=== PATIENT | female | born 1990 | race Two or more races ===

== ENCOUNTER 2023-12-10 14:48 | Inpatient (IN) | payer OTHER ==
[~2023-12-10] VITALS: Ht 162.6 cm; Wt 89.8 kg
[2023-12-10 16:10] VITALS: PULSE 94; RESP 20; O2SAT 96
[2023-12-10 16:48] LABS: Basophils # (auto) 0.1 10 ^3/uL (0-0.2); Eosinophils # (auto) 0 10 ^3/uL (0-0.8); Eosinophils % (auto) 0.4 % (0.0-7.0)
[2023-12-10 16:49] LABS: Hematocrit 19.5 % (36.0-46.0); Lymphocytes # (auto) 1.4 10 ^3/uL (0.4-5.4); Lymphocytes % (auto) 14.7 % (10.0-50.0); Mean Corpuscular Hemoglobin 36.9 pg (28.0-32.0); Mean Corpuscular Hgb Conc. 35.1 g/dL (32.0-36.0); Mean Corpuscular Volume 105.1 fL (80.0-100.0); Monocytes # (auto) 0.5 10 ^3/uL (0-1.3); Monocytes % (auto) 5.1 % (0.0-12.0); Neutrophils # (auto) 7.5 10 ^3/uL (1.6-8.6); Neutrophils % (auto) 78.8 % (37.0-80.0); Nucleated Red Blood Cells % 0.1 %; Red Blood Cells 1.86 10^6/uL (4.0-5.20); White Blood Cell 9.5 10^3/uL (4.4-10.8)
[2023-12-10 16:50] LABS: Red Cell Distribution Width 20.4 % (11.8-14.3)
[2023-12-10 16:55] LABS: Hemoglobin 6.8 g/dL (12.2-16.2)
[2023-12-10 17:01] LABS: Alkaline Phosphatase 98 U/L (46-116); Anion Gap 5 (5-15); Aspartate Aminotransferase 69 U/L (13-40); Calcium 9.5 mg/dL (8.7-10.4); Carbon Dioxide 29 mmol/L (20-30); Chloride 100 mmol/L (98-107); Glucose 92 mg/dL (74-106); Potassium 3.8 mmol/L (3.5-5.1); Sodium 134 mmol/L (136-145)
[2023-12-10 17:02] LABS: Bilirubin, Total 10.8 mg/dL (0.2-1.0); Total Protein 8.4 g/dL (5.7-8.2)
[2023-12-10 17:06] LABS: Alanine Aminotransferase < 9 U/L (7-40)
[2023-12-10 17:07] LABS: Lactic Acid w/Reflex 2.1 mmol/L (0.4-2.0)
[2023-12-10 17:11] LABS: BUN/Creatinine Ratio 9.3 (10.0-20.0); Blood Urea Nitrogen 10 mg/dL (9-23)
[2023-12-10] MEDS: ONDANSETRON HCL 4 MG/2 ML VIAL IV ONE (17:42)
[2023-12-10] MEDS: MORPHINE SULFATE 4 MG/ML SYR/VIAL IV ONE (17:42)
[2023-12-10 17:52] LABS: Ferritin > 1650.0 ng/mL (10-291)
[2023-12-10 17:53] LABS: INR 1.96 (0.9-1.15); Partial Thromboplastin Time 40.5 SEC (24.5-34.5); Prothrombin Time 19.7 sec (9.3-11.8)
[2023-12-10] MEDS: PIPERACILLIN-TAZOB 3.375GM 100 ML IV ONE (18:35)
[2023-12-10 18:49] LABS: Anisocytosis Slight; Macrocytosis Slight; Platelet Estimate Decreased
[2023-12-10 19:14] LABS: % Iron Saturation 73.5 % (15-50)
[2023-12-10 20:00] VITALS: PULSE 83; RESP 16; O2SAT 97
[2023-12-10] MEDS: KETOROLAC TROMETH 60MG/2ML VIAL IV ONE (20:44)
[2023-12-10] MEDS: METOCLOPRAMIDE HCL 5MG/ml INJ 2ml VIAL IV ONE (20:44)
[2023-12-10 21:00] VITALS: BP 116/49; PULSE 83; RESP 16; TEMP 99.2
[2023-12-10 21:25] VITALS: BP 98/48; PULSE 89; RESP 15; TEMP 99
[2023-12-10] MEDS ORDERED: NITROGLYCERIN 0.4 MG SL TAB SL PRN (22:45)
[2023-12-10] MEDS ORDERED: MORPHINE SULFATE INJ 2 MG/ml SYRG IV PRN (22:45)
[2023-12-10] MEDS ORDERED: LORazepam 2MG/ML-1ML VIAL IV PRN (22:45)
[2023-12-10 23:55] LABS: Urine Bacteria FEW /hpf (None Seen); Urine Blood TRACE /uL (Negative); Urine Clarity HAZY (Clear); Urine Color Yellow (Yellow); Urine Hyaline Cast MANY /lpf (0 - 2); Urine Mucus FEW (None Seen); Urine Protein, UAD TRACE (Negative); Urine Specific Gravity 1.014 (1.001-1.035); Urine Urobilinogen Normal (Negative); Urine WBC 3 /hpf (0 - 5)
[2023-12-11] VITALS (18 sets, daily range): BP systolic 87–155; BP diastolic 21–79; PULSE 71–81; RESP 12–25; TEMP 98.1–99; O2SAT 97–100
[2023-12-11] MEDS: ACCU-CHEK COMFORT CURVE STRIP VI SCH
[2023-12-11 00:01] LABS: Amphetamine Screen, Urine Neg (NEGATIVE); Barbiturate Scree,Urine Neg (NEGATIVE); Benzodiazephine Screen, Urine Pos (NEGATIVE); Cocaine Screen, Urine Neg (NEGATIVE); Opiate Scree,Urine Pos (NEGATIVE)
[2023-12-11 00:02] LABS: Cannabinoid Screen, Urine Pos (NEGATIVE); Phencyclidine Screen, Urine Neg (NEGATIVE)
[2023-12-11] MEDS: ALBUMIN 5% 250 ML IV ONE (00:02)
[2023-12-11] MEDS: phytonadione 10 MG in SODIUM CHL 0.9% 50 ML IV ONE (00:11)
[2023-12-11] MEDS: phytonadione 1 ML ONE (00:17)
[2023-12-11] MEDS: SODIUM CHLORIDE 0.9% 1,000 ML IV SCH (00:57)
[2023-12-11] MEDS: metroNIDAZOLE 500MG/100ML 100 ML IV ONE (00:57)
[2023-12-11] MEDS: metroNIDAZOLE 500MG/100ML 100 ML IV SCH (05:40)
[2023-12-11 08:29] LABS: Basophils # (auto) 0.1 10 ^3/uL (0-0.2); Basophils % (auto) 0.8 % (0.0-2.0); Eosinophils # (auto) 0.1 10 ^3/uL (0-0.8); Eosinophils % (auto) 1.1 % (0.0-7.0); Hematocrit 22.1 % (36.0-46.0); Hemoglobin 7.6 g/dL (12.2-16.2); Lymphocytes # (auto) 1.8 10 ^3/uL (0.4-5.4); Lymphocytes % (auto) 26.7 % (10.0-50.0); Mean Corpuscular Hemoglobin 34.5 pg (28.0-32.0); Mean Corpuscular Hgb Conc. 34.4 g/dL (32.0-36.0); Mean Corpuscular Volume 100.4 fL (80.0-100.0); Monocytes # (auto) 0.4 10 ^3/uL (0-1.3); Monocytes % (auto) 6.6 % (0.0-12.0); Neutrophils # (auto) 4.3 10 ^3/uL (1.6-8.6); Neutrophils % (auto) 64.8 % (37.0-80.0); Nucleated Red Blood Cells % 0.1 %; White Blood Cell 6.7 10^3/uL (4.4-10.8)
[2023-12-11 08:30] LABS: Red Cell Distribution Width 21.6 % (11.8-14.3)
[2023-12-11 08:47] LABS: Albumin 2.9 g/dL (3.2-4.8); Alkaline Phosphatase 82 U/L (46-116); Anion Gap 5 (5-15); Aspartate Aminotransferase 53 U/L (13-40); Bilirubin, Total 11.8 mg/dL (0.2-1.0); Blood Urea Nitrogen 17 mg/dL (9-23); Calcium 8.6 mg/dL (8.5-10.1); Carbon Dioxide 27 mmol/L (20-30); Chloride 101 mmol/L (98-107); Glucose 71 mg/dL (74-106); Potassium 3.4 mmol/L (3.5-5.1); Sodium 133 mmol/L (136-145)
[2023-12-11 08:48] LABS: Total Protein 7.1 g/dL (5.7-8.2)
[2023-12-11 08:50] LABS: Alanine Aminotransferase < 9 U/L (7-40)
[2023-12-11 08:53] LABS: Ferritin 1626.9 ng/mL (10-291)
[2023-12-11 08:54] LABS: Folate (Folic Acid) 12.56 ng/mL (>5.38)
[2023-12-11] MEDS: PANTOPRAZOLE 40 MG/10 ML VIAL INJ IV SCH (10:47)
[2023-12-11] MEDS: cefTRIAXone 1GM/50ML D5W 50 ML IV SCH (10:47)
[2023-12-11] MEDS: FUROSEMIDE 20 MG/2 ML VIAL IV SCH (10:47)
[2023-12-11] MEDS: ONDANSETRON HCL 4 MG/2 ML VIAL IV PRN (10:50)
[2023-12-11] MEDS: MORPHINE SULFATE INJ 2 MG/ml SYRG IV PRN (10:51)
[2023-12-11 11:54] LABS: BUN/Creatinine Ratio 9.4 (10.0-20.0)
[2023-12-11] MEDS: DEXTROSE (50%) 50ML SYRG IV PRN (12:31)
[2023-12-11 12:37] LABS: % Iron Saturation 71.7 % (15-50)
[2023-12-11] MEDS ORDERED: ACAM1TAB PO (17:18)
[2023-12-11] MEDS ORDERED: FOLI-119 PO (17:18)
[2023-12-11] MEDS ORDERED: IBUP-1456 PO (17:18)
[2023-12-11] MEDS ORDERED: FURO40TA4 PO (17:18)
[2023-12-11] MEDS ORDERED: THIA100T10 PO (17:18)
[2023-12-11] MEDS ORDERED: TORS20TA19 PO (17:18)
[2023-12-11] MEDS ORDERED: LEVE100012 PO (17:18)
[2023-12-11] MEDS ORDERED: TRAM50TA2 PO (17:18)
[2023-12-11] MEDS ORDERED: SPIR100T4 PO (17:18)
[2023-12-11] MEDS ORDERED: METO25TA93 PO (17:18)
[2023-12-11] MEDS ORDERED: CIPR250T3 PO (17:18)
[2023-12-11] MEDS ORDERED: GABA-1250 PO (17:18)
[2023-12-11] MEDS: FOLIC ACID 1 MG, MAGNESIUM SULF SDV 50% 8 MEQ, MULTIPLE VITAMIN 10 ML, THIAMINE INJ 100... INJ SCH (17:34)
[2023-12-11 19:05] LABS: Basophils # (auto) 0 10 ^3/uL (0-0.2); Basophils % (auto) 0.6 % (0.0-2.0); Eosinophils # (auto) 0.1 10 ^3/uL (0-0.8); Hematocrit 24.7 % (36.0-46.0); Hemoglobin 8.4 g/dL (12.2-16.2); Lymphocytes # (auto) 1.6 10 ^3/uL (0.4-5.4); Lymphocytes % (auto) 26.3 % (10.0-50.0); Mean Corpuscular Hemoglobin 34.2 pg (28.0-32.0); Mean Corpuscular Hgb Conc. 34.2 g/dL (32.0-36.0); Mean Corpuscular Volume 100.1 fL (80.0-100.0); Monocytes # (auto) 0.4 10 ^3/uL (0-1.3); Neutrophils % (auto) 65.1 % (37.0-80.0); Nucleated Red Blood Cells % 0.1 %; Red Blood Cells 2.46 10^6/uL (4.0-5.20); White Blood Cell 6.2 10^3/uL (4.4-10.8)
[2023-12-11 19:06] LABS: Red Cell Distribution Width 21.6 % (11.8-14.3)
[2023-12-12] VITALS (8 sets, daily range): BP systolic 92–110; BP diastolic 36–68; PULSE 76–96; RESP 16–20; TEMP 97.3–98.4; O2SAT 92–97
[2023-12-12 05:48] LABS: Basophils # (auto) 0.1 10 ^3/uL (0-0.2); Eosinophils # (auto) 0.1 10 ^3/uL (0-0.8); Mean Corpuscular Volume 99.6 fL (80.0-100.0); Monocytes # (auto) 0.4 10 ^3/uL (0-1.3)
[2023-12-12 05:55] LABS: Basophils % (auto) 1.3 % (0.0-2.0); Eosinophils % (auto) 1.9 % (0.0-7.0); Hematocrit 23.3 % (36.0-46.0); Hemoglobin 8.1 g/dL (12.2-16.2); Lymphocytes # (auto) 1.8 10 ^3/uL (0.4-5.4); Lymphocytes % (auto) 28.2 % (10.0-50.0); Mean Corpuscular Hemoglobin 34.6 pg (28.0-32.0); Mean Corpuscular Hgb Conc. 34.7 g/dL (32.0-36.0); Monocytes % (auto) 6.6 % (0.0-12.0); Red Blood Cells 2.34 10^6/uL (4.0-5.20); White Blood Cell 6.5 10^3/uL (4.4-10.8)
[2023-12-12 05:57] LABS: Red Cell Distribution Width 21.5 % (11.8-14.3)
[2023-12-12 06:18] LABS: Albumin 2.6 g/dL (3.2-4.8); Alkaline Phosphatase 77 U/L (46-116); Anion Gap 7 (5-15); BUN/Creatinine Ratio 11.2 (10.0-20.0); Blood Urea Nitrogen 19 mg/dL (9-23); Calcium 8.3 mg/dL (8.5-10.1); Carbon Dioxide 25 mmol/L (20-30); Chloride 105 mmol/L (98-107); Glucose 67 mg/dL (74-106); Potassium 3.1 mmol/L (3.5-5.1); Sodium 137 mmol/L (136-145)
[2023-12-12 06:19] LABS: Aspartate Aminotransferase 42 U/L (13-40); Bilirubin, Direct 2.2 mg/dL (<0.3); Bilirubin, Total 10.4 mg/dL (0.2-1.0); Total Protein 6.4 g/dL (5.7-8.2)
[2023-12-12 06:28] LABS: Alanine Aminotransferase < 9 U/L (7-40)
[2023-12-12] MEDS: POTASSIUM CHL 20 Meq TABLET PO ONE (08:15)
[2023-12-12 08:45] LABS: Hepatitis B Surface Antigen Negative (Negative)
[2023-12-12 09:06] LABS: Hepatitis C Antibody Negative (Negative)
[2023-12-12 09:11] LABS: Hepatitis B Core Total AB Negative (Negative)
[2023-12-12] MEDS: POTASSIUM CHLORIDE 20 MEQ, LIDOCAINE 1% (LOCAL ANESTH.) 2 ML in SODIUM CHL 0.9% 100 ML IV ONE (10:19)
[2023-12-12] MEDS: traMADol HCL 50 MG TAB PO PRN (11:00)
[2023-12-12 11:21] LABS: Hepatitis A Total Antibody Positive (Negative); Hepatitis B Surface Antibody Positive (Negative); Hepatitis B Surface Antigen Negative (Negative)
[2023-12-12 11:22] LABS: Hepatitis C Antibody Negative (Negative)
[2023-12-13] VITALS (9 sets, daily range): BP systolic 91–112; BP diastolic 46–55; PULSE 77–95; RESP 12–20; TEMP 97.4–98.3; O2SAT 96–100
[2023-12-13 06:18] LABS: Basophils # (auto) 0.1 10 ^3/uL (0-0.2); Eosinophils # (auto) 0.1 10 ^3/uL (0-0.8); Hematocrit 22.9 % (36.0-46.0); Hemoglobin 7.9 g/dL (12.2-16.2); Mean Corpuscular Hemoglobin 34.4 pg (28.0-32.0)
[2023-12-13 06:21] LABS: Basophils % (auto) 1.1 % (0.0-2.0); Eosinophils % (auto) 1.6 % (0.0-7.0); Lymphocytes # (auto) 1.6 10 ^3/uL (0.4-5.4); Lymphocytes % (auto) 26.1 % (10.0-50.0); Mean Corpuscular Hgb Conc. 34.6 g/dL (32.0-36.0); Mean Corpuscular Volume 99.6 fL (80.0-100.0); Monocytes # (auto) 0.4 10 ^3/uL (0-1.3); Monocytes % (auto) 5.9 % (0.0-12.0); Neutrophils % (auto) 65.3 % (37.0-80.0); Nucleated Red Blood Cells % 0.2 %
[2023-12-13 06:24] LABS: Red Cell Distribution Width 20.5 % (11.8-14.3)
[2023-12-13 06:31] LABS: Alkaline Phosphatase 75 U/L (46-116); Calcium 8.5 mg/dL (8.5-10.1); Chloride 107 mmol/L (98-107)
[2023-12-13 06:32] LABS: Albumin 2.6 g/dL (3.2-4.8); Anion Gap 6 (5-15); Aspartate Aminotransferase 41 U/L (13-40); BUN/Creatinine Ratio 14.1 (10.0-20.0); Bilirubin, Total 7.7 mg/dL (0.2-1.0); Blood Urea Nitrogen 14 mg/dL (9-23); Carbon Dioxide 26 mmol/L (20-30); Glucose 74 mg/dL (74-106); INR 1.62 (0.9-1.15); Partial Thromboplastin Time 39.3 SEC (24.5-34.5); Potassium 3.1 mmol/L (3.5-5.1); Prothrombin Time 16.5 sec (9.3-11.8); Sodium 139 mmol/L (136-145); Total Protein 6.7 g/dL (5.7-8.2)
[2023-12-13 06:35] LABS: Alanine Aminotransferase < 9 U/L (7-40)
[2023-12-13] MEDS ORDERED: SODIUM CHLORIDE LOCK 10 ML ONE (12:03)
[2023-12-13] MEDS: LIDOCAINE VISCOUS 2% 15ML UD ONE (12:14)
[2023-12-13] MEDS: diphenhdrAMINE HCL 50 MG/1 ML VL ONE (12:18)
[2023-12-13] MEDS: fentaNYL CITRATE 100 MCG/2 ML VL ONE (12:18)
[2023-12-13] MEDS: MIDAZOLAM HCL 5 MG/ML-1ML VIAL ONE (12:18)
[2023-12-13] MEDS: SUCRALFATE 1 GM/10 ML ORAL SUSP PO SCH (19:03)
[2023-12-13] MEDS: MELATONIN 5 MG TAB PO SCH (23:17)
[2023-12-14] VITALS (7 sets, daily range): BP systolic 101–113; BP diastolic 44–58; PULSE 68–93; RESP 16–21; TEMP 97.5–98.1; O2SAT 92–96
[2023-12-14] MEDS: NYSTATIN TOPICAL POWDER 15GM TOP SCH (21:34)
[2023-12-15] VITALS (7 sets, daily range): BP systolic 94–117; BP diastolic 45–55; PULSE 70–90; RESP 17–18; TEMP 98–98.3; O2SAT 91–97
[2023-12-16] VITALS (11 sets, daily range): BP systolic 81–138; BP diastolic 37–97; PULSE 15–107; RESP 15–20; TEMP 98–98.6; O2SAT 91–99
[2023-12-16] MEDS: ACETAMINOPHEN 325 MG TAB PO PRN (22:51)
[2023-12-17] VITALS (7 sets, daily range): BP systolic 82–118; BP diastolic 25–91; PULSE 71–91; RESP 15–19; TEMP 97.8–98.6; O2SAT 90–100
[2023-12-17] MEDS: SODIUM CHLORIDE 0.9% 500 ML IV ONE (11:30)
[2023-12-18] VITALS (7 sets, daily range): BP systolic 110–132; BP diastolic 36–62; PULSE 63–89; RESP 16–20; TEMP 97.7–98.5; O2SAT 97–100
[2023-12-18] MEDS ORDERED: HYDROCORTONE 1% TOPICAL CREAM 30 GM TUBE TOP SCH (14:00)
[2023-12-19] VITALS (8 sets, daily range): BP systolic 101–143; BP diastolic 48–78; PULSE 81–98; RESP 16–21; TEMP 97.5–98.8; O2SAT 92–100
[2023-12-19] MEDS: HYDROCORTONE 1% TOPICAL CREAM 30 GM TUBE TOP PRN (15:02)
[2023-12-19 20:10] LABS: Basophils # (auto) 0.1 10 ^3/uL (0-0.2); Basophils % (auto) 1.6 % (0.0-2.0); Eosinophils # (auto) 0.1 10 ^3/uL (0-0.8); Eosinophils % (auto) 2.2 % (0.0-7.0); Hematocrit 20.3 % (36.0-46.0); Lymphocytes # (auto) 1.3 10 ^3/uL (0.4-5.4); Lymphocytes % (auto) 34.9 % (10.0-50.0); Mean Corpuscular Hemoglobin 34.4 pg (28.0-32.0); Mean Corpuscular Hgb Conc. 32.8 g/dL (32.0-36.0); Mean Corpuscular Volume 104.8 fL (80.0-100.0); Monocytes # (auto) 0.4 10 ^3/uL (0-1.3); Monocytes % (auto) 9.5 % (0.0-12.0); Neutrophils % (auto) 51.8 % (37.0-80.0); Nucleated Red Blood Cells % 0.2 %; Red Blood Cells 1.94 10^6/uL (4.0-5.20); White Blood Cell 3.8 10^3/uL (4.4-10.8)
[2023-12-19 20:11] LABS: Red Cell Distribution Width 21.5 % (11.8-14.3)
[2023-12-19 20:14] LABS: Hemoglobin 6.7 g/dL (12.2-16.2)
[2023-12-19 20:23] LABS: Alkaline Phosphatase 85 U/L (46-116); Calcium 8.4 mg/dL (8.5-10.1); Carbon Dioxide 26 mmol/L (20-30); Chloride 106 mmol/L (98-107); Glucose 111 mg/dL (74-106); Potassium 2.9 mmol/L (3.5-5.1)
[2023-12-19 20:24] LABS: Albumin 2.6 g/dL (3.2-4.8); Anion Gap 7 (5-15); Aspartate Aminotransferase 46 U/L (13-40); Bilirubin, Total 2.8 mg/dL (0.2-1.0); Sodium 139 mmol/L (136-145); Total Protein 6.4 g/dL (5.7-8.2)
[2023-12-19 20:29] LABS: Alanine Aminotransferase 9 U/L (7-40); BUN/Creatinine Ratio 6.4 (10.0-20.0); Blood Urea Nitrogen < 5 mg/dL (9-23)
[2023-12-19] MEDS: POTASSIUM CHL 20 Meq TABLET PO ONE (21:41)
[2023-12-20] VITALS (10 sets, daily range): BP systolic 82–130; BP diastolic 28–56; PULSE 66–87; RESP 7–18; TEMP 97–98.5; O2SAT 90–98
[2023-12-20] MEDS: POTASSIUM CHL 20 Meq TABLET PO ONE ×2 (11:11→17:52)
[2023-12-20 16:31] LABS: Hemoglobin 8.4 g/dL (12.2-16.2)
[2023-12-20 16:32] LABS: Hematocrit 25.2 % (36.0-46.0)
[2023-12-21] VITALS (9 sets, daily range): BP systolic 99–139; BP diastolic 34–64; PULSE 75–88; RESP 14–20; TEMP 97.1–98; O2SAT 91–100
[2023-12-21 05:33] LABS: Basophils # (auto) 0.1 10 ^3/uL (0-0.2); Eosinophils # (auto) 0.1 10 ^3/uL (0-0.8); Monocytes # (auto) 0.4 10 ^3/uL (0-1.3); Neutrophils # (auto) 2.2 10 ^3/uL (1.6-8.6); White Blood Cell 4.1 10^3/uL (4.4-10.8)
[2023-12-21 05:37] LABS: Basophils % (auto) 2.9 % (0.0-2.0); Eosinophils % (auto) 2.7 % (0.0-7.0); Hematocrit 23.5 % (36.0-46.0); Hemoglobin 7.8 g/dL (12.2-16.2); Lymphocytes # (auto) 1.3 10 ^3/uL (0.4-5.4); Mean Corpuscular Hemoglobin 33.8 pg (28.0-32.0); Mean Corpuscular Hgb Conc. 33.2 g/dL (32.0-36.0); Mean Corpuscular Volume 101.7 fL (80.0-100.0); Monocytes % (auto) 9.3 % (0.0-12.0); Neutrophils % (auto) 54.1 % (37.0-80.0); Nucleated Red Blood Cells % 0.2 %; Red Blood Cells 2.31 10^6/uL (4.0-5.20)
[2023-12-21 05:38] LABS: Red Cell Distribution Width 21.8 % (11.8-14.3)
[2023-12-21 05:40] LABS: Anion Gap 6 (5-15); Carbon Dioxide 25 mmol/L (20-30); Chloride 106 mmol/L (98-107); Sodium 137 mmol/L (136-145)
[2023-12-21 05:41] LABS: Calcium 8.4 mg/dL (8.7-10.4)
[2023-12-21 05:46] LABS: Glucose 83 mg/dL (74-106)
[2023-12-21 05:56] LABS: BUN/Creatinine Ratio 7.1 (10.0-20.0); Blood Urea Nitrogen < 5 mg/dL (9-23)
[2023-12-21] MEDS: DOCUSATE SOD 100 MG CAP PO PRN (11:11)
[2023-12-21] MEDS: MORPHINE SULFATE INJ 2 MG/ml SYRG IV PRN (12:42)
[2023-12-21] MEDS ORDERED: PANT40TA2 PO (14:22)
[2023-12-21] MEDS ORDERED: HYDR-4902 PO (14:23)
[2023-12-22 01:00] VITALS: BP 112/46; PULSE 78; RESP 14; TEMP 97.9; O2SAT 92
[2023-12-22 05:00] VITALS: BP 109/46; PULSE 83; RESP 18; TEMP 97.9; O2SAT 95
[2023-12-22 07:05] LABS: Anion Gap 4 (5-15); Calcium 8.6 mg/dL (8.5-10.1); Carbon Dioxide 28 mmol/L (20-30); Chloride 106 mmol/L (98-107); Potassium 3.7 mmol/L (3.5-5.1); Sodium 138 mmol/L (136-145)
[2023-12-22 07:11] LABS: Glucose 73 mg/dL (74-106)
[2023-12-22 07:21] LABS: Blood Urea Nitrogen < 5 mg/dL (9-23)
[2023-12-22 08:19] VITALS: BP 130/52; PULSE 79; RESP 15; TEMP 98.9; O2SAT 94
[2023-12-22 08:30] VITALS: PULSE 77; PULSE 84
[2023-12-22 08:31] LABS: Basophils # (auto) 0.1 10 ^3/uL (0-0.2); Eosinophils # (auto) 0.1 10 ^3/uL (0-0.8); Lymphocytes # (auto) 1.3 10 ^3/uL (0.4-5.4)
[2023-12-22 08:33] LABS: Basophils % (auto) 2.2 % (0.0-2.0); Hematocrit 24.2 % (36.0-46.0); Lymphocytes % (auto) 30.4 % (10.0-50.0); Mean Corpuscular Hemoglobin 33.6 pg (28.0-32.0); Mean Corpuscular Hgb Conc. 33.1 g/dL (32.0-36.0); Mean Corpuscular Volume 101.4 fL (80.0-100.0); Monocytes # (auto) 0.4 10 ^3/uL (0-1.3); Monocytes % (auto) 8.3 % (0.0-12.0); Neutrophils # (auto) 2.5 10 ^3/uL (1.6-8.6); Neutrophils % (auto) 56.1 % (37.0-80.0); Nucleated Red Blood Cells % 0.1 %; Red Blood Cells 2.38 10^6/uL (4.0-5.20); White Blood Cell 4.4 10^3/uL (4.4-10.8)
[2023-12-22 08:45] LABS: Red Cell Distribution Width 21.3 % (11.8-14.3)
== END 2023-12-22 10:00 | disposition home or self-care (01) | DRG 280 ==
LOC: EDBD 14:48 → ER 14:48 → TELE 22:47 → TELE-EAST 12-11 15:30
PROVIDERS: ADMIT Nurse Practitioner Family; ATTEND Internal Medicine
PROC: 30233N1 Transfusion of Nonautologous Red Blood Cells into Peripheral Vein, Percutaneous Approach (ICD-10-PCS; principal; 2023-12-10)
PROC: 30233K1 Transfusion of Nonautologous Frozen Plasma into Peripheral Vein, Percutaneous Approach (ICD-10-PCS; 2023-12-11)
PROC: 0DB98ZX Excision of Duodenum, Via Natural or Artificial Opening Endoscopic, Diagnostic (ICD-10-PCS; 2023-12-13)
PROC: 0DB68ZX Excision of Stomach, Via Natural or Artificial Opening Endoscopic, Diagnostic (ICD-10-PCS; 2023-12-13)
DX: K70.30 Alcoholic cirrhosis of liver without ascites (principal); K70.10 Alcoholic hepatitis without ascites; N17.0 Acute kidney failure with tubular necrosis; E43 Unspecified severe protein-calorie malnutrition; K29.71 Gastritis, unspecified, with bleeding; K80.00 Calculus of gallbladder with acute cholecystitis without obstruction; I95.9 Hypotension, unspecified; E87.20 Acidosis, unspecified; D69.6 Thrombocytopenia, unspecified; D68.9 Coagulation defect, unspecified; D62 Acute posthemorrhagic anemia; K76.6 Portal hypertension; B15.9 Hepatitis A without hepatic coma; I11.0 Hypertensive heart disease with heart failure; I50.9 Heart failure, unspecified; K62.89 Other specified diseases of anus and rectum; F10.10 Alcohol abuse, uncomplicated; K31.9 Disease of stomach and duodenum, unspecified; Y90.9 Presence of alcohol in blood, level not specified; Z68.34 Body mass index [BMI] 34.0-34.9, adult
CPT/HCPCS: 36415; 43239; 70450; 74176; 74181; 76705; 80048; 80053; 80307; 81001; 82140; 82248; 82607; 82728; 82746; 82962; 83540; 83550; 83605; 83615; 83690; 83880; 84484; 84702; 85014; 85018; 85025; 85045; 85610; 85730; 86704; 86706; 86708; 86803; 86850; 86900; 86901; 86920; 87040; 87081; 87086; 87340; 87493; 93005; 99291; C9113; G0378; J1885; J2001; J2250; J2405; J2543; J3430; J3490

== ENCOUNTER 2024-02-11 21:59 | Inpatient (IN) | payer MEDICAID ==
[~2024-02-11] VITALS: Ht 162.6 cm; Wt 74.6 kg
[~2024-02-11 21:59] MED LIST: ACAM1TAB PO; CIPR250T3 PO; FOLI-119 PO; FURO40TA4 PO; GABA-1250 PO; HYDR-4902 PO; LEVE100012 PO; METO25TA93 PO; PANT40TA2 PO; SPIR100T4 PO; THIA100T10 PO; TORS20TA19 PO; TRAM50TA2 PO
[2024-02-11] MEDS: SODIUM CHLORIDE 0.9% 500 ML IV ONE (22:15)
[2024-02-11 22:52] LABS: Eosinophils # (auto) 0.1 10 ^3/uL (0-0.8); Hematocrit 20.7 % (36.0-46.0); Hemoglobin 7.3 g/dL (12.2-16.2); Lymphocytes # (auto) 1.3 10 ^3/uL (0.4-5.4); Lymphocytes % (auto) 32.4 % (10.0-50.0); Mean Corpuscular Volume 104.9 fL (80.0-100.0); Neutrophils # (auto) 2.3 10 ^3/uL (1.6-8.6)
[2024-02-11 22:53] LABS: Basophils # (auto) 0.1 10 ^3/uL (0-0.2); Basophils % (auto) 1.4 % (0.0-2.0); Eosinophils % (auto) 2.7 % (0.0-7.0); Mean Corpuscular Hemoglobin 37.1 pg (28.0-32.0); Mean Corpuscular Hgb Conc. 35.4 g/dL (32.0-36.0); Monocytes # (auto) 0.2 10 ^3/uL (0-1.3); Monocytes % (auto) 5.3 % (0.0-12.0); Neutrophils % (auto) 58.2 % (37.0-80.0); Red Blood Cells 1.98 10^6/uL (4.0-5.20); Red Cell Distribution Width 14.5 % (11.8-14.3)
[2024-02-11 23:04] LABS: Alanine Aminotransferase 20 U/L (7-40); Albumin 3.4 g/dL (3.2-4.8); Alkaline Phosphatase 69 U/L (46-116); Anion Gap 11 (5-15); Aspartate Aminotransferase 46 U/L (13-40); BUN/Creatinine Ratio 5.6 (10.0-20.0); Blood Urea Nitrogen 16 mg/dL (9-23); Calcium 9.7 mg/dL (8.5-10.1); Carbon Dioxide 24 mmol/L (20-30); Chloride 100 mmol/L (98-107); Glucose 92 mg/dL (74-106); Potassium 3.9 mmol/L (3.5-5.1); Sodium 135 mmol/L (136-145)
[2024-02-11 23:05] LABS: Bilirubin, Total 5.6 mg/dL (0.2-1.0); Total Protein 8.6 g/dL (5.7-8.2)
[2024-02-11 23:06] LABS: INR 1.5 (0.9-1.15); Partial Thromboplastin Time 31.3 SEC (24.5-34.5); Prothrombin Time 15.4 sec (9.3-11.8)
[2024-02-12] VITALS (31 sets, daily range): BP systolic 90–157; BP diastolic 40–133; PULSE 59–95; RESP 8–32; TEMP 98.4–98.5; O2SAT 84–100
[2024-02-12] MEDS: LACTULOSE 20Gm/30ML SOLN PO ONE (00:11)
[2024-02-12] MEDS ORDERED: DOCUSATE SOD 100 MG CAP PO PRN (01:00)
[2024-02-12] MEDS ORDERED: MORPHINE SULFATE INJ 2 MG/ml SYRG IV PRN (01:00)
[2024-02-12] MEDS ORDERED: NITROGLYCERIN 0.4 MG SL TAB SL PRN (01:00)
[2024-02-12] MEDS: metroNIDAZOLE 500MG/100ML 100 ML IV SCH (01:15)
[2024-02-12] MEDS: cefTRIAXone 1GM/50ML D5W 50 ML IV SCH (01:15)
[2024-02-12 02:08] LABS: Urine Bacteria None Seen /hpf (None Seen)
[2024-02-12] MEDS: ALBUMIN 25% 100 ML IV ONE (02:52)
[2024-02-12 03:06] LABS: Urine Blood TRACE /uL (Negative); Urine Clarity Turbid (Clear); Urine Color Yellow (Yellow); Urine Hyaline Cast MANY /lpf (0 - 2); Urine Mucus FEW (None Seen); Urine Protein, UAD TRACE (Negative); Urine Urobilinogen Normal (Negative); Urine WBC 8 /hpf (0 - 5); Urine pH 5.5 (5.0-9.0)
[2024-02-12] MEDS: NOREPINEPHRINE 8 MG/250ML KIT 250 ML IV SCH (04:53)
[2024-02-12] MEDS: LACTULOSE 20Gm/30ML SOLN PO SCH (06:00)
[2024-02-12] MEDS: ONDANSETRON HCL 4 MG/2 ML VIAL IV PRN (06:04)
[2024-02-12] MEDS: MORPHINE SULFATE INJ 2 MG/ml SYRG IV PRN (06:04)
[2024-02-12 06:52] LABS: Basophils # (auto) 0 10 ^3/uL (0-0.2); Eosinophils # (auto) 0.1 10 ^3/uL (0-0.8); Hemoglobin 7.2 g/dL (12.2-16.2); Neutrophils # (auto) 1.8 10 ^3/uL (1.6-8.6); Red Blood Cells 1.93 10^6/uL (4.0-5.20); Red Cell Distribution Width 14.9 % (11.8-14.3)
[2024-02-12 07:13] LABS: Chloride 104 mmol/L (98-107); Potassium 3.5 mmol/L (3.5-5.1); Sodium 138 mmol/L (136-145)
[2024-02-12 07:14] LABS: Anion Gap 11 (5-15); Calcium 9.5 mg/dL (8.5-10.1); Carbon Dioxide 23 mmol/L (20-30)
[2024-02-12 07:19] LABS: BUN/Creatinine Ratio 6.1 (10.0-20.0); Blood Urea Nitrogen 16 mg/dL (9-23); Glucose 83 mg/dL (74-106)
[2024-02-12 07:20] LABS: Basophils % (auto) 0.8 % (0.0-2.0); Eosinophils % (auto) 2.9 % (0.0-7.0); Hematocrit 20.6 % (36.0-46.0); Lymphocytes # (auto) 1.4 10 ^3/uL (0.4-5.4); Lymphocytes % (auto) 39.3 % (10.0-50.0); Mean Corpuscular Hemoglobin 37.2 pg (28.0-32.0); Mean Corpuscular Hgb Conc. 34.9 g/dL (32.0-36.0); Mean Corpuscular Volume 106.5 fL (80.0-100.0); Monocytes # (auto) 0.1 10 ^3/uL (0-1.3); Monocytes % (auto) 3.8 % (0.0-12.0); Neutrophils % (auto) 53.2 % (37.0-80.0); White Blood Cell 3.5 10^3/uL (4.4-10.8)
[2024-02-12 11:19] LABS: Creatinine, Urine 97.15 mg/dL (30.0-125.0)
[2024-02-12 11:20] LABS: Magnesium 1.7 mg/dL (1.6-2.6); Phosphorus 3.7 mg/dL (2.4-5.1)
[2024-02-12 12:27] LABS: Hematocrit 20.6 % (36.0-46.0)
[2024-02-12] MEDS: OCTREOTIDE ACETATE 100 MCG/ML VL SUBCUT SCH (14:30)
[2024-02-12] MEDS: MIDODRINE HCL 10 MG TAB PO SCH (17:37)
[2024-02-12 19:27] LABS: Hematocrit 23.6 % (36.0-46.0)
[2024-02-13] VITALS (89 sets, daily range): BP systolic 75–168; BP diastolic 24–94; PULSE 46–105; RESP 9–28; TEMP 97.7–98.8; O2SAT 82–100
[2024-02-13 00:56] LABS: Hematocrit 19.8 % (36.0-46.0)
[2024-02-13 00:58] LABS: Hemoglobin 6.7 g/dL (12.2-16.2)
[2024-02-13 02:11] LABS: Chloride 104 mmol/L (98-107); Potassium 3.7 mmol/L (3.5-5.1); Sodium 139 mmol/L (136-145)
[2024-02-13 02:12] LABS: Anion Gap 10 (5-15); Calcium 9.6 mg/dL (8.7-10.4); Carbon Dioxide 25 mmol/L (20-30)
[2024-02-13 02:17] LABS: BUN/Creatinine Ratio 6.8 (10.0-20.0); Blood Urea Nitrogen 13 mg/dL (9-23); Glucose 143 mg/dL (74-106)
[2024-02-13 09:31] LABS: Basophils # (auto) 0 10 ^3/uL (0-0.2); Basophils % (auto) 0.5 % (0.0-2.0); Eosinophils # (auto) 0.2 10 ^3/uL (0-0.8); Hematocrit 27.5 % (36.0-46.0); Hemoglobin 9.3 g/dL (12.2-16.2); Lymphocytes # (auto) 1.8 10 ^3/uL (0.4-5.4); Lymphocytes % (auto) 33.1 % (10.0-50.0); Mean Corpuscular Hemoglobin 34.6 pg (28.0-32.0); Mean Corpuscular Hgb Conc. 33.8 g/dL (32.0-36.0); Mean Corpuscular Volume 102.3 fL (80.0-100.0); Monocytes # (auto) 0.4 10 ^3/uL (0-1.3); Monocytes % (auto) 6.6 % (0.0-12.0); Neutrophils % (auto) 55.8 % (37.0-80.0); Nucleated Red Blood Cells % 0.2 %; Red Blood Cells 2.69 10^6/uL (4.0-5.20); Red Cell Distribution Width 17.5 % (11.8-14.3); White Blood Cell 5.3 10^3/uL (4.4-10.8)
[2024-02-13] MEDS: MAGNESIUM SULFATE 1GM/100ML 100 ML IV SCH (11:55)
[2024-02-13] MEDS: ATROPINE SULF 1 MG/10ml SYR IV ONE (15:15)
[2024-02-13] MEDS ORDERED: ATROPINE SULF 1 MG/10ml SYR IV PRN (15:45)
[2024-02-13] MEDS: POTASSIUM EFFERVESENT TAB 25 MEQ GT ONE (16:30)
[2024-02-13] MEDS: DOPamine 1600MCG/ML D5W 250 ML IV SCH (19:46)
[2024-02-13] MEDS: traMADol HCL 50 MG TAB PO PRN (21:31)
[2024-02-13] MEDS: NOREPINEPHRINE 8 MG/250ML KIT 250 ML IV SCH (22:45)
[2024-02-14] VITALS (53 sets, daily range): BP systolic 103–155; BP diastolic 33–79; PULSE 58–114; RESP 8–18; TEMP 98.6–99.1; O2SAT 88–100
[2024-02-14] MEDS: METOCLOPRAMIDE HCL 5MG/ml INJ 2ml VIAL IV ONE (00:32)
[2024-02-14 05:27] LABS: Eosinophils # (auto) 0.2 10 ^3/uL (0-0.8); Monocytes # (auto) 0.3 10 ^3/uL (0-1.3); Red Blood Cells 2.43 10^6/uL (4.0-5.20); White Blood Cell 4.7 10^3/uL (4.4-10.8)
[2024-02-14 05:31] LABS: Basophils # (auto) 0.1 10 ^3/uL (0-0.2); Basophils % (auto) 1.4 % (0.0-2.0); Eosinophils % (auto) 3.6 % (0.0-7.0); Hematocrit 24.5 % (36.0-46.0); Hemoglobin 8.6 g/dL (12.2-16.2); Lymphocytes # (auto) 1.5 10 ^3/uL (0.4-5.4); Lymphocytes % (auto) 32.6 % (10.0-50.0); Mean Corpuscular Hemoglobin 35.6 pg (28.0-32.0); Mean Corpuscular Hgb Conc. 35.2 g/dL (32.0-36.0); Neutrophils # (auto) 2.6 10 ^3/uL (1.6-8.6); Neutrophils % (auto) 55.4 % (37.0-80.0); Nucleated Red Blood Cells % 0.2 %; Red Cell Distribution Width 17.2 % (11.8-14.3)
[2024-02-14 05:34] LABS: Anion Gap 7 (5-15); Carbon Dioxide 27 mmol/L (20-30); Chloride 103 mmol/L (98-107); Potassium 3.7 mmol/L (3.5-5.1); Sodium 137 mmol/L (136-145)
[2024-02-14 05:35] LABS: Calcium 9.4 mg/dL (8.5-10.1)
[2024-02-14 05:40] LABS: BUN/Creatinine Ratio 5.8 (10.0-20.0); Blood Urea Nitrogen 6 mg/dL (9-23); Glucose 108 mg/dL (74-106)
[2024-02-14 05:41] LABS: Magnesium 1.4 mg/dL (1.6-2.6)
[2024-02-14] MEDS: ACETAMINOPHEN 325 MG TAB PO PRN (09:06)
[2024-02-14] MEDS: ACETAMINOPHEN 325 MG TAB PO ONE (09:07)
[2024-02-14] MEDS: MAGNESIUM SULFATE 1GM/100ML 100 ML IV SCH (13:05)
[2024-02-14] MEDS: MAGNESIUM SULFATE 1GM/100ML 200 ML IV ONE (13:05)
[2024-02-14] MEDS: DOPamine 1600MCG/ML D5W 250 ML IV SCH ×2 (16:15→17:00)
[2024-02-15] VITALS (60 sets, daily range): BP systolic 99–172; BP diastolic 29–75; PULSE 46–105; RESP 8–26; TEMP 97.6–99.1; O2SAT 82–100
[2024-02-15 06:36] LABS: Eosinophils # (auto) 0.1 10 ^3/uL (0-0.8); Mean Corpuscular Volume 101.5 fL (80.0-100.0); Monocytes # (auto) 0.2 10 ^3/uL (0-1.3); Red Cell Distribution Width 16.7 % (11.8-14.3)
[2024-02-15 06:39] LABS: Basophils # (auto) 0 10 ^3/uL (0-0.2); Basophils % (auto) 0.8 % (0.0-2.0); Eosinophils % (auto) 3.5 % (0.0-7.0); Hematocrit 24.6 % (36.0-46.0); Hemoglobin 8.6 g/dL (12.2-16.2); Lymphocytes # (auto) 1.2 10 ^3/uL (0.4-5.4); Lymphocytes % (auto) 34.7 % (10.0-50.0); Mean Corpuscular Hemoglobin 35.5 pg (28.0-32.0); Monocytes % (auto) 6.5 % (0.0-12.0); Neutrophils # (auto) 1.9 10 ^3/uL (1.6-8.6); Neutrophils % (auto) 54.5 % (37.0-80.0); Nucleated Red Blood Cells % 0.3 %; Red Blood Cells 2.42 10^6/uL (4.0-5.20); White Blood Cell 3.5 10^3/uL (4.4-10.8)
[2024-02-15 06:50] LABS: Anion Gap 7 (5-15); Carbon Dioxide 28 mmol/L (20-30); Chloride 102 mmol/L (98-107); Potassium 3.6 mmol/L (3.5-5.1); Sodium 137 mmol/L (136-145)
[2024-02-15 06:56] LABS: Glucose 102 mg/dL (74-106)
[2024-02-15 06:58] LABS: BUN/Creatinine Ratio 5.7 (10.0-20.0); Blood Urea Nitrogen < 5 mg/dL (9-23)
[2024-02-16 05:00] VITALS: BP 97/52; PULSE 60; RESP 16; TEMP 97.7; O2SAT 100
[2024-02-16 07:20] LABS: Hemoglobin 8.3 g/dL (12.2-16.2); Lymphocytes # (auto) 1.6 10 ^3/uL (0.4-5.4); Neutrophils # (auto) 2.4 10 ^3/uL (1.6-8.6); White Blood Cell 4.6 10^3/uL (4.4-10.8)
[2024-02-16 07:24] LABS: Basophils # (auto) 0 10 ^3/uL (0-0.2); Basophils % (auto) 1.1 % (0.0-2.0); Eosinophils # (auto) 0.2 10 ^3/uL (0-0.8); Eosinophils % (auto) 3.6 % (0.0-7.0); Hematocrit 24.2 % (36.0-46.0); Lymphocytes % (auto) 34.9 % (10.0-50.0); Mean Corpuscular Hemoglobin 35.2 pg (28.0-32.0); Mean Corpuscular Hgb Conc. 34.2 g/dL (32.0-36.0); Mean Corpuscular Volume 102.9 fL (80.0-100.0); Monocytes # (auto) 0.4 10 ^3/uL (0-1.3); Monocytes % (auto) 8.8 % (0.0-12.0); Neutrophils % (auto) 51.6 % (37.0-80.0); Nucleated Red Blood Cells % 0.3 %; Red Blood Cells 2.35 10^6/uL (4.0-5.20); Red Cell Distribution Width 16.4 % (11.8-14.3)
[2024-02-16 07:29] LABS: Chloride 102 mmol/L (98-107); Potassium 3.7 mmol/L (3.5-5.1); Sodium 137 mmol/L (136-145)
[2024-02-16 07:30] LABS: Anion Gap 8 (5-15); Carbon Dioxide 27 mmol/L (20-30)
[2024-02-16 07:35] LABS: Blood Urea Nitrogen 5 mg/dL (9-23); Glucose 88 mg/dL (74-106)
[2024-02-16 08:00] VITALS: PULSE 49; PULSE 50; RESP 20; O2SAT 99
[2024-02-16 09:00] VITALS: BP 119/62; PULSE 49; RESP 20; TEMP 98.2; O2SAT 99
[2024-02-16 13:00] VITALS: BP 88/44; PULSE 49; RESP 16; TEMP 98.2; O2SAT 95
[2024-02-16] MEDS ORDERED: MID10T PO (15:26)
[2024-02-16 17:00] VITALS: BP 119/61; PULSE 57; RESP 20; TEMP 97.7; O2SAT 99
[2024-02-16 17:51] VITALS: BP 119/61; PULSE 57; RESP 20; TEMP 97.7; O2SAT 99
== END 2024-02-16 19:09 | disposition home or self-care (01) | DRG 816 ==
LOC: ER 21:59 → EDBD 21:59 → TELE 02-12 01:03 → ICU WEST 02-12 16:54 → ICU CENTRL 02-13 12:20 → DOU IN ICU 02-14 17:56 → TELE-EAST 02-15 21:50
PROVIDERS: ADMIT Nurse Practitioner Family; ATTEND Nurse Practitioner Family
PROC: 30233N1 Transfusion of Nonautologous Red Blood Cells into Peripheral Vein, Percutaneous Approach (ICD-10-PCS; principal; 2024-02-13)
DX: T51.91XA Toxic effect of unspecified alcohol, accidental (unintentional), initial encounter (principal); K76.7 Hepatorenal syndrome; G93.41 Metabolic encephalopathy; G92.8 Other toxic encephalopathy; K70.40 Alcoholic hepatic failure without coma; I95.9 Hypotension, unspecified; K76.82 Hepatic encephalopathy; N17.9 Acute kidney failure, unspecified; D69.6 Thrombocytopenia, unspecified; I11.0 Hypertensive heart disease with heart failure; I50.9 Heart failure, unspecified; D50.0 Iron deficiency anemia secondary to blood loss (chronic); F10.129 Alcohol abuse with intoxication, unspecified; E83.42 Hypomagnesemia; F10.139 Alcohol abuse with withdrawal, unspecified; K70.30 Alcoholic cirrhosis of liver without ascites; R00.1 Bradycardia, unspecified; K80.20 Calculus of gallbladder without cholecystitis without obstruction; Y90.9 Presence of alcohol in blood, level not specified; Z79.891 Long term (current) use of opiate analgesic; Z79.1 Long term (current) use of non-steroidal anti-inflammatories (NSAID); Z83.3 Family history of diabetes mellitus; Z82.49 Family history of ischemic heart disease and other diseases of the circulatory system; Z79.899 Other long term (current) drug therapy
CPT/HCPCS: 36415; 73120; 74176; 76775; 80048; 80053; 81001; 82140; 82306; 82570; 83735; 83970; 84100; 84132; 84300; 84702; 85014; 85018; 85025; 85610; 85730; 86850; 86900; 86901; 86920; 87040; 87081; 87086; 93005; 93306; 99291; G0378; J2405; J3490; P9047

== ENCOUNTER 2024-04-03 19:09 | Inpatient (IN) | payer MEDICAID ==
[~2024-04-03] VITALS: Ht 160.8 cm; Wt 72.5 kg
[~2024-04-03 19:09] MED LIST changes: -CIPR250T3 PO; -FURO40TA4 PO; -HYDR-4902 PO; -METO25TA93 PO; +MID10T PO; -SPIR100T4 PO; -TORS20TA19 PO
[2024-04-03 20:41] LABS: Basophils # (auto) 0 10 ^3/uL (0-0.2); Basophils % (auto) 0.7 % (0.0-2.0); Eosinophils # (auto) 0.1 10 ^3/uL (0-0.8); Eosinophils % (auto) 2.7 % (0.0-7.0); Hematocrit 21.2 % (36.0-46.0); Hemoglobin 7.5 g/dL (12.2-16.2); Lymphocytes # (auto) 1.5 10 ^3/uL (0.4-5.4); Lymphocytes % (auto) 33.7 % (10.0-50.0); Mean Corpuscular Hemoglobin 37.6 pg (28.0-32.0); Mean Corpuscular Hgb Conc. 35.3 g/dL (32.0-36.0); Mean Corpuscular Volume 106.5 fL (80.0-100.0); Monocytes # (auto) 0.2 10 ^3/uL (0-1.3); Monocytes % (auto) 5.4 % (0.0-12.0); Neutrophils # (auto) 2.6 10 ^3/uL (1.6-8.6); Neutrophils % (auto) 57.5 % (37.0-80.0); Nucleated Red Blood Cells % 0.2 %; Red Blood Cells 1.99 10^6/uL (4.0-5.20); Red Cell Distribution Width 17.1 % (11.8-14.3); White Blood Cell 4.4 10^3/uL (4.4-10.8)
[2024-04-03 20:56] LABS: INR 1.5 (0.9-1.15); Partial Thromboplastin Time 32.3 SEC (24.5-34.5); Prothrombin Time 15.4 sec (9.3-11.8)
[2024-04-03 20:59] LABS: Alanine Aminotransferase 47 U/L (7-40); Albumin 3.4 g/dL (3.2-4.8); Alkaline Phosphatase 78 U/L (46-116); Anion Gap 9 (5-15); Aspartate Aminotransferase 115 U/L (13-40); Blood Urea Nitrogen 15 mg/dL (9-23); Calcium 9.4 mg/dL (8.5-10.1); Carbon Dioxide 26 mmol/L (20-30); Chloride 100 mmol/L (98-107); Glucose 111 mg/dL (74-106); Magnesium 1.7 mg/dL (1.6-2.6); Potassium 3.9 mmol/L (3.5-5.1); Sodium 135 mmol/L (136-145)
[2024-04-03 21:00] LABS: Bilirubin, Total 7.8 mg/dL (0.2-1.0); Total Protein 7.7 g/dL (5.7-8.2)
[2024-04-03 21:08] LABS: Urine Bacteria FEW /hpf (None Seen); Urine Blood TRACE /uL (Negative); Urine Clarity Turbid (Clear); Urine Color Yellow (Yellow); Urine Hyaline Cast MOD /lpf (0 - 2); Urine Mucus FEW (None Seen); Urine Protein, UAD Negative (Negative); Urine Specific Gravity 1.011 (1.001-1.035); Urine Urobilinogen Normal (Negative); Urine WBC 2 /hpf (0 - 5); Urine pH 5.5 (5.0-9.0)
[2024-04-03 21:14] LABS: Amphetamine Screen, Urine Neg (NEGATIVE); Barbiturate Scree,Urine Neg (NEGATIVE); Benzodiazephine Screen, Urine Neg (NEGATIVE); Cannabinoid Screen, Urine Pos (NEGATIVE); Cocaine Screen, Urine Neg (NEGATIVE); Opiate Scree,Urine Neg (NEGATIVE); Phencyclidine Screen, Urine Neg (NEGATIVE)
[2024-04-03 22:45] VITALS: PULSE 66; RESP 15; O2SAT 100
[2024-04-04] VITALS (7 sets, daily range): BP systolic 91–109; BP diastolic 31–54; PULSE 52–64; RESP 16–20; TEMP 98.1–98.9; O2SAT 96–100
[2024-04-04] MEDS: MIDODRINE HCL 10 MG TAB PO ONE (00:16)
[2024-04-04] MEDS ORDERED: ONDANSETRON HCL 4 MG/2 ML VIAL IV PRN (00:45)
[2024-04-04] MEDS ORDERED: IBUPROFEN 600 MG TAB PO PRN (00:45)
[2024-04-04] MEDS: ALBUMIN 25% 100 ML IV ONE ×2 (02:13→02:14)
[2024-04-04] MEDS ORDERED: MORPHINE SULFATE INJ 2 MG/ml SYRG IV PRN (02:45)
[2024-04-04] MEDS ORDERED: NITROGLYCERIN 0.4 MG SL TAB SL PRN (02:45)
[2024-04-04] MEDS: SODIUM CHLOR 0.9% PF (SALINE LOCK) 10ML VIAL/SYR IV SCH (05:39)
[2024-04-04] MEDS: MIDODRINE HCL 10 MG TAB PO SCH (06:01)
[2024-04-04] MEDS: THIAMINE HCL 100 MG TAB PO SCH (10:21)
[2024-04-04] MEDS: levETIRAcetam 1000 mg/100ml 100 ML IV SCH (10:21)
[2024-04-04] MEDS: FOLIC ACID 1 MG TAB PO SCH (10:21)
[2024-04-04] MEDS ORDERED: MAGN400T40 PO (13:29)
[2024-04-04 13:56] LABS: Basophils # (auto) 0 10 ^3/uL (0-0.2); Basophils % (auto) 0.7 % (0.0-2.0); Eosinophils # (auto) 0.1 10 ^3/uL (0-0.8); Eosinophils % (auto) 3.1 % (0.0-7.0); Hematocrit 21.8 % (36.0-46.0); Hemoglobin 7.5 g/dL (12.2-16.2); Lymphocytes # (auto) 1.6 10 ^3/uL (0.4-5.4); Lymphocytes % (auto) 37.9 % (10.0-50.0); Mean Corpuscular Hemoglobin 36.4 pg (28.0-32.0); Mean Corpuscular Hgb Conc. 34.6 g/dL (32.0-36.0); Monocytes # (auto) 0.3 10 ^3/uL (0-1.3); Monocytes % (auto) 6.6 % (0.0-12.0); Neutrophils # (auto) 2.2 10 ^3/uL (1.6-8.6); Neutrophils % (auto) 51.7 % (37.0-80.0); Nucleated Red Blood Cells % 0.3 %; Red Blood Cells 2.07 10^6/uL (4.0-5.20); Red Cell Distribution Width 16.8 % (11.8-14.3); White Blood Cell 4.3 10^3/uL (4.4-10.8)
[2024-04-04 14:00] LABS: Chloride 100 mmol/L (98-107); Potassium 3.6 mmol/L (3.5-5.1); Sodium 137 mmol/L (136-145)
[2024-04-04 14:01] LABS: Anion Gap 5 (5-15); Calcium 9.6 mg/dL (8.5-10.1); Carbon Dioxide 32 mmol/L (20-30)
[2024-04-04 14:06] LABS: BUN/Creatinine Ratio 9.7 (10.0-20.0); Blood Urea Nitrogen 10 mg/dL (9-23); Glucose 79 mg/dL (74-106); Triglycerides 123 mg/dL (< 150)
[2024-04-04 14:07] LABS: LDL Cholesterol 73 mg/dL (< 100); Magnesium 1.7 mg/dL (1.6-2.6)
[2024-04-04 14:08] LABS: Cholesterol 235 mg/dL (< 200); HDL Cholesterol 31 mg/dL (40-59)
[2024-04-04] MEDS ORDERED: ACYC400T16 PO (14:11)
[2024-04-04] MEDS ORDERED: ESCI20TA PO (14:12)
[2024-04-04] MEDS ORDERED: POTA-220 PO (14:15)
[2024-04-04] MEDS ORDERED: FURO40TA4 PO (14:17)
[2024-04-04] MEDS ORDERED: DOXY150C6 PO (14:25)
[2024-04-04] MEDS ORDERED: DOX100PBAE PO (14:25)
[2024-04-04] MEDS: DOCUSATE SOD 100 MG CAP PO PRN (21:07)
[2024-04-04] MEDS: HYDROcodone-ACET 5/325MG TAB PO PRN (21:08)
[2024-04-05] VITALS (9 sets, daily range): BP systolic 74–129; BP diastolic 30–83; PULSE 56–88; RESP 18–21; TEMP 97.2–98.5; O2SAT 95–100
[2024-04-05 05:45] LABS: Basophils # (auto) 0 10 ^3/uL (0-0.2); Basophils % (auto) 0.4 % (0.0-2.0); Eosinophils # (auto) 0.1 10 ^3/uL (0-0.8); Monocytes # (auto) 0.3 10 ^3/uL (0-1.3); Neutrophils # (auto) 2.2 10 ^3/uL (1.6-8.6)
[2024-04-05 05:47] LABS: Eosinophils % (auto) 2.6 % (0.0-7.0); Lymphocytes # (auto) 1.7 10 ^3/uL (0.4-5.4); Lymphocytes % (auto) 39.1 % (10.0-50.0); Mean Corpuscular Hemoglobin 36.9 pg (28.0-32.0); Mean Corpuscular Hgb Conc. 35.3 g/dL (32.0-36.0); Mean Corpuscular Volume 104.4 fL (80.0-100.0); Monocytes % (auto) 7.6 % (0.0-12.0); Neutrophils % (auto) 50.3 % (37.0-80.0); Red Blood Cells 1.82 10^6/uL (4.0-5.20); Red Cell Distribution Width 16.2 % (11.8-14.3); White Blood Cell 4.4 10^3/uL (4.4-10.8)
[2024-04-05 05:51] LABS: Hemoglobin 6.7 g/dL (12.2-16.2)
[2024-04-05 06:07] LABS: Alanine Aminotransferase 38 U/L (7-40); Alkaline Phosphatase 64 U/L (46-116); Anion Gap 5 (5-15); Aspartate Aminotransferase 100 U/L (13-40); BUN/Creatinine Ratio 11.8 (10.0-20.0); Bilirubin, Total 6.4 mg/dL (0.2-1.0); Blood Urea Nitrogen 11 mg/dL (9-23); Calcium 9.7 mg/dL (8.7-10.4); Carbon Dioxide 32 mmol/L (20-30); Chloride 100 mmol/L (98-107); Glucose 76 mg/dL (74-106); Potassium 3.6 mmol/L (3.5-5.1); Sodium 137 mmol/L (136-145); Total Protein 6.9 g/dL (5.7-8.2)
[2024-04-05 06:32] LABS: Anisocytosis Slight; Macrocytosis Slight
[2024-04-05 06:33] LABS: Platelet Estimate Decreased
[2024-04-05 13:19] LABS: Basophils # (auto) 0 10 ^3/uL (0-0.2); Eosinophils # (auto) 0.1 10 ^3/uL (0-0.8)
[2024-04-05 13:26] LABS: Basophils % (auto) 1.1 % (0.0-2.0); Eosinophils % (auto) 1.9 % (0.0-7.0); Hemoglobin 8.9 g/dL (12.2-16.2); Lymphocytes # (auto) 1.6 10 ^3/uL (0.4-5.4); Lymphocytes % (auto) 35.6 % (10.0-50.0); Mean Corpuscular Hemoglobin 36.8 pg (28.0-32.0); Mean Corpuscular Hgb Conc. 35.6 g/dL (32.0-36.0); Mean Corpuscular Volume 103.6 fL (80.0-100.0); Monocytes # (auto) 0.2 10 ^3/uL (0-1.3); Monocytes % (auto) 5.3 % (0.0-12.0); Neutrophils # (auto) 2.4 10 ^3/uL (1.6-8.6); Neutrophils % (auto) 56.1 % (37.0-80.0); Nucleated Red Blood Cells % 0.1 %; Red Blood Cells 2.41 10^6/uL (4.0-5.20); Red Cell Distribution Width 18.3 % (11.8-14.3); White Blood Cell 4.4 10^3/uL (4.4-10.8)
[2024-04-05] MEDS: PANTOPRAZOLE 40 MG/10 ML VIAL INJ IV SCH (21:48)
[2024-04-06] VITALS (9 sets, daily range): BP systolic 81–110; BP diastolic 28–75; PULSE 54–72; RESP 20; TEMP 96.6–98.6; O2SAT 98–100
[2024-04-06 06:10] LABS: Basophils # (auto) 0 10 ^3/uL (0-0.2); Eosinophils # (auto) 0.1 10 ^3/uL (0-0.8); Hemoglobin 7.4 g/dL (12.2-16.2); Lymphocytes # (auto) 1.7 10 ^3/uL (0.4-5.4); Monocytes # (auto) 0.3 10 ^3/uL (0-1.3); Nucleated Red Blood Cells % 0.1 %
[2024-04-06 06:13] LABS: Basophils % (auto) 0.6 % (0.0-2.0); Hematocrit 20.7 % (36.0-46.0); Lymphocytes % (auto) 43.1 % (10.0-50.0); Mean Corpuscular Hemoglobin 36.4 pg (28.0-32.0); Mean Corpuscular Hgb Conc. 35.8 g/dL (32.0-36.0); Mean Corpuscular Volume 101.8 fL (80.0-100.0); Neutrophils # (auto) 1.9 10 ^3/uL (1.6-8.6); Neutrophils % (auto) 47.3 % (37.0-80.0); Red Blood Cells 2.03 10^6/uL (4.0-5.20); Red Cell Distribution Width 18.8 % (11.8-14.3)
[2024-04-06 06:28] LABS: Anion Gap 6 (5-15); Carbon Dioxide 31 mmol/L (20-30); Chloride 103 mmol/L (98-107); Potassium 3.7 mmol/L (3.5-5.1); Sodium 140 mmol/L (136-145)
[2024-04-06 06:29] LABS: Calcium 9.5 mg/dL (8.7-10.4)
[2024-04-06 06:34] LABS: BUN/Creatinine Ratio 8.1 (10.0-20.0); Blood Urea Nitrogen 8 mg/dL (9-23); Glucose 84 mg/dL (74-106)
[2024-04-06] MEDS ORDERED: LACT10SO3 PO (11:07)
[2024-04-06] MEDS: LACTULOSE 20Gm/30ML SOLN PO SCH (12:18)
[2024-04-06] MEDS ORDERED: ACET250T20 PO (23:13)
[2024-04-07 01:00] VITALS: BP 83/33; PULSE 66; RESP 18; TEMP 98.1; O2SAT 100
[2024-04-07 05:00] VITALS: BP 84/39; PULSE 70; RESP 17; TEMP 98.1; O2SAT 95
[2024-04-07 07:14] LABS: Basophils # (auto) 0 10 ^3/uL (0-0.2); Basophils % (auto) 0.3 % (0.0-2.0); Eosinophils # (auto) 0.1 10 ^3/uL (0-0.8); Eosinophils % (auto) 2.6 % (0.0-7.0); Hematocrit 20.5 % (36.0-46.0); Hemoglobin 7.3 g/dL (12.2-16.2); Lymphocytes # (auto) 1.7 10 ^3/uL (0.4-5.4); Lymphocytes % (auto) 42.3 % (10.0-50.0); Mean Corpuscular Hemoglobin 36.3 pg (28.0-32.0); Mean Corpuscular Hgb Conc. 35.7 g/dL (32.0-36.0); Mean Corpuscular Volume 101.6 fL (80.0-100.0); Monocytes # (auto) 0.3 10 ^3/uL (0-1.3); Monocytes % (auto) 6.5 % (0.0-12.0); Neutrophils # (auto) 1.9 10 ^3/uL (1.6-8.6); Neutrophils % (auto) 48.3 % (37.0-80.0); Nucleated Red Blood Cells % 0.1 %; Red Blood Cells 2.01 10^6/uL (4.0-5.20); Red Cell Distribution Width 18.4 % (11.8-14.3); White Blood Cell 3.9 10^3/uL (4.4-10.8)
[2024-04-07 07:29] LABS: Anion Gap 6 (5-15); Calcium 9.4 mg/dL (8.5-10.1); Carbon Dioxide 29 mmol/L (20-30); Chloride 103 mmol/L (98-107); Potassium 3.5 mmol/L (3.5-5.1); Sodium 138 mmol/L (136-145)
[2024-04-07 07:36] LABS: BUN/Creatinine Ratio 7.1 (10.0-20.0); Blood Urea Nitrogen 6 mg/dL (9-23); Glucose 77 mg/dL (74-106)
[2024-04-07 08:00] VITALS: PULSE 74
[2024-04-07] MEDS ORDERED: MIDO10TA3 PO (09:25)
== END 2024-04-07 13:15 | disposition home or self-care (01) | DRG 241 ==
LOC: ER 19:09 → TELE 04-04 02:36 → TELE-WESTW 04-04 08:51
PROVIDERS: ADMIT Nurse Practitioner Family; ATTEND Internal Medicine Pulmonary Disease
PROC: 30233N1 Transfusion of Nonautologous Red Blood Cells into Peripheral Vein, Percutaneous Approach (ICD-10-PCS; principal; 2024-04-05)
DX: K29.61 Other gastritis with bleeding (principal); N17.0 Acute kidney failure with tubular necrosis; I50.33 Acute on chronic diastolic (congestive) heart failure; I95.89 Other hypotension; D69.6 Thrombocytopenia, unspecified; I11.0 Hypertensive heart disease with heart failure; K70.30 Alcoholic cirrhosis of liver without ascites; M54.9 Dorsalgia, unspecified; D64.89 Other specified anemias; F12.90 Cannabis use, unspecified, uncomplicated; G89.29 Other chronic pain; F10.10 Alcohol abuse, uncomplicated; Y90.9 Presence of alcohol in blood, level not specified; Z79.899 Other long term (current) drug therapy; Z83.3 Family history of diabetes mellitus; Z82.49 Family history of ischemic heart disease and other diseases of the circulatory system; Z79.2 Long term (current) use of antibiotics
CPT/HCPCS: 36415; 71046; 74176; 80048; 80053; 80061; 80307; 81001; 82140; 83036; 83735; 83880; 84443; 84484; 85025; 85379; 85610; 85730; 86850; 86900; 86901; 86920; 93005; 97163; G0378; P9047

== ENCOUNTER 2024-04-21 21:28 | Inpatient (IN) | payer MEDICAID ==
[~2024-04-21] VITALS: Ht 162.6 cm; Wt 87.0 kg
[~2024-04-21 21:28] MED LIST changes: +ACET250T20 PO; +ACYC400T16 PO; +ESCI20TA PO; +FURO40TA4 PO; +LACT10SO3 PO; +MAGN400T40 PO; -MID10T PO; +MIDO10TA3 PO; +POTA-220 PO
[2024-04-21 23:45] LABS: Basophils # (auto) 0 10 ^3/uL (0-0.2); Basophils % (auto) 0.7 % (0.0-2.0); Eosinophils # (auto) 0.2 10 ^3/uL (0-0.8); Eosinophils % (auto) 3.8 % (0.0-7.0); Hematocrit 18.5 % (36.0-46.0); Lymphocytes # (auto) 1.8 10 ^3/uL (0.4-5.4); Lymphocytes % (auto) 38.3 % (10.0-50.0); Mean Corpuscular Hemoglobin 37.7 pg (28.0-32.0); Mean Corpuscular Hgb Conc. 35.4 g/dL (32.0-36.0); Mean Corpuscular Volume 106.5 fL (80.0-100.0); Monocytes # (auto) 0.3 10 ^3/uL (0-1.3); Monocytes % (auto) 5.7 % (0.0-12.0); Neutrophils # (auto) 2.4 10 ^3/uL (1.6-8.6); Neutrophils % (auto) 51.5 % (37.0-80.0); Red Blood Cells 1.74 10^6/uL (4.0-5.20); Red Cell Distribution Width 16.5 % (11.8-14.3); White Blood Cell 4.6 10^3/uL (4.4-10.8)
[2024-04-21 23:47] LABS: Hemoglobin 6.5 g/dL (12.2-16.2)
[2024-04-22] VITALS (17 sets, daily range): BP systolic 81–110; BP diastolic 34–57; PULSE 61–87; RESP 12–18; TEMP 97.8–98.7; O2SAT 95–100
[2024-04-22 00:02] LABS: INR 1.61 (0.9-1.15); Partial Thromboplastin Time 35.3 SEC (24.5-34.5); Prothrombin Time 16.5 sec (9.3-11.8)
[2024-04-22 00:09] LABS: Alanine Aminotransferase 28 U/L (7-40); Albumin 3.6 g/dL (3.2-4.8); Alkaline Phosphatase 79 U/L (46-116); Anion Gap 9 (5-15); Aspartate Aminotransferase 59 U/L (13-40); BUN/Creatinine Ratio 10.6 (10.0-20.0); Bilirubin, Total 7.1 mg/dL (0.2-1.0); Blood Urea Nitrogen 22 mg/dL (9-23); Calcium 10.7 mg/dL (8.7-10.4); Carbon Dioxide 27 mmol/L (20-30); Chloride 98 mmol/L (98-107); Glucose 85 mg/dL (74-106); Sodium 134 mmol/L (136-145); Total Protein 8.2 g/dL (5.7-8.2)
[2024-04-22] MEDS: SODIUM CHLORIDE 0.9% 1,000 ML IVB ONE (00:15)
[2024-04-22 00:49] LABS: Macrocytosis Moderate; Platelet Estimate Decreased
[2024-04-22 00:50] LABS: Anisocytosis Slight
[2024-04-22] MEDS ORDERED: ONDANSETRON HCL 4 MG/2 ML VIAL IV PRN (02:30)
[2024-04-22] MEDS: HYDROcodone-ACET 5/325MG TAB PO ONE (04:52)
[2024-04-22] MEDS: levETIRAcetam 500 MG TAB PO SCH (10:16)
[2024-04-22] MEDS: MIDODRINE HCL 10 MG TAB PO SCH (10:16)
[2024-04-22] MEDS: FUROSEMIDE 40 MG TAB PO SCH (10:20)
[2024-04-22] MEDS: HYDROcodone-ACET 5/325MG TAB PO PRN (13:02)
[2024-04-22] MEDS ORDERED: levETIRAcetam 500 MG TAB PO SCH (22:00)
[2024-04-23] VITALS (8 sets, daily range): BP systolic 94–138; BP diastolic 43–64; PULSE 63–97; RESP 16–18; TEMP 97.9–98.5; O2SAT 95–99
[2024-04-23 08:06] LABS: Estradiol 33.3 pg/mL (.)
[2024-04-23 09:30] LABS: Basophils # (auto) 0 10 ^3/uL (0-0.2); Eosinophils # (auto) 0.1 10 ^3/uL (0-0.8); Monocytes # (auto) 0.2 10 ^3/uL (0-1.3); Nucleated Red Blood Cells % 0.1 %; White Blood Cell 3.1 10^3/uL (4.4-10.8)
[2024-04-23 09:33] LABS: Basophils % (auto) 1.3 % (0.0-2.0); Eosinophils % (auto) 2.9 % (0.0-7.0); Hematocrit 22.1 % (36.0-46.0); Hemoglobin 7.9 g/dL (12.2-16.2); Lymphocytes # (auto) 1.1 10 ^3/uL (0.4-5.4); Lymphocytes % (auto) 36.5 % (10.0-50.0); Mean Corpuscular Hemoglobin 35.7 pg (28.0-32.0); Mean Corpuscular Hgb Conc. 35.9 g/dL (32.0-36.0); Mean Corpuscular Volume 99.4 fL (80.0-100.0); Monocytes % (auto) 7.6 % (0.0-12.0); Neutrophils # (auto) 1.6 10 ^3/uL (1.6-8.6); Neutrophils % (auto) 51.7 % (37.0-80.0); Red Blood Cells 2.23 10^6/uL (4.0-5.20); Red Cell Distribution Width 19.4 % (11.8-14.3)
[2024-04-23 09:44] LABS: Alanine Aminotransferase 25 U/L (7-40); Albumin 3.2 g/dL (3.2-4.8); Alkaline Phosphatase 67 U/L (46-116); Anion Gap 7 (5-15); Aspartate Aminotransferase 53 U/L (13-40); BUN/Creatinine Ratio 14.4 (10.0-20.0); Blood Urea Nitrogen 19 mg/dL (9-23); Calcium 9.8 mg/dL (8.7-10.4); Carbon Dioxide 30 mmol/L (20-30); Chloride 100 mmol/L (98-107); Glucose 83 mg/dL (74-106); Potassium 3.3 mmol/L (3.5-5.1); Sodium 137 mmol/L (136-145)
[2024-04-23 09:45] LABS: Bilirubin, Total 7.6 mg/dL (0.2-1.0)
[2024-04-23] MEDS: FOLIC ACID 1 MG TAB PO SCH (11:04)
[2024-04-23] MEDS: PHYTONADIONE (VIT K)10 MG/ML 1ML VIAL SUBCUT ONE (11:04)
[2024-04-23] MEDS: THIAMINE HCL 100 MG TAB PO SCH (11:05)
[2024-04-23 13:08] LABS: AFP Serum Tumor Marker 8.6 ng/mL (0.0-6.4)
[2024-04-23] MEDS: LACTULOSE 20Gm/30ML SOLN PO ONE (16:15)
[2024-04-23] MEDS: POTASSIUM EFFERVESENT TAB 25 MEQ PO SCH (16:15)
[2024-04-23] MEDS: LACTULOSE 20Gm/30ML SOLN PO SCH (22:34)
[2024-04-24] VITALS (8 sets, daily range): BP systolic 80–107; BP diastolic 34–57; PULSE 64–89; RESP 16–18; TEMP 98.1–98.8; O2SAT 95–100
[2024-04-24 05:24] LABS: Chloride 101 mmol/L (98-107); Potassium 3.4 mmol/L (3.5-5.1); Sodium 139 mmol/L (136-145)
[2024-04-24 05:25] LABS: Anion Gap 7 (5-15); Calcium 9.8 mg/dL (8.7-10.4); Carbon Dioxide 31 mmol/L (20-30)
[2024-04-24 05:30] LABS: BUN/Creatinine Ratio 10.9 (10.0-20.0); Blood Urea Nitrogen 14 mg/dL (9-23); Glucose 76 mg/dL (74-106)
[2024-04-24 05:32] LABS: Hematocrit 21.9 % (36.0-46.0); Hemoglobin 7.8 g/dL (12.2-16.2); Mean Corpuscular Hgb Conc. 35.6 g/dL (32.0-36.0); Red Blood Cells 2.21 10^6/uL (4.0-5.20); White Blood Cell 3.4 10^3/uL (4.4-10.8)
[2024-04-24 05:34] LABS: Mean Corpuscular Hemoglobin 35.1 pg (28.0-32.0); Mean Corpuscular Volume 98.7 fL (80.0-100.0); Red Cell Distribution Width 19.3 % (11.8-14.3)
[2024-04-24 05:40] LABS: Band Neutrophils % (manual) 0; Basophils % (manual) 0 (0.0-2.0); Metamyelocytes % 0; Myelocytes % 0; Promyelocytes % 0; Reactive Lymphocytes 0
[2024-04-24 05:49] LABS: INR 1.78 (0.9-1.15); Prothrombin Time 18.1 sec (9.3-11.8)
[2024-04-24 08:31] LABS: Blast Cells 1; Eosinophils % (manual) 2 (0-7); Lymphocytes % (manual) 36 (10.0-50.0); Monocytes % (manual) 6 (0-12); Platelet Estimate Decreased
[2024-04-24] MEDS: POTASSIUM EFFERVESENT TAB 25 MEQ PO ONE (10:15)
[2024-04-24] MEDS: ACETAMINOPHEN 325 MG TAB PO PRN (17:49)
[2024-04-25 05:00] VITALS: BP 115/56; PULSE 85; RESP 18; TEMP 97.7; O2SAT 100
[2024-04-25 06:58] LABS: Hemoglobin 7.9 g/dL (12.2-16.2)
[2024-04-25 07:04] LABS: Hematocrit 21.6 % (36.0-46.0)
[2024-04-25 07:11] LABS: Anion Gap 8 (5-15); Calcium 9.3 mg/dL (8.7-10.4); Carbon Dioxide 30 mmol/L (20-30); Chloride 100 mmol/L (98-107); Sodium 138 mmol/L (136-145)
[2024-04-25 07:17] LABS: BUN/Creatinine Ratio 13.3 (10.0-20.0); Blood Urea Nitrogen 16 mg/dL (9-23); Glucose 79 mg/dL (74-106)
[2024-04-25] MEDS: FUROSEMIDE 40 MG TAB PO SCH (10:00)
[2024-04-25] MEDS: HYDROcodone-ACET 5/325MG TAB PO PRN (10:52)
[2024-04-25 10:53] VITALS: BP 100/50; PULSE 61; RESP 17; TEMP 98.2; O2SAT 98
[2024-04-25 12:00] VITALS: BP 103/58; PULSE 51; RESP 16; TEMP 98.5; O2SAT 98
[2024-04-25] MEDS: POTASSIUM EFFERVESENT TAB 25 MEQ PO ONE (12:28)
== END 2024-04-25 18:45 | disposition home or self-care (01) | DRG 532 ==
LOC: EDBD 21:28 → ER 21:28 → OVERFLOW 04-22 02:26 → EAST 04-22 09:25
PROVIDERS: ADMIT Nurse Practitioner; ATTEND Nurse Practitioner Acute Care
PROC: 30233N1 Transfusion of Nonautologous Red Blood Cells into Peripheral Vein, Percutaneous Approach (ICD-10-PCS; principal; 2024-04-22)
DX: N92.0 Excessive and frequent menstruation with regular cycle (principal); N17.0 Acute kidney failure with tubular necrosis; K76.82 Hepatic encephalopathy; D68.9 Coagulation defect, unspecified; D69.6 Thrombocytopenia, unspecified; D50.0 Iron deficiency anemia secondary to blood loss (chronic); F10.10 Alcohol abuse, uncomplicated; N94.6 Dysmenorrhea, unspecified; I50.9 Heart failure, unspecified; I13.0 Hypertensive heart and chronic kidney disease with heart failure and stage 1 through stage 4 chronic kidney disease, or unspecified chronic kidney disease; Y90.9 Presence of alcohol in blood, level not specified; K74.60 Unspecified cirrhosis of liver; N18.9 Chronic kidney disease, unspecified; Z79.899 Other long term (current) drug therapy; Z81.8 Family history of other mental and behavioral disorders; Z82.49 Family history of ischemic heart disease and other diseases of the circulatory system; Z83.3 Family history of diabetes mellitus; N83.209 Unspecified ovarian cyst, unspecified side
CPT/HCPCS: 36415; 76705; 76830; 76856; 80048; 80053; 82105; 82140; 82670; 83001; 84132; 84443; 84702; 85007; 85014; 85018; 85025; 85027; 85610; 85730; 86850; 86900; 86901; 86920; 96360; 99291; G0378; J3430

== ENCOUNTER 2024-05-09 22:02 | Inpatient (IN) | payer MEDICAID ==
[~2024-05-09] VITALS: Ht 162.6 cm; Wt 65.1 kg
[2024-05-09 22:20] VITALS: PULSE 72; RESP 14; O2SAT 98
[2024-05-09] MEDS: MORPHINE SULFATE 4 MG/ML SYR/VIAL IV ONE (22:45)
[2024-05-09] MEDS: ONDANSETRON HCL 4 MG/2 ML VIAL IV ONE (22:45)
[2024-05-09 22:55] LABS: Hematocrit 18.8 % (36.0-46.0); Monocytes # (auto) 0.3 10 ^3/uL (0-1.3)
[2024-05-09 22:57] LABS: Basophils # (auto) 0 10 ^3/uL (0-0.2); Basophils % (auto) 0.6 % (0.0-2.0); Eosinophils # (auto) 0.1 10 ^3/uL (0-0.8); Eosinophils % (auto) 1.4 % (0.0-7.0); Lymphocytes % (auto) 24.2 % (10.0-50.0); Mean Corpuscular Hemoglobin 37.2 pg (28.0-32.0); Mean Corpuscular Hgb Conc. 35.3 g/dL (32.0-36.0); Mean Corpuscular Volume 105.4 fL (80.0-100.0); Monocytes % (auto) 8.5 % (0.0-12.0); Neutrophils # (auto) 2.6 10 ^3/uL (1.6-8.6); Neutrophils % (auto) 65.3 % (37.0-80.0); Nucleated Red Blood Cells % 0.3 %; Platelet Count (auto) 66 10^3/uL (140-450); Red Blood Cells 1.79 10^6/uL (4.0-5.20)
[2024-05-09 23:02] LABS: Hemoglobin 6.6 g/dL (12.2-16.2)
[2024-05-09 23:09] LABS: INR 1.6 (0.9-1.15); Partial Thromboplastin Time 30.5 SEC (24.5-34.5); Prothrombin Time 16.4 sec (9.3-11.8)
[2024-05-09 23:10] LABS: Anisocytosis Slight; Macrocytosis Slight; Platelet Estimate Decreased
[2024-05-09 23:11] LABS: Alanine Aminotransferase 25 U/L (7-40); Albumin 3.3 g/dL (3.2-4.8); Alkaline Phosphatase 64 U/L (46-116); Anion Gap 10 (5-15); Aspartate Aminotransferase 64 U/L (13-40); BUN/Creatinine Ratio 14.8 (10.0-20.0); Blood Urea Nitrogen 23 mg/dL (9-23); Calcium 9.8 mg/dL (8.7-10.4); Carbon Dioxide 27 mmol/L (20-30); Chloride 98 mmol/L (98-107); Glucose 90 mg/dL (74-106); Hypochromia Slight; Lipase 26 U/L (12-53); Potassium 3.3 mmol/L (3.5-5.1); Sodium 135 mmol/L (136-145)
[2024-05-09 23:12] LABS: Bilirubin, Total 10.4 mg/dL (0.2-1.0); Total Protein 8.1 g/dL (5.7-8.2)
[2024-05-10] VITALS (11 sets, daily range): BP systolic 93–126; BP diastolic 45–74; PULSE 58–74; RESP 9–18; TEMP 97.2–99.2; O2SAT 98–100
[2024-05-10] MEDS: ALBUMIN 5% 250 ML IV ONE ×2 (00:40→01:46)
[2024-05-10] MEDS: PANTOPRAZOLE 40 MG/10 ML VIAL INJ IV ONE ×2 (01:15→13:15)
[2024-05-10] MEDS ORDERED: DOCUSATE SOD 100 MG CAP PO PRN (01:30)
[2024-05-10] MEDS ORDERED: NITROGLYCERIN 0.4 MG SL TAB SL PRN (01:30)
[2024-05-10] MEDS ORDERED: ONDANSETRON HCL 4 MG/2 ML VIAL IV PRN (01:30)
[2024-05-10] MEDS ORDERED: MORPHINE SULFATE INJ 2 MG/ml SYRG IV PRN (01:30)
[2024-05-10] MEDS: OCTREOTIDE ACETATE 500 MCG/ML VL ONE (01:38)
[2024-05-10] MEDS: POTASSIUM CHL 20 Meq TABLET PO ONE (01:54)
[2024-05-10] MEDS: OCTREOTIDE ACETATE 500 MCG in SODIUM CHL 0.9% 99 ML IV SCH (01:59)
[2024-05-10] MEDS: SODIUM CHLOR 0.9% PF (SALINE LOCK) 10ML VIAL/SYR IV SCH (06:00)
[2024-05-10] MEDS: FOLIC ACID 1 MG TAB PO SCH (10:16)
[2024-05-10] MEDS: levETIRAcetam 1000 mg/100ml 100 ML IV SCH (10:16)
[2024-05-10] MEDS: LACTULOSE 20Gm/30ML SOLN PO SCH ×2 (10:16→16:02)
[2024-05-10] MEDS: MULTIPLE VITAMIN TAB PO SCH (10:16)
[2024-05-10] MEDS: FAMOTIDINE (10MG/ML) 2ML VL IV SCH (10:22)
[2024-05-10] MEDS: cefTRIAXone 1GM/50ML D5W 50 ML IV SCH (11:12)
[2024-05-10 15:03] LABS: % Iron Saturation 74.1 % (15-50)
[2024-05-10 16:14] LABS: Urine Bacteria MOD /hpf (None Seen); Urine Blood 3+ /uL (Negative); Urine Clarity Turbid (Clear); Urine Color Yellow (Yellow); Urine Protein, UAD Negative (Negative); Urine Specific Gravity 1.012 (1.001-1.035); Urine Urobilinogen 4 mg/dL (Negative); Urine WBC 10 /hpf (0 - 5); Urine pH 6.5 (5.0-9.0)
[2024-05-10 16:22] LABS: Amphetamine Screen, Urine Neg (NEGATIVE); Barbiturate Scree,Urine Neg (NEGATIVE); Benzodiazephine Screen, Urine Neg (NEGATIVE); Cannabinoid Screen, Urine Pos (NEGATIVE); Cocaine Screen, Urine Neg (NEGATIVE); Opiate Scree,Urine Pos (NEGATIVE); Phencyclidine Screen, Urine Neg (NEGATIVE)
[2024-05-10] MEDS ORDERED: FERROUS SULFATE 325mg EC TAB PO SCH (18:00)
[2024-05-10 20:54] LABS: Hemoglobin 9.5 g/dL (12.2-16.2)
[2024-05-10 20:56] LABS: Hematocrit 26.7 % (36.0-46.0)
[2024-05-11] VITALS (8 sets, daily range): BP systolic 90–111; BP diastolic 49–65; PULSE 64–76; RESP 15–18; TEMP 98–99.1; O2SAT 95–100
[2024-05-11] MEDS ORDERED: MID10T PO (02:51)
[2024-05-11] MEDS ORDERED: FER325T PO (02:51)
[2024-05-11] MEDS: HYDROcodone-ACET 7.5/325MG TAB PO PRN (03:57)
[2024-05-11 07:30] LABS: Basophils # (auto) 0 10 ^3/uL (0-0.2); Basophils % (auto) 0.7 % (0.0-2.0); Eosinophils # (auto) 0.1 10 ^3/uL (0-0.8); Hemoglobin 7.9 g/dL (12.2-16.2); Lymphocytes # (auto) 0.9 10 ^3/uL (0.4-5.4); Mean Corpuscular Hemoglobin 35.5 pg (28.0-32.0); Platelet Count (auto) 52 10^3/uL (140-450); Red Blood Cells 2.23 10^6/uL (4.0-5.20)
[2024-05-11 07:36] LABS: Eosinophils % (auto) 2.4 % (0.0-7.0); Hematocrit 21.8 % (36.0-46.0); Lymphocytes % (auto) 22.7 % (10.0-50.0); Mean Corpuscular Hgb Conc. 36.2 g/dL (32.0-36.0); Monocytes # (auto) 0.2 10 ^3/uL (0-1.3); Monocytes % (auto) 6.3 % (0.0-12.0); Neutrophils # (auto) 2.6 10 ^3/uL (1.6-8.6); Neutrophils % (auto) 67.9 % (37.0-80.0); Nucleated Red Blood Cells % 0.2 %; Red Cell Distribution Width 19.3 % (11.8-14.3); White Blood Cell 3.9 10^3/uL (4.4-10.8)
[2024-05-11 07:51] LABS: Alanine Aminotransferase 31 U/L (7-40); Alkaline Phosphatase 52 U/L (46-116); Anion Gap 10 (5-15); Aspartate Aminotransferase 82 U/L (13-40); BUN/Creatinine Ratio 13.8 (10.0-20.0); Blood Urea Nitrogen 18 mg/dL (9-23); Calcium 9.9 mg/dL (8.7-10.4); Carbon Dioxide 27 mmol/L (20-30); Chloride 99 mmol/L (98-107); Glucose 100 mg/dL (74-106); Potassium 3.9 mmol/L (3.5-5.1); Sodium 136 mmol/L (136-145)
[2024-05-11 07:53] LABS: Albumin 3.3 g/dL (3.2-4.8)
[2024-05-11 07:54] LABS: Bilirubin, Total 8.6 mg/dL (0.2-1.0); Total Protein 7.3 g/dL (5.7-8.2)
[2024-05-11 09:27] LABS: Hepatitis B Core Total AB Negative (Negative)
[2024-05-11] MEDS: B-COMPLEX W/ C & FOLIC ACID(NEPHROVITE TAB) PO SCH (10:26)
[2024-05-11] MEDS: PANTOPRAZOLE 40 MG/10 ML VIAL INJ IV SCH (10:26)
[2024-05-11 10:59] LABS: Hepatitis A Total Antibody Positive (Negative)
[2024-05-11 11:00] LABS: Hepatitis A Ab IgM Negative; Hepatitis B Core IgM Negative; Hepatitis B Surface Antibody Positive (Negative); Hepatitis B Surface Antigen Negative (Negative); Hepatitis C Antibody Negative (Negative)
[2024-05-11] MEDS: SODIUM FERR GLUC 62.5MG/5ML 110 ML IV SCH (13:07)
[2024-05-11] MEDS: PHYTONADIONE (VIT K)10 MG/ML 1ML VIAL SUBCUT ONE (15:59)
[2024-05-11] MEDS: GOLYTELY 4L KIT PO ONE (15:59)
[2024-05-11] MEDS: MIDODRINE HCL 10 MG TAB PO SCH (18:03)
[2024-05-11 18:20] LABS: Hematocrit 22.1 % (36.0-46.0); Hemoglobin 7.9 g/dL (12.2-16.2)
[2024-05-11] MEDS: HYDROCORTISONE ACET 25 MG RECTAL SUPP PR SCH (21:38)
[2024-05-12] VITALS (9 sets, daily range): BP systolic 95–108; BP diastolic 52–62; PULSE 58–75; RESP 12–20; TEMP 97.6–98.6; O2SAT 93–100
[2024-05-12 11:11] LABS: Hematocrit 22.2 % (36.0-46.0)
[2024-05-12 11:35] LABS: Chloride 99 mmol/L (98-107); Potassium 3.1 mmol/L (3.5-5.1); Sodium 137 mmol/L (136-145)
[2024-05-12 11:36] LABS: Anion Gap 7 (5-15); Calcium 9.7 mg/dL (8.7-10.4); Carbon Dioxide 31 mmol/L (20-30)
[2024-05-12] MEDS ORDERED: fentaNYL CITRATE 100 MCG/2 ML VL ONE (11:36)
[2024-05-12] MEDS ORDERED: MIDAZOLAM HCL 2MG/2ML 2ml VIAL (1mg/ml) ONE (11:36)
[2024-05-12 11:41] LABS: BUN/Creatinine Ratio 9.4 (10.0-20.0); Blood Urea Nitrogen 12 mg/dL (9-23); Glucose 90 mg/dL (74-106)
[2024-05-12] MEDS ORDERED: ONDANSETRON HCL 4 MG/2 ML VIAL ONE (12:40)
[2024-05-12] MEDS: IRON SUCROSE COMPLEX 100 ML IV ONE (13:00)
[2024-05-12] MEDS ORDERED: PROPOFOL 10 MG/ML 20 ML IV ONE (13:04)
[2024-05-12] MEDS: POTASSIUM EFFERVESENT TAB 25 MEQ PO ONE (18:15)
[2024-05-12] MEDS: TEMAZEPAM 15 MG CAP PO PRN (22:07)
[2024-05-13] VITALS (7 sets, daily range): BP systolic 89–105; BP diastolic 36–61; PULSE 58–74; RESP 14–18; TEMP 97.4–98.4; O2SAT 96–100
[2024-05-13 05:52] LABS: Hemoglobin 7.5 g/dL (12.2-16.2)
[2024-05-13 05:56] LABS: Hematocrit 20.8 % (36.0-46.0)
[2024-05-13 06:05] LABS: Calcium 9.4 mg/dL (8.7-10.4); Chloride 101 mmol/L (98-107); Potassium 3.1 mmol/L (3.5-5.1); Sodium 138 mmol/L (136-145)
[2024-05-13 06:06] LABS: Anion Gap 8 (5-15); Carbon Dioxide 29 mmol/L (20-30)
[2024-05-13 06:11] LABS: BUN/Creatinine Ratio 8.1 (10.0-20.0); Blood Urea Nitrogen 9 mg/dL (9-23); Glucose 86 mg/dL (74-106)
[2024-05-13] MEDS ORDERED: PANT40TA2 PO (11:22)
[2024-05-13] MEDS ORDERED: HYDR5CRE3 PR (11:22)
[2024-05-13] MEDS ORDERED: TRAM50TA2 PO (11:22)
[2024-05-13] MEDS ORDERED: POLY335015 PO (11:22)
[2024-05-13] MEDS ORDERED: DOCU-94 PO (11:22)
[2024-05-13] MEDS: IRON SUCROSE COMPLEX 100 ML IV SCH (13:57)
[2024-05-13] MEDS: POTASSIUM CHL 20 Meq TABLET PO ONE (20:18)
[2024-05-14 01:00] VITALS: BP 87/43; PULSE 70; RESP 16; TEMP 98.3; O2SAT 100
[2024-05-14 01:41] LABS: Hematocrit 21.5 % (36.0-46.0); Hemoglobin 7.6 g/dL (12.2-16.2)
[2024-05-14 02:00] VITALS: BP 93/49
[2024-05-14] MEDS: traMADol HCL 50 MG TAB PO ONE (03:49)
[2024-05-14 05:00] VITALS: BP 98/60; PULSE 57; RESP 16; TEMP 97.5; O2SAT 100
[2024-05-14 08:00] VITALS: PULSE 62; PULSE 65; RESP 16; O2SAT 96
[2024-05-14 08:44] VITALS: BP 89/48; PULSE 65; RESP 16; TEMP 98.3; O2SAT 94
[2024-05-14 12:25] VITALS: TEMP 36.8
[2024-05-20 12:46] LABS: Anti-Nuclear Antibody Direct Negative (Negative)
== END 2024-05-14 12:55 | disposition home or self-care (01) | DRG 241 ==
LOC: ER 22:02 → EDBD 22:02 → TELE 05-10 01:33 → UNDOADMIN 05-10 01:33 → TELE 05-10 02:06 → TELE-WESTW 05-10 23:52
PROVIDERS: ADMIT Nurse Practitioner Family; ATTEND Internal Medicine
PROC: 30233N1 Transfusion of Nonautologous Red Blood Cells into Peripheral Vein, Percutaneous Approach (ICD-10-PCS; 2024-05-10)
PROC: 0DJ08ZZ Inspection of Upper Intestinal Tract, Via Natural or Artificial Opening Endoscopic (ICD-10-PCS; principal; 2024-05-12 12:30)
PROC: 0DBP8ZX Excision of Rectum, Via Natural or Artificial Opening Endoscopic, Diagnostic (ICD-10-PCS; 2024-05-12 12:30)
DX: K29.01 Acute gastritis with bleeding (principal); K76.82 Hepatic encephalopathy; D61.818 Other pancytopenia; K76.6 Portal hypertension; D50.0 Iron deficiency anemia secondary to blood loss (chronic); F10.20 Alcohol dependence, uncomplicated; E87.6 Hypokalemia; G89.4 Chronic pain syndrome; K52.89 Other specified noninfective gastroenteritis and colitis; K29.81 Duodenitis with bleeding; K74.60 Unspecified cirrhosis of liver; K59.00 Constipation, unspecified; I50.9 Heart failure, unspecified; I11.0 Hypertensive heart disease with heart failure; K64.8 Other hemorrhoids; Z84.89 Family history of other specified conditions; Z79.899 Other long term (current) drug therapy; Y90.9 Presence of alcohol in blood, level not specified
CPT/HCPCS: 36415; 36430; 71045; 74176; 76705; 80048; 80053; 80074; 80307; 81001; 82140; 82270; 82728; 83540; 83550; 83690; 84132; 84702; 85014; 85018; 85025; 85610; 85730; 86038; 86704; 86706; 86708; 86803; 86850; 86900; 86901; 86920; 87340; 93005; 96365; 96367; 96375; 99291; G0378; J1756; J2250; J2405; J2470; J2704; J3430; J3490

== ENCOUNTER 2024-05-27 20:12 | Inpatient (IN) | payer MEDICAID ==
[~2024-05-27] VITALS: Ht 160 cm; Wt 66.7 kg
[~2024-05-27 20:12] MED LIST changes: -ACAM1TAB PO; -ACET250T20 PO; +DOCU-94 PO; +FER325T PO; +HYDR5CRE3 PR; -LACT10SO3 PO; -MAGN400T40 PO; +MID10T PO; -MIDO10TA3 PO; +POLY335015 PO
[2024-05-27 21:27] LABS: Basophils # (auto) 0 10 ^3/uL (0-0.2); Eosinophils # (auto) 0.1 10 ^3/uL (0-0.8); Monocytes # (auto) 0.2 10 ^3/uL (0-1.3); Monocytes % (auto) 6.2 % (0.0-12.0); Nucleated Red Blood Cells % 0.1 %
[2024-05-27 21:30] LABS: Basophils % (auto) 0.4 % (0.0-2.0); Eosinophils % (auto) 2.5 % (0.0-7.0); Hematocrit 14.2 % (36.0-46.0); Lymphocytes # (auto) 1.6 10 ^3/uL (0.4-5.4); Lymphocytes % (auto) 40.1 % (10.0-50.0); Mean Corpuscular Hemoglobin 37.6 pg (28.0-32.0); Mean Corpuscular Hgb Conc. 34.6 g/dL (32.0-36.0); Mean Corpuscular Volume 108.9 fL (80.0-100.0); Neutrophils % (auto) 50.8 % (37.0-80.0); Platelet Count (auto) 98 10^3/uL (140-450); Red Cell Distribution Width 19.1 % (11.8-14.3)
[2024-05-27 21:36] LABS: Hemoglobin 4.9 g/dL (12.2-16.2)
[2024-05-27 21:47] LABS: Alanine Aminotransferase 46 U/L (7-40); Albumin 3.2 g/dL (3.2-4.8); Alkaline Phosphatase 103 U/L (46-116); Anion Gap 7 (5-15); Aspartate Aminotransferase 69 U/L (13-40); BUN/Creatinine Ratio 12.4 (10.0-20.0); Blood Urea Nitrogen 14 mg/dL (9-23); Calcium 9.4 mg/dL (8.7-10.4); Carbon Dioxide 25 mmol/L (20-30); Chloride 105 mmol/L (98-107); Glucose 92 mg/dL (74-106); Potassium 3.9 mmol/L (3.5-5.1); Sodium 137 mmol/L (136-145)
[2024-05-27 21:48] LABS: Bilirubin, Total 5.1 mg/dL (0.2-1.0); Total Protein 7.5 g/dL (5.7-8.2)
[2024-05-27 21:49] LABS: INR 1.42 (0.9-1.15); Partial Thromboplastin Time 29.4 SEC (24.5-34.5); Prothrombin Time 14.7 sec (9.3-11.8)
[2024-05-27 22:00] VITALS: RESP 16; O2SAT 93
[2024-05-27] MEDS: SODIUM CHLORIDE 0.9% 500 ML IV ONE (22:33)
[2024-05-27 23:23] VITALS: RESP 16; O2SAT 93
[2024-05-28] VITALS (14 sets, daily range): BP systolic 84–149; BP diastolic 50–92; PULSE 72–86; RESP 12–45; TEMP 97.8–99.2; O2SAT 95–100
[2024-05-28] MEDS ORDERED: MORPHINE SULFATE INJ 2 MG/ml SYRG IV PRN (01:00)
[2024-05-28] MEDS ORDERED: NITROGLYCERIN 0.4 MG SL TAB SL PRN (01:00)
[2024-05-28] MEDS: PANTOPRAZOLE 40 MG/10 ML VIAL INJ IV ONE (01:12)
[2024-05-28] MEDS: MIDODRINE HCL 10 MG TAB PO SCH (06:55)
[2024-05-28 09:29] LABS: Hematocrit 20.9 % (36.0-46.0); Hemoglobin 7.2 g/dL (12.2-16.2)
[2024-05-28] MEDS: LACTULOSE 20Gm/30ML SOLN PO SCH ×3 (10:14→21:35)
[2024-05-28] MEDS: PANTOPRAZOLE 40 MG/10 ML VIAL INJ IV SCH (10:14)
[2024-05-28] MEDS: FUROSEMIDE 40 MG TAB PO SCH (10:14)
[2024-05-28 12:34] LABS: Urine Bacteria None Seen /hpf (None Seen)
[2024-05-28 12:42] LABS: Urine Blood Negative /uL (Negative); Urine Clarity Clear (Clear); Urine Color Light-Yellow (Yellow); Urine Protein, UAD Negative (Negative); Urine Specific Gravity 1.007 (1.001-1.035); Urine Urobilinogen 2 mg/dL (Negative); Urine WBC 1 /hpf (0 - 5)
[2024-05-28] MEDS: HYDROcodone-ACET 5/325MG TAB PO PRN (13:52)
[2024-05-28] MEDS ORDERED: ACAM1TAB PO (16:58)
[2024-05-28] MEDS ORDERED: MAGN200T11 PO (16:58)
[2024-05-28] MEDS: levETIRAcetam 500 MG TAB PO SCH (21:13)
[2024-05-29 05:00] VITALS: BP 93/43; PULSE 75; RESP 20; TEMP 98.1; O2SAT 92
[2024-05-29 07:23] LABS: Alanine Aminotransferase 37 U/L (7-40); Albumin 2.7 g/dL (3.2-4.8); Alkaline Phosphatase 64 U/L (46-116); Anion Gap 7 (5-15); Aspartate Aminotransferase 61 U/L (13-40); BUN/Creatinine Ratio 12.7 (10.0-20.0); Bilirubin, Total 5.9 mg/dL (0.2-1.0); Blood Urea Nitrogen 10 mg/dL (9-23); Calcium 8.9 mg/dL (8.7-10.4); Carbon Dioxide 27 mmol/L (20-30); Chloride 106 mmol/L (98-107); Glucose 83 mg/dL (74-106); Potassium 3.6 mmol/L (3.5-5.1); Sodium 140 mmol/L (136-145); Total Protein 6.5 g/dL (5.7-8.2)
[2024-05-29 07:29] LABS: Basophils # (auto) 0 10 ^3/uL (0-0.2); Eosinophils # (auto) 0.1 10 ^3/uL (0-0.8); Hemoglobin 7.1 g/dL (12.2-16.2); Monocytes # (auto) 0.2 10 ^3/uL (0-1.3); Red Blood Cells 1.99 10^6/uL (4.0-5.20)
[2024-05-29 07:31] LABS: Basophils % (auto) 1.1 % (0.0-2.0); Eosinophils % (auto) 2.8 % (0.0-7.0); Lymphocytes # (auto) 1.5 10 ^3/uL (0.4-5.4); Lymphocytes % (auto) 39.5 % (10.0-50.0); Mean Corpuscular Hemoglobin 35.8 pg (28.0-32.0); Mean Corpuscular Hgb Conc. 35.7 g/dL (32.0-36.0); Mean Corpuscular Volume 100.3 fL (80.0-100.0); Monocytes % (auto) 5.3 % (0.0-12.0); Neutrophils # (auto) 1.9 10 ^3/uL (1.6-8.6); Neutrophils % (auto) 51.3 % (37.0-80.0); Nucleated Red Blood Cells % 0.4 %; White Blood Cell 3.8 10^3/uL (4.4-10.8)
[2024-05-29 07:36] LABS: Red Cell Distribution Width 21.5 % (11.8-14.3)
[2024-05-29 07:37] LABS: Platelet Count (auto) 97 10^3/uL (140-450)
[2024-05-29 08:00] VITALS: PULSE 72; PULSE 76; RESP 18; O2SAT 99
[2024-05-29 09:00] VITALS: BP 102/51; PULSE 72; RESP 16; TEMP 97.6; O2SAT 96
[2024-05-29] MEDS: CITALOPRAM HYDROBR 20 MG TAB PO SCH (10:28)
[2024-05-29] MEDS: SPIRONOLACTONE 25 MG TAB PO SCH (10:29)
[2024-05-29 13:00] VITALS: BP 108/58; PULSE 74; RESP 16; TEMP 98.4; O2SAT 96
[2024-05-29] MEDS ORDERED: MAGN400T40 PO (14:24)
[2024-05-29 17:00] VITALS: BP 115/48; PULSE 70; RESP 14; TEMP 98; O2SAT 98
[2024-05-29 20:00] VITALS: PULSE 64; RESP 17; O2SAT 98
[2024-05-30] VITALS (7 sets, daily range): BP systolic 102–112; BP diastolic 46–59; PULSE 62–70; RESP 18; TEMP 98.3–99; O2SAT 96–100
[2024-05-30 06:33] LABS: Eosinophils # (auto) 0.1 10 ^3/uL (0-0.8); Hemoglobin 7.4 g/dL (12.2-16.2); Monocytes # (auto) 0.2 10 ^3/uL (0-1.3); White Blood Cell 3.7 10^3/uL (4.4-10.8)
[2024-05-30 06:35] LABS: Basophils # (auto) 0 10 ^3/uL (0-0.2); Basophils % (auto) 0.7 % (0.0-2.0); Eosinophils % (auto) 2.6 % (0.0-7.0); Lymphocytes # (auto) 1.3 10 ^3/uL (0.4-5.4); Lymphocytes % (auto) 36.1 % (10.0-50.0); Mean Corpuscular Hemoglobin 36.2 pg (28.0-32.0); Mean Corpuscular Volume 103.3 fL (80.0-100.0); Monocytes % (auto) 6.4 % (0.0-12.0); Neutrophils % (auto) 54.2 % (37.0-80.0); Nucleated Red Blood Cells % 0.2 %; Platelet Count (auto) 100 10^3/uL (140-450); Red Blood Cells 2.03 10^6/uL (4.0-5.20); Red Cell Distribution Width 21.9 % (11.8-14.3)
[2024-05-30 06:42] LABS: Alanine Aminotransferase 33 U/L (7-40); Albumin 2.7 g/dL (3.2-4.8); Alkaline Phosphatase 51 U/L (46-116); Anion Gap 6 (5-15); Aspartate Aminotransferase 58 U/L (13-40); Bilirubin, Total 7.2 mg/dL (0.2-1.0); Blood Urea Nitrogen 7 mg/dL (9-23); Calcium 8.7 mg/dL (8.7-10.4); Carbon Dioxide 30 mmol/L (20-30); Chloride 103 mmol/L (98-107); Glucose 81 mg/dL (74-106); Magnesium 1.7 mg/dL (1.6-2.6); Potassium 3.2 mmol/L (3.5-5.1); Sodium 139 mmol/L (136-145); Total Protein 6.6 g/dL (5.7-8.2)
[2024-05-30] MEDS: ONDANSETRON HCL 4 MG/2 ML VIAL IV PRN (10:56)
[2024-05-30] MEDS: LACTULOSE 20Gm/30ML SOLN PO SCH (13:03)
[2024-05-30] MEDS: POTASSIUM CHL 20 Meq TABLET PO ONE (15:08)
[2024-05-31] VITALS (8 sets, daily range): BP systolic 94–124; BP diastolic 38–60; PULSE 58–67; RESP 16–18; TEMP 97.5–98.3; O2SAT 93–100
[2024-05-31 18:42] LABS: Anion Gap 6 (5-15); Carbon Dioxide 30 mmol/L (20-30); Chloride 102 mmol/L (98-107); Potassium 3.5 mmol/L (3.5-5.1); Sodium 138 mmol/L (136-145)
[2024-05-31 18:43] LABS: Calcium 9.1 mg/dL (8.7-10.4)
[2024-05-31 18:48] LABS: BUN/Creatinine Ratio 7.1 (10.0-20.0); Blood Urea Nitrogen 6 mg/dL (9-23); Glucose 87 mg/dL (74-106)
[2024-06-01] VITALS (7 sets, daily range): BP systolic 98–119; BP diastolic 46–67; PULSE 60–68; RESP 16–22; TEMP 98.1–98.9; O2SAT 91–100
[2024-06-01 06:52] LABS: Basophils # (auto) 0 10 ^3/uL (0-0.2); Eosinophils # (auto) 0.1 10 ^3/uL (0-0.8); Lymphocytes # (auto) 1.4 10 ^3/uL (0.4-5.4); Monocytes # (auto) 0.2 10 ^3/uL (0-1.3); Red Blood Cells 2.05 10^6/uL (4.0-5.20); White Blood Cell 3.5 10^3/uL (4.4-10.8)
[2024-06-01 06:56] LABS: Basophils % (auto) 0.7 % (0.0-2.0); Eosinophils % (auto) 3.6 % (0.0-7.0); Hematocrit 20.9 % (36.0-46.0); Hemoglobin 7.5 g/dL (12.2-16.2); Lymphocytes % (auto) 39.8 % (10.0-50.0); Mean Corpuscular Hemoglobin 36.3 pg (28.0-32.0); Mean Corpuscular Hgb Conc. 35.7 g/dL (32.0-36.0); Mean Corpuscular Volume 101.8 fL (80.0-100.0); Monocytes % (auto) 6.4 % (0.0-12.0); Neutrophils # (auto) 1.8 10 ^3/uL (1.6-8.6); Neutrophils % (auto) 49.5 % (37.0-80.0); Nucleated Red Blood Cells % 0.3 %; Platelet Count (auto) 93 10^3/uL (140-450); Red Cell Distribution Width 20.2 % (11.8-14.3)
[2024-06-01] MEDS: CEPHALEXIN 250 MG CAP PO SCH (12:14)
[2024-06-01] MEDS ORDERED: LACT10SO3 PO (12:38)
[2024-06-01] MEDS ORDERED: CEPH500C PO (12:38)
[2024-06-01] MEDS ORDERED: SPIR25TA PO (12:38)
[2024-06-21] MEDS ORDERED: MAGN400T40 PO (16:48)
== END 2024-06-01 20:30 | disposition home or self-care (01) | DRG 280 ==
LOC: ER 20:12 → EDBD 20:12 → TELE 05-28 00:53 → TELE-EAST 05-28 14:29
PROVIDERS: ADMIT Nurse Practitioner; ATTEND Internal Medicine Geriatric Medicine
PROC: 30233N1 Transfusion of Nonautologous Red Blood Cells into Peripheral Vein, Percutaneous Approach (ICD-10-PCS; principal; 2024-05-28)
DX: K70.30 Alcoholic cirrhosis of liver without ascites (principal); N17.0 Acute kidney failure with tubular necrosis; D68.4 Acquired coagulation factor deficiency; I13.0 Hypertensive heart and chronic kidney disease with heart failure and stage 1 through stage 4 chronic kidney disease, or unspecified chronic kidney disease; D63.8 Anemia in other chronic diseases classified elsewhere; E72.20 Disorder of urea cycle metabolism, unspecified; I95.9 Hypotension, unspecified; D69.6 Thrombocytopenia, unspecified; I50.9 Heart failure, unspecified; E11.22 Type 2 diabetes mellitus with diabetic chronic kidney disease; L02.92 Furuncle, unspecified; K76.82 Hepatic encephalopathy; B00.9 Herpesviral infection, unspecified; F32.A Depression, unspecified; G89.4 Chronic pain syndrome; R56.9 Unspecified convulsions; I25.10 Atherosclerotic heart disease of native coronary artery without angina pectoris; N18.9 Chronic kidney disease, unspecified; Z79.899 Other long term (current) drug therapy; Z83.3 Family history of diabetes mellitus; Z82.49 Family history of ischemic heart disease and other diseases of the circulatory system
CPT/HCPCS: 36415; 71045; 80048; 80053; 81001; 82140; 82270; 83605; 83735; 84484; 85014; 85018; 85025; 85610; 85730; 86850; 86900; 86901; 86920; 87040; 87081; 93005; 97110; 97116; 97163; 97530; 99291; G0378; J2405; J2470

== ENCOUNTER 2024-06-19 20:24 | Inpatient (IN) | payer MEDICAID ==
[~2024-06-19] VITALS: Ht 160 cm; Wt 58.8 kg
[~2024-06-19 20:24] MED LIST changes: +ACAM1TAB PO; +CEPH500C PO; +LACT10SO3 PO; -LEVE100012 PO; +MAGN400T40 PO; +SPIR25TA PO
[2024-06-19 21:32] LABS: Alanine Aminotransferase 38 U/L (7-40); Albumin 3.5 g/dL (3.2-4.8); Alkaline Phosphatase 91 U/L (46-116); Aspartate Aminotransferase 55 U/L (13-40); Carbon Dioxide 33 mmol/L (20-30); Chloride 98 mmol/L (98-107)
[2024-06-19 21:33] LABS: Anion Gap 7 (5-15); BUN/Creatinine Ratio 13.3 (10.0-20.0); Bilirubin, Total 8.4 mg/dL (0.2-1.0); Blood Urea Nitrogen 12 mg/dL (9-23); Glucose 87 mg/dL (74-106); Magnesium 1.8 mg/dL (1.6-2.6); Potassium 3.4 mmol/L (3.5-5.1); Sodium 138 mmol/L (136-145); Total Protein 8.1 g/dL (5.7-8.2)
[2024-06-19 21:37] LABS: Eosinophils # (auto) 0.1 10 ^3/uL (0-0.8); Lymphocytes # (auto) 1.1 10 ^3/uL (0.4-5.4); Neutrophils # (auto) 2.1 10 ^3/uL (1.6-8.6); Red Blood Cells 1.58 10^6/uL (4.0-5.20)
[2024-06-19 21:39] LABS: Basophils # (auto) 0.1 10 ^3/uL (0-0.2); Basophils % (auto) 1.9 % (0.0-2.0); Eosinophils % (auto) 1.5 % (0.0-7.0); Lymphocytes % (auto) 31.1 % (10.0-50.0); Mean Corpuscular Hemoglobin 41.5 pg (28.0-32.0); Mean Corpuscular Hgb Conc. 36.4 g/dL (32.0-36.0); Monocytes # (auto) 0.2 10 ^3/uL (0-1.3); Monocytes % (auto) 6.8 % (0.0-12.0); Neutrophils % (auto) 58.7 % (37.0-80.0); Nucleated Red Blood Cells % 0.2 %; Platelet Count (auto) 101 10^3/uL (140-450); Red Cell Distribution Width 17.3 % (11.8-14.3); White Blood Cell 3.6 10^3/uL (4.4-10.8)
[2024-06-19 21:42] LABS: INR 1.52 (0.9-1.15); Partial Thromboplastin Time 32.2 SEC (24.5-34.5); Prothrombin Time 15.6 sec (9.3-11.8)
[2024-06-19 21:52] LABS: Hemoglobin 6.5 g/dL (12.2-16.2)
[2024-06-19 22:34] LABS: Anisocytosis Slight; Macrocytosis Moderate; Platelet Estimate Decreased
[2024-06-20] VITALS (10 sets, daily range): BP systolic 91–114; BP diastolic 39–51; PULSE 72–87; RESP 10–16; TEMP 98.5–99.5; O2SAT 98
[2024-06-20] MEDS: PIPERACILLIN-TAZO 4.5GM 100 ML IV ONE (00:45)
[2024-06-20] MEDS ORDERED: IBUPROFEN 600 MG TAB PO PRN (01:15)
[2024-06-20] MEDS ORDERED: DOCUSATE SOD 100 MG CAP PO PRN (01:15)
[2024-06-20] MEDS: POTASSIUM EFFERVESENT TAB 25 MEQ PO ONE (04:33)
[2024-06-20] MEDS: HYDROcodone-ACET 5/325MG TAB PO PRN (06:20)
[2024-06-20] MEDS: SODIUM CHLOR 0.9% PF (SALINE LOCK) 10ML VIAL/SYR IV SCH (06:20)
[2024-06-20] MEDS ORDERED: MORPHINE SULFATE INJ 2 MG/ml SYRG IV PRN (06:30)
[2024-06-20] MEDS ORDERED: NITROGLYCERIN 0.4 MG SL TAB SL PRN (06:30)
[2024-06-20] MEDS: PIPERACILLIN-TAZOB 3.375GM 100 ML IV SCH (10:00)
[2024-06-20] MEDS: FOLIC ACID 1 MG in D5W 5% 50 ML INJ SCH (10:00)
[2024-06-20] MEDS: SPIRONOLACTONE 25 MG TAB PO SCH (10:00)
[2024-06-20 10:46] LABS: Urine Bacteria None Seen /hpf (None Seen)
[2024-06-20 10:52] LABS: Urine Blood 3+ /uL (Negative); Urine Clarity Turbid (Clear); Urine Color Light-Orange (Yellow); Urine Hyaline Cast MOD /lpf (0 - 2); Urine Protein, UAD TRACE (Negative); Urine Specific Gravity 1.011 (1.001-1.035); Urine Urobilinogen Normal (Negative); Urine WBC 42 /hpf (0 - 5)
[2024-06-20 15:40] LABS: Eosinophils # (auto) 0.1 10 ^3/uL (0-0.8); Monocytes # (auto) 0.2 10 ^3/uL (0-1.3); Neutrophils # (auto) 1.7 10 ^3/uL (1.6-8.6)
[2024-06-20 15:43] LABS: Basophils # (auto) 0 10 ^3/uL (0-0.2); Basophils % (auto) 1.1 % (0.0-2.0); Eosinophils % (auto) 2.6 % (0.0-7.0); Hematocrit 22.1 % (36.0-46.0); Lymphocytes # (auto) 1.2 10 ^3/uL (0.4-5.4); Lymphocytes % (auto) 38.6 % (10.0-50.0); Mean Corpuscular Hemoglobin 36.7 pg (28.0-32.0); Mean Corpuscular Hgb Conc. 35.9 g/dL (32.0-36.0); Mean Corpuscular Volume 102.2 fL (80.0-100.0); Monocytes % (auto) 5.8 % (0.0-12.0); Neutrophils % (auto) 51.9 % (37.0-80.0); Nucleated Red Blood Cells % 0.1 %; Platelet Count (auto) 80 10^3/uL (140-450); Red Blood Cells 2.17 10^6/uL (4.0-5.20); White Blood Cell 3.2 10^3/uL (4.4-10.8)
[2024-06-20 15:47] LABS: Red Cell Distribution Width 25.9 % (11.8-14.3)
[2024-06-20 15:53] LABS: Alanine Aminotransferase 33 U/L (7-40); Albumin 3.2 g/dL (3.2-4.8); Alkaline Phosphatase 59 U/L (46-116); Anion Gap 9 (5-15); Aspartate Aminotransferase 53 U/L (13-40); BUN/Creatinine Ratio 14.8 (10.0-20.0); Bilirubin, Total 8.5 mg/dL (0.2-1.0); Blood Urea Nitrogen 13 mg/dL (9-23); Calcium 9.6 mg/dL (8.7-10.4); Carbon Dioxide 28 mmol/L (20-30); Chloride 101 mmol/L (98-107); Glucose 77 mg/dL (74-106); Potassium 4.3 mmol/L (3.5-5.1); Sodium 138 mmol/L (136-145); Total Protein 7.2 g/dL (5.7-8.2)
[2024-06-20] MEDS: THIAMINE 100mg/ml INJ (200mg/2ml VIAL) IV SCH (18:07)
[2024-06-20] MEDS: LACTULOSE 20Gm/30ML SOLN PO SCH (18:07)
[2024-06-20] MEDS: PANTOPRAZOLE 40 MG/10 ML VIAL INJ IV SCH (18:07)
[2024-06-20] MEDS: MORPHINE SULFATE INJ 2 MG/ml SYRG IV PRN (19:51)
[2024-06-21 06:01] LABS: Basophils # (auto) 0 10 ^3/uL (0-0.2); Eosinophils # (auto) 0.1 10 ^3/uL (0-0.8); Lymphocytes # (auto) 1.3 10 ^3/uL (0.4-5.4); Mean Corpuscular Volume 103.2 fL (80.0-100.0); Neutrophils # (auto) 1.8 10 ^3/uL (1.6-8.6); White Blood Cell 3.4 10^3/uL (4.4-10.8)
[2024-06-21 06:11] LABS: Basophils % (auto) 0.6 % (0.0-2.0); Eosinophils % (auto) 3.1 % (0.0-7.0); Hematocrit 20.7 % (36.0-46.0); Hemoglobin 7.4 g/dL (12.2-16.2); Mean Corpuscular Hemoglobin 36.9 pg (28.0-32.0); Mean Corpuscular Hgb Conc. 35.7 g/dL (32.0-36.0); Monocytes # (auto) 0.3 10 ^3/uL (0-1.3); Monocytes % (auto) 7.5 % (0.0-12.0); Neutrophils % (auto) 50.8 % (37.0-80.0); Nucleated Red Blood Cells % 0.1 %; Platelet Count (auto) 74 10^3/uL (140-450)
[2024-06-21 06:12] LABS: Red Cell Distribution Width 26.5 % (11.8-14.3)
[2024-06-21 06:19] LABS: Alanine Aminotransferase 29 U/L (7-40); Alkaline Phosphatase 54 U/L (46-116); Anion Gap 11 (5-15); Aspartate Aminotransferase 47 U/L (13-40); BUN/Creatinine Ratio 12.2 (10.0-20.0); Blood Urea Nitrogen 12 mg/dL (9-23); Calcium 9.7 mg/dL (8.7-10.4); Carbon Dioxide 26 mmol/L (20-30); Chloride 103 mmol/L (98-107); Glucose 76 mg/dL (74-106); Sodium 140 mmol/L (136-145)
[2024-06-21 06:20] LABS: Bilirubin, Total 8.4 mg/dL (0.2-1.0)
[2024-06-21] MEDS: ONDANSETRON HCL 4 MG/2 ML VIAL IV PRN (08:30)
[2024-06-21 09:55] VITALS: PULSE 76; RESP 16; O2SAT 98
[2024-06-21] MEDS: GABAPENTIN 100 MG CAP PO SCH (10:00)
[2024-06-21] MEDS: MIDODRINE HCL 10 MG TAB PO SCH (12:06)
[2024-06-21 15:30] VITALS: PULSE 72; RESP 17; O2SAT 97
[2024-06-21 16:00] VITALS: BP 103/64; PULSE 58; RESP 18; TEMP 98.1; O2SAT 97
[2024-06-21] MEDS ORDERED: TRAM50TA2 PO (16:45)
[2024-06-21 16:54] LABS: Basophils # (auto) 0.1 10 ^3/uL (0-0.2); Eosinophils # (auto) 0.1 10 ^3/uL (0-0.8); Lymphocytes # (auto) 1.5 10 ^3/uL (0.4-5.4); Neutrophils # (auto) 2.5 10 ^3/uL (1.6-8.6); Nucleated Red Blood Cells % 0.1 %
[2024-06-21 16:56] LABS: Basophils % (auto) 2.8 % (0.0-2.0); Hematocrit 23.1 % (36.0-46.0); Hemoglobin 8.2 g/dL (12.2-16.2); Lymphocytes % (auto) 31.9 % (10.0-50.0); Mean Corpuscular Hemoglobin 36.3 pg (28.0-32.0); Mean Corpuscular Hgb Conc. 35.6 g/dL (32.0-36.0); Mean Corpuscular Volume 101.9 fL (80.0-100.0); Monocytes # (auto) 0.4 10 ^3/uL (0-1.3); Neutrophils % (auto) 54.3 % (37.0-80.0); Platelet Count (auto) 83 10^3/uL (140-450); Red Blood Cells 2.27 10^6/uL (4.0-5.20); White Blood Cell 4.6 10^3/uL (4.4-10.8)
[2024-06-21 17:00] VITALS: BP 103/64; PULSE 58; RESP 18; TEMP 98.1; O2SAT 97
[2024-06-21 17:01] LABS: Red Cell Distribution Width 26.2 % (11.8-14.3)
[2024-06-21 17:09] LABS: Alanine Aminotransferase 31 U/L (7-40); Albumin 3.3 g/dL (3.2-4.8); Alkaline Phosphatase 57 U/L (46-116); Anion Gap 5 (5-15); Aspartate Aminotransferase 51 U/L (13-40); BUN/Creatinine Ratio 11.5 (10.0-20.0); Bilirubin, Total 8.9 mg/dL (0.2-1.0); Blood Urea Nitrogen 11 mg/dL (9-23); Calcium 9.7 mg/dL (8.7-10.4); Carbon Dioxide 30 mmol/L (20-30); Chloride 102 mmol/L (98-107); Glucose 85 mg/dL (74-106); Potassium 3.7 mmol/L (3.5-5.1); Sodium 137 mmol/L (136-145); Total Protein 7.6 g/dL (5.7-8.2)
[2024-06-21 20:00] VITALS: PULSE 61
[2024-06-21 21:00] VITALS: BP 101/48; PULSE 57; RESP 18; TEMP 97.9; O2SAT 98
[2024-06-22 05:00] VITALS: BP 108/57; PULSE 54; RESP 17; TEMP 98.1; O2SAT 97
[2024-06-22 08:00] VITALS: PULSE 68; RESP 18; O2SAT 98
[2024-06-22 09:00] VITALS: BP 104/56; PULSE 55; RESP 17; TEMP 97.7; O2SAT 98
[2024-06-22 10:22] LABS: Hepatitis B Surface Antigen Negative (Negative)
[2024-06-22 10:34] LABS: Hepatitis C Antibody Negative (Negative)
[2024-06-22 14:43] LABS: Base Excess 1.8 mmol/L (-2.0-3.0)
[2024-06-22 17:00] VITALS: BP 95/41; PULSE 60; RESP 20; TEMP 97.9; O2SAT 99
[2024-06-22 19:30] VITALS: PULSE 59; RESP 18; O2SAT 99
[2024-06-22 21:00] VITALS: BP 99/29; PULSE 56; RESP 18; TEMP 98.6; O2SAT 100
[2024-06-23] VITALS (9 sets, daily range): BP systolic 90–107; BP diastolic 39–56; PULSE 58–66; RESP 16–18; TEMP 98–99; O2SAT 95–100
[2024-06-24] VITALS (7 sets, daily range): BP systolic 91–112; BP diastolic 41–51; PULSE 60–65; RESP 16–20; TEMP 98.2–98.7; O2SAT 92–99
== END 2024-06-24 17:44 | disposition home health service (06) | DRG 660 ==
LOC: ER 20:24 → EDBD 20:24 → TELE 06-20 06:24 → TELE-WESTW 06-21 15:28
PROVIDERS: ADMIT Nurse Practitioner Family; ATTEND Internal Medicine
PROC: 30233N1 Transfusion of Nonautologous Red Blood Cells into Peripheral Vein, Percutaneous Approach (ICD-10-PCS; principal; 2024-06-20)
DX: D61.818 Other pancytopenia (principal); D68.4 Acquired coagulation factor deficiency; I50.9 Heart failure, unspecified; I11.0 Hypertensive heart disease with heart failure; K70.30 Alcoholic cirrhosis of liver without ascites; N92.0 Excessive and frequent menstruation with regular cycle; K59.00 Constipation, unspecified; I25.10 Atherosclerotic heart disease of native coronary artery without angina pectoris; E87.6 Hypokalemia; N76.4 Abscess of vulva; Z79.2 Long term (current) use of antibiotics; Z79.899 Other long term (current) drug therapy; Z83.3 Family history of diabetes mellitus; Z82.49 Family history of ischemic heart disease and other diseases of the circulatory system
CPT/HCPCS: 36415; 36600; 74176; 80053; 81001; 82140; 82805; 83735; 83880; 84484; 84702; 85025; 85610; 85730; 86803; 86850; 86900; 86901; 86920; 87081; 87340; 93005; 97163; 99291; G0378; J2405; J2470; J2543; J7060

== ENCOUNTER → 2024-06-22 | Outpatient (CLI) | payer MEDICAID ==
[~2024-06-22] MED LIST changes: -DOCU-94 PO; -ESCI20TA PO; -FER325T PO; -FURO40TA4 PO; -HYDR5CRE3 PR; -POLY335015 PO; -POTA-220 PO; -THIA100T10 PO
== END | disposition home or self-care (01) ==
LOC: LAB 11:00
PROVIDERS: ATTEND Obstetrics & Gynecology
DX: N93.9 Abnormal uterine and vaginal bleeding, unspecified (principal)

== ENCOUNTER 2024-07-10 16:03 | Inpatient (IN) | payer MEDICAID ==
[2024-07-10] VITALS (17 sets, daily range): BP systolic 90–107; BP diastolic 39–56; PULSE 69–77; RESP 12–19; TEMP 98–98.4; O2SAT 98–99
[~2024-07-10] VITALS: Ht 160 cm; Wt 64.3 kg
[2024-07-10 17:03] LABS: Hematocrit 17.9 % (36.0-46.0); Platelet Count (auto) 90 10^3/uL (140-450); White Blood Cell 3.8 10^3/uL (4.4-10.8)
[2024-07-10 17:05] LABS: Mean Corpuscular Hemoglobin 41.5 pg (28.0-32.0); Mean Corpuscular Hgb Conc. 35.6 g/dL (32.0-36.0); Mean Corpuscular Volume 116.7 fL (80.0-100.0); Red Blood Cells 1.54 10^6/uL (4.0-5.20); Red Cell Distribution Width 17.6 % (11.8-14.3)
[2024-07-10 17:08] LABS: Alanine Aminotransferase 46 U/L (7-40); Albumin 3.6 g/dL (3.2-4.8); Alkaline Phosphatase 88 U/L (46-116); Anion Gap 8 (5-15); Aspartate Aminotransferase 78 U/L (13-40); Bilirubin, Total 8.7 mg/dL (0.2-1.0); Blood Urea Nitrogen 17 mg/dL (9-23); Calcium 9.8 mg/dL (8.7-10.4); Carbon Dioxide 27 mmol/L (20-31); Chloride 102 mmol/L (98-107); Glucose 126 mg/dL (74-106); Potassium 4.1 mmol/L (3.5-5.1); Sodium 137 mmol/L (136-145); Total Protein 8.1 g/dL (5.7-8.2)
[2024-07-10 17:31] LABS: Hemoglobin 6.4 g/dL (12.2-16.2)
[2024-07-10 17:32] LABS: Band Neutrophils % (manual) 0; Blast Cells 0; Metamyelocytes % 0; Myelocytes % 0; Promyelocytes % 0; Reactive Lymphocytes 0
[2024-07-10 17:48] LABS: INR 1.67 (0.9-1.15); Partial Thromboplastin Time 34.5 SEC (24.5-34.5)
[2024-07-10] MEDS: HYDROcodone-ACET 10/325MG TAB PO ONE (19:08)
[2024-07-10 19:32] LABS: Basophils % (manual) 2 (0.0-2.0); Eosinophils % (manual) 5 (0-7); Lymphocytes % (manual) 33 (10.0-50.0); Macrocytosis Moderate; Monocytes % (manual) 9 (0-12); Platelet Estimate Decreased
[2024-07-10] MEDS: rifAXIMin 550 MG TAB PO SCH (22:41)
[2024-07-10] MEDS: MIDODRINE HCL 10 MG TAB PO SCH (23:11)
[2024-07-10] MEDS: ACETAMINOPHEN 325 MG TAB PO PRN (23:12)
[2024-07-11] MEDS: PHENYLEPHRINE IV 250 ML IV SCH (03:07)
[2024-07-11 05:44] LABS: Hemoglobin 8.1 g/dL (12.2-16.2)
[2024-07-11 05:48] LABS: Hematocrit 22.2 % (36.0-46.0)
[2024-07-11] MEDS ORDERED: MIDODRINE HCL 10 MG TAB PO SCH (06:00)
[2024-07-11 08:00] VITALS: PULSE 67; RESP 12; O2SAT 99
[2024-07-11] MEDS: SPIRONOLACTONE 25 MG TAB PO SCH (10:19)
[2024-07-11] MEDS: LACTULOSE 20Gm/30ML SOLN PO SCH (10:19)
[2024-07-11 19:30] VITALS: PULSE 59; RESP 11; O2SAT 96
[2024-07-11] MEDS: TEMAZEPAM 15 MG CAP PO PRN (22:14)
[2024-07-11] MEDS: ONDANSETRON HCL 4 MG/2 ML VIAL IV PRN (22:54)
[2024-07-12] VITALS (60 sets, daily range): BP systolic 86–130; BP diastolic 31–68; PULSE 50–68; RESP 9–18; TEMP 98.6–99.1; O2SAT 92–100
[2024-07-12 07:05] LABS: Alanine Aminotransferase 39 U/L (7-40); Albumin 2.9 g/dL (3.2-4.8); Alkaline Phosphatase 85 U/L (46-116); Anion Gap 5 (5-15); Aspartate Aminotransferase 64 U/L (13-40); Blood Urea Nitrogen 11 mg/dL (9-23); Calcium 9.5 mg/dL (8.7-10.4); Carbon Dioxide 26 mmol/L (20-31); Chloride 104 mmol/L (98-107); Glucose 77 mg/dL (74-106); Potassium 4.8 mmol/L (3.5-5.1); Sodium 135 mmol/L (136-145)
[2024-07-12 07:06] LABS: Bilirubin, Total 10.3 mg/dL (0.2-1.0); Total Protein 7.1 g/dL (5.7-8.2)
[2024-07-12 07:47] LABS: BUN/Creatinine Ratio 15.3 (10.0-20.0)
[2024-07-12] MEDS: NOREPINEPHRINE 8 MG/250ML KIT 250 ML IV SCH (13:10)
[2024-07-12] MEDS: traMADol HCL 50 MG TAB PO ONE (22:19)
[2024-07-13] VITALS (57 sets, daily range): BP systolic 83–125; BP diastolic 29–68; PULSE 56–90; RESP 9–18; TEMP 97.5–99; O2SAT 78–100
[2024-07-13 07:45] LABS: Alanine Aminotransferase 32 U/L (7-40); Albumin 2.9 g/dL (3.2-4.8); Alkaline Phosphatase 64 U/L (46-116); Anion Gap 5 (5-15); Aspartate Aminotransferase 54 U/L (13-40); Bilirubin, Total 11.2 mg/dL (0.2-1.0); Blood Urea Nitrogen 13 mg/dL (9-23); Calcium 9.7 mg/dL (8.7-10.4); Carbon Dioxide 27 mmol/L (20-31); Chloride 104 mmol/L (98-107); Glucose 66 mg/dL (74-106); Magnesium 1.9 mg/dL (1.6-2.6); Potassium 4.5 mmol/L (3.5-5.1); Sodium 136 mmol/L (136-145); Total Protein 6.7 g/dL (5.7-8.2)
[2024-07-13 08:00] LABS: BUN/Creatinine Ratio 17.6 (10.0-20.0)
[2024-07-13 08:02] LABS: Hematocrit 22.2 % (36.0-46.0); Mean Corpuscular Hemoglobin 37.9 pg (28.0-32.0); Mean Corpuscular Hgb Conc. 36.1 g/dL (32.0-36.0); Mean Corpuscular Volume 105.1 fL (80.0-100.0); Platelet Count (auto) 74 10^3/uL (140-450); Red Blood Cells 2.11 10^6/uL (4.0-5.20); White Blood Cell 4.5 10^3/uL (4.4-10.8)
[2024-07-13 08:11] LABS: Band Neutrophils % (manual) 0; Basophils % (manual) 0 (0.0-2.0); Blast Cells 0; Metamyelocytes % 0; Myelocytes % 0; Promyelocytes % 0; Reactive Lymphocytes 0; Red Cell Distribution Width 24.3 % (11.8-14.3)
[2024-07-13 09:29] LABS: Eosinophils % (manual) 2 (0-7); Lymphocytes % (manual) 31 (10.0-50.0); Monocytes % (manual) 5 (0-12); Platelet Estimate Decreased
[2024-07-13] MEDS ORDERED: NOREPINEPHRINE 8 MG/250ML KIT 250 ML IV SCH (15:45)
[2024-07-13] MEDS: ALBUMIN 25% 100 ML IV SCH (18:49)
[2024-07-13] MEDS: traMADol HCL 50 MG TAB PO PRN (20:39)
[2024-07-13] MEDS: LACTULOSE 20Gm/30ML SOLN PO SCH (21:57)
[2024-07-14] VITALS (11 sets, daily range): BP systolic 98–119; BP diastolic 39–62; PULSE 56–78; RESP 12–20; TEMP 97.7–98.5; O2SAT 91–100
[2024-07-14 06:38] LABS: Chloride 103 mmol/L (98-107); Potassium 4.2 mmol/L (3.5-5.1); Sodium 137 mmol/L (136-145)
[2024-07-14 06:39] LABS: Anion Gap 8 (5-15); Carbon Dioxide 26 mmol/L (20-31)
[2024-07-14 06:40] LABS: Calcium 9.7 mg/dL (8.7-10.4)
[2024-07-14 06:44] LABS: Blood Urea Nitrogen 13 mg/dL (9-23); Glucose 80 mg/dL (74-106)
[2024-07-14 06:45] LABS: Magnesium 1.9 mg/dL (1.6-2.6)
[2024-07-14 06:46] LABS: BUN/Creatinine Ratio 17.1 (10.0-20.0)
[2024-07-14 06:58] LABS: Hemoglobin 7.7 g/dL (12.2-16.2); Red Cell Distribution Width 23.4 % (11.8-14.3)
[2024-07-14 07:15] LABS: Hematocrit 21.4 % (36.0-46.0); Mean Corpuscular Hemoglobin 38.5 pg (28.0-32.0); Platelet Count (auto) 61 10^3/uL (140-450); White Blood Cell 3.6 10^3/uL (4.4-10.8)
[2024-07-14 07:23] LABS: Band Neutrophils % (manual) 0; Basophils % (manual) 0 (0.0-2.0); Blast Cells 0; Metamyelocytes % 0; Myelocytes % 0; Promyelocytes % 0; Reactive Lymphocytes 0
[2024-07-14 08:09] LABS: Amphetamine Screen, Urine Neg (NEGATIVE)
[2024-07-14 08:10] LABS: Barbiturate Scree,Urine Neg (NEGATIVE); Benzodiazephine Screen, Urine Neg (NEGATIVE); Cocaine Screen, Urine Neg (NEGATIVE)
[2024-07-14 08:11] LABS: Opiate Scree,Urine Neg (NEGATIVE)
[2024-07-14 08:12] LABS: Cannabinoid Screen, Urine Pos (NEGATIVE); Phencyclidine Screen, Urine Neg (NEGATIVE)
[2024-07-14 08:57] LABS: Eosinophils % (manual) 3 (0-7); Lymphocytes % (manual) 32 (10.0-50.0); Monocytes % (manual) 5 (0-12); Platelet Estimate Decreased
[2024-07-14] MEDS: GABAPENTIN 300 MG CAP PO SCH (10:11)
[2024-07-14] MEDS: POLYETHYLENE GLYCOL 17 GM PWDR PO ONE (17:02)
[2024-07-15] VITALS (8 sets, daily range): BP systolic 100–129; BP diastolic 50–70; PULSE 58–69; RESP 15–18; TEMP 97.5–98.2; O2SAT 90–99
[2024-07-16 01:00] VITALS: BP 111/70; PULSE 70; RESP 18; TEMP 97.5; O2SAT 93
[2024-07-16 05:00] VITALS: BP 109/59; PULSE 72; RESP 17; TEMP 98.2; O2SAT 96
[2024-07-16 09:00] VITALS: BP 101/57; PULSE 73; RESP 18; TEMP 98; O2SAT 94
[2024-07-16] MEDS ORDERED: CEPH500C PO (12:01)
[2024-07-16 13:00] VITALS: BP 110/61; PULSE 74; RESP 16; TEMP 98.1; O2SAT 97
[2024-07-16 13:23] VITALS: BP 101/57; PULSE 73; RESP 18; TEMP 98; O2SAT 94
[2024-07-16] MEDS: INFLUENZA TRIVALENT 2024-2025 0.5 ML INJ IM ONE (16:34)
[2024-07-16 16:38] VITALS: BP 110/56; PULSE 71; RESP 18; TEMP 97.6; O2SAT 95
== END 2024-07-16 17:00 | disposition home health service (06) | DRG 280 ==
LOC: ER 16:03 → EDBD 16:03 → OVERFLOW 19:29 → DOU IN ICU 07-12 08:49 → ICU CENTRL 07-12 10:14 → TELE-CENTR 07-14 06:17 → TELE-WESTW 07-15 08:14
PROVIDERS: ADMIT Internal Medicine; ATTEND Internal Medicine
PROC: 30233N1 Transfusion of Nonautologous Red Blood Cells into Peripheral Vein, Percutaneous Approach (ICD-10-PCS; principal; 2024-07-10)
DX: K70.31 Alcoholic cirrhosis of liver with ascites (principal); D61.818 Other pancytopenia; D68.9 Coagulation defect, unspecified; I95.89 Other hypotension; E72.20 Disorder of urea cycle metabolism, unspecified; E44.1 Mild protein-calorie malnutrition; R16.2 Hepatomegaly with splenomegaly, not elsewhere classified; D63.8 Anemia in other chronic diseases classified elsewhere; D53.9 Nutritional anemia, unspecified; I13.0 Hypertensive heart and chronic kidney disease with heart failure and stage 1 through stage 4 chronic kidney disease, or unspecified chronic kidney disease; I50.9 Heart failure, unspecified; E11.22 Type 2 diabetes mellitus with diabetic chronic kidney disease; K80.20 Calculus of gallbladder without cholecystitis without obstruction; L73.9 Follicular disorder, unspecified; N18.9 Chronic kidney disease, unspecified; R74.01 Elevation of levels of liver transaminase levels; R00.1 Bradycardia, unspecified; K29.70 Gastritis, unspecified, without bleeding; K42.9 Umbilical hernia without obstruction or gangrene; I25.10 Atherosclerotic heart disease of native coronary artery without angina pectoris; Z79.899 Other long term (current) drug therapy; Z79.2 Long term (current) use of antibiotics; Z83.3 Family history of diabetes mellitus; Z82.49 Family history of ischemic heart disease and other diseases of the circulatory system; Z68.25 Body mass index [BMI] 25.0-25.9, adult
CPT/HCPCS: 36415; 74176; 76700; 80048; 80053; 80307; 82140; 83735; 85007; 85014; 85018; 85027; 85610; 85730; 86850; 86900; 86901; 86920; 87081; 90656; 93306; 99291; G0378; J2405; P9047

== ENCOUNTER 2024-08-11 15:14 | Inpatient (IN) | payer MEDICAID ==
[~2024-08-11] VITALS: Ht 160 cm; Wt 68.0 kg
--- NOTE | 2024-08-11 15:23 | ED.PDOC ---
GI ASSESSMENT HPI Comments HPI: Poor Historian. 33-year-old female brought in by ambulance from home for abdominal pain for the last three weeks nonspecific generalized. Patient has history of liver cirrhosis. She went to see her doctor today who advised to when he go home called 911 seeking go to the ER and get further evaluation. Pre-hospital course vital signs were stable per EMS. Patient states having some episodes of black stool occasionally but she is on iron supplements. Patient states compliance with the medications and denies any recent use of alcohol. Vitals: Temp:97.9 F Heart rate: 63 RR: 20 BP: 123/53 02 sat: 100 % on room air PMH: Chronic kidney disease, congestive heart failure, hypertension, liver ci rrhosis, seizures PSH: denies social history: DENIES tobacco use, DENIES ETOH use, DENIES drug use medications: lactulose, spironolactone, ondansetron, allergies: NKDA REVIEW OF SYSTEMS: CONSTITUTIONAL: Denies acute: fever, diaphoresis, chills, HEAD: Denies acute: headache, photophobia Eyes: Denies acute: Double vision, vision loss, eye pain, eye discharge. EARS: Denies acute: tinnitus, hearing loss, ear discharge, ear pain, THROAT: Denies acute: sore throat, swelling, difficulty swallowing , pain with swallowing, change in voice. NECK: Denies acute: neck pain, neck swelling, stiff neck. HEART: Denies acute : chest pain, palpitations, LUNGS: Denies acute: SOB, wheezing, cough, hemoptysis ABDOMEN: Denies acute: Vomiting, diarrhea, , hematemesis, hematochezia SKIN: Denies acute: rash, redness, lesions, itchiness. EXTREMITIES: Denies acute: calf pain, numbness, tingling, weakness, denies pain in extremity. Denies acute: Low back pain. Neuro: Denies acute: focal neurological deficit, motor or sensory focal neurological deficit, tremors, seizure like activity, confusion, dizziness, change in mental status, loss of bowel or bladder function, cauda equina like symptoms. : Denies acute: dysuria, hematuria, flank pain, increase in urinary frequency. PSYCH: Denies acute: hallucination, suicidal ideation, homicidal ideation. FEMALE: Denies acute: abnormal vaginal bleeding, foul odor, unusual discharge. PHYSICAL EXAM: General: no acute distress, awake and alert. Head: normocephalic, atraumatic. Neck: supple, trachea is midline, no swelling. Throat: Normal phonation. Eyes:, no erythema, no purulent discharge, no proptosis, noted icterus. Heart: regular rate, regular rhythm, no significant murmur appreciated. Lungs: no apparent respiratory distress, Able to speak in full sentences. No wheezing, no rhonchi, no crackles. No stridors Clear to auscultation bilaterally. Abdomen: Generalized tender to palpation, non distended, soft, no guarding, no rebound, + bowel sounds. Neuro: Awake, Alert, oriented to name, self, situation, follows commands GCS=15. Speech is normal. Skin: no petechia, no purpura, no cyanosis, noted-pale, noted jaundice. Lower extremities: --trace bilateral - Pitting edema no deformity, no focal swelling, no calf TTP. Makes eye contact. moves all four extremities. Face: no apparent facial droop. Chief Complaint: Abdominal Pain Time Seen by MD: 15:19 Reviewed Notes: Nurses Notes, Allergies Allergies: Coded Allergies: NO KNOWN ALLERGIES (Unverified , 12/10/23) Home Meds Active Scripts Cephalexin Monohydrate (Cephalexin) 500 Mg Cap, 1 CAP PO TID, #30 CAP Prov:SHRUTHI HUDSON MD 07/16/24 Lactulose (Lactulose) 10 Gm/15 Ml Yesenia, 30 ML PO TID for 30 Days, #1000 ML Prov:MASON GRAY MD 06/01/24 Spironolactone (Aldactone) 25 Mg Tab, 1 TAB PO DAILY, #30 TAB 5 Refills Prov:MASON GRAY MD 06/01/24 Pantoprazole Sodium Sesquihydr (Protonix) 40 Mg Tab, 40 MG PO BID, #60 TAB 5 Refills Prov:SHRUTHI HUDSON MD 05/13/24 Reported Medications Magnesium Oxide (MAGNESIUM OXIDE) 400 Mg Tab, 1 TAB PO DAILY, #30 TAB 5 Refills 06/21/24 Tramadol Hcl (Tramadol Hcl) 50 Mg Tab, 50 MG PO DAILY PRN for PAIN SCALE 7 THRU 10, MG 06/21/24 Magnesium Oxide (MAGNESIUM OXIDE) 400 Mg Tab, 1 TAB PO DAILY, TAB 05/29/24 Acamprosate Calcium (ACAMPROSATE CALCIUM DR) 333 Mg Tab, 2 TAB PO BID, TAB 05/28/24 Midodrine HCl (Midodrine HCl) 10 Mg Tab, 1 TAB PO BID 05/11/24 Acyclovir (ZOVIRAX TABLET) 400 Mg Tb, 400 MG PO BID for HERPES IF GOING TO BE SEXUALLY, TAB 04/04/24 Folic Acid (Folic Acid) 1 Mg Tab, 1 MG PO DAILY, TAB 12/11/23 Gabapentin (Gabapentin) 300 Mg Cap, 1 CAP PO DAILY 12/11/23 Information Source: Patient, Emergency Med Personnel Mode of Arrival: EMS Past Medical History PAST MEDICAL HISTORY: Anemia, CHF, CKF, HTN, Liver, Seizures Surgical History: Denies all surgeries COOK RELIEF History: Denies all COOK RELIEF Hx Family History Family History: Family hx of DM, Family hx of heart adrián Social History Smoker: Non-Smoker Alcohol: Sober Drugs: Denies Drug Use Lives In: Home Was a procedure done? Was a procedure done?: No GI differential Dx Differential Diagnosis: Other (DDX include Diverticulitis, colitis, gastroenteritis, acute abdomen, SBO, enteritis, constipation, volvulus, appendicitis, Gallbladder disease, choledocolithiasis, ascending cholangitis, pancreatitis, intraAbdominal mass/neoplasm, hepatitis, UTI, pylonephritis, ki dney stone, aneurysm, dissection, Inflammatory bowel disease, gastroparesis, ischemic bowel, ovarian torsion, ovarian cyst/mass, tubo-ovarian abscess, , ectopic , PID, STD.) X-Ray, Labs, Meds, VS Vital Signs Date Time Temp Pulse Resp B/P (MAP) Pulse Ox O2 Delivery O2 Flow Rate FiO2 08/11/24 20:34 123/53 08/11/24 18:52 63 20 100 Room Air 08/11/24 18:52 97.9 63 20 123/53 (76) 100 97.9 08/11/24 18:42 123/53 08/11/24 15:16 98.0 72 18 124/70 (88) 97 08/11/24 15:15 66 Lab Test 08/11/24 15:47 08/11/24 15:28 Range/Units Urine Color Colorless Yellow Urine Clarity Turbid H Clear Urine pH 6.0 5.0-9.0 Urine Specific Freeman 1.004 1.001-1.035 Urine Protein Negative Negative Urine Ketones Negative Negative Urine Blood 1+ H Negative /uL Urine Nitrite Negative Negative Urine Bilirubin Negative Negative Urine Urobilinogen Normal Negative mg/dL Urine Leukocyte Esterase Trace Negative /uL Urine RBC 1 0 - 4 /hpf Urine WBC 3 0 - 5 /hpf Urine Squamous Epithelial Cells Mod <5 /hpf Urine Amorphous Crystals Few None Seen /hpf Urine Bacteria Few H None Seen /hpf Urine Glucose Normal Normal mg/dL White Blood Count 4.3 L 4.4-10.8 10^3/uL Red Blood Count 1.83 L 4.0-5.20 10^6/uL Hemoglobin 7.7 L 12.2-16.2 g/dL Hematocrit 21.9 L 36.0-46.0 % Mean Corpuscular Volume 119.6 H 80.0-100.0 fL Mean Corpuscular Hemoglobin 42.2 H 28.0-32.0 pg Mean Corpuscular Hemoglobin Concent 35.3 32.0-36.0 g/dL Red Cell Distribution Width 14.2 11.8-14.3 % Platelet Count 94 L 140-450 10^3/uL Mean Platelet Volume 7.9 6.9-10.8 fL Neutrophils (%) (Auto) 58.9 37.0-80.0 % Lymphocytes (%) (Auto) 26.4 10.0-50.0 % Monocytes (%) (Auto) 8.0 0.0-12.0 % Eosinophils (%) (Auto) 3.6 0.0-7.0 % Basophils (%) (Auto) 3.1 H 0.0-2.0 % Neutrophils # (Auto) 2.5 1.6-8.6 10 ^3/uL Lymphocytes # (Auto) 1.1 0.4-5.4 10 ^3/uL Monocytes # (Auto) 0.3 0-1.3 10 ^3/uL Eosinophils # (Auto) 0.2 0-0.8 10 ^3/uL Basophils # (Auto) 0.1 0-0.2 10 ^3/uL Nucleated Red Blood Cells 0.4 % Platelet Estimate Decreased Anisocytosis (manual) Slight Macrocytosis Marked Kvng Cells Moderate Sodium Level 132 L 136-145 mmol/L Potassium Level 4.1 3.5-5.1 mmol/L Chloride Level 100 98-107 mmol/L Carbon Dioxide Level 27 20-31 mmol/L Anion Gap 5 5-15 Blood Urea Nitrogen 11 9-23 mg/dL Creatinine 0.91 0.550-1.02 mg/dL Glomerular Filtration Rate Calc 84 >90 mL/min BUN/Creatinine Ratio 12.1 10.0-20.0 Serum Glucose 74 74-106 mg/dL Lactic Acid Level 1.8 0.4-2.0 mmol/L Calcium Level 10.0 8.7-10.4 mg/dL Magnesium Level 1.8 1.6-2.6 mg/dL Total Bilirubin 14.1 H 0.2-1.0 mg/dL Aspartate Amino Transferase (AST) 58 H 13-40 U/L Alanine Aminotransferase (ALT) 34 7-40 U/L Alkaline Phosphatase 80 46-116 U/L Ammonia 33 H 11-32 umol/L Troponin I High Sensitivity 11 </=34 ng/L B-Type Natriuretic Peptide 1193.49 0-100 pg/mL Total Protein 8.2 5.7-8.2 g/dL Albumin 3.7 3.2-4.8 g/dL Lipase 57 H 12-53 U/L Current Medications Medications (Trade) Dose Ordered Sig/Adela Route Start Time Stop Time Status Last Admin Ceftriaxone Sodium/Dextrose 50 ml @ 50 mls/hr ONCE ONCE IV 08/11/24 16:45 08/11/24 17:44 DC 08/11/24 18:41 Furosemide (Lasix Injection) 60 mg ONCE ONCE IV 08/11/24 17:00 08/11/24 17:01 DC 08/11/24 18:42 Fentanyl Citrate 50 mcg ONCE ONCE IV 08/11/24 20:00 08/11/24 20:01 DC 08/11/24 20:34 Ondansetron HCl (Zofran) 8 mg ONCE ONCE IV 08/11/24 20:00 08/11/24 20:01 DC 08/11/24 20:[address] [address] Ph: [phone] DIAGNOSTIC IMAGING Diagnostic Imaging Report : [id number] Signed PATIENT: LUCY JEONG V ACCT: [id number] UNIT: [id number] : 1990 LOC: ER ROOM / BED: / AGE / SEX: 33 / F ADM STATUS: REG ER SERVICE 1520 ORDERING PHYSICIAN: JESSA BOOKER DO PROCEDURE(s): ABPL - CT AB PEL WO CON-NO ORAL OR IV REASON: abd pain ORDER NUMBER(s): [id number], ACCESSION NUMBER(s): [id number] Exam: CT CT AB PEL WO CON-NO ORAL OR IV History: abd pain Comparison Study: CT CT AB PEL WO CON-NO ORAL OR IV on DOS: 07/10/24, CT CT AB PEL WO CON-NO ORAL OR IV on DOS: 06/19/24, CT CT AB PEL WO CON-NO ORAL OR IV on DOS: 05/09/24, CT CT AB PEL WO CON-NO ORAL OR IV on DOS: 04/04/24, CT CT AB PEL WO CON-NO ORAL OR IV on DOS: 02/12/24 Technique: Multidetector spiral CT of the abdomen and pelvis was performed from lung bases to pubic symphysis. Imaging was performed without IV contrast. Axial, coronal and sagittal multiplanar reformats were obtained from the axial data set by the technologist. Radiation dose : Abdomen/Pelvis: CTDIvol 6.84 mGy, DLP 364.71 mGy*cm. Findings: Evaluation of solid organs is limited due to lack of intravenous contrast use. Lung Bases: Small right pleural effusion. Right basilar atelectasis. Liver: The liver is normal in size. No focal lesions. Gallbladder and biliary Tree: Cholelithiasis noted without secondary findings of cholecystitis or biliary obstruction. Spleen: Enlarged Pancreas: The pancreas is grossly normal in appearance. Adrenal Glands: Unremarkable Kidneys: Kidneys are grossly normal without calculi or hydronephrosis. Bladder: Grossly unremarkable for degree of distention. Bowel: The stomach is grossly normal in appearance. Small bowel and colon are normal in caliber and distribution. Normal appendix is visualized in the right lower quadrant without findings of appendicitis. Ascites: Moderate abdominal and pelvic Lymphadenopathy: No mesenteric, retroperitoneal or periportal lymphadenopathy. Abdominal wall and Mesentery: Unremarkable. Vasculature: The visualized abdominal aorta is normal in size and caliber. Evaluation of abdominal and pelvic vessels is limited due to lack of intravenous contrast. Pelvic Organs: Unremarkable Musculoskeletal: No aggressive focal bony lesions, acute fractures or dislocation. IMPRESSION: 1. Small right pleural effusion. Moderate ascites. Cholelithiasis. Splenomegaly. Radiation optimization: All CT scans at this facility use at least one of these dose optimization techniques: Automated exposure control mA and/or kV adjustment per patient size (includes targeted exams where dose is matched to clinical indication) or iterative reconstruction. HS:Y ATED BY: ANSON CORONADO MD DICTATED DATE/TIME: 08/11/24 1635 SIGNED BY: ANSON CORONADO MD SIGNED DATE/TIME: 08/11/24 1635 CC: [place] [id number] Ph: [phone] DIAGNOSTIC IMAGING Diagnostic Imaging Report : [id number] Signed PATIENT: LUCY JEONG V ACCT: [id number] UNIT: [id number] : 1990 LOC: ER ROOM / BED: / AGE / SEX: 33 / F ADM STATUS: REG ER SERVICE 1520 ORDERING PHYSICIAN: JESSA BOOKER DO PROCEDURE(s): CXRP - CHEST PORTABLE REASON: abd pain ORDER NUMBER(s): [id number], ACCESSION NUMBER(s): [id number] CHEST RADIOGRAPH Indication:abd pain Technique: Single frontal view of the chest was obtained COMPARISON: XY CHEST PORTABLE on DOS: 05/27/24, XY CHEST PORTABLE on DOS: 05/09/24 FINDINGS: Lines and Tubes: None Lungs: Right lower lobe airspace disease. Pleura: No effusion. No pneumothorax. Cardiomediastinal contours: Unremarkable Bones: Unremarkable IMPRESSION: Right lower lobe airspace disease. ATED BY: DAWSON MISTRY MD DICTATED DATE/TIME: 08/11/24 1549 SIGNED BY: DAWOSN MISTRY MD SIGNED DATE/TIME: 08/11/24 1549 CC: Time of 1ST Reevaluation: 21:58 Reevaluation 1ST: Improved Patient Education/Counseling: Diagnosis, Treatment Family Education/Counseling: No Family Present Comments Patient presented with the above HPI.------workup was initiated. patient was found with the above mentioned diagnosis. Patient was given: Lasix given her volume overload and ascites and pleural effusion. Patient was given Rocephin IV in case there is SBP. The patient was given pain medications. Patient was given Zofran. Patient ED course and VS have been stabilized. Patient has been reassessed in the ED and remained in a stable condition. Pertinent incidental findings were discussed with the patient and/or family. Patient/family voices understanding and is agreeable with plan. Patient has been observed in the ED adequate length of time to insure improvement/stability. patient was admitted to the medicine team for further evaluation and treatment of their presentation. All the reports of any imaging studies that were ordered by myself were reviewed by myself. Departure 1 Departure Time of Disposition: 16:45 Impression: Primary Impression: Pneumonia Additional Impressions: Abdominal pain Hyperbilirubinemia Pleural effusion Ascites Disposition: ADMITTED INPATIENT Condition: Guarded Discharged With: Self Critical Care Note Critical Care Time?: Yes (45 min-critical care time only) I personally scribed for JESSA BOOKER DO ([email or web address]) on 08/11/24 at 15:23. Electronically submitted by Jacqueline Marrero ([employer]). I personally scribed for JESSA BOOKER DO ([email or web address]) on 08/11/24 at 16:01. Electronically submitted by Jacqueline Marrero ([employer]). I personally scribed for JESSA BOOKER DO ([email or web address]) on 08/11/24 at 16:44. Electronically submitted by Jacqueline Marrero ([employer]). I personally scribed for JESSA BOOKER DO ([email or web address]) on 08/11/24 at 21:45. Electronically submitted by Jacqueline Marrero ([employer]). JESSA BOOKER DO Aug 11, 2024 15:23
--- NOTE | 2024-08-11 15:52 | DVH ---
CHEST RADIOGRAPH Indication:abd pain Technique: Single frontal view of the chest was obtained COMPARISON: XY CHEST PORTABLE on DOS: 05/27/24, XY CHEST PORTABLE on DOS: 05/09/24 FINDINGS: Lines and Tubes: None Lungs: Right lower lobe airspace disease. Pleura: No effusion. No pneumothorax. Cardiomediastinal contours: Unremarkable Bones: Unremarkable IMPRESSION: Right lower lobe airspace disease.
[2024-08-11 15:54] LABS: Basophils # (auto) 0.1 10 ^3/uL (0-0.2); Eosinophils # (auto) 0.2 10 ^3/uL (0-0.8); Hematocrit 21.9 % (36.0-46.0); Hemoglobin 7.7 g/dL (12.2-16.2); Lymphocytes # (auto) 1.1 10 ^3/uL (0.4-5.4); Monocytes # (auto) 0.3 10 ^3/uL (0-1.3); Neutrophils # (auto) 2.5 10 ^3/uL (1.6-8.6); Red Blood Cells 1.83 10^6/uL (4.0-5.20)
[2024-08-11 15:55] LABS: Basophils % (auto) 3.1 % (0.0-2.0); Eosinophils % (auto) 3.6 % (0.0-7.0); Lymphocytes % (auto) 26.4 % (10.0-50.0); Mean Corpuscular Hemoglobin 42.2 pg (28.0-32.0); Mean Corpuscular Hgb Conc. 35.3 g/dL (32.0-36.0); Mean Corpuscular Volume 119.6 fL (80.0-100.0); Neutrophils % (auto) 58.9 % (37.0-80.0); Nucleated Red Blood Cells % 0.4 %; Platelet Count (auto) 94 10^3/uL (140-450); Red Cell Distribution Width 14.2 % (11.8-14.3); White Blood Cell 4.3 10^3/uL (4.4-10.8)
[2024-08-11 16:03] LABS: Urine Amorphous Crystal FEW /hpf (None Seen); Urine Bacteria FEW /hpf (None Seen); Urine Blood 1+ /uL (Negative); Urine Clarity Turbid (Clear); Urine Color Colorless (Yellow); Urine Protein, UAD Negative (Negative); Urine Specific Gravity 1.004 (1.001-1.035); Urine Urobilinogen Normal (Negative); Urine WBC 3 /hpf (0 - 5)
[2024-08-11 16:13] LABS: Alanine Aminotransferase 34 U/L (7-40); Albumin 3.7 g/dL (3.2-4.8); Alkaline Phosphatase 80 U/L (46-116); Anion Gap 5 (5-15); Aspartate Aminotransferase 58 U/L (13-40); Blood Urea Nitrogen 11 mg/dL (9-23); Carbon Dioxide 27 mmol/L (20-31); Chloride 100 mmol/L (98-107); Glucose 74 mg/dL (74-106); Lipase 57 U/L (12-53); Magnesium 1.8 mg/dL (1.6-2.6); Potassium 4.1 mmol/L (3.5-5.1); Sodium 132 mmol/L (136-145)
[2024-08-11 16:14] LABS: Bilirubin, Total 14.1 mg/dL (0.2-1.0); Total Protein 8.2 g/dL (5.7-8.2)
--- NOTE | 2024-08-11 16:37 | DVH ---
Exam: CT CT AB PEL WO CON-NO ORAL OR IV History: abd pain Comparison Study: CT CT AB PEL WO CON-NO ORAL OR IV on DOS: 07/10/24, CT CT AB PEL WO CON-NO ORAL OR IV on DOS: 06/19/24, CT CT AB PEL WO CON-NO ORAL OR IV on DOS: 05/09/24, CT CT AB PEL WO CON-NO ORAL OR IV on DOS: 04/04/24, CT CT AB PEL WO CON-NO ORAL OR IV on DOS: 02/12/24 Technique: Multidetector spiral CT of the abdomen and pelvis was performed from lung bases to pubic symphysis. Imaging was performed without IV contrast. Axial, coronal and sagittal multiplanar reform ats were obtained from the axial data set by the technologist. Radiation dose : Abdomen/Pelvis: CTDIvol 6.84 mGy, DLP 364.71 mGy*cm. Findings: Evaluation of solid organs is limited due to lack of intravenous contrast use. Lung Bases: Small right pleural effusion. Right basilar atelectasis. Liver: The liver is normal in size. No focal lesions. Gallbladder and biliary Tree: Cholelithiasis noted without secondary findings of cholecystitis or susie iary obstruction. Spleen: Enlarged Pancreas: The pancreas is grossly normal in appearance. Adrenal Glands: Unremarkable Kidneys: Kidneys are grossly normal without calculi or hydronephrosis. Bladder: Grossly unremarkable for degree of distention. Bowel: The stomach is grossly normal in appearance. Small bowel and colon are normal in caliber and d istribution. Normal appendix is visualized in the right lower quadrant without findings of appendici tis. Ascites: Moderate abdominal and pelvic Lymphadenopathy: No mesenteric, retroperitoneal or periportal lymphadenopathy. Abdominal wall and Mesentery: Unremarkable. Vasculature: The visualized abdominal aorta is normal in size and caliber. Evaluation of abdominal a nd pelvic vessels is limited due to lack of intravenous contrast. Pelvic Organs: Unremarkable Musculoskeletal: No aggressive focal bony lesions, acute fractures or dislocation. IMPRESSION: 1. Small right pleural effusion. Moderate ascites. Cholelithiasis. Splenomegaly. Radiation optimization: All CT scans at this facility use at least one of these dose optimization mara hniques: Automated exposure control mA and/or kV adjustment per patient size (includes targeted exams where dose is matched to clinical indication) or iterative reconstruction. HS:Y
[2024-08-11 16:38] LABS: BUN/Creatinine Ratio 12.1 (10.0-20.0)
[2024-08-11] MEDS: cefTRIAXone 2GM/50ML D5W 50 ML IV ONE (18:41)
[2024-08-11] MEDS: FUROSEMIDE 100 MG/10ML VIAL IV ONE (18:42)
[2024-08-11 19:18] LABS: Anisocytosis Slight; Macrocytosis Marked; Platelet Estimate Decreased
[2024-08-11] MEDS: ONDANSETRON HCL 4 MG/2 ML VIAL IV ONE (20:33)
[2024-08-11] MEDS: fentaNYL CITRATE 100 MCG/2 ML VL IV ONE (20:34)
[2024-08-11] MEDS ORDERED: NITROGLYCERIN 0.4 MG SL TAB SL PRN (21:45)
[2024-08-11] MEDS ORDERED: MORPHINE SULFATE INJ 2 MG/ml SYRG IV PRN (21:45)
[2024-08-11] MEDS ORDERED: ACETAMINOPHEN 325 MG TAB PO PRN (21:45)
[2024-08-11 22:20] LABS: Hematocrit 20.7 % (36.0-46.0); Hemoglobin 7.2 g/dL (12.2-16.2); Mean Corpuscular Hemoglobin 41.8 pg (28.0-32.0); Mean Corpuscular Hgb Conc. 34.9 g/dL (32.0-36.0); Platelet Count (auto) 78 10^3/uL (140-450); Red Blood Cells 1.72 10^6/uL (4.0-5.20); White Blood Cell 4.2 10^3/uL (4.4-10.8)
[2024-08-11 22:22] LABS: Band Neutrophils % (manual) 0; Basophils % (manual) 0 (0.0-2.0); Blast Cells 0; Metamyelocytes % 0; Myelocytes % 0; Promyelocytes % 0; Reactive Lymphocytes 0
[2024-08-11 22:31] LABS: Alanine Aminotransferase 31 U/L (7-40); Albumin 3.5 g/dL (3.2-4.8); Alkaline Phosphatase 71 U/L (46-116); Anion Gap 6 (5-15); Aspartate Aminotransferase 54 U/L (13-40); Blood Urea Nitrogen 11 mg/dL (9-23); Calcium 9.8 mg/dL (8.7-10.4); Carbon Dioxide 28 mmol/L (20-31); Chloride 100 mmol/L (98-107); Glucose 67 mg/dL (74-106); Lipase 45 U/L (12-53); Potassium 3.9 mmol/L (3.5-5.1); Sodium 134 mmol/L (136-145)
[2024-08-11 22:32] LABS: Bilirubin, Total 14.2 mg/dL (0.2-1.0); Total Protein 7.9 g/dL (5.7-8.2)
[2024-08-11 22:34] LABS: BUN/Creatinine Ratio 12.4 (10.0-20.0)
[2024-08-11 22:38] LABS: Eosinophils % (manual) 4 (0-7); Lymphocytes % (manual) 33 (10.0-50.0); Monocytes % (manual) 8 (0-12); Platelet Estimate Decreased
[2024-08-11 22:39] LABS: Anisocytosis Slight; Macrocytosis Marked
[2024-08-11 23:49] VITALS: PULSE 60; RESP 18; O2SAT 99
--- NOTE | 2024-08-11 23:53 | DVHHPRES ---
History of Present Illness Resident Creating Document: ANDREW MATHIS RESIDENT History of Present Illness LUCY JEONG V 33 years old female with a PMH of CHF, anemia, hemorrhoids stage II, liver cirrhosis presented to the ED with the chief complaints of abdominal pain and palpitations for past 3 weeks. Patient went to see his PCP, advised to go ER for further evaluation. Patient reported she has been having upper and lower abdominal pain and which is going to lower back associated with nausea and vomiting. Patient reported she has been saving some episodes of blood in stools which attributed hemorrhoids. On my assessment patient denies fever, chest pain, chills, diaphoresis, diarrhea and other associated symptoms. Past Medical History CHF, anemia, stage II hemorrhoid, liver cirrhosis Past Surgical History Neck surgery Family History: None Past Social History Lives at home. Marijuana abuse. Former alcohol abuser stopped 8 months ago Review of Systems Constitutional: Yes: Weakness; No: Fever, Chills, Sweats, Malaise, Other Eyes: No: Pain, Vision change, Conjunctivae inflammation, Eyelid inflammation, Other, Redness ENT: No: Ear pain, Ear discharge, Nose pain, Nose discharge, Nose congestion, Mouth pain, Mouth swelling, Throat pain, Throat swelling, Other Cardiovascular: Palpitations Gastrointestinal: Nausea, Vomiting, Abdominal Pain, Constipation Genitourinary: No Dysuria, No Frequency, No Incontinence, No Hematuria, No Retention, No Other Musculoskeletal: No: other, neck pain, shoulder pain, arm pain, back pain, hand pain, leg pain, foot pain Skin: No: Rash, Lesions, Jaundice, Bruising, Other Neurological: No: Weakness, Numbness, Incoordination, Change in speech, Confusion, Seizures, Other Allergies: Coded Allergies: NO KNOWN ALLERGIES (Unverified , 12/10/23) Medications Current Medications Medications Dose Ordered Sig/Adela Route Start Time Stop Time Status Last Admin Dose Admin Ondansetron HCl 4 mg Q4HP PRN IV 08/11/24 21:45 Docusate Sodium 100 mg BIDPRN PRN PO 08/11/24 21:45 Acetaminophen 650 mg Q6HP PRN PO 08/11/24 21:45 Nitroglycerin 0.4 mg Q5MINP PRN SL 08/11/24 21:45 Morphine Sulfate 2 mg Q30M PRN IV 08/11/24 21:45 Ceftriaxone Sodium 50 ml @ 100 mls/hr DAILY@1900 IV 08/12/24 19:00 Azithromycin 250 ml @ 125 mls/hr DAILY IV 08/12/24 10:00 Exam Vital Signs Vital Signs Date Time Temp Pulse Resp B/P (MAP) Pulse Ox O2 Delivery O2 Flow Rate FiO2 08/11/24 20:34 123/53 08/11/24 18:52 63 20 100 Room Air 08/11/24 18:52 97.9 97.9 Exam Pt is lying on bed General Appearance: Alert, Oriented X3, Cooperative, Not in acute distress HEENT: Atraumatic, Mucous membranes moist/pink Respiratory: Clear to auscultation, Normal air movement, No added sounds Cardiovascular: Regular rate, Normal S1, Normal S2, No murmurs Abdominal: Bloated, distended, upper and lower abdominal tenderness Extremities: 1 + edema, Normal pulses, No tenderness/swelling Skin: Icteric Neuro: Normal speech, sensorimotor deficits none Psych/Mental Status: Mental status NL, Mood NL Nurse was there as sharperone during examination Labs/Xrays Labs Test 08/11/24 22:04 08/11/24 15:47 08/11/24 15:28 Range/Units White Blood Count 4.2 L 4.4-10.8 10^3/uL Red Blood Count 1.72 L 4.0-5.20 10^6/uL Hemoglobin 7.2 L 12.2-16.2 g/dL Hematocrit 20.7 L 36.0-46.0 % Mean Corpuscular Volume 120.0 H 80.0-100.0 fL Mean Corpuscular Hemoglobin 41.8 H 28.0-32.0 pg Mean Corpuscular Hemoglobin Concent 34.9 32.0-36.0 g/dL Red Cell Distribution Width 14.0 11.8-14.3 % Platelet Count 78 L 140-450 10^3/uL Mean Platelet Volume 7.8 6.9-10.8 fL Neutrophils (%) (Auto) 37.0-80.0 % Lymphocytes (%) (Auto) 10.0-50.0 % Monocytes (%) (Auto) 0.0-12.0 % Basophils (%) (Auto) 0.0-2.0 % Neutrophils # (Auto) 1.6-8.6 10 ^3/uL Lymphocytes # (Auto) 0.4-5.4 10 ^3/uL Monocytes # (Auto) 0-1.3 10 ^3/uL Differential Total Cells Counted 100.0 100 Neutrophils % (Manual) 55 37.0-80.0 Band Neutrophils % (Manual) 0 Lymphocytes % (Manual) 33 10.0-50.0 Monocytes % (Manual) 8 0-12 Eosinophils % (Manual) 4 0-7 Basophils % (Manual) 0 0.0-2.0 Metamyelocytes % (manual) 0 Myelocytes % (Manual) 0 Promyelocytes % (Manual) 0 Blast Cells % (Manual) 0 Reactive Lymphocytes 0 Platelet Estimate Decreased Poikilocytosis (manual) Moderate Anisocytosis (manual) Slight Macrocytosis Marked [place] Cells Many Sodium Level 134 L 136-145 mmol/L Potassium Level 3.9 3.5-5.1 mmol/L Chloride Level 100 98-107 mmol/L Carbon Dioxide Level 28 20-31 mmol/L Anion Gap 6 5-15 Blood Urea Nitrogen 11 9-23 mg/dL Creatinine 0.89 0.550-1.02 mg/dL Glomerular Filtration Rate Calc 87 >90 mL/min BUN/Creatinine Ratio 12.4 10.0-20.0 Serum Glucose 67 L 74-106 mg/dL Calcium Level 9.8 8.7-10.4 mg/dL Total Bilirubin 14.2 H 0.2-1.0 mg/dL Aspartate Amino Transferase (AST) 54 H 13-40 U/L Alanine Aminotransferase (ALT) 31 7-40 U/L Alkaline Phosphatase 71 46-116 U/L Total Protein 7.9 5.7-8.2 g/dL Albumin 3.5 3.2-4.8 g/dL Lipase 45 12-53 U/L Folic Acid 46.65 >5.38 ng/mL Urine Color Colorless Yellow Urine Clarity Turbid H Clear Urine pH 6.0 5.0-9.0 Urine Specific [place] 1.004 1.001-1.035 Urine Protein Negative Negative Urine Ketones Negative Negative Urine Blood 1+ H Negative /uL Urine Nitrite Negative Negative Urine Bilirubin Negative Negative Urine Urobilinogen Normal Negative mg/dL Urine Leukocyte Esterase Trace Negative /uL Urine RBC 1 0 - 4 /hpf Urine WBC 3 0 - 5 /hpf Urine Squamous Epithelial Cells Mod <5 /hpf Urine Amorphous Crystals Few None Seen /hpf Urine Bacteria Few H None Seen /hpf Urine Glucose Normal Normal mg/dL Eosinophils (%) (Auto) 3.6 0.0-7.0 % Eosinophils # (Auto) 0.2 0-0.8 10 ^3/uL Basophils # (Auto) 0.1 0-0.2 10 ^3/uL Nucleated Red Blood Cells 0.4 % Lactic Acid Level 1.8 0.4-2.0 mmol/L Magnesium Level 1.8 1.6-2.6 mg/dL Ammonia 33 H 11-32 umol/L Troponin I High Sensitivity 11 </=34 ng/L B-Type Natriuretic Peptide 1193.49 0-100 pg/mL Assessment/Plan Assessment/Plan # Rule out SBP # liver cirrhosis # transaminitis likely due to cirrhosis # hyperbilirubinemia # moderate ascites -elevated liver function test -continuously monitor lab -given 1 dose of ceftriaxone -given lactulose -ordered liver ultrasound -CT abdominal pelvis showed moderate ascites -resume home meds # acute on chronic systolic versus diastolic CHF exacerbation -BNP elevated -ordered echocardiogram -cardiology consultation if needed -ordered Lasix -continue home meds # ? acute Gram-positive/Gram-negative pneumonia -evident on CXR -currently on Rocephin and azithromycin # cholelithiasis -evident on CT abdominal pelvis # hyponatremia -monitor lab for now # pancytopenia likely due to liver cirrhosis -monitor lab # microcytic, hypochromic chronic anemia -monitor lab -resume home meds # marijuana abuse disorder -counseled regarding cessation for more than 17 minutes No VTE PPX since patient is ambulatory Protonix Regular diet Reconciled home meds Goals of care discussed with the patient and more than 27 minutes: Full code Case management discussed with Dr. Wilson, and nurse Plan discussed with: Patient My Orders Orders - ANDREW MATHIS RESIDENT Procedure Category Date Status Time Admit ADMIT 08/11/24 Transmitted 21:45 Allergies TIFFANIE 08/11/24 In Process 21:45 Code Status CODE 08/11/24 Transmitted 21:45 2 Gm Sodium Diet DIET 08/12/24 Transmitted Breakfast Ondansetron Hcl PHA 08/11/24 In Process (Zofran) 21:45 Docusate Sodium PHA 08/11/24 In Process Capsule (Colace 21:45 Complete Blood Count LAB 08/12/24 Verified 04:00 Comprehensive LAB 08/12/24 Verified Metabolic Panel 04:00 Cardiac DIET 08/12/24 Transmitted Diet-2gna,Lofat,Lochol Breakfast Acetaminophen Tablet PHA 08/11/24 In Process (Tylenol Tablet) 21:45 Nitroglycerin PHA 08/11/24 In Process Sublingual (Ntrostat 21:45 Morphine Sulfate PHA 08/11/24 In Process Injection 21:45 Oxygen By Nasal RT 08/11/24 Transmitted Cannula 21:45 Stat Ekg For Chest TIFFANIE 08/11/24 In Process Pain 21:45 Notify Md Of Changes TIFFANIE 08/11/24 In Process From Base 21:45 Director Cardiovascular For TIFFANIE 08/11/24 In Process 24 Hours 21:45 Emergency Dysrhythmia TIFFANIE 08/11/24 In Process Protocol 21:45 Rhythm Strips Once TIFFANIE 08/11/24 In Process Every Shift 21:45 Drug Screen LAB 08/11/24 Logged 21:45 Ceftriaxone 1gm/50ml PHA 08/12/24 In Process D5w (Rocephin) 19:00 Azithromycin 500mg/ PHA 08/12/24 In Process 250ml (Zithromax 50 10:00 Hemoglobin A1c LAB 08/11/24 In Process 23:12 Thyroid Stimulating LAB 08/11/24 In Process Hormone 23:12 Vitamin B12 LAB 08/11/24 In Process 23:12 Vitamin D, 25-Hydroxy LAB 08/11/24 In Process 23:12 Abdomen Limited US 08/11/24 Logged 23:12 Blood Alcohol LAB 08/11/24 In Process 23:12 Lactulose Oral PHA 08/11/24 In Process 23:45 Midodrine Tablet PHA 08/12/24 Transmitted (Proamatine Tablet) 10:00 Spironolactone PHA 08/12/24 Transmitted (Aldactone) 10:00 Tramadol Hcl (Ultram) PHA 08/11/24 Transmitted 23:45 (Nf) Acamprosate PHA 08/12/24 Transmitted Calcium (Acamprosate 10:00 (Nf) Folic Acid PHA 08/12/24 Transmitted 10:00 (Nf) Magnesium Oxide PHA 08/12/24 Transmitted 10:00 ANDREW MATHIS RESIDENT Aug 11, 2024 23:53
[2024-08-12] VITALS (15 sets, daily range): BP systolic 74–111; BP diastolic 35–64; PULSE 60–79; RESP 16–21; TEMP 97.4–98.5; O2SAT 90–100
[2024-08-12] MEDS: FUROSEMIDE 20 MG/2 ML VIAL IV SCH
[2024-08-12] MEDS: PANTOPRAZOLE 40 MG/10 ML VIAL INJ IV ONE (00:18)
[2024-08-12] MEDS: LACTULOSE 20Gm/30ML SOLN PO ONE (00:18)
[2024-08-12] MEDS: HYDROcodone-ACET 5/325MG TAB PO PRN (00:27)
[2024-08-12] MEDS ORDERED: FURO40TA4 PO (00:36)
[2024-08-12] MEDS ORDERED: FER325T PO (00:36)
[2024-08-12] MEDS ORDERED: LACT10SO3 PO (00:36)
[2024-08-12] MEDS ORDERED: RIFA550T PO (00:36)
[2024-08-12] MEDS ORDERED: ESCI1TAB36 PO (00:36)
--- NOTE | 2024-08-12 04:02 | DVH ---
INDICATION: Pain. TECHNIQUE: Multiple real-time sonographic images of the abdomen were obtained. COMPARISON: US LIVER on DOS: 05/10/24, US ABDOMEN LIMITED on DOS: 04/24/24, US GALLBLADDER on DOS: 4 FINDINGS: The liver is heterogeneous in echogenicity. The liver measures 17cm. No intrahepatic bili marv ductal dilatation is noted. The gallbladder wall measures 0.9 cm and is unremarkable. Gallstones and sludge is seen. The common duct measures 0.4 cm and is unremarkable. No pericholecystic fluid is noted. The right kidney measures 10cm. No hydronephrosis. Small volume ascites. Small right pleural effusion IMPRESSION: Gallbladder wall thickening with gall stones. Acute cholecystitis not excluded. Small volume ascites. Small right pleural effusion
[2024-08-12 06:41] LABS: Basophils # (auto) 0 10 ^3/uL (0-0.2); Eosinophils # (auto) 0.1 10 ^3/uL (0-0.8); Hematocrit 16.9 % (36.0-46.0); Lymphocytes # (auto) 1.4 10 ^3/uL (0.4-5.4); Monocytes # (auto) 0.3 10 ^3/uL (0-1.3); Neutrophils # (auto) 1.4 10 ^3/uL (1.6-8.6); White Blood Cell 3.2 10^3/uL (4.4-10.8)
[2024-08-12 06:44] LABS: Basophils % (auto) 1.1 % (0.0-2.0); Eosinophils % (auto) 2.9 % (0.0-7.0); Lymphocytes % (auto) 43.8 % (10.0-50.0); Mean Corpuscular Hemoglobin 40.5 pg (28.0-32.0); Mean Corpuscular Hgb Conc. 35.5 g/dL (32.0-36.0); Mean Corpuscular Volume 114.1 fL (80.0-100.0); Monocytes % (auto) 8.2 % (0.0-12.0); Nucleated Red Blood Cells % 0.2 %; Platelet Count (auto) 70 10^3/uL (140-450); Red Blood Cells 1.48 10^6/uL (4.0-5.20); Red Cell Distribution Width 13.7 % (11.8-14.3)
[2024-08-12 06:55] LABS: Alanine Aminotransferase 26 U/L (7-40); Albumin 3.1 g/dL (3.2-4.8); Alkaline Phosphatase 55 U/L (46-116); Anion Gap 5 (5-15); Aspartate Aminotransferase 46 U/L (13-40); Bilirubin, Total 11.4 mg/dL (0.2-1.0); Blood Urea Nitrogen 14 mg/dL (9-23); Calcium 9.6 mg/dL (8.7-10.4); Carbon Dioxide 32 mmol/L (20-31); Chloride 101 mmol/L (98-107); Glucose 70 mg/dL (74-106); Potassium 3.6 mmol/L (3.5-5.1); Sodium 138 mmol/L (136-145); Total Protein 6.7 g/dL (5.7-8.2)
[2024-08-12 07:37] LABS: Anisocytosis Slight; Macrocytosis Marked; Platelet Estimate Decreased
--- NOTE | 2024-08-12 08:44 | ECG ---
[facility] Test Date: 2024-08-11 Test Time: 15:15:45 Pat Name: LUCY JEONG Department: ER Room: [facility] A Gender: F Sausage Stuffer: JEAN CARLOS : 1990 Requested By: JESSA BOOKER Order Number: [id number] Reading MD: Cecil Harkins Measurements Intervals [place] Rate: 66 P: 54 MD: 165 QRS: 78 QRSD: 94 T: 227 QT: 400 QTc: 420 Interpretive Statements Sinus rhythm Nonspecific T abnormalities, diffuse leads Electronically Signed On 08-13-2024 11:53:55 PST by Cecil Harkins Please click the below link to view image of tracing.
[2024-08-12] MEDS: AZITHROMYCIN 500MG/ 250ML 250 ML IV SCH (08:52)
[2024-08-12] MEDS: MIDODRINE HCL 10 MG TAB PO SCH (08:57)
[2024-08-12] MEDS: LACTULOSE 20Gm/30ML SOLN PO STA (08:57)
[2024-08-12] MEDS: FOLIC ACID 1 MG TAB PO SCH (08:57)
[2024-08-12] MEDS: SPIRONOLACTONE 25 MG TAB PO SCH (08:57)
[2024-08-12] MEDS: MAGNESIUM OXIDE 400 MG TAB PO SCH (08:58)
[2024-08-12] MEDS: DOCUSATE SOD 100 MG CAP PO PRN (08:58)
[2024-08-12] MEDS: traMADol HCL 50 MG TAB PO PRN (08:58)
[2024-08-12 09:10] LABS: % Iron Saturation 75.3 % (15-50)
--- NOTE | 2024-08-12 09:43 | DVHPNRES ---
Progress Note Date Seen: Aug 12, 2024 Resident Creating Document: MARGARETTE ELIZABETH RESIDENT Medical Necessity Reason Pt with a Central, PICC or Fol: No Subjective Review of Systems Patient is 33 years old female with past medical history of alcoholic cirrhosis, ex alcoholic, HFpEF, anemia, history of recurrent blood transfusion, transaminitis, hemorrhoids came with a complaint of abdominal pain that esterase 3 weeks before and her PCP advised her to come to the ER. As per patient patient is having abdominal pain started 3 weeks before, diffuse, 10 x 10, stabbing in nature, reduced with some pain medication increased with movement. Patient also reported feeling tired and some short of breath over the time especially with the exertion. On further discussion patient also reported having constipation, when she moved before it looked like dark or dark brown color. last bowel bowel movement was almost 5-6 days before. Patient denied any fever, chest pain, acute joint pain or swelling, acute rash. Initial lab workup revealed patient with severe anemia hemoglobin 6, thrombocytopenia platelets 70, hyperammonemia ammonia 33, transaminitis, elevated bilirubin 14.2, elevated TSH 5.66, BNP 119. UDS positive for cannabinoids. CT Scan of the abdomen revealed-Small right pleural effusion. Moderate ascites. Cholelithiasis. Splenomegaly. CXR-Right lower lobe airspace disease. Ultrasound of the abdomen revealed-Gallbladder wall thickening with gall stones. Acute cholecystitis not excluded. Small volume ascites. Small right pleural effusion, PMH-alcoholic cirrhosis, HFpEF, anemia, history of recurrent blood transfusion, transaminitis, hemorrhoids PSH- Neck surgery Allergy- NKDA Personal History/ Social History- ex alcoholic, smoker, smokes weed Patient was seen today at the bedside. Patient tired and abdominal pain Cardiovascular- deny cough or palpitation Respiratory- denies cough wheezing Gastrointestinal- denies any rectal bleeding, nausea or vomiting Musculoskeletal-denies acute joint swelling or tenderness or redness Neurological- denies acute dysarthria, dysphagia, change in vision Psychiatry- denies depression or SI or HI Skin- denies acute rash Patient was seen today for clinical evaluation. Labs and chart reviewed. Patient complained of feeling tired, fatigued, abdominal pain. Patient is anemic on clinical examination hemoglobin 6, ordered blood transfusion. CT Scan of the abdomen revealed-Small right pleural effusion. Moderate ascites. Cholelithiasis. Splenomegaly. CXR-Right lower lobe airspace disease. Ultrasound of the abdomen revealed-Gallbladder wall thickening with gall stones. Acute cholecystitis not excluded. Small volume ascites. Small right pleural effusion. Patient also complained about constipation, ordered lactulose 60 mL stat. Two followed by 30 mL q.8h. Patient is seen by Gastroenterology recommendation reviewed and appreciated. Gastroenterology recommended- Stool for occult blood, Colace, lactulose, and mineral oil enema. Suspected spontaneous bacterial peritonitis. On ceftriaxone 2 g IV daily. Ordered sucralfate 1 g p.o. q.8h, pantoprazole 40 mg IV daily. Ordered HIDA scan to rule out acute cholecystitis. Objective vital signs Vital Sign Date Time Temp Pulse Resp B/P (MAP) Pulse Ox O2 Delivery O2 Flow Rate FiO2 08/12/24 08:17 98.1 71 20 95/44 (61) 90 98.1 08/11/24 23:49 Room Air* 0 21 Total Intake and Output 08/11/24 08/11/24 08/12/24 15:00 23:00 07:00 Intake Total 400 ml Balance 400 ml medications Current Medications Medications Dose Ordered Sig/Adela Route Start Time Stop Time Status Last Admin Dose Admin Ondansetron HCl 4 mg Q4HP PRN IV 08/11/24 21:45 Docusate Sodium 100 mg BIDPRN PRN PO 08/11/24 21:45 08/12/24 08:58 100 MG Acetaminophen 650 mg Q6HP PRN PO 08/11/24 21:45 Nitroglycerin 0.4 mg Q5MINP PRN SL 08/11/24 21:45 Morphine Sulfate 2 mg Q30M PRN IV 08/11/24 21:45 Ceftriaxone Sodium 50 ml @ 100 mls/hr DAILY@1900 IV 08/12/24 19:00 Azithromycin 250 ml @ 125 mls/hr DAILY IV 08/12/24 10:00 08/12/24 08:52 125 MLS/HR Midodrine 10 mg BID PO 08/12/24 10:00 08/12/24 08:57 10 MG Spironolactone 25 mg DAILY PO 08/12/24 10:00 08/12/24 08:57 25 MG Tramadol HCl 50 mg DAILY PRN PO 08/11/24 23:45 08/12/24 08:58 50 MG Patient Own Medication 2 tab BID PO 08/12/24 10:00 Folic Acid 1 mg DAILY PO 08/12/24 10:00 08/12/24 08:57 1 MG Magnesium Oxide 400 mg DAILY PO 08/12/24 10:00 08/12/24 08:58 400 MG Furosemide 20 mg BIDD IV 08/12/24 00:00 08/12/24 05:54 20 MG Acetaminophen/ Hydrocodone Bitart 1 tab Q6HPRN PRN PO 08/12/24 00:00 08/12/24 00:27 1 TAB Lactulose 30 ml Q8HR PO 08/12/24 14:00 Examination General examination- patient is tired looking, pale, icterus HEENT- PEERLA, no acute nasal discharge Cardiovascular- S1-S2 audible, rate and rhythm regular, no murmur Respiratory- CTAB, no wheeze or rhonchi Gastrointestinal-generalized tenderness of the abdomen,, bowel sound+. Nondistended Musculoskeletal-no acute joint swelling or tenderness or redness# Lower extremity- leg edema Neurological- cranial nerves intact, no acute dysarthria or dysphagia Psychiatry- denies depression or SI or HI Skin- no acute rash or purpura laboratory and microbiology Laboratory Tests 08/12/24 06:01 Test 08/12/24 06:01 Range/Units Serum Glucose 70 L 74-106 mg/dL Problem List/Assessment/Plan Problem List/Assessment/Plan # suspected spontaneous bacterial peritonitis the context of history of cirrhosis of liver -patient complained of abdominal pain, tender on palpation, history of cirrhosis of liver -continue IV ceftriaxone 2 g IV daily -avoid dehydration and constipation -continue lactulose 30 mL p.o. Q 8 H -continue Colace 100 mg p.o. b.i.d. -continue ceftriaxone 2 g IV daily #Severe anemia likely due to cirrhosis of liver versus upper or lower GI bleeding -ordered blood transfusion -ordered iron profile -avoid constipation, avoid hepatotoxic drugs -monitor CBC #[id number] ascites likely due to cirrhosis of liver -CT Scan of the abdomen revealed--Moderate ascites. -Ultrasound of the abdomen revealed-Small volume ascites. -continue Lasix 20 mg IV b.i.d. -continue spironolactone 25 mg p.o. daily - # acute on chronic HFpEF, 07/13/24-echo 2D-LVEF 70% -BNP 1193 -continue Lasix 20 mg IV b.i.d. # cholelithiasis -ordered HIDA scan to rule out acute cholecystitis -CT Scan of the abdomen revealed-Small right pleural effusion. Moderate ascites. Cholelithiasis. Splenomegaly. -Ultrasound of the abdomen revealed-Gallbladder wall thickening with gall stones. Acute cholecystitis not excluded. Small volume ascites. Small right pleural effusion # suspected pneumonia Gram-positive versus Gram-negative/atelectasis -continue azithromycin 500 mg IV daily -Scan of the abdomen revealed-Small right pleural effusion. - CXR-Right lower lobe airspace disease. -ultrasound of the abdomen- Small right pleural effusion # Pancytopenia likely due to cirrhosis of liver with portal hypertension -WBC 3.2, hemoglobin 6, platelets 70 -monitor CBC # alcoholic cirrhosis of liver --avoid dehydration and constipation -continue lactulose 30 mL p.o. Q 8 H -continue Colace 100 mg p.o. b.i.d. # history of hemorrhoids -avoid constipation # transaminitis likely due to alcoholic cirrhosis of liver -monitor LFT -ex alcoholic # history of substance abuse, marijuana -UDS positive for cannabinoids -patient was counseled about the effect of marijuana on health Goals of care/advance care planning; FULL CODE; discussed with the patient PUD prophylaxis: Pantoprazole DVT prophylaxis: Patient ambulating Plan discussed with Dr. Wheatley,,, nursing staff, patient Total time spent on patient evaluation, chart review, assessment and plan, discussion discussion >30 minutes Plan discussed with: Patient Plan discussed with: Patient, Other (RN) My Orders My Orders Orders - MARGARETTE ELIZABETH Procedure Category Date Status Time Lactulose Oral PHA 08/12/24 In Process 14:00 Date of Service: Aug 12, 2024 Billing Provider: MASON WHEATLEY MD Common Visit Codes: 81830-[id number] INP/OBS CARE(HIGH) Secondary Visit Codes: 01550-OENVXYPG CARE PLAN 30 MINUTES MARGARETTE ELIZABETH Aug 12, 2024 09:43 MASON WHEATLEY MD Aug 12, 2024 22:14
[2024-08-12 10:10] LABS: Amphetamine Screen, Urine Neg (NEGATIVE); Barbiturate Scree,Urine Neg (NEGATIVE); Benzodiazephine Screen, Urine Neg (NEGATIVE); Cannabinoid Screen, Urine Pos (NEGATIVE); Cocaine Screen, Urine Neg (NEGATIVE); Opiate Scree,Urine Neg (NEGATIVE)
[2024-08-12 10:11] LABS: Phencyclidine Screen, Urine Neg (NEGATIVE)
[2024-08-12 10:30] LABS: Free T3 2.18 pg/mL (2.3-4.2); Free T4 (Free Thyroxine) 1.35 ng/dL (0.89-1.76)
[2024-08-12] MEDS: ONDANSETRON HCL 4 MG/2 ML VIAL IV PRN (11:20)
[2024-08-12] MEDS: ACAMPROSATE CALCIUM 333 MG PO SCH (11:23)
[2024-08-12] MEDS: FLEET ENEMA(ADULT) 135 ML PR ONE (12:00)
--- NOTE | 2024-08-12 12:52 | DVHINCON2 ---
GI Consult Consult Note GI consult note Date of Consultation: 08/12/2024 Chief Complaint: GI bleed Referring Physician: Dr. Wheatley H&P: 33-year-old female admitted with abdominal pain and palpitations for last three weeks Patient has history of anemia, and was feeling like she is getting anemic again Patient has nausea and vomiting, no hematemesis Last bowel movement one-week ago, patient has history of constipation, no melena or red blood in stool Patient has history of hemorrhoids Status post incomplete colonoscopy, due to inadequate colon prep by Dr. Silva Patient says sober for eight months now Past Medical History: CHF, anemia, stage II hemorrhoid, liver cirrhosis Past Surgical History: Neck surgery Social History: Lives at home. Marijuana abuse. Former alcohol abuser stopped 8 months ago Family History: Noncontributory Review of Systems: Constitutional: no fever, chill, weight loss HEENT: no eye pain, no hearing loss, no oral lesion, no scleral icterus Heart: no chest pain, no chest pressure Lung: no cough, no dyspnea with exertion Abdomen: see HPI Physical exam: General: NAD, AAOX3 Chest: lung scott clear to auscultation Heart: RRR, no murmur Abdomen:+ lower abdomen tenderness to palpation, +BS Labs: Labs Test 08/12/24 09:30 08/12/24 06:01 08/11/24 22:04 08/11/24 15:47 Range/Units Urine Opiates Screen Neg NEGATIVE Urine Fentanyl Screen Neg NEGATIVE Urine Barbiturates Screen Neg NEGATIVE Urine Phencyclidine Screen Neg NEGATIVE Urine Amphetamines Screen Neg NEGATIVE Urine Benzodiazepines Screen Neg NEGATIVE Urine Cocaine Screen Neg NEGATIVE Urine Cannabinoids Screen Pos NEGATIVE White Blood Count 3.2 L 4.4-10.8 10^3/uL Red Blood Count 1.48 L 4.0-5.20 10^6/uL Hemoglobin 6.0 #*L 12.2-16.2 g/dL Hematocrit 16.9 #L 36.0-46.0 % Mean Corpuscular Volume 114.1 #H 80.0-100.0 fL Mean Corpuscular Hemoglobin 40.5 H 28.0-32.0 pg Mean Corpuscular Hemoglobin Concent 35.5 32.0-36.0 g/dL Red Cell Distribution Width 13.7 11.8-14.3 % Platelet Count 70 L 140-450 10^3/uL Mean Platelet Volume 7.6 6.9-10.8 fL Neutrophils (%) (Auto) 44.0 37.0-80.0 % Lymphocytes (%) (Auto) 43.8 10.0-50.0 % Monocytes (%) (Auto) 8.2 0.0-12.0 % Eosinophils (%) (Auto) 2.9 0.0-7.0 % Basophils (%) (Auto) 1.1 0.0-2.0 % Neutrophils # (Auto) 1.4 L 1.6-8.6 10 ^3/uL Lymphocytes # (Auto) 1.4 0.4-5.4 10 ^3/uL Monocytes # (Auto) 0.3 0-1.3 10 ^3/uL Eosinophils # (Auto) 0.1 0-0.8 10 ^3/uL Basophils # (Auto) 0 0-0.2 10 ^3/uL Nucleated Red Blood Cells 0.2 % Platelet Estimate Decreased Anisocytosis (manual) Slight Macrocytosis Marked Marion Cells Moderate Sodium Level 138 136-145 mmol/L Potassium Level 3.6 3.5-5.1 mmol/L Chloride Level 101 98-107 mmol/L Carbon Dioxide Level 32 H 20-31 mmol/L Anion Gap 5 5-15 Blood Urea Nitrogen 14 9-23 mg/dL Creatinine 1.00 0.550-1.02 mg/dL Glomerular Filtration Rate Calc 75 >90 mL/min BUN/Creatinine Ratio 14.0 10.0-20.0 Serum Glucose 70 L 74-106 mg/dL Calcium Level 9.6 8.7-10.4 mg/dL Iron Level 146 50-170 ug/dL Total Iron Binding Capacity 194 L 250-425 ug/dL Percent Iron Saturation 75.3 H 15-50 % Ferritin 1372.9 H 10-291 ng/mL Total Bilirubin 11.4 H 0.2-1.0 mg/dL Aspartate Amino Transferase (AST) 46 H 13-40 U/L Alanine Aminotransferase (ALT) 26 7-40 U/L Alkaline Phosphatase 55 46-116 U/L Total Protein 6.7 5.7-8.2 g/dL Albumin 3.1 L 3.2-4.8 g/dL Free Thyroxine (T4) Calculated 1.35 0.89-1.76 ng/dL Free Triiodothyronine (T3) pg/mL 2.18 L 2.3-4.2 pg/mL Differential Total Cells Counted 100.0 100 Neutrophils % (Manual) 55 37.0-80.0 Band Neutrophils % (Manual) 0 Lymphocytes % (Manual) 33 10.0-50.0 Monocytes % (Manual) 8 0-12 Eosinophils % (Manual) 4 0-7 Basophils % (Manual) 0 0.0-2.0 Metamyelocytes % (manual) 0 Myelocytes % (Manual) 0 Promyelocytes % (Manual) 0 Blast Cells % (Manual) 0 Reactive Lymphocytes 0 Poikilocytosis (manual) Moderate Lipase 45 12-53 U/L Folic Acid 46.65 >5.38 ng/mL Thyroid Stimulating Hormone (TSH) 5.66 H 0.55-4.78 uIU/mL Beta HCG, Quantitative 0.4 L 1.5-4.2 mIU/mL Plasma/Serum Blood Alcohol 5.0 <10 mg/dL Urine Color Colorless Yellow Urine Clarity Turbid H Clear Urine pH 6.0 5.0-9.0 Urine Specific [place] 1.004 1.001-1.035 Urine Protein Negative Negative Urine Ketones Negative Negative Urine Blood 1+ H Negative /uL Urine Nitrite Negative Negative Urine Bilirubin Negative Negative Urine Urobilinogen Normal Negative mg/dL Urine Leukocyte Esterase Trace Negative /uL Urine RBC 1 0 - 4 /hpf Urine WBC 3 0 - 5 /hpf Urine Squamous Epithelial Cells Mod <5 /hpf Urine Amorphous Crystals Few None Seen /hpf Urine Bacteria Few H None Seen /hpf Urine Glucose Normal Normal mg/dL Test 08/11/24 15:28 Range/Units Hemoglobin A1c < 3.8 <5.7 % A1C Lactic Acid Level 1.8 0.4-2.0 mmol/L Magnesium Level 1.8 1.6-2.6 mg/dL Ammonia 33 H 11-32 umol/L Troponin I High Sensitivity 11 </=34 ng/L B-Type Natriuretic Peptide 1193.49 0-100 pg/mL Vitamin B12 Level 688 211-911 pg/mL Vitamin D 25-Hydroxy 27.1 L 30.0-100 ng/mL Imaging: CT abdomen pelvis IMPRESSION: 1. Small right pleural effusion. Moderate ascites. Cholelithiasis. Splenomegaly. Abdominal ultrasound IMPRESSION: Gallbladder wall thickening with gall stones. Acute cholecystitis not excluded. Small volume ascites. Small right pleural effusion Assessment: Abdominal pain Liver cirrhosis History alcohol use Anemia Elma lithiasis Constipation Plan: Discussed with Dr. Marroquin Monitor lab Stool for occult blood Colace, lactulose, and mineral oil enema Hematology oncology pending Possible workup for hemochromatosis to be considered on an outpatient basis We will continue to monitor the patient Plan discussed with patient and RN Thank you for this consult Date of Service: Aug 12, 2024 Billing Provider: ELIZABETH FOFANA Common Visit Codes: CONSULT ONLY Consultation Codes: [id number] CONSULT <60MIN ELIZABETH FOFANA Aug 12, 2024 12:52
[2024-08-12] MEDS: LACTULOSE 20Gm/30ML SOLN PO SCH (13:34)
[2024-08-12 15:20] LABS: INR 1.72 (0.9-1.15); Prothrombin Time 17.5 sec (9.3-11.8)
[2024-08-12 16:05] LABS: Hematocrit 19.2 % (36.0-46.0)
[2024-08-12 16:18] LABS: Hemoglobin 6.8 g/dL (12.2-16.2)
[2024-08-12] MEDS: SUCRALFATE 1 GM TAB PO SCH (16:18)
[2024-08-12] MEDS: cefTRIAXone 2GM/50ML D5W 50 ML IV STA (16:18)
[2024-08-12 18:01] LABS: Basophils # (auto) 0 10 ^3/uL (0-0.2); Eosinophils # (auto) 0.1 10 ^3/uL (0-0.8); Monocytes # (auto) 0.3 10 ^3/uL (0-1.3)
[2024-08-12 18:03] LABS: Basophils % (auto) 0.5 % (0.0-2.0); Eosinophils % (auto) 4.3 % (0.0-7.0); Hematocrit 19.1 % (36.0-46.0); Lymphocytes # (auto) 1.1 10 ^3/uL (0.4-5.4); Lymphocytes % (auto) 34.7 % (10.0-50.0); Mean Corpuscular Hemoglobin 39.3 pg (28.0-32.0); Mean Corpuscular Hgb Conc. 35.7 g/dL (32.0-36.0); Mean Corpuscular Volume 110.1 fL (80.0-100.0); Neutrophils # (auto) 1.7 10 ^3/uL (1.6-8.6); Neutrophils % (auto) 51.5 % (37.0-80.0); Platelet Count (auto) 68 10^3/uL (140-450); Red Blood Cells 1.74 10^6/uL (4.0-5.20); Red Cell Distribution Width 20.8 % (11.8-14.3); White Blood Cell 3.3 10^3/uL (4.4-10.8)
[2024-08-12 18:18] LABS: Hemoglobin 6.8 g/dL (12.2-16.2)
[2024-08-12 18:52] LABS: Anisocytosis Slight; Macrocytosis Moderate; Platelet Estimate Decreased
[2024-08-12] MEDS ORDERED: cefTRIAXone 1GM/50ML D5W 50 ML IV SCH (19:00)
[2024-08-12] MEDS: DOCUSATE SOD 100 MG CAP PO SCH (20:25)
[2024-08-13] VITALS (10 sets, daily range): BP systolic 75–108; BP diastolic 33–53; PULSE 60–73; RESP 16–21; TEMP 97.9–98.5; O2SAT 91–100
[2024-08-13 06:57] LABS: Alanine Aminotransferase 25 U/L (7-40); Alkaline Phosphatase 59 U/L (46-116); Anion Gap 6 (5-15); Aspartate Aminotransferase 43 U/L (13-40); Basophils # (auto) 0 10 ^3/uL (0-0.2); Basophils % (auto) 0.9 % (0.0-2.0); Blood Urea Nitrogen 13 mg/dL (9-23); Calcium 9.4 mg/dL (8.7-10.4); Carbon Dioxide 31 mmol/L (20-31); Chloride 101 mmol/L (98-107); Eosinophils # (auto) 0.1 10 ^3/uL (0-0.8); Eosinophils % (auto) 4.7 % (0.0-7.0); Glucose 76 mg/dL (74-106); Hematocrit 21.3 % (36.0-46.0); Hemoglobin 7.4 g/dL (12.2-16.2); Lymphocytes # (auto) 1.3 10 ^3/uL (0.4-5.4); Lymphocytes % (auto) 41.3 % (10.0-50.0); Mean Corpuscular Hemoglobin 36.6 pg (28.0-32.0); Mean Corpuscular Hgb Conc. 34.8 g/dL (32.0-36.0); Mean Corpuscular Volume 105.4 fL (80.0-100.0); Monocytes # (auto) 0.2 10 ^3/uL (0-1.3); Monocytes % (auto) 7.3 % (0.0-12.0); Neutrophils # (auto) 1.4 10 ^3/uL (1.6-8.6); Neutrophils % (auto) 45.8 % (37.0-80.0); Nucleated Red Blood Cells % 0.2 %; Platelet Count (auto) 63 10^3/uL (140-450); Potassium 3.2 mmol/L (3.5-5.1); Red Blood Cells 2.02 10^6/uL (4.0-5.20); Red Cell Distribution Width 23.3 % (11.8-14.3); Sodium 138 mmol/L (136-145); White Blood Cell 3.1 10^3/uL (4.4-10.8)
[2024-08-13 06:58] LABS: Albumin 3.1 g/dL (3.2-4.8); Bilirubin, Total 9.3 mg/dL (0.2-1.0); Total Protein 6.8 g/dL (5.7-8.2)
[2024-08-13 07:04] LABS: INR 1.61 (0.9-1.15); Prothrombin Time 16.5 sec (9.3-11.8)
--- NOTE | 2024-08-13 08:46 | DVHPN2 ---
Progress Note - Dictate Date Seen: Aug 13, 2024 Medical Necessity Reason Pt with a Central, PICC or Fol: No Subjective Patient seen at bedside She is resting comfortably Patient denies any rectal bleeding patient states she only comes to the hospital when she feels symptomatic from her anemia Hemoglobin is 7.2 after 2 units PRBC vital signs Vital Sign Date Time Temp Pulse Resp B/P (MAP) Pulse Ox O2 Delivery O2 Flow Rate FiO2 08/13/24 08:00 17 Room Air* 0 21 08/13/24 05:42 90/55 08/13/24 05:00 97.9 71 94 97.9 Total Intake and Output 08/12/24 08/12/24 08/13/24 14:59 22:59 06:59 Intake Total 550 ml 2009 ml 700 ml Output Total 500 ml Balance 50 ml 2010 ml 700 ml medications Current Medications Medications Dose Ordered Sig/Adela Route Start Time Stop Time Status Last Admin Dose Admin Ondansetron HCl 4 mg Q4HP PRN IV 08/11/24 21:45 08/12/24 11:20 4 MG Docusate Sodium 100 mg BIDPRN PRN PO 08/11/24 21:45 08/12/24 08:58 100 MG Nitroglycerin 0.4 mg Q5MINP PRN SL 08/11/24 21:45 Morphine Sulfate 2 mg Q30M PRN IV 08/11/24 21:45 Azithromycin 250 ml @ 125 mls/hr DAILY IV 08/12/24 10:00 08/12/24 08:52 125 MLS/HR Midodrine 10 mg BID PO 08/12/24 10:00 08/12/24 20:26 10 MG Spironolactone 25 mg DAILY PO 08/12/24 10:00 08/12/24 08:57 25 MG Tramadol HCl 50 mg DAILY PRN PO 08/11/24 23:45 08/12/24 08:58 50 MG Patient Own Medication 2 tab BID PO 08/12/24 10:00 08/12/24 20:34 2 TAB Folic Acid 1 mg DAILY PO 08/12/24 10:00 08/12/24 08:57 1 MG Magnesium Oxide 400 mg DAILY PO 08/12/24 10:00 08/12/24 08:58 400 MG Acetaminophen/ Hydrocodone Bitart 1 tab Q6HPRN PRN PO 08/12/24 00:00 11/6/24 20:25 1 TAB Lactulose 30 ml Q8HR PO 08/12/24 14:00 08/12/24 20:33 30 ML Pantoprazole Sodium 40 mg DAILY IV 08/13/24 10:00 Sucralfate 1 gm Q8HR PO 08/12/24 14:00 08/12/24 20:25 1 GM Ceftriaxone Sodium/Dextrose 50 ml @ 50 mls/hr DAILY IV 08/13/24 10:00 Docusate Sodium 100 mg BID PO 08/12/24 22:00 08/12/24 20:25 100 MG Furosemide 20 mg BIDD PO 08/13/24 18:00 objective General: NAD, AAOX3 Chest: lung scott clear to auscultation Heart: RRR, no murmur Abdomen:+ lower abdomen tenderness to palpation, +BS laboratory and microbiology Laboratory Tests 08/13/24 06:03 Test 08/13/24 06:03 Range/Units Serum Glucose 76 74-106 mg/dL Problems(with codes): (1) Ascites (2) Hepatic steatosis (3) Generalized weakness (4) Severe anemia (5) Cholelithiasis Prognosis Plan Patient has had two endoscopies this year showing portal hypertension gastropathy gastroduodenitis and superficial AVMs She could not complete her bowel prep last colonoscopy and she is willing to go through another colonoscopy at this time We will give her a bowel prep today Schedule colonoscopy on 08/14/2024 Patient is scheduled for a HIDA scan today Plan discussed with: Patient ZAIRE SPENCER MD Aug 13, 2024 08:45
[2024-08-13] MEDS: POTASSIUM CHL 20 Meq TABLET PO ONE (09:31)
[2024-08-13] MEDS: PANTOPRAZOLE 40 MG/10 ML VIAL INJ IV SCH (09:34)
[2024-08-13] MEDS: GOLYTELY 4L KIT PO ONE (09:36)
[2024-08-13] MEDS: cefTRIAXone 2GM/50ML D5W 50 ML IV SCH (09:36)
[2024-08-13] MEDS: MAGNESIUM CITRATE SOLUTION 300 ML BTL PO ONE (10:31)
[2024-08-13] MEDS ORDERED: GABAPENTIN 300 MG CAP PO SCH (10:36)
--- NOTE | 2024-08-13 11:03 | DVHPNRES ---
Progress Note Date Seen: Aug 13, 2024 Resident Creating Document: MARGARETTE ELIZABETH RESIDENT Medical Necessity Reason Pt with a Central, PICC or Fol: No Subjective Review of Systems Patient is 33 years old female with past medical history of alcoholic cirrhosis, ex alcoholic, HFpEF, anemia, history of recurrent blood transfusion, transaminitis, hemorrhoids came with a complaint of abdominal pain that esterase 3 weeks before and her PCP advised her to come to the ER. As per patient patient is having abdominal pain started 3 weeks before, diffuse, 10 x 10, stabbing in nature, reduced with some pain medication increased with movement. Patient also reported feeling tired and some short of breath over the time especially with the exertion. On further discussion patient also reported having constipation, when she moved before it looked like dark or dark brown color. last bowel bowel movement was almost 5-6 days before. Patient denied any fever, chest pain, acute joint pain or swelling, acute rash. Initial lab workup revealed patient with severe anemia hemoglobin 6, thrombocytopenia platelets 70, hyperammonemia ammonia 33, transaminitis, elevated bilirubin 14.2, elevated TSH 5.66, BNP 119. UDS positive for cannabinoids. CT Scan of the abdomen revealed-Small right pleural effusion. Moderate ascites. Cholelithiasis. Splenomegaly. CXR-Right lower lobe airspace disease. Ultrasound of the abdomen revealed-Gallbladder wall thickening with gall stones. Acute cholecystitis not excluded. Small volume ascites. Small right pleural effusion. HIDA scan revealed-No evidence for acute cholecystitis. PMH-alcoholic cirrhosis, HFpEF, anemia, history of recurrent blood transfusion, transaminitis, hemorrhoids PSH- Neck surgery Allergy- NKDA Personal History/ Social History- ex alcoholic, smoker, smokes weed Patient was seen today at the bedside. Patient tired and abdominal pain Cardiovascular- deny cough or palpitation Respiratory- denies cough wheezing Gastrointestinal- denies any rectal bleeding, nausea or vomiting Musculoskeletal-denies acute joint swelling or tenderness or redness Neurological- denies acute dysarthria, dysphagia, change in vision Psychiatry- denies depression or SI or HI Skin- denies acute rash Patient was seen today for clinical evaluation. Labs and chart reviewed. Patient is still feeling tired and fatigue, patient complained of abdominal pain which is chronic. Patient is awake and alert. Patient had 2 units of blood transfusion PCV for severe anemia. Hemoglobin 6.0> 6.8> 7.4. Patient lives still has leukopenia and thrombocytopenia. On 08/13/2024 WBC 3.1, platelets 63. Potassium was 3.2 today, replenished. Stool FOBT was negative. Patient is seen by transcription, recommendation reviewed and appreciated. As per transcription plan is to do colonoscopy tomorrow at 05/2024. Patient has had two endoscopies this year showing portal hypertension gastropathy gastroduodenitis and superficial AVMs. Patient with Soft BP. Today change Lasix from IV to oral Lasix 20 mg p.o. b.i.d. restarted gabapentin 300 mg p.o. daily for body ache as patient's home medication. HIDA scan revealed no acute cholecystitis. Clear liquid diet as a preparation for colonoscopy tomorrow morning. Objective vital signs Vital Sign Date Time Temp Pulse Resp B/P (MAP) Pulse Ox O2 Delivery O2 Flow Rate FiO2 08/13/24 09:09 98.4 64 21 108/39 (62) 94 98.4 08/13/24 08:00 Room Air* 0 21 Total Intake and Output 08/12/24 08/12/24 08/13/24 15:00 23:00 07:00 Intake Total 550 ml 2010 ml 700 ml Output Total 500 ml Balance 50 ml 2010 ml 700 ml medications Current Medications Medications Dose Ordered Sig/Adela Route Start Time Stop Time Status Last Admin Dose Admin Ondansetron HCl 4 mg Q4HP PRN IV 08/11/24 21:45 08/12/24 11:20 4 MG Docusate Sodium 100 mg BIDPRN PRN PO 08/11/24 21:45 08/12/24 08:58 100 MG Nitroglycerin 0.4 mg Q5MINP PRN SL 08/11/24 21:45 Morphine Sulfate 2 mg Q30M PRN IV 08/11/24 21:45 Azithromycin 250 ml @ 125 mls/hr DAILY IV 08/12/24 10:00 08/13/24 09:35 125 MLS/HR Midodrine 10 mg BID PO 08/12/24 10:00 08/13/24 09:34 10 MG Spironolactone 25 mg DAILY PO 08/12/24 10:00 08/13/24 09:34 25 MG Tramadol HCl 50 mg DAILY PRN PO 08/11/24 23:45 08/12/24 08:58 50 MG Patient Own Medication 2 tab BID PO 08/12/24 10:00 08/13/24 09:35 2 TAB Folic Acid 1 mg DAILY PO 08/12/24 10:00 08/13/24 09:33 1 MG Magnesium Oxide 400 mg DAILY PO 08/12/24 10:00 08/13/24 09:33 400 MG Acetaminophen/ Hydrocodone Bitart 1 tab Q6HPRN PRN PO 08/12/24 00:00 08/13/24 09:32 1 TAB Lactulose 30 ml Q8HR PO 08/12/24 14:00 08/12/24 20:33 30 ML Pantoprazole Sodium 40 mg DAILY IV 08/13/24 10:00 08/13/24 09:34 40 MG Sucralfate 1 gm Q8HR PO 08/12/24 14:00 08/12/24 20:25 1 GM Ceftriaxone Sodium/Dextrose 50 ml @ 50 mls/hr DAILY IV 08/13/24 10:00 08/13/24 09:36 50 MLS/HR Docusate Sodium 100 mg BID PO 08/12/24 22:00 08/13/24 09:33 100 MG Furosemide 20 mg BIDD PO 08/13/24 18:00 Gabapentin 300 mg HS PO 08/13/24 22:00 UNV Examination General examination- patient is tired looking, pale, icterus HEENT- PEERLA, no acute nasal discharge Cardiovascular- S1-S2 audible, rate and rhythm regular, no murmur Respiratory- CTAB, no wheeze or rhonchi Gastrointestinal-generalized tenderness of the abdomen,, bowel sound+. Nondistended Musculoskeletal-no acute joint swelling or tenderness or redness# Lower extremity- leg edema Neurological- cranial nerves intact, no acute dysarthria or dysphagia Psychiatry- denies depression or SI or HI Skin- no acute rash or purpura laboratory and microbiology Laboratory Tests 08/13/24 06:03 Test 08/13/24 06:03 Range/Units Serum Glucose 76 74-106 mg/dL Microbiology Date/Time Source Procedure Growth Status 08/12/24 04:30 Nose MRSA Screen - Final Complete Problem List/Assessment/Plan Problem List/Assessment/Plan #Severe anemia likely due to cirrhosis of liver versus upper or lower GI bleeding -Hemoglobin 6.0> 6.8> 7.4. -status post 2 units blood transfusion, hemoglobin improving -patient was seen by transcription, recommended for colonoscopy tomorrow. -Patient has had two endoscopies this year showing portal hypertension gastropathy gastroduodenitis and superficial AVMs. -avoid constipation, avoid hepatotoxic drugs -monitor CBC #[id number] ascites likely due to cirrhosis of liver -CT Scan of the abdomen revealed--Moderate ascites. -Ultrasound of the abdomen revealed-Small volume ascites. -continue Lasix 20 mg po b.i.d. -continue spironolactone 25 mg p.o. daily # suspected spontaneous bacterial peritonitis the context of history of cirrhosis of liver -patient complained of abdominal pain, tender on palpation, history of cirrhosis of liver -continue IV ceftriaxone 2 g IV daily -avoid dehydration and constipation -continue lactulose 30 mL p.o. Q 8 H -continue Colace 100 mg p.o. b.i.d. -continue ceftriaxone 2 g IV daily - # acute on chronic HFpEF, 07/13/24-echo 2D-LVEF 70% -BNP 1193 -continue Lasix 20 mg IV b.i.d. # constipation -patient was put on lactulose 30 mg p.o. q.8h -patient had bowel movement yesterday and today morning -patient reports feeling better today after having bowel movement # cholelithiasis -HIDA scan revealed no acute cholecystitis -CT Scan of the abdomen revealed-Small right pleural effusion. Moderate ascites. Cholelithiasis. Splenomegaly. -Ultrasound of the abdomen revealed-Gallbladder wall thickening with gall stones. Acute cholecystitis not excluded. Small volume ascites. Small right pleural effusion # suspected pneumonia Gram-positive versus Gram-negative/atelectasis -continue azithromycin 500 mg IV daily -Scan of the abdomen revealed-Small right pleural effusion. - CXR-Right lower lobe airspace disease. -ultrasound of the abdomen- Small right pleural effusion # Pancytopenia likely due to cirrhosis of liver with portal hypertension -08/12/24 WBC 3.2, hemoglobin 6.0, platelets 70 -On 08/13/2024 WBC 3.1, platelets 63. -monitor CBC # alcoholic cirrhosis of liver --avoid dehydration and constipation -continue lactulose 30 mL p.o. Q 8 H -continue Colace 100 mg p.o. b.i.d. # history of hemorrhoids -avoid constipation # transaminitis likely due to alcoholic cirrhosis of liver -monitor LFT -ex alcoholic # history of substance abuse, marijuana -UDS positive for cannabinoids -patient was counseled about the effect of marijuana on health Goals of care/advance care planning; FULL CODE; discussed with the patient PUD prophylaxis: Pantoprazole DVT prophylaxis: Patient ambulating Plan discussed with Dr. Wheatley,,, nursing staff, patient Total time spent on patient evaluation, chart review, assessment and plan, discussion discussion >30 minutes Plan discussed with: Patient Plan discussed with: Patient, Other (RN) My Orders My Orders Orders - MARGARETTE ELIZABETH Procedure Category Date Status Time Pantoprazole PHA 08/13/24 In Process (Protonix) 10:00 Sucralfate Tab PHA 08/12/24 In Process (Carafate Tab) 14:00 Nm Hida Scan NM 08/12/24 Logged 13:35 Ceftriaxone 2gm/50ml PHA 08/13/24 In Process D5w (Rocephin 2gm/5 10:00 Docusate Sodium PHA 08/12/24 In Process Capsule (Colace 22:00 Furosemide Tablet PHA 08/13/24 In Process (Lasix Tablet) 18:00 Gabapentin Capsule PHA 08/13/24 Logged (Neurontin Capsule) 22:00 Date of Service: Aug 13, 2024 Billing Provider: MASON WHEATLEY MD Common Visit Codes: [id number] INP/OBS CARE(HIGH) MARGARETTE ELIZABETH Aug 13, 2024 11:03 MASON WHEATLEY MD Aug 13, 2024 21:36
--- NOTE | 2024-08-13 14:09 | DVH ---
EXAM: NM NM HIDA SCAN History: Diffuse abdominal pain, cholelithiasis Comparison Study: None TECHNIQUE: Following intravenous administration of 5.5 mCi of Tc-99m mebrofenin (Choletec), dynamic sequential images of the right upper abdomen were acquired for 60 minutes. An additional planar image in the lateral right upper quadrant was also obtained. FINDINGS: The liver demonstrates prompt radiotracer uptake with clearance from blood pool. No focal perfusion d efects were noted. There was prompt excretion of the radiotracer into the biliary tree, without evide nce of biliary dilatation or obstruction. There is filling of the gallbladder beginning 6-7 minutes post radiotracer administration. IMPRESSION: 1. No evidence for acute cholecystitis.
[2024-08-13] MEDS: FUROSEMIDE 20 MG TAB PO SCH (18:14)
[2024-08-13] MEDS: GABAPENTIN 300 MG CAP PO SCH (21:29)
[2024-08-14] VITALS (8 sets, daily range): BP systolic 85–110; BP diastolic 32–52; PULSE 59–74; RESP 16–18; TEMP 97.5–98.4; O2SAT 92–98
[2024-08-14 05:46] LABS: Hematocrit 20.2 % (36.0-46.0); Hemoglobin 7.1 g/dL (12.2-16.2); Platelet Count (auto) 62 10^3/uL (140-450); White Blood Cell 3.2 10^3/uL (4.4-10.8)
[2024-08-14 05:48] LABS: Basophils # (auto) 0.1 10 ^3/uL (0-0.2); Basophils % (auto) 2.7 % (0.0-2.0); Eosinophils # (auto) 0.2 10 ^3/uL (0-0.8); Eosinophils % (auto) 6.3 % (0.0-7.0); Lymphocytes # (auto) 0.7 10 ^3/uL (0.4-5.4); Lymphocytes % (auto) 20.4 % (10.0-50.0); Mean Corpuscular Hemoglobin 37.9 pg (28.0-32.0); Mean Corpuscular Hgb Conc. 35.3 g/dL (32.0-36.0); Mean Corpuscular Volume 107.3 fL (80.0-100.0); Monocytes # (auto) 0.4 10 ^3/uL (0-1.3); Monocytes % (auto) 11.8 % (0.0-12.0); Neutrophils # (auto) 1.9 10 ^3/uL (1.6-8.6); Neutrophils % (auto) 58.8 % (37.0-80.0); Nucleated Red Blood Cells % 0.3 %; Red Blood Cells 1.88 10^6/uL (4.0-5.20)
[2024-08-14 06:00] LABS: INR 1.69 (0.9-1.15); Prothrombin Time 17.2 sec (9.3-11.8)
[2024-08-14] MEDS: MAGNESIUM CITRATE SOLUTION 300 ML BTL PO ONE (06:09)
[2024-08-14 06:16] LABS: Red Cell Distribution Width 22.8 % (11.8-14.3)
[2024-08-14] MEDS: GOLYTELY 4L KIT PO ONE (06:25)
[2024-08-14 06:53] LABS: Platelet Estimate Decreased
[2024-08-14 06:55] LABS: Alkaline Phosphatase 52 U/L (46-116); Anion Gap 8 (5-15); Aspartate Aminotransferase 45 U/L (13-40); BUN/Creatinine Ratio 10.1 (10.0-20.0); Bilirubin, Total 7.8 mg/dL (0.2-1.0); Blood Urea Nitrogen 9 mg/dL (9-23); Calcium 9.4 mg/dL (8.7-10.4); Carbon Dioxide 29 mmol/L (20-31); Chloride 100 mmol/L (98-107); Glucose 75 mg/dL (74-106); Potassium 4.2 mmol/L (3.5-5.1); Sodium 137 mmol/L (136-145)
[2024-08-14 07:06] LABS: Alanine Aminotransferase 23 U/L (7-40)
[2024-08-14] MEDS ORDERED: POTASSIUM CHL 20 Meq TABLET PO STA (07:44)
--- NOTE | 2024-08-14 10:26 | DVHPN2 ---
Progress Note Date Seen: Aug 14, 2024 Resident Creating Document: AFSHIN YATES Medical Necessity Reason Pt with a Central, PICC or Fol: No Subjective Review of Systems Patient is 33 years old female with past medical history of alcoholic cirrhosis, ex alcoholic, HFpEF, anemia, history of recurrent blood transfusion, transaminitis, hemorrhoids came with a complaint of abdominal pain that esterase 3 weeks before and her PCP advised her to come to the ER. As per patient patient is having abdominal pain started 3 weeks before, diffuse, 10 x 10, stabbing in nature, reduced with some pain medication increased with movement. Patient also reported feeling tired and some short of breath over the time especially with the exertion. On further discussion patient also reported having constipation, when she moved before it looked like dark or dark brown color. last bowel bowel movement was almost 5-6 days before. Patient denied any fever, chest pain, acute joint pain or swelling, acute rash. Initial lab workup revealed patient with severe anemia hemoglobin 6, thrombocytopenia platelets 70, hyperammonemia ammonia 33, transaminitis, elevated bilirubin 14.2, elevated TSH 5.66, BNP 119. UDS positive for cannabinoids. CT Scan of the abdomen revealed-Small right pleural effusion. Moderate ascites. Cholelithiasis. Splenomegaly. CXR-Right lower lobe airspace disease. Ultrasound of the abdomen revealed-Gallbladder wall thickening with gall stones. Acute cholecystitis not excluded. Small volume ascites. Small right pleural effusion. HIDA scan revealed-No evidence for acute cholecystitis. PMH-alcoholic cirrhosis, HFpEF, anemia, history of recurrent blood transfusion, transaminitis, hemorrhoids PSH- Neck surgery Allergy- NKDA Personal History/ Social History- ex alcoholic, smoker, smokes weed Patient was seen today at the bedside. Patient tired and abdominal pain Cardiovascular- deny cough or palpitation Respiratory- denies cough wheezing Gastrointestinal- denies any rectal bleeding, nausea or vomiting Musculoskeletal-denies acute joint swelling or tenderness or redness Neurological- denies acute dysarthria, dysphagia, change in vision Psychiatry- denies depression or SI or HI Skin- denies acute rash Patient was seen today for clinical evaluation. Labs and chart reviewed. Objective vital signs Vital Sign Date Time Temp Pulse Resp B/P (MAP) Pulse Ox O2 Delivery O2 Flow Rate FiO2 08/14/24 08:25 98.2 73 17 85/32 (49) 93 98.2 08/13/24 20:00 Room Air* 0 21 Total Intake and Output 08/13/24 08/13/24 08/14/24 15:00 23:00 07:00 Intake Total 300 ml 680 ml 0 ml Output Total 300 ml Balance 300 ml 380 ml 0 ml medications Current Medications Medications Dose Ordered Sig/Adela Route Start Time Stop Time Status Last Admin Dose Admin Ondansetron HCl 4 mg Q4HP PRN IV 08/11/24 21:45 08/12/24 11:20 4 MG Docusate Sodium 100 mg BIDPRN PRN PO 08/11/24 21:45 08/12/24 08:58 100 MG Nitroglycerin 0.4 mg Q5MINP PRN SL 08/11/24 21:45 Morphine Sulfate 2 mg Q30M PRN IV 08/11/24 21:45 Azithromycin 250 ml @ 125 mls/hr DAILY IV 08/12/24 10:00 08/14/24 09:56 125 MLS/HR Midodrine 10 mg BID PO 08/12/24 10:00 08/14/24 09:57 10 MG Spironolactone 25 mg DAILY PO 08/12/24 10:00 08/13/24 09:34 25 MG Tramadol HCl 50 mg DAILY PRN PO 08/11/24 23:45 08/14/24 04:09 50 MG Patient Own Medication 2 tab BID PO 08/12/24 10:00 08/14/24 09:57 2 TAB Folic Acid 1 mg DAILY PO 08/12/24 10:00 08/14/24 09:57 1 MG Magnesium Oxide 400 mg DAILY PO 08/12/24 10:00 08/14/24 09:57 400 MG Acetaminophen/ Hydrocodone Bitart 1 tab Q6HPRN PRN PO 08/12/24 00:00 08/14/24 00:42 1 TAB Lactulose 30 ml Q8HR PO 08/12/24 14:00 08/14/24 06:08 30 ML Pantoprazole Sodium 40 mg DAILY IV 08/13/24 10:00 08/14/24 09:57 40 MG Sucralfate 1 gm Q8HR PO 08/12/24 14:00 08/14/24 06:07 1 GM Ceftriaxone Sodium/Dextrose 50 ml @ 50 mls/hr DAILY IV 08/13/24 10:00 08/14/24 09:57 50 MLS/HR Docusate Sodium 100 mg BID PO 08/12/24 22:00 08/13/24 21:28 100 MG Furosemide 20 mg BIDD PO 08/13/24 18:00 08/14/24 06:08 20 MG Gabapentin 300 mg HS PO 08/13/24 22:00 08/13/24 21:29 300 MG Examination General examination- patient is tired looking, pale, icterus HEENT- PEERLA, no acute nasal discharge Cardiovascular- S1-S2 audible, rate and rhythm regular, no murmur Respiratory- CTAB, no wheeze or rhonchi Gastrointestinal-generalized tenderness of the abdomen,, bowel sound+. Nondistended Musculoskeletal-no acute joint swelling or tenderness or redness# Lower extremity- leg edema Neurological- cranial nerves intact, no acute dysarthria or dysphagia Psychiatry- denies depression or SI or HI Skin- no acute rash or purpura laboratory and microbiology Laboratory Tests 08/14/24 05:03 Test 08/14/24 05:03 Range/Units Serum Glucose 75 74-106 mg/dL Microbiology Date/Time Source Procedure Growth Status 08/12/24 04:30 Nose MRSA Screen - Final Complete Problem List/Assessment/Plan Problem List/Assessment/Plan #Severe anemia likely due to cirrhosis of liver versus upper or lower GI bleeding -Hemoglobin 6.0> 6.8> 7.4. -status post 2 units blood transfusion, hemoglobin improving -patient was seen by brake specialist, recommended for colonoscopy tomorrow. -Patient has had two endoscopies this year showing portal hypertension gastropathy gastroduodenitis and superficial AVMs. -avoid constipation, avoid hepatotoxic drugs -monitor CBC #[id number] ascites likely due to cirrhosis of liver -CT Scan of the abdomen revealed--Moderate ascites. -Ultrasound of the abdomen revealed-Small volume ascites. -continue Lasix 20 mg po b.i.d. -continue spironolactone 25 mg p.o. daily # suspected spontaneous bacterial peritonitis the context of history of cirrhosis of liver -patient complained of abdominal pain, tender on palpation, history of cirrhosis of liver -continue IV ceftriaxone 2 g IV daily -avoid dehydration and constipation -continue lactulose 30 mL p.o. Q 8 H -continue Colace 100 mg p.o. b.i.d. -continue ceftriaxone 2 g IV daily - # acute on chronic HFpEF, 07/13/24-echo 2D-LVEF 70% -BNP 1193 -continue Lasix 20 mg IV b.i.d. # constipation -patient was put on lactulose 30 mg p.o. q.8h -patient had bowel movement yesterday and today morning -patient reports feeling better today after having bowel movement # cholelithiasis -HIDA scan revealed no acute cholecystitis -CT Scan of the abdomen revealed-Small right pleural effusion. Moderate ascites. Cholelithiasis. Splenomegaly. -Ultrasound of the abdomen revealed-Gallbladder wall thickening with gall stones. Acute cholecystitis not excluded. Small volume ascites. Small right pleural effusion # suspected pneumonia Gram-positive versus Gram-negative/atelectasis -continue azithromycin 500 mg IV daily -Scan of the abdomen revealed-Small right pleural effusion. - CXR-Right lower lobe airspace disease. -ultrasound of the abdomen- Small right pleural effusion # Pancytopenia likely due to cirrhosis of liver with portal hypertension -08/12/24 WBC 3.2, hemoglobin 6.0, platelets 70 -On 08/13/2024 WBC 3.1, platelets 63. -monitor CBC # alcoholic cirrhosis of liver --avoid dehydration and constipation -continue lactulose 30 mL p.o. Q 8 H -continue Colace 100 mg p.o. b.i.d. # history of hemorrhoids -avoid constipation # transaminitis likely due to alcoholic cirrhosis of liver -monitor LFT -ex alcoholic # history of substance abuse, marijuana -UDS positive for cannabinoids -patient was counseled about the effect of marijuana on health Goals of care/advance care planning; FULL CODE; discussed with the patient PUD prophylaxis: Pantoprazole DVT prophylaxis: Patient ambulating Plan discussed with Dr. Wheatley,,, nursing staff, patient Total time spent on patient evaluation, chart review, assessment and plan, discussion discussion >30 minutes Plan discussed with: Patient My Orders My Orders Orders - MARGARETTE ELIZABETH Procedure Category Date Status Time Gabapentin Capsule PHA 08/13/24 In Process (Neurontin Capsule) 22:00 MARGARETTE ELIZABETH Aug 14, 2024 10:26
--- NOTE | 2024-08-14 12:35 | DVHINCON2 ---
Date of service: Aug 14, [address] Bennett Reason for Consultation Pancytopenia with cirrhosis of the liver History of Present Illness 33 years old female gives a history of heavy alcoholism and cirrhosis of the liver" August 2023. Gives a history of congestive heart failure She was admitted with complaints of vomiting , Abdominal pains transaminitis and needing blood transfusions. No complaints of bleeding. No fevers or night sweats. She has some easy bruising. No bleeding. No blood in the stools or vomiting. She had vomiting only 1 time. On admission her CBC showed a white count of 4.3 hemoglobin 7.7 MCV 119.6 platelets 94,000 Confirmed on the blood smear She has received 2 units of packed red cells On 08/12/2024 . Today her CBC showed a hemoglobin of 7.1 White count 3.2 platelets 62,000. PT/INR 1.69 Stool guaiac is negative Total bili 7.8 AST 45 ALT 23 albumin 3 serum iron 146 after transfusion saturation 75.3 ferritin 1372. BUN [address] of the abdomen pelvis without contrast showed splenomegaly moderate ascites, cholelithiasis small right pleural effusion Patient has had 2 endoscopies this year showing portal hypertension, gastr opathy, gastroduodenitis and superficial AVMs. She is waiting for a Sigmoidoscopy evaluation Past Medical History Alcohol with cirrhosis of the liver She had an at the age of 14 She says she had some surgery at on the right neck Congestive heart failure Family History: Alcoholism G8 BROTHER Cardiovascular disease G8 MOTHER G8 FATHER Diabetes mellitus G8 MOTHER G8 FATHER G8 BROTHER Hypertension G8 MOTHER G8 FATHER Family History Unremarkable for malignancy or hematological disorders Social History She smokes marijuana She quit drinking alcohol in August 2023 Allergies: Coded Allergies: NO KNOWN ALLERGIES (Unverified , 12/10/23) Home Meds Active Scripts Spironolactone (Aldactone) 25 Mg Tab, 1 TAB PO DAILY, #30 TAB 5 Refills Prov:MASON GRAY MD 06/01/24 Pantoprazole Sodium Sesquihydr (Protonix) 40 Mg Tab, 40 MG PO BID, #60 TAB 5 Refills Prov:SHRUTHI HUDSON MD 05/13/24 Reported Medications Rifaximin (Xifaxan) 550 Mg Tab, 1 TAB PO BID 08/12/24 Lactulose (Lactulose) 10 Gm/15 Ml Yesenia, 15 ML PO BID, ML 08/12/24 Ferrous Sulfate (Ferrous Sulfate) 325 Mg Tab, 1 TAB PO DAILY 08/12/24 Escitalopram Oxalate (ESCITALOPRAM OXALATE) 10 Mg Tab, 10 MG PO DAILY, TAB 08/12/24 Furosemide (Furosemide) 40 Mg Tab, 1 TAB PO DAILY 08/12/24 Tramadol Hcl (Tramadol Hcl) 50 Mg Tab, 50 MG PO DAILY PRN for PAIN SCALE 7 THRU 10, MG 06/21/24 Magnesium Oxide (MAGNESIUM OXIDE) 400 Mg Tab, 1 TAB PO DAILY, TAB 05/29/24 Acamprosate Calcium (ACAMPROSATE CALCIUM DR) 333 Mg Tab, 2 TAB PO BID, TAB 05/28/24 Midodrine HCl (Midodrine HCl) 10 Mg Tab, 1 TAB PO BID 05/11/24 Acyclovir (ZOVIRAX TABLET) 400 Mg Tb, 400 MG PO BID for HERPES IF GOING TO BE SEXUALLY, TAB 04/04/24 Folic Acid (Folic Acid) 1 Mg Tab, 1 MG PO DAILY, TAB 12/11/23 Gabapentin (Gabapentin) 300 Mg Cap, 1 CAP PO DAILY 12/11/23 Current Medications Current Medications Medications (Trade) Dose Ordered Sig/Adela Route PRN Reason Start Time Stop Time Status Last Admin Furosemide (Lasix Tablet) 20 mg BIDD PO 08/13/24 18:00 08/14/24 06:08 Gabapentin (Neurontin Capsule) 300 mg HS PO 08/13/24 22:00 08/13/24 21:29 Potassium Chloride (Klor-Con Tablet) 40 meq ONCE STAT PO 08/14/24 07:44 08/14/24 07:48 DC Vital Signs Vital Signs Date Time Temp Pulse Resp B/P (MAP) Pulse Ox O2 Delivery O2 Flow Rate FiO2 08/14/24 08:25 98.2 73 17 85/32 (49) 93 98.2 08/14/24 08:00 Room Air* 0 21 Physical Exam GENERAL: The patient is a moderately built and nourished ,in no distress, alert and oriented. Patient is jaundiced HEAD AND NECK: Unremarkable. No neck nodes or masses. Conjunctivae: Unremarkable for any mucosal hemorrhage or inflammation. Thyroid is nonpalpable. Throat is unremarkable. SPINE: No deformities or tenderness. CHEST: Chest wall, no tenderness. LUNGS: Clear. CARDIOVASCULAR: Regular sinus rhythm. No murmurs or gallops. ABDOMEN: No organomegaly, tenderness or ascites. Bowel sounds present. EXTREMITIES: No clubbing, edema or cyanosis. Peripheral pulses palpable. No calf tenderness. LYMPHATICS: No significant lymphadenopathy. NEUROLOGIC: No focal neurological deficits. SKIN: Unremarkable for any petechiae, purpura, or ecchymosis. Psych: No abnormalities Available data reviewed Labs/Diagnostic Data Labs Test 08/14/24 05:03 08/12/24 17:35 08/12/24 12:00 08/12/24 09:30 Range/Units White Blood Count 3.2 L 4.4-10.8 10^3/uL Red Blood Count 1.88 L 4.0-5.20 10^6/uL Hemoglobin 7.1 L 12.2-16.2 g/dL Hematocrit 20.2 L 36.0-46.0 % Mean Corpuscular Volume 107.3 H 80.0-100.0 fL Mean Corpuscular Hemoglobin 37.9 H 28.0-32.0 pg Mean Corpuscular Hemoglobin Concent 35.3 32.0-36.0 g/dL Red Cell Distribution Width 22.8 H 11.8-14.3 % Platelet Count 62 L 140-450 10^3/uL Mean Platelet Volume 7.6 6.9-10.8 fL Neutrophils (%) (Auto) 58.8 37.0-80.0 % Lymphocytes (%) (Auto) 20.4 10.0-50.0 % Monocytes (%) (Auto) 11.8 0.0-12.0 % Eosinophils (%) (Auto) 6.3 0.0-7.0 % Basophils (%) (Auto) 2.7 H 0.0-2.0 % Neutrophils # (Auto) 1.9 1.6-8.6 10 ^3/uL Lymphocytes # (Auto) 0.7 0.4-5.4 10 ^3/uL Monocytes # (Auto) 0.4 0-1.3 10 ^3/uL Eosinophils # (Auto) 0.2 0-0.8 10 ^3/uL Basophils # (Auto) 0.1 0-0.2 10 ^3/uL Nucleated Red Blood Cells 0.3 % Platelet Estimate Decreased Chandler Cells Moderate Prothrombin Time 17.2 H 9.3-11.8 sec Prothrombin Time INR 1.69 H 0.9-1.15 Sodium Level 137 136-145 mmol/L Potassium Level 4.2 3.5-5.1 mmol/L Chloride Level 100 98-107 mmol/L Carbon Dioxide Level 29 20-31 mmol/L Anion Gap 8 5-15 Blood Urea Nitrogen 9 9-23 mg/dL Creatinine 0.89 0.550-1.02 mg/dL Glomerular Filtration Rate Calc 87 >90 mL/min BUN/Creatinine Ratio 10.1 10.0-20.0 Serum Glucose 75 74-106 mg/dL Calcium Level 9.4 8.7-10.4 mg/dL Total Bilirubin 7.8 H 0.2-1.0 mg/dL Aspartate Amino Transferase (AST) 45 H 13-40 U/L Alanine Aminotransferase (ALT) 23 7-40 U/L Alkaline Phosphatase 52 46-116 U/L Total Protein 7.0 5.7-8.2 g/dL Albumin 3.0 L 3.2-4.8 g/dL Anisocytosis (manual) Slight Macrocytosis Moderate Stool Occult Blood Negative Negative Stool Occult Blood Sample #3 Negative Urine Opiates Screen Neg NEGATIVE Urine Fentanyl Screen Neg NEGATIVE Urine Barbiturates Screen Neg NEGATIVE Urine Phencyclidine Screen Neg NEGATIVE Urine Amphetamines Screen Neg NEGATIVE Urine Benzodiazepines Screen Neg NEGATIVE Urine Cocaine Screen Neg NEGATIVE Urine Cannabinoids Screen Pos NEGATIVE Test 08/12/24 06:01 08/11/24 22:04 08/11/24 15:47 08/11/24 15:28 Range/Units Iron Level 146 50-170 ug/dL Total Iron Binding Capacity 194 L 250-425 ug/dL Percent Iron Saturation 75.3 H 15-50 % Ferritin 1372.9 H 10-291 ng/mL Free Thyroxine (T4) Calculated 1.35 0.89-1.76 ng/dL Free Triiodothyronine (T3) pg/mL 2.18 L 2.3-4.2 pg/mL Differential Total Cells Counted 100.0 100 Neutrophils % (Manual) 55 37.0-80.0 Band Neutrophils % (Manual) 0 Lymphocytes % (Manual) 33 10.0-50.0 Monocytes % (Manual) 8 0-12 Eosinophils % (Manual) 4 0-7 Basophils % (Manual) 0 0.0-2.0 Metamyelocytes % (manual) 0 Myelocytes % (Manual) 0 Promyelocytes % (Manual) 0 Blast Cells % (Manual) 0 Reactive Lymphocytes 0 Poikilocytosis (manual) Moderate Lipase 45 12-53 U/L Folic Acid 46.65 >5.38 ng/mL Thyroid Stimulating Hormone (TSH) 5.66 H 0.55-4.78 uIU/mL Beta HCG, Quantitative 0.4 L 1.5-4.2 mIU/mL Plasma/Serum Blood Alcohol 5.0 <10 mg/dL Urine Color Colorless Yellow Urine Clarity Turbid H Clear Urine pH 6.0 5.0-9.0 Urine Specific [place] 1.004 1.001-1.035 Urine Protein Negative Negative Urine Ketones Negative Negative Urine Blood 1+ H Negative /uL Urine Nitrite Negative Negative Urine Bilirubin Negative Negative Urine Urobilinogen Normal Negative mg/dL Urine Leukocyte Esterase Trace Negative /uL Urine RBC 1 0 - 4 /hpf Urine WBC 3 0 - 5 /hpf Urine Squamous Epithelial Cells Mod <5 /hpf Urine Amorphous Crystals Few None Seen /hpf Urine Bacteria Few H None Seen /hpf Urine Glucose Normal Normal mg/dL Hemoglobin A1c < 3.8 <5.7 % A1C Lactic Acid Level 1.8 0.4-2.0 mmol/L Magnesium Level 1.8 1.6-2.6 mg/dL Ammonia 33 H 11-32 umol/L Troponin I High Sensitivity 11 </=34 ng/L B-Type Natriuretic Peptide 1193.49 0-100 pg/mL Vitamin B12 Level 688 211-911 pg/mL Vitamin D 25-Hydroxy 27.1 L 30.0-100 ng/mL Microbiology Date/Time Source Procedure Growth Status 08/12/24 04:30 Nose MRSA Screen - Final Complete Assessment 1. Microcytic anemia which could be secondary to alcoholic liver disease and splenomegaly, may rule out hemolysis. Status post packed red cell transfusions and has had endoscopies with EGDs Waiting for sigmoidoscope 2. Congestive heart failure Plan/Recommendation Will check a direct Mala, LDH, reticulocyte count and haptoglobin Try to keep the hemoglobin over 7 Plan discussed with: Patient CHELSIEALIVIA MD Aug 14, 2024 12:34
[2024-08-14] MEDS ORDERED: fentaNYL CITRATE 100 MCG/2 ML VL ONE (13:54)
--- NOTE | 2024-08-14 15:22 | DVHOP2 ---
Operative Report DATE OF OPERATION: 08/14/24 PROCEDURE: Diagnostic Colonoscopy. PREOPERATIVE INDICATION: The patient is a 33 -year-old female undergoing colonoscopy for anemia and recurrent GI bleed POSTOPERATIVE DIAGNOSES: 1. Essentially a completely normal colonoscopy examination up to the cecum and terminal ileum 2. Patient had mild colonic mucosal edema and trace internal hemorrhoids PROCEDURE PERFORMED BY: Zaire Marroquin M.D. SCOPE: Olympus videocolonoscope. ASA CLASS: 3. PREOPERATIVE MEDICATIONS: Dr Adin Sheth PROCEDURE IN DETAIL: After obtaining an informed consent, the patient was placed on left lateral decubitus position. She was then sedated with the above medications. A rectal examination was performed that was normal. The colonoscope was then passed through the anus into the rectosigmoid and through the descending, transverse, and ascending colon up to the cecum with visualization of the appendiceal orifice, base of the cecum and the ileocecal valve. The colonoscope was then withdrawn. The distal 5-10 cm of the terminal ileum were normal. There were no AVMs or other sources of bleeding There were no masses or colitis. There was mild colonic mucosal edema There was no clear-cut diverticular disease and there were no polyps Patient had a good bowel prep. On retroflexion and straight on view she had trace internal hemorrhoids The patient tolerated the procedure well without difficulty. WITHDRAWAL TIME: 7 minutes QUALITY OF THE PREP: Brain[place] Bowel Prep score: 9. COMPLICATIONS : None SPECIMENS: None DISPOSITION: Transfer back to the floor Stable PLAN: 1. Repeat colonoscopy in 10 years 2. Resume GI soft diet advance as tolerated 3. Outpatient follow up with me in 4-6 weeks to review results and discuss further management ZAIRE MARROQUIN MD Aug 14, 2024 15:22
--- NOTE | 2024-08-14 15:59 | DVHPNRES ---
Progress Note Date Seen: Aug 14, 2024 Resident Creating Document: MARGARETTE ELIZABETH RESIDENT Medical Necessity Reason Pt with a Central, PICC or Fol: No Subjective Review of Systems Patient is 33 years old female with past medical history of alcoholic cirrhosis, ex alcoholic, HFpEF, anemia, history of recurrent blood transfusion, transaminitis, hemorrhoids came with a complaint of abdominal pain that esterase 3 weeks before and her PCP advised her to come to the ER. As per patient patient is having abdominal pain started 3 weeks before, diffuse, 10 x 10, stabbing in nature, reduced with some pain medication increased with movement. Patient also reported feeling tired and some short of breath over the time especially with the exertion. On further discussion patient also reported having constipation, when she moved before it looked like dark or dark brown color. last bowel bowel movement was almost 5-6 days before. Patient denied any fever, chest pain, acute joint pain or swelling, acute rash. Initial lab workup revealed patient with severe anemia hemoglobin 6, thrombocytopenia platelets 70, hyperammonemia ammonia 33, transaminitis, elevated bilirubin 14.2, elevated TSH 5.66, BNP 119. UDS positive for cannabinoids. CT Scan of the abdomen revealed-Small right pleural effusion. Moderate ascites. Cholelithiasis. Splenomegaly. CXR-Right lower lobe airspace disease. Ultrasound of the abdomen revealed-Gallbladder wall thickening with gall stones. Acute cholecystitis not excluded. Small volume ascites. Small right pleural effusion. HIDA scan revealed-No evidence for acute cholecystitis. PMH-alcoholic cirrhosis, HFpEF, anemia, history of recurrent blood transfusion, transaminitis, hemorrhoids PSH- Neck surgery Allergy- NKDA Personal History/ Social History- ex alcoholic, smoker, smokes weed Patient was seen today at the bedside. Patient tired and abdominal pain Cardiovascular- deny cough or palpitation Respiratory- denies cough wheezing Gastrointestinal- denies any rectal bleeding, nausea or vomiting Musculoskeletal-denies acute joint swelling or tenderness or redness Neurological- denies acute dysarthria, dysphagia, change in vision Psychiatry- denies depression or SI or HI Skin- denies acute rash Patient was seen today for clinical evaluation. Labs and chart reviewed. Patient was seen by Dr. Sanches, hemato oncologist. As per hemato oncologist patient's anemia is due to Microcytic anemia which could be secondary to alcoholic liver disease and splenomegaly, may rule out hemolysis. Will check a direct Mala, LDH, reticulocyte count and haptoglobin, keep the hemoglobin over 7. Patient also had colonoscopy today, no significant finding. Patient still has pancytopenia. Objective vital signs Vital Sign Date Time Temp Pulse Resp B/P (MAP) Pulse Ox O2 Delivery O2 Flow Rate FiO2 08/14/24 14:48 67 9 92/42 (59) 95 08/14/24 14:25 Room Air 08/14/24 14:09 8.0 08/14/24 14:09 97.8 97.8 08/14/24 08:00 21 Total Intake and Output 08/13/24 08/13/24 08/14/24 14:59 22:59 06:59 Intake Total 300 ml 680 ml 0 ml Output Total 300 ml Balance 300 ml 380 ml 0 ml medications Current Medications Medications Dose Ordered Sig/Adela Route Start Time Stop Time Status Last Admin Dose Admin Ondansetron HCl 4 mg Q4HP PRN IV 08/11/24 21:45 08/12/24 11:20 4 MG Docusate Sodium 100 mg BIDPRN PRN PO 08/11/24 21:45 08/12/24 08:58 100 MG Nitroglycerin 0.4 mg Q5MINP PRN SL 08/11/24 21:45 Morphine Sulfate 2 mg Q30M PRN IV 08/11/24 21:45 Azithromycin 250 ml @ 125 mls/hr DAILY IV 08/12/24 10:00 08/14/24 09:56 125 MLS/HR Midodrine 10 mg BID PO 08/12/24 10:00 08/14/24 09:57 10 MG Spironolactone 25 mg DAILY PO 08/12/24 10:00 08/13/24 09:34 25 MG Tramadol HCl 50 mg DAILY PRN PO 08/11/24 23:45 08/14/24 04:09 50 MG Patient Own Medication 2 tab BID PO 08/12/24 10:00 08/14/24 09:57 2 TAB Folic Acid 1 mg DAILY PO 08/12/24 10:00 08/14/24 09:57 1 MG Magnesium Oxide 400 mg DAILY PO 08/12/24 10:00 08/14/24 09:57 400 MG Acetaminophen/ Hydrocodone Bitart 1 tab Q6HPRN PRN PO 08/12/24 00:00 08/14/24 00:42 1 TAB Lactulose 30 ml Q8HR PO 08/12/24 14:00 08/14/24 06:08 30 ML Pantoprazole Sodium 40 mg DAILY IV 08/13/24 10:00 08/14/24 09:57 40 MG Sucralfate 1 gm Q8HR PO 08/12/24 14:00 08/14/24 06:07 1 GM Ceftriaxone Sodium/Dextrose 50 ml @ 50 mls/hr DAILY IV 08/13/24 10:00 08/14/24 09:57 50 MLS/HR Docusate Sodium 100 mg BID PO 08/12/24 22:00 08/13/24 21:28 100 MG Furosemide 20 mg BIDD PO 08/13/24 18:00 08/14/24 06:08 20 MG Gabapentin 300 mg HS PO 08/13/24 22:00 08/13/24 21:29 300 MG Examination General examination- patient is tired looking, pale, icterus HEENT- PEERLA, no acute nasal discharge Cardiovascular- S1-S2 audible, rate and rhythm regular, no murmur Respiratory- CTAB, no wheeze or rhonchi Gastrointestinal-generalized tenderness of the abdomen mildly improved,, bowel sound+. Nondistended Musculoskeletal-no acute joint swelling or tenderness or redness# Lower extremity- no leg edema Neurological- cranial nerves intact, no acute dysarthria or dysphagia Psychiatry- denies depression or SI or HI Skin- no acute rash or purpura laboratory and microbiology Laboratory Tests 08/14/24 05:03 Test 08/14/24 05:03 Range/Units Serum Glucose 75 74-106 mg/dL Microbiology Date/Time Source Procedure Growth Status 08/12/24 04:30 Nose MRSA Screen - Final Complete Problem List/Assessment/Plan Problem List/Assessment/Plan #Severe anemia likely due to cirrhosis of liver versus upper or lower GI bleeding -Hemoglobin 6.0> 6.8> 7.4. -status post 2 units blood transfusion, hemoglobin improving -patient was seen by marketing manager, recommended for colonoscopy tomorrow. -Patient was seen by Dr. Sanches, hemato oncologist. - As per hemato oncologist patient's anemia is due to Microcytic anemia which could be secondary to alcoholic liver disease and splenomegaly, may rule out hemolysis. Will check a direct Mala, LDH, reticulocyte count and haptoglobin, keep the hemoglobin over 7. -Patient has had two endoscopies this year showing portal hypertension gastropathy gastroduodenitis and superficial AVMs. -avoid constipation, avoid hepatotoxic drugs -monitor CBC #[id number] ascites likely due to cirrhosis of liver -CT Scan of the abdomen revealed--Moderate ascites. -Ultrasound of the abdomen revealed-Small volume ascites. -continue Lasix 20 mg po b.i.d. -continue spironolactone 25 mg p.o. daily # suspected spontaneous bacterial peritonitis the context of history of cirrhosis of liver -patient complained of abdominal pain, tender on palpation, history of cirrhosis of liver -continue IV ceftriaxone 2 g IV daily -avoid dehydration and constipation -continue lactulose 30 mL p.o. Q 8 H -continue Colace 100 mg p.o. b.i.d. -continue ceftriaxone 2 g IV daily - # acute on chronic HFpEF, 07/13/24-echo 2D-LVEF 70% -BNP 1193 -continue Lasix 20 mg IV b.i.d. # constipation -patient was put on lactulose 30 mg p.o. q.8h -patient had bowel movement yesterday and today morning -patient reports feeling better today after having bowel movement -patient had colonoscopy today, no significant finding. Patient was advised to follow up with colonoscopy after 10 years. # cholelithiasis -HIDA scan revealed no acute cholecystitis -CT Scan of the abdomen revealed-Small right pleural effusion. Moderate ascites. Cholelithiasis. Splenomegaly. -Ultrasound of the abdomen revealed-Gallbladder wall thickening with gall stones. Acute cholecystitis not excluded. Small volume ascites. Small right pleural effusion # suspected pneumonia Gram-positive versus Gram-negative/atelectasis -continue azithromycin 500 mg IV daily -Scan of the abdomen revealed-Small right pleural effusion. - CXR-Right lower lobe airspace disease. -ultrasound of the abdomen- Small right pleural effusion # Pancytopenia likely due to cirrhosis of liver with portal hypertension --Patient was seen by Dr. Sanches, hemato oncologist. - As per hemato oncologist patient's anemia is due to Microcytic anemia which could be secondary to alcoholic liver disease and splenomegaly, may rule out hemolysis. Will check a direct Mala, LDH, reticulocyte count and haptoglobin, keep the hemoglobin over 7. # alcoholic cirrhosis of liver --avoid dehydration and constipation -continue lactulose 30 mL p.o. Q 8 H -continue Colace 100 mg p.o. b.i.d. # history of hemorrhoids -avoid constipation # transaminitis likely due to alcoholic cirrhosis of liver -monitor LFT -ex alcoholic # history of substance abuse, marijuana -UDS positive for cannabinoids -patient was counseled about the effect of marijuana on health Goals of care/advance care planning; FULL CODE; discussed with the patient PUD prophylaxis: Pantoprazole DVT prophylaxis: Patient ambulating Plan discussed with Dr. Lopez, nursing staff, patient Total time spent on patient evaluation, chart review, assessment and plan, discussion discussion >30 minutes Plan discussed with: Patient Plan discussed with: Patient, Other (RN) MARGARETTE ELIZABETH RESIDENT Aug 14, 2024 15:59
[2024-08-15] VITALS (8 sets, daily range): BP systolic 88–103; BP diastolic 42–54; PULSE 62–77; RESP 16–18; TEMP 97.6–98.3; O2SAT 91–99
[2024-08-15 08:14] LABS: Alanine Aminotransferase 26 U/L (7-40); Alkaline Phosphatase 58 U/L (46-116); Anion Gap 5 (5-15); Aspartate Aminotransferase 50 U/L (13-40); Bilirubin, Total 6.5 mg/dL (0.2-1.0); Blood Urea Nitrogen 7 mg/dL (9-23); Calcium 9.4 mg/dL (8.7-10.4); Carbon Dioxide 30 mmol/L (20-31); Chloride 104 mmol/L (98-107); Glucose 80 mg/dL (74-106); Potassium 3.7 mmol/L (3.5-5.1); Sodium 139 mmol/L (136-145); Total Protein 7.1 g/dL (5.7-8.2)
[2024-08-15 08:29] LABS: White Blood Cell 3.8 10^3/uL (4.4-10.8)
[2024-08-15 08:31] LABS: Hematocrit 21.6 % (36.0-46.0); Hemoglobin 7.4 g/dL (12.2-16.2); Mean Corpuscular Hemoglobin 36.7 pg (28.0-32.0); Mean Corpuscular Hgb Conc. 34.3 g/dL (32.0-36.0); Mean Corpuscular Volume 106.9 fL (80.0-100.0); Platelet Count (auto) 62 10^3/uL (140-450); Red Blood Cells 2.02 10^6/uL (4.0-5.20); Red Cell Distribution Width 22.7 % (11.8-14.3)
[2024-08-15 08:33] LABS: Basophils % (manual) 0 (0.0-2.0); Blast Cells 0; Metamyelocytes % 0; Myelocytes % 0; Promyelocytes % 0; Reactive Lymphocytes 0
[2024-08-15 10:27] LABS: Anisocytosis Slight; Band Neutrophils % (manual) 6; Eosinophils % (manual) 2 (0-7); Lymphocytes % (manual) 28 (10.0-50.0); Monocytes % (manual) 8 (0-12); Platelet Estimate Decreased
--- NOTE | 2024-08-15 16:43 | DVHPNRES ---
Progress Note Date Seen: Aug 15, 2024 Resident Creating Document: SALLY ALONZO RESIDENT Has the PT tested + for MRSA If YES, has PT been informed?: No Medical Necessity Reason Pt with a Central, PICC or Fol: No Subjective Review of Systems This is a 33 years old female with past medical history of alcoholic cirrhosis, ex alcoholic, HFpEF, anemia, history of recurrent blood transfusion, transaminitis, hemorrhoids came with a complaint of abdominal pain that esterase 3 weeks before and her PCP advised her to come to the ER. As per patient patient is having abdominal pain started 3 weeks before, diffuse, 10 x 10, stabbing in nature, reduced with some pain medication increased with movement. Patient also reported feeling tired and some short of breath over the time especially with the exertion. On further discussion patient also reported having constipation, when she moved before it looked like dark or dark brown color. last bowel bowel movement was almost 5-6 days before. Patient denied any fever, chest pain, acute joint pain or swelling, acute rash. Initial lab workup revealed patient with severe anemia hemoglobin 6, thrombocytopenia platelets 70, hyperammonemia ammonia 33, transaminitis, elevated bilirubin 14.2, elevated TSH 5.66, BNP 119. UDS positive for cannabinoids. CT Scan of the abdomen revealed-Small right pleural effusion. Moderate ascites. Cholelithiasis. Splenomegaly. CXR-Right lower lobe airspace disease. Ultrasound of the abdomen revealed-Gallbladder wall thickening with gall stones. Acute cholecystitis not excluded. Small volume ascites. Small right pleural effusion. HIDA scan revealed-No evidence for acute cholecystitis. Patient seen and examined at bedside. Patient still reporting hypogastric pain rated as a 6/10 on the pain scale that gets worse with deep palpation. Colonoscopy was performed yesterday which showed normal colonoscopy with mild colonic mucosal edema and trace internal hemorrhoids but no source of active bleeding. Today, physical therapy working with the patient which walk more than 41 feeds without complications but states that still feels weak. We will continue with IV ceftriaxone 2 gr. Otherwise patient states that is overall improving and feels better compared to admission. We will possibly discharge the patient tomorrow. ROS Constitutional: Denies weight loss, fever and chills. HEENT: Denies changes in vision and hearing. Respiratory: Denies shortness of breath and cough Cardiovascular: Denies chest discomfort or palpitations GI: Reports mild hypogastric pain. Denies nausea, vomiting and diarrhea. : Denies dysuria and urinary frequency. Musculoskeletal: Denies myalgias and joint pain Skin: Denies rash and pruritus. Neurological: Denies dizziness, headache, vision or hearing problems Objective vital signs Vital Sign Date Time Temp Pulse Resp B/P (MAP) Pulse Ox O2 Delivery O2 Flow Rate FiO2 08/15/24 13:00 98.2 63 16 100/51 (67) 99 98.2 08/15/24 08:00 Room Air* 0 21 Total Intake and Output 08/14/24 08/14/24 08/15/24 15:00 23:00 07:00 Intake Total 0 ml 550 ml 480 ml Output Total 450 ml 1 ml Balance 0 ml 100 ml 479 ml medications Current Medications Medications Dose Ordered Sig/Adela Route Start Time Stop Time Status Last Admin Dose Admin Ondansetron HCl 4 mg Q4HP PRN IV 08/11/24 21:45 08/12/24 11:20 4 MG Docusate Sodium 100 mg BIDPRN PRN PO 08/11/24 21:45 08/12/24 08:58 100 MG Nitroglycerin 0.4 mg Q5MINP PRN SL 08/11/24 21:45 Morphine Sulfate 2 mg Q30M PRN IV 08/11/24 21:45 Azithromycin 250 ml @ 125 mls/hr DAILY IV 08/12/24 10:00 08/15/24 09:36 125 MLS/HR Midodrine 10 mg BID PO 08/12/24 10:00 08/15/24 09:35 10 MG Spironolactone 25 mg DAILY PO 08/12/24 10:00 08/15/24 09:35 25 MG Tramadol HCl 50 mg DAILY PRN PO 08/11/24 23:45 08/14/24 04:09 50 MG Patient Own Medication 2 tab BID PO 08/12/24 10:00 08/15/24 09:36 2 TAB Folic Acid 1 mg DAILY PO 08/12/24 10:00 08/15/24 09:35 1 MG Magnesium Oxide 400 mg DAILY PO 08/12/24 10:00 08/15/24 09:35 400 MG Acetaminophen/ Hydrocodone Bitart 1 tab Q6HPRN PRN PO 08/12/24 00:00 08/15/24 09:57 1 TAB Lactulose 30 ml Q8HR PO 08/12/24 14:00 08/15/24 05:54 30 ML Pantoprazole Sodium 40 mg DAILY IV 08/13/24 10:00 08/15/24 09:35 40 MG Sucralfate 1 gm Q8HR PO 08/12/24 14:00 08/15/24 16:08 1 GM Ceftriaxone Sodium/Dextrose 50 ml @ 50 mls/hr DAILY IV 08/13/24 10:00 08/15/24 09:36 50 MLS/HR Docusate Sodium 100 mg BID PO 08/12/24 22:00 08/15/24 09:35 100 MG Furosemide 20 mg BIDD PO 08/13/24 18:00 08/14/24 17:23 20 MG Gabapentin 300 mg HS PO 08/13/24 22:00 08/14/24 21:16 300 MG Examination Physical Examination General: Patient alert and oriented in person, place and time. Patient following commands. HEENT: Normocephalic, atraumatic, moist mucous membranes Respiratory/pulmonary: Clear lungs bilaterally, no associated crackles or wheezes. Cardiovascular: Normal heart sounds S1 and S2 with no associated murmurs Abdomen: Abdomen nondistended, there is mil abdominal tenderness to palpation at the hypogastric region. no palpable masses. Extremities: There is no peripheral edema present at the lower extremities. Peripheral Pulses: 3+ Radial (R). 3+ Radial (L). 3+ Dorsalis pedis (R). 3+ Dorsalis pedis(L) Skin: No rashes or pruritus, there is no sacral edema present at this time. Neurological: Intact cranial nerves with no focal neurologic deficits laboratory and microbiology Laboratory Tests 08/15/24 05:55 Test 08/15/24 05:55 Range/Units Serum Glucose 80 74-106 mg/dL Microbiology Date/Time Source Procedure Growth Status 08/12/24 04:30 Nose MRSA Screen - Final Complete Problem List/Assessment/Plan Problem List/Assessment/Plan Assessment/plan Severe anemia likely due to cirrhosis of liver, Ruled out GI bleeding -Hemoglobin 6.0> 6.8> 7.4. -status post 2 units blood transfusion, hemoglobin improving -patient was seen by dolly operator, colonoscopy was performed showing normal colonoscopy with mild colonic mucosal edema and trace internal hemorrhoids but no active bleeding. -Patient was seen by Dr. Sanches, hemato oncologist. - As per hemato oncologist patient's anemia is due to Microcytic anemia which could be secondary to alcoholic liver disease and splenomegaly, may rule out hemolysis. Will check a direct Mala, LDH, reticulocyte count and haptoglobin, keep the hemoglobin over 7. -Patient has had two endoscopies this year showing portal hypertension gastropathy gastroduodenitis and superficial AVMs. -avoid constipation, avoid hepatotoxic drugs -monitor CBC [id number] ascites likely due to cirrhosis of liver -CT Scan of the abdomen revealed--Moderate ascites. -Ultrasound of the abdomen revealed-Small volume ascites. -continue Lasix 20 mg po b.i.d. -continue spironolactone 25 mg p.o. daily suspected spontaneous bacterial peritonitis the context of history of cirrhosis of liver -patient complained of abdominal pain, tender on palpation, history of cirrhosis of liver -continue IV ceftriaxone 2 g IV daily -avoid dehydration and constipation -continue lactulose 30 mL p.o. Q 8 H -continue Colace 100 mg p.o. b.i.d. acute on chronic HFpEF, 07/13/24-echo 2D-LVEF 70% -BNP 1193 -continue Lasix 20 mg IV b.i.d. constipation -Currently on lactulose 30 mg p.o. q.8h -patient had BM -patient reports feeling better today after having bowel movement -colonoscopy was performed showing normal colonoscopy with mild colonic mucosal edema and trace internal hemorrhoids but no active bleeding. cholelithiasis without cholecystitis -HIDA scan revealed no acute cholecystitis -CT Scan of the abdomen revealed-Small right pleural effusion. Moderate ascites. Cholelithiasis. Splenomegaly. -Ultrasound of the abdomen revealed-Gallbladder wall thickening with gall stones. Acute cholecystitis not excluded. Small volume ascites. Small right pleural effusion suspected pneumonia Gram-positive versus Gram-negative/atelectasis -Scan of the abdomen revealed-Small right pleural effusion. - CXR-Right lower lobe airspace disease. -ultrasound of the abdomen small right pleural effusion Pancytopenia likely due to cirrhosis of liver with portal hypertension -Patient was seen by Dr. Sanches, hemato oncologist. - As per hemato oncologist patient's anemia is due to Microcytic anemia which could be secondary to alcoholic liver disease and splenomegaly, may rule out hemolysis. Will check a direct Mala, LDH, reticulocyte count and haptoglobin, keep the hemoglobin over 7. alcoholic cirrhosis of liver --avoid dehydration and constipation -continue lactulose 30 mL p.o. Q 8 H -continue Colace 100 mg p.o. b.i.d. Internal hemorrhoids, not actively bleeding -avoid constipation Goals of care discussed with the patient at bedside for >23min, FULL CODE Plan discussed with Dr. Lopez Plan discussed with: Patient My Orders My Orders Orders - SALLY ALONZO Procedure Category Date Status Time Pt Request For Service PT 08/15/24 Logged 10:24 SALLY ALONZO Aug 15, 2024 16:42
--- NOTE | 2024-08-15 20:48 | DVHPN2 ---
Progress Note - Dictate Date Seen: Aug 15, 2024 Has the PT tested + for MRSA If YES, has PT been informed?: No Medical Necessity Reason Pt with a Central, PICC or Fol: No Subjective No new complaints, patient is still feeling weak Patient underwent physical therapy today Mild abdominal pain but she is clinically improving Colonoscopy test was negative except for mild mucosal edema Hemoglobin stable at 7.4; mild chronic pancytopenia due to underlying cirrhosis and hypersplenism vital signs Vital Sign Date Time Temp Pulse Resp B/P (MAP) Pulse Ox O2 Delivery O2 Flow Rate FiO2 08/15/24 17:00 98.3 63 17 88/42 (57) 95 98.3 08/15/24 08:00 Room Air* 0 21 Total Intake and Output 08/14/24 08/14/24 08/15/24 15:00 23:00 07:00 Intake Total 0 ml 550 ml 480 ml Output Total 450 ml 1 ml Balance 0 ml 100 ml 479 ml medications Current Medications Medications Dose Ordered Sig/Adela Route Start Time Stop Time Status Last Admin Dose Admin Ondansetron HCl 4 mg Q4HP PRN IV 08/11/24 21:45 08/12/24 11:20 4 MG Docusate Sodium 100 mg BIDPRN PRN PO 08/11/24 21:45 08/12/24 08:58 100 MG Nitroglycerin 0.4 mg Q5MINP PRN SL 08/11/24 21:45 Morphine Sulfate 2 mg Q30M PRN IV 08/11/24 21:45 Azithromycin 250 ml @ 125 mls/hr DAILY IV 08/12/24 10:00 08/15/24 09:36 125 MLS/HR Midodrine 10 mg BID PO 08/12/24 10:00 08/15/24 09:35 10 MG Spironolactone 25 mg DAILY PO 08/12/24 10:00 08/15/24 09:35 25 MG Tramadol HCl 50 mg DAILY PRN PO 08/11/24 23:45 08/14/24 04:09 50 MG Patient Own Medication 2 tab BID PO 08/12/24 10:00 08/15/24 09:36 2 TAB Folic Acid 1 mg DAILY PO 08/12/24 10:00 08/15/24 09:35 1 MG Magnesium Oxide 400 mg DAILY PO 08/12/24 10:00 08/15/24 09:35 400 MG Acetaminophen/ Hydrocodone Bitart 1 tab Q6HPRN PRN PO 08/12/24 00:00 08/15/24 17:18 1 TAB Lactulose 30 ml Q8HR PO 08/12/24 14:00 08/15/24 05:54 30 ML Pantoprazole Sodium 40 mg DAILY IV 08/13/24 10:00 08/15/24 09:35 40 MG Sucralfate 1 gm Q8HR PO 08/12/24 14:00 08/15/24 16:08 1 GM Ceftriaxone Sodium/Dextrose 50 ml @ 50 mls/hr DAILY IV 08/13/24 10:00 08/15/24 09:36 50 MLS/HR Docusate Sodium 100 mg BID PO 08/12/24 22:00 08/15/24 09:35 100 MG Furosemide 20 mg BIDD PO 08/13/24 18:00 08/15/24 17:09 20 MG Gabapentin 300 mg HS PO 08/13/24 22:00 08/14/24 21:16 300 MG objective General: NAD, AAOX3 Chest: lung scott clear to auscultation Heart: RRR, no murmur Abdomen:+ lower abdomen tenderness to palpation, +BS laboratory and microbiology Laboratory Tests 08/15/24 05:55 Test 08/15/24 05:55 Range/Units Serum Glucose 80 74-106 mg/dL Problems(with codes): (1) Severe anemia (2) Hepatic steatosis (3) Generalized weakness (4) Cholelithiasis (5) Ascites (6) Liver cirrhosis (7) Hepatic encephalopathy (8) Pancytopenia Prognosis Plan Advance diet as tolerated Supportive care Physical therapy Discharge planning as per hospitalist Outpatient follow up with GI continue to monitor her liver disease Plan discussed with: Patient ZAIRE SPENCER MD Aug 15, 2024 20:48
[2024-08-16 01:00] VITALS: BP 90/42; PULSE 64; RESP 17; TEMP 98.4; O2SAT 93
[2024-08-16 05:00] VITALS: BP 88/45; PULSE 64; RESP 18; TEMP 98; O2SAT 95
[2024-08-16 06:16] LABS: Basophils # (auto) 0.1 10 ^3/uL (0-0.2); Lymphocytes # (auto) 1.1 10 ^3/uL (0.4-5.4); Monocytes # (auto) 0.2 10 ^3/uL (0-1.3); Neutrophils # (auto) 1.3 10 ^3/uL (1.6-8.6); White Blood Cell 2.8 10^3/uL (4.4-10.8)
[2024-08-16 06:20] LABS: Eosinophils # (auto) 0.1 10 ^3/uL (0-0.8); Eosinophils % (auto) 4.9 % (0.0-7.0); Hematocrit 19.9 % (36.0-46.0); Hemoglobin 7.3 g/dL (12.2-16.2); Lymphocytes % (auto) 39.4 % (10.0-50.0); Mean Corpuscular Hemoglobin 39.4 pg (28.0-32.0); Monocytes % (auto) 8.3 % (0.0-12.0); Neutrophils % (auto) 45.4 % (37.0-80.0); Nucleated Red Blood Cells % 0.1 %; Platelet Count (auto) 53 10^3/uL (140-450); Red Blood Cells 1.84 10^6/uL (4.0-5.20)
[2024-08-16 06:23] LABS: Calcium 9.6 mg/dL (8.7-10.4); Chloride 102 mmol/L (98-107); Potassium 3.8 mmol/L (3.5-5.1); Sodium 137 mmol/L (136-145)
[2024-08-16 06:24] LABS: Anion Gap 5 (5-15); Carbon Dioxide 30 mmol/L (20-31)
[2024-08-16 06:26] LABS: Mean Corpuscular Hgb Conc. 36.5 g/dL (32.0-36.0); Red Cell Distribution Width 21.7 % (11.8-14.3)
[2024-08-16 06:29] LABS: BUN/Creatinine Ratio 6.8 (10.0-20.0); Blood Urea Nitrogen 6 mg/dL (9-23); Glucose 86 mg/dL (74-106)
[2024-08-16 08:00] VITALS: PULSE 77
[2024-08-16 08:22] LABS: Anisocytosis Slight; Macrocytosis Moderate
[2024-08-16 08:23] LABS: Ovalocytes FEW; Platelet Estimate Decreased
[2024-08-16 08:35] VITALS: BP 82/38; PULSE 70; RESP 16; TEMP 98.1; O2SAT 96
[2024-08-16] MEDS: MIDODRINE HCL 10 MG TAB PO SCH (09:45)
[2024-08-16 12:36] VITALS: BP 112/66; PULSE 63; RESP 20; TEMP 97.9; O2SAT 98
[2024-08-16 12:47] LABS: Urine Bacteria None Seen /hpf (None Seen); Urine WBC None Seen /hpf (0 - 5)
--- NOTE | 2024-08-16 15:18 | DVHDSRES ---
Discharge Summary Date of Admission Resident Creating Document: SALLY ALONZO RESIDENT Aug 11, 2024 at 21:45 Date of Discharge: Aug 16, 2024 Admitting Diagnosis Abdominal pain and weakness and tiredness Labs/Diagnostic Data: Laboratory Results Test 08/16/24 10:30 08/16/24 05:08 08/15/24 05:55 08/14/24 05:03 Urine RBC None seen /hpf (0 - 4) Urine WBC None seen /hpf (0 - 5) Urine Squamous Epithelial Cells None seen /hpf (<5) Urine Bacteria None seen /hpf (None Seen) White Blood Count 2.8 10^3/uL (4.4-10.8) Red Blood Count 1.84 10^6/uL (4.0-5.20) Hemoglobin 7.3 g/dL (12.2-16.2) Hematocrit 19.9 % (36.0-46.0) Mean Corpuscular Volume 108.0 fL (80.0-100.0) Mean Corpuscular Hemoglobin 39.4 pg (28.0-32.0) Mean Corpuscular Hemoglobin Concent 36.5 g/dL (32.0-36.0) Red Cell Distribution Width 21.7 % (11.8-14.3) Platelet Count 53 10^3/uL (140-450) Mean Platelet Volume 7.5 fL (6.9-10.8) Neutrophils (%) (Auto) 45.4 % (37.0-80.0) Lymphocytes (%) (Auto) 39.4 % (10.0-50.0) Monocytes (%) (Auto) 8.3 % (0.0-12.0) Eosinophils (%) (Auto) 4.9 % (0.0-7.0) Basophils (%) (Auto) 2.0 % (0.0-2.0) Neutrophils # (Auto) 1.3 10 ^3/uL (1.6-8.6) Lymphocytes # (Auto) 1.1 10 ^3/uL (0.4-5.4) Monocytes # (Auto) 0.2 10 ^3/uL (0-1.3) Eosinophils # (Auto) 0.1 10 ^3/uL (0-0.8) Basophils # (Auto) 0.1 10 ^3/uL (0-0.2) Nucleated Red Blood Cells 0.1 % Platelet Estimate Decreased Anisocytosis (manual) Slight Macrocytosis Moderate Ovalocytes Few Kvng Cells Many Reticulocyte Count (auto) 3.38 % (0.5-1.5) Sodium Level 137 mmol/L (136-145) Potassium Level 3.8 mmol/L (3.5-5.1) Chloride Level 102 mmol/L (98-107) Carbon Dioxide Level 30 mmol/L (20-31) Anion Gap 5 (5-15) Blood Urea Nitrogen 6 mg/dL (9-23) Creatinine 0.88 mg/dL (0.550-1.02) Glomerular Filtration Rate Calc 88 mL/min (>90) BUN/Creatinine Ratio 6.8 (10.0-20.0) Serum Glucose 86 mg/dL (74-106) Calcium Level 9.6 mg/dL (8.7-10.4) Lactate Dehydrogenase 183 U/L (120-246) Differential Total Cells Counted 100.0 (100) Neutrophils % (Manual) 56 (37.0-80.0) Band Neutrophils % (Manual) 6 Lymphocytes % (Manual) 28 (10.0-50.0) Monocytes % (Manual) 8 (0-12) Eosinophils % (Manual) 2 (0-7) Basophils % (Manual) 0 (0.0-2.0) Metamyelocytes % (manual) 0 Myelocytes % (Manual) 0 Promyelocytes % (Manual) 0 Blast Cells % (Manual) 0 Reactive Lymphocytes 0 Total Bilirubin 6.5 mg/dL (0.2-1.0) Aspartate Amino Transferase (AST) 50 U/L (13-40) Alanine Aminotransferase (ALT) 26 U/L (7-40) Alkaline Phosphatase 58 U/L (46-116) Total Protein 7.1 g/dL (5.7-8.2) Albumin 3.0 g/dL (3.2-4.8) Vitamin B12 Level 649 pg/mL (211-911) Prothrombin Time 17.2 sec (9.3-11.8) Prothrombin Time INR 1.69 (0.9-1.15) Test 08/12/24 12:00 08/12/24 09:30 08/12/24 06:01 08/11/24 22:04 Stool Occult Blood Negative (Negative) Stool Occult Blood Sample #3 (Negative) Urine Opiates Screen Neg (NEGATIVE) Urine Fentanyl Screen Neg (NEGATIVE) Urine Barbiturates Screen Neg (NEGATIVE) Urine Phencyclidine Screen Neg (NEGATIVE) Urine Amphetamines Screen Neg (NEGATIVE) Urine Benzodiazepines Screen Neg (NEGATIVE) Urine Cocaine Screen Neg (NEGATIVE) Urine Cannabinoids Screen Pos (NEGATIVE) Iron Level 146 ug/dL (50-170) Total Iron Binding Capacity 194 ug/dL (250-425) Percent Iron Saturation 75.3 % (15-50) Ferritin 1372.9 ng/mL (10-291) Free Thyroxine (T4) Calculated 1.35 ng/dL (0.89-1.76) Free Triiodothyronine (T3) pg/mL 2.18 pg/mL (2.3-4.2) Poikilocytosis (manual) Moderate Lipase 45 U/L (12-53) Folic Acid 46.65 ng/mL (>5.38) Thyroid Stimulating Hormone (TSH) 5.66 uIU/mL (0.55-4.78) Beta HCG, Quantitative 0.4 mIU/mL (1.5-4.2) Plasma/Serum Blood Alcohol 5.0 mg/dL (<10) Test 08/11/24 15:47 08/11/24 15:28 Urine Color Colorless (Yellow) Urine Clarity Turbid (Clear) Urine pH 6.0 (5.0-9.0) Urine Specific [place] 1.004 (1.001-1.035) Urine Protein Negative (Negative) Urine Ketones Negative (Negative) Urine Blood 1+ /uL (Negative) Urine Nitrite Negative (Negative) Urine Bilirubin Negative (Negative) Urine Urobilinogen Normal mg/dL (Negative) Urine Leukocyte Esterase Trace /uL (Negative) Urine Amorphous Crystals Few /hpf (None Seen) Urine Glucose Normal mg/dL (Normal) Hemoglobin A1c < 3.8 % A1C (<5.7) Lactic Acid Level 1.8 mmol/L (0.4-2.0) Magnesium Level 1.8 mg/dL (1.6-2.6) Ammonia 33 umol/L (11-32) Troponin I High Sensitivity 11 ng/L (</=34) B-Type Natriuretic Peptide 1193.49 pg/mL (0-100) Vitamin D 25-Hydroxy 27.1 ng/mL (30.0-100) Other Laboratory Tests 11/10/24 05:08 Brief Hx & Hospital Course: Patient is 33 years old female with past medical history of alcoholic cirrhosis, ex alcoholic, HFpEF, anemia, history of recurrent blood transfusion, transaminitis, hemorrhoids came with a complaint of abdominal pain that esterase 3 weeks before and her PCP advised her to come to the ER. As per patient patient is having abdominal pain started 3 weeks before, diffuse, 10 x 10, stabbing in nature, reduced with some pain medication increased with movement. Patient also reported feeling tired and some short of breath over the time especially with the exertion. On further discussion patient also reported having constipation, when she moved before it looked like dark or dark brown color. last bowel bowel movement was almost 5-6 days before. Patient denied any fever, chest pain, acute joint pain or swelling, acute rash. Initial lab workup revealed patient with severe anemia hemoglobin 6, thrombocytopenia platelets 70, hyperammonemia ammonia 33, transaminitis, elevated bilirubin 14.2, elevated TSH 5.66, BNP 119. UDS positive for cannabinoids. CT Scan of the abdomen revealed-Small right pleural effusion. Moderate ascites. Cholelithiasis. Splenomegaly. CXR-Right lower lobe airspace disease. Ultrasound of the abdomen revealed-Gallbladder wall thickening with gall stones. Acute cholecystitis not excluded. Small volume ascites. Small right pleural effusion. HIDA scan revealed-No evidence for acute cholecystitis. Patient was treated for severe anemia with 2 units of packed red blood cell. Patient also was treated for suspected spontaneous bacterial peritonitis with ceftriaxone 2 g IV. Patient was negative for acute cholecystitis as HIDA scan revealed no evidence of cholecystitis. Colonoscopy revealed mild colonic mucosal edema and trace internal hemorrhoids but no source of active bleeding. daily patient was also evaluated by Physical therapy. Patient was seen by hemato oncology. Patient did not contrast was negative. Patient was advised to resume home medications. Patient was advised to follow up with the PCP in 1 week. Patient was discharged in hemodynamically stable condition. PMH-alcoholic cirrhosis, HFpEF, anemia, history of recurrent blood transfusion, transaminitis, hemorrhoids PSH- Neck surgery Allergy- NKDA Personal History/ Social History- ex alcoholic, smoker, smokes weed Patient was seen today at the bedside. Cardiovascular- deny cough or palpitation Respiratory- denies cough wheezing Gastrointestinal- denies any rectal bleeding, nausea or vomiting Musculoskeletal-denies acute joint swelling or tenderness or redness Neurological- denies acute dysarthria, dysphagia, change in vision Psychiatry- denies depression or SI or HI Skin- denies acute rash General examination- patient is tired looking, pale, icterus HEENT- PEERLA, no acute nasal discharge Cardiovascular- S1-S2 audible, rate and rhythm regular, no murmur Respiratory- CTAB, no wheeze or rhonchi Gastrointestinal-generalized tenderness of the abdomen mildly improved,, bowel sound+. Nondistended Musculoskeletal-no acute joint swelling or tenderness or redness# Lower extremity- no leg edema Neurological- cranial nerves intact, no acute dysarthria or dysphagia Psychiatry- denies depression or SI or HI Skin- no acute rash or purpura Operations or Procedures PATIENT: LUCY JEONG V ACCT: [id number] UNIT: [id number] : 1990 LOC: ER ROOM / BED: / AGE / SEX: 33 / F ADM STATUS: REG ER SERVICE 1520 ORDERING PHYSICIAN: JESSA BOOKER DO PROCEDURE(s): ABPL - CT AB PEL WO CON-NO ORAL OR IV REASON: abd pain ORDER NUMBER(s): [id number], ACCESSION NUMBER(s): [id number] Exam: CT CT AB PEL WO CON-NO ORAL OR IV History: abd pain Comparison Study: CT CT AB PEL WO CON-NO ORAL OR IV on DOS: 07/10/24, CT CT AB PEL WO CON-NO ORAL OR IV on DOS: 06/19/24, CT CT AB PEL WO CON-NO ORAL OR IV on DOS: 05/09/24, CT CT AB PEL WO CON-NO ORAL OR IV on DOS: 04/04/24, CT CT AB PEL WO CON-NO ORAL OR IV on DOS: 02/12/24 Technique: Multidetector spiral CT of the abdomen and pelvis was performed from lung bases to pubic symphysis. Imaging was performed without IV contrast. Axial, coronal and sagittal multiplanar reformats were obtained from the axial data set by the technologist. Radiation dose : Abdomen/Pelvis: CTDIvol 6.84 mGy, DLP 364.71 mGy*cm. Findings: Evaluation of solid organs is limited due to lack of intravenous contrast use. Lung Bases: Small right pleural effusion. Right basilar atelectasis. Liver: The liver is normal in size. No focal lesions. Gallbladder and biliary Tree: Cholelithiasis noted without secondary findings of cholecystitis or biliary obstruction. Spleen: Enlarged Pancreas: The pancreas is grossly normal in appearance. Adrenal Glands: Unremarkable Kidneys: Kidneys are grossly normal without calculi or hydronephrosis. Bladder: Grossly unremarkable for degree of distention. Bowel: The stomach is grossly normal in appearance. Small bowel and colon are normal in caliber and distribution. Normal appendix is visualized in the right lower quadrant without findings of appendicitis. Ascites: Moderate abdominal and pelvic Lymphadenopathy: No mesenteric, retroperitoneal or periportal lymphadenopathy. Abdominal wall and Mesentery: Unremarkable. Vasculature: The visualized abdominal aorta is normal in size and caliber. Evaluation of abdominal and pelvic vessels is limited due to lack of intravenous contrast. Pelvic Organs: Unremarkable Musculoskeletal: No aggressive focal bony lesions, acute fractures or dislocation. IMPRESSION: 1. Small right pleural effusion. Moderate ascites. Cholelithiasis. Splenomegaly. Radiation optimization: All CT scans at this facility use at least one of these dose optimization techniques: Automated exposure control mA and/or kV adjustment per patient size (includes targeted exams where dose is matched to clinical indication) or iterative reconstruction. HS:Y ATED BY: ANSON CORONADO MD DICTATED DATE/TIME: 08/11/241634 SIGNED BY: ANSON CORONADO MD SIGNED DATE/TIME: 08/11/241634 CC: PATIENT: LUCY JEONG V ACCT: [id number] UNIT: [id number] : 1990 LOC: ER ROOM / BED: / AGE / SEX: 33 / F ADM STATUS: REG ER SERVICE 1520 ORDERING PHYSICIAN: JESSA BOOKER DO PROCEDURE(s): CXRP - CHEST PORTABLE REASON: abd pain ORDER NUMBER(s): [id number], ACCESSION NUMBER(s): [id number] CHEST RADIOGRAPH Indication:abd pain Technique: Single frontal view of the chest was obtained COMPARISON: XY CHEST PORTABLE on DOS: 05/27/24, XY CHEST PORTABLE on DOS: 05/09/24 FINDINGS: Lines and Tubes: None Lungs: Right lower lobe airspace disease. Pleura: No effusion. No pneumothorax. Cardiomediastinal contours: Unremarkable Bones: Unremarkable IMPRESSION: Right lower lobe airspace disease. ATED BY: DAWSON MISTRY MD DICTATED DATE/TIME: 08/11/241548 SIGNED BY: DAWSON MISTRY MD SIGNED DATE/TIME: 08/11/24 154 CC: PATIENT: LUCY JEONG V ACCT: [id number] UNIT: [id number] : 1990 LOC: [facility] ROOM / BED: [facility] / A AGE / SEX: 33 / F ADM STATUS: ADM IN SERVICE 0000 ORDERING PHYSICIAN: ANDREW MATHIS RESIDENT PROCEDURE(s): ABDL - ABDOMEN LIMITED REASON: cirrhosis of liver ORDER NUMBER(s): [id number], ACCESSION NUMBER(s): [id number] INDICATION: Pain. TECHNIQUE: Multiple real-time sonographic images of the abdomen were obtained. COMPARISON: US LIVER on DOS: 05/10/24, US ABDOMEN LIMITED on DOS: 04/24/24, US GALLBLADDER on DOS: 12/10/23 FINDINGS: The liver is heterogeneous in echogenicity. The liver measures 17cm. No intrahepatic biliary ductal dilatation is noted. The gallbladder wall measures 0.9 cm and is unremarkable. Gallstones and sludge is seen. The common duct measures 0.4 cm and is unremarkable. No pericholecystic fluid is noted. The right kidney measures 10cm. No hydronephrosis. Small volume ascites. Small right pleural effusion IMPRESSION: Gallbladder wall thickening with gall stones. Acute cholecystitis not excluded. Small volume ascites. Small right pleural effusion ATED BY: MARK SHEA MD DICTATED DATE/TIME: 08/12/24358 SIGNED BY: MARK SHEA MD SIGNED DATE/TIME: 08/12/24358 CC: PATIENT: LUCY JEONG V ACCT: [id number] UNIT: [id number] : 1990 [facility] AGE / SEX: 33 / F ADM STATUS: ADM IN SERVICE 1335 ORDERING PHYSICIAN: MARGARETTE ELIZABETH RESIDENT PROCEDURE(s): GBNM - NM HIDA SCAN REASON: Diffuse abdominal pain, cholelithiasis ORDER NUMBER(s): [id number], ACCESSION NUMBER(s): [id number] EXAM: NM NM HIDA SCAN History: Diffuse abdominal pain, cholelithiasis Comparison Study: None TECHNIQUE: Following intravenous administration of 5.5 mCi of Tc-99m mebrofenin (Choletec), dynamic sequential images of the right upper abdomen were acquired for 60 minutes. An additional planar image in the lateral right upper quadrant was also obtained. FINDINGS: The liver demonstrates prompt radiotracer uptake with clearance from blood pool. No focal perfusion defects were noted. There was prompt excretion of the radiotracer into the biliary tree, without evidence of biliary dilatation or obstruction. There is filling of the gallbladder beginning 6-7 minutes post radiotracer administration. IMPRESSION: 1. No evidence for acute cholecystitis. ATED BY: ANIYAH LIN DO DICTATED DATE/TIME: 08/13/24 1408 SIGNED BY: ANIYAH LIN DO SIGNED DATE/TIME: 08/13/24 1408 CC: Condition at Discharge: Stable Final Diagnosis/Problems List #Severe anemia likely due to cirrhosis of liver versus upper or lower GI bleeding #[id number] ascites likely due to cirrhosis of liver # suspected spontaneous bacterial peritonitis the context of history of cirrhosis of liver # acute on chronic HFpEF, 07/13/24-echo 2D-LVEF 70% #constipation # cholelithiasis # suspected pneumonia Gram-positive versus Gram-negative/atelectasis # Pancytopenia likely due to cirrhosis of liver with portal hypertension #alcoholic cirrhosis of liver # history of hemorrhoids # transaminitis likely due to alcoholic cirrhosis of liver # history of substance abuse, marijuana Discharge Disposition: Home Discharge Instruct/Medications Diet: Regular Activity: Light activity Follow Up/Referral: Please follow up with your primary care physician in 1 week Medications: Please resume your home medications Discharge Statement: "Patient was advised to return to the ER or call 911 if any headaches, dizziness, shortness of breath, chest pain, abdominal pain, bleeding, fevers, or worsening of medical condition. Patient was counseled about treatment plan, medications, possible side effects, patientverbalized understanding. All questions were answered to the best of my ability. This discharge took greater then 30 minutes in planning, reviewing documentation, counseling the patient, and discussing with other team members." ASSESSMENT ASSESSMENT Assessment Severe anemia likely due to cirrhosis of liver MARGARETTE ELIZABETH RESIDENT Aug 16, 2024 15:18
[2024-08-16 16:41] VITALS: BP 108/58; PULSE 71; RESP 20; TEMP 97.7; O2SAT 100
--- NOTE | 2024-08-16 17:00 | DVHPN2 ---
Progress Note - Dictate Date Seen: Aug 16, 2024 Has the PT tested + for MRSA If YES, has PT been informed?: No Medical Necessity Reason Pt with a Central, PICC or Fol: No Subjective No new complaints, patient is still feeling weak Patient underwent physical therapy today Mild abdominal pain but she is clinically improving tolerating a diet Colonoscopy test was negative except for mild mucosal edema Hemoglobin stable at 7.4; mild chronic pancytopenia due to underlying cirrhosis and hypersplenism vital signs Vital Sign Date Time Temp Pulse Resp B/P (MAP) Pulse Ox O2 Delivery O2 Flow Rate FiO2 08/16/24 16:41 97.7 71 20 108/58 (75) 100 97.7 08/16/24 08:05 Room Air* 0 21 Total Intake and Output 08/15/24 08/15/24 08/16/24 15:00 23:00 07:00 Intake Total 875 ml 800 ml Balance 875 ml 800 ml medications Current Medications Medications Dose Ordered Sig/Adela Route Start Time Stop Time Status Last Admin Dose Admin Ondansetron HCl 4 mg Q4HP PRN IV 08/11/24 21:45 08/12/24 11:20 4 MG Docusate Sodium 100 mg BIDPRN PRN PO 08/11/24 21:45 08/12/24 08:58 100 MG Nitroglycerin 0.4 mg Q5MINP PRN SL 08/11/24 21:45 Morphine Sulfate 2 mg Q30M PRN IV 08/11/24 21:45 Azithromycin 250 ml @ 125 mls/hr DAILY IV 08/12/24 10:00 08/16/24 09:43 125 MLS/HR Spironolactone 25 mg DAILY PO 08/12/24 10:00 08/16/24 09:45 25 MG Tramadol HCl 50 mg DAILY PRN PO 08/11/24 23:45 08/16/24 03:06 50 MG Patient Own Medication 2 tab BID PO 08/12/24 10:00 08/16/24 09:44 2 TAB Folic Acid 1 mg DAILY PO 08/12/24 10:00 08/16/24 09:44 1 MG Magnesium Oxide 400 mg DAILY PO 08/12/24 10:00 08/16/24 09:45 400 MG Acetaminophen/ Hydrocodone Bitart 1 tab Q6HPRN PRN PO 08/12/24 00:00 08/16/24 10:25 1 TAB Lactulose 30 ml Q8HR PO 08/12/24 14:00 08/16/24 14:25 30 ML Pantoprazole Sodium 40 mg DAILY IV 08/13/24 10:00 08/16/24 09:43 40 MG Sucralfate 1 gm Q8HR PO 08/12/24 14:00 08/16/24 14:25 1 GM Ceftriaxone Sodium/Dextrose 50 ml @ 50 mls/hr DAILY IV 08/13/24 10:00 08/16/24 09:43 50 MLS/HR Docusate Sodium 100 mg BID PO 08/12/24 22:00 08/16/24 09:44 100 MG Furosemide 20 mg BIDD PO 08/13/24 18:00 08/15/24 17:09 20 MG Gabapentin 300 mg HS PO 08/13/24 22:00 08/15/24 21:16 300 MG Midodrine 10 mg TID PO 08/16/24 14:00 08/16/24 09:45 10 MG objective General: NAD, AAOX3 Chest: lung scott clear to auscultation Heart: RRR, no murmur Abdomen:+ lower abdomen tenderness to palpation, +BS laboratory and microbiology Laboratory Tests 08/16/24 05:08 Test 08/16/24 05:08 Range/Units Serum Glucose 86 74-106 mg/dL Problems(with codes): (1) Pancytopenia (2) Liver cirrhosis (3) Hepatic encephalopathy (4) Severe anemia (5) Hepatic steatosis (6) Generalized weakness (7) Cholelithiasis Prognosis Plan Repeat colonoscopy in 10 years Continue supportive care Ppi, Carafate Avoid aspirin NSAIDs smoking alcohol Outpatient follow up with me upon discharge for continued observation management of her end-stage liver disease If the patient remains abstinent for over six months then we can consider referral to liver transplant center as an outpatient Plan discussed with: Patient ZAIRE SPENCER MD Aug 16, 2024 17:00
== END 2024-08-16 19:00 | disposition home or self-care (01) | DRG 280 ==
LOC: EDBD 15:14 → ER 15:18 → TELE 21:45 → TELE-WESTW 23:37
PROVIDERS: ADMIT Internal Medicine; ATTEND Internal Medicine
PROC: 30233N1 Transfusion of Nonautologous Red Blood Cells into Peripheral Vein, Percutaneous Approach (ICD-10-PCS; 2024-08-12)
PROC: 0DJD8ZZ Inspection of Lower Intestinal Tract, Via Natural or Artificial Opening Endoscopic (ICD-10-PCS; principal; 2024-08-14 13:51)
DX: K70.31 Alcoholic cirrhosis of liver with ascites (principal); I50.33 Acute on chronic diastolic (congestive) heart failure; D61.818 Other pancytopenia; K65.2 Spontaneous bacterial peritonitis; J15.69 Pneumonia due to other Gram-negative bacteria; I13.0 Hypertensive heart and chronic kidney disease with heart failure and stage 1 through stage 4 chronic kidney disease, or unspecified chronic kidney disease; K80.00 Calculus of gallbladder with acute cholecystitis without obstruction; K76.6 Portal hypertension; E87.1 Hypo-osmolality and hyponatremia; K92.2 Gastrointestinal hemorrhage, unspecified; K59.00 Constipation, unspecified; K80.20 Calculus of gallbladder without cholecystitis without obstruction; J98.11 Atelectasis; N18.9 Chronic kidney disease, unspecified; F12.10 Cannabis abuse, uncomplicated; D50.9 Iron deficiency anemia, unspecified; J15.9 Unspecified bacterial pneumonia; K64.8 Other hemorrhoids; Z83.3 Family history of diabetes mellitus; Z82.49 Family history of ischemic heart disease and other diseases of the circulatory system
CPT/HCPCS: 36415; 71045; 74176; 76705; 78226; 80048; 80053; 80307; 80320; 81001; 81015; 82140; 82270; 82306; 82607; 82728; 82746; 83010; 83036; 83540; 83550; 83605; 83615; 83690; 83735; 83880; 84439; 84443; 84481; 84484; 84702; 85007; 85014; 85018; 85025; 85027; 85045; 85610; 86850; 86880; 86900; 86901; 86920; 87081; 93005; 97110; 97116; 97163; 97530; 99291; G0378; J2405; J2470

== ENCOUNTER 2024-09-17 17:20 | Inpatient (IN) | payer MEDICAID ==
[~2024-09-17] VITALS: Ht 167.6 cm; Wt 67.4 kg
[~2024-09-17 17:20] MED LIST changes: -CEPH500C PO; +DOCU-94 PO; +ERGO1CAP23 PO; +ESCI1TAB36 PO; +FER325T PO; +FURO40TA4 PO; +POTA-180 PO; +RIFA550T PO
--- NOTE | 2024-09-17 17:50 | ED.PDOC ---
GI ASSESSMENT HPI Comments 33y F who presents to the ED via EMS for chief complaint of abdominal pain. Pt states she has been having abdominal pain for the past 3 weeks. Pt states her abdominal pain is constant, rating the pain 10/10, pressure like in nature, with no associated exacerbating or relieving factors. Pt states she has also been having noted weakness, dizziness and blurred vision with associated odor to her urine and called EMS for exacerbation of her symptoms. Pt states she has history of liver cirrhosis and states she has been having abdominal pain with noted abdominal distention with noted yellow in the eyes and face. Pt otherwise denies any other symptoms at this time. Chief Complaint: Abdominal Pain Time Seen by MD: 17:43 Primary Care Provider: SHAYNA Reviewed Notes: Felt Hooker Notes, Medications, Allergies Allergies: Coded Allergies: NO KNOWN ALLERGIES (Unverified , 12/10/23) Home Meds Active Scripts Spironolactone (Aldactone) 25 Mg Tab, 1 TAB PO DAILY, #30 TAB 5 Refills Prov:MASON GRAY MD 06/01/24 Pantoprazole Sodium Sesquihydr (Protonix) 40 Mg Tab, 40 MG PO BID, #60 TAB 5 Refills Prov:SHRUTHI HUDSON MD 05/13/24 Reported Medications Rifaximin (Xifaxan) 550 Mg Tab, 1 TAB PO BID 08/12/24 Lactulose (Lactulose) 10 Gm/15 Ml Yesenia, 15 ML PO BID, ML 08/12/24 Ferrous Sulfate (Ferrous Sulfate) 325 Mg Tab, 1 TAB PO DAILY 08/12/24 Escitalopram Oxalate (ESCITALOPRAM OXALATE) 10 Mg Tab, 10 MG PO DAILY, TAB 08/12/24 Furosemide (Furosemide) 40 Mg Tab, 1 TAB PO DAILY 08/12/24 Tramadol Hcl (Tramadol Hcl) 50 Mg Tab, 50 MG PO DAILY PRN for PAIN SCALE 7 THRU 10, MG 06/21/24 Magnesium Oxide (MAGNESIUM OXIDE) 400 Mg Tab, 1 TAB PO DAILY, TAB 05/29/24 Acamprosate Calcium (ACAMPROSATE CALCIUM DR) 333 Mg Tab, 2 TAB PO BID, TAB 05/28/24 Midodrine HCl (Midodrine HCl) 10 Mg Tab, 1 TAB PO BID 05/11/24 Acyclovir (ZOVIRAX TABLET) 400 Mg Tb, 400 MG PO BID for HERPES IF GOING TO BE SEXUALLY, TAB 04/04/24 Folic Acid (Folic Acid) 1 Mg Tab, 1 MG PO DAILY, TAB 12/11/23 Gabapentin (Gabapentin) 300 Mg Cap, 1 CAP PO DAILY 12/11/23 Information Source: Patient, Emergency Med Personnel Mode of Arrival: EMS Brought in by: EMS Timing: Weeks Duration: Since onset Prehospital treatment: None Quality: Aching Vomitus: None Stool: Normal Severity: Moderate Recent: None Recent Hx of: None Pain Location: Diffuse Modifying Factors: Nothing Associated sign and symptoms: Abdominal Pain Past Medical History PAST MEDICAL HISTORY: Anemia, CHF, CKF, High Lipids, HTN, Kidney Stones, Liver, Seizures Surgical History (Other): lung surgery at , [facility] History: Denies all [facility] Hx Family History Family History: Family hx of DM, Family hx of heart adrián Social History Smoker: Non-Smoker Alcohol: Sober Drugs: Denies Drug Use Lives In: Home Constitutional: reports: malaise, weakness; denies: chills, diaphoresis, fatigue, fever, sweats, others EENTM: denies: blurred vision, double vision, ear bleeding, ear discharge, ear drainage, ear pain, ear ringing, eye pain, eye redness, hearing loss, mouth pain, mouth swelling, nasal discharge, nose bleeding, nose congestion, nose pain, photophobia, tearing, throat pain, throat swelling, voice changes, others Respiratory: denies: cough, hemoptysis, orthopnea, SOB at rest, shortness of breath, SOB with excertion, stridor, wheezing, others Cardiovascular: denies: chest pain, dizzy spells, diaphoresis, Dyspnea on exertion, edema, irregular heart beat, left arm pain, lightheadedness, palpitations, PND, syncope, others Gastrointestinal: reports: abdominal pain; denies: abdomen distended, blood streaked bowels, constipated, diarrhea, dysphagia, difficulty swallowing, hematemesis, melena, nausea, poor appetite, poor fluid intake, rectal bleeding, rectal pain, vomiting, others Genitourinary: denies: abnormal vagina bleeding, burning, dyspareunia, dysuria, flank pain, frequency, hematuria, incontinence, pain, , vagina discharge, urgency, others Neurological: reports: dizziness; denies: fainting, headache, left sided numbness, left sided weakness, numbness, paresthesia, pre-existing deficit, right sided numbness, right sided weakness, seizure, speech problems, tingling, tremors, weakness, others Musculoskeletal: denies: back pain, gout, joint pain, joint swelling, muscle pain, muscle stiffness, neck pain, others Integumetry: denies: bruises, change in color, change in hair/nails, dryness, laceration, lesions, lumps, rash, wounds, others Allergic/Immunocompromised: denies: Difficulty Healing, Frequent Infections, Hives, Itching, others Hematologic/Lymphatic: denies: anemia, blood clots, easy bleeding, easy bruising, swollen glands, others Endocrine: denies: excessive hunger, excessive sweating, excessive thirst, excessive urination, flushing, intolerance to cold, intolerance to heat, unexplained weight gain, unexplained weight loss, others Psychiatric: denies: anxiety, bipolar disorder, depression, hopeless, panic disorder, schizophrenia, sleepless, suicidal, others All Other Systems: Reviewed and Negative Physical Exam General Appearance: Moderate Distress HEENT: Pharynx Normal, Scleral Icterus (L), Scleral Icterus (R), TMs Normal Neck: Full Range of Motion, Non-Tender, Normal, Normal Inspection Respiratory: Chest Non-Tender, Lungs Clear, No Accessory Muscle Use, No Respiratory Distress, Normal Breath Sounds Cardiovascular: No Edema, No JVD, No Murmur, No Gallop, Normal Peripheral Pulses, Regular Rate/Rhythm Breast Exam: Deferred Gastrointestinal: Diffuse, Hepatomegaly, No Pulsatile Mass, Soft, Tenderness Genitalia: Deferred Pelvic: Deferred Rectal: Deferred Extremities: No calf tenderness, Normal capillary refill, No pedal edema Musculoskeletal : Apperance: Normal Neurologic: Alert, 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 Was a procedure done?: No GI differential Dx Differential Diagnosis: GI hemorrhage, Pancreatitis, UTI, Dehydration, Electrolyte Imbalance, Anemia Other Differential Diagnosis liver disease, cirrhosis, ascites, jaundice X-Ray, Labs, Meds, VS Vital Signs Date Time Temp Pulse Resp B/P (MAP) Pulse Ox O2 Delivery O2 Flow Rate FiO2 09/17/24 20:00 98.5 66 12 95/36 (55) 99 98.5 09/17/24 18:40 70 12 100 Room Air* 0 21 09/17/24 18:30 65 12 103/39 (60) 99 09/17/24 18:24 98.3 70 12 76/56 (63) 100 98.3 09/17/24 17:25 98.3 67 16 130/66 (87) 98 Lab Test 09/17/24 17:52 Range/Units White Blood Count 2.9 L 4.4-10.8 10^3/uL Red Blood Count 1.61 L 4.0-5.20 10^6/uL Hemoglobin 6.6 *L 12.2-16.2 g/dL Hematocrit 19.0 L 36.0-46.0 % Mean Corpuscular Volume 117.8 H 80.0-100.0 fL Mean Corpuscular Hemoglobin 40.9 H 28.0-32.0 pg Mean Corpuscular Hemoglobin Concent 34.7 32.0-36.0 g/dL Red Cell Distribution Width 13.3 11.8-14.3 % Platelet Count 57 L 140-450 10^3/uL Mean Platelet Volume 7.1 6.9-10.8 fL Neutrophils (%) (Auto) 37.0-80.0 % Lymphocytes (%) (Auto) 10.0-50.0 % Monocytes (%) (Auto) 0.0-12.0 % Basophils (%) (Auto) 0.0-2.0 % Neutrophils # (Auto) 1.6-8.6 10 ^3/uL Lymphocytes # (Auto) 0.4-5.4 10 ^3/uL Monocytes # (Auto) 0-1.3 10 ^3/uL Differential Total Cells Counted Pending Neutrophils % (Manual) Pending Band Neutrophils % (Manual) Pending Lymphocytes % (Manual) Pending Monocytes % (Manual) Pending Eosinophils % (Manual) Pending Basophils % (Manual) Pending Metamyelocytes % (manual) Pending Myelocytes % (Manual) Pending Promyelocytes % (Manual) Pending Blast Cells % (Manual) Pending Reactive Lymphocytes Pending Platelet Estimate Pending Prothrombin Time 16.7 H 9.3-11.8 sec Prothrombin Time INR 1.63 H 0.9-1.15 Activated Partial Thromboplast Time 35.3 H 24.5-34.5 SEC Sodium Level 138 136-145 mmol/L Potassium Level 3.5 3.5-5.1 mmol/L Chloride Level 99 98-107 mmol/L Carbon Dioxide Level 32 H 20-31 mmol/L Anion Gap 7 5-15 Blood Urea Nitrogen 18 9-23 mg/dL Creatinine 1.06 H 0.550-1.02 mg/dL Glomerular Filtration Rate Calc 70 >90 mL/min BUN/Creatinine Ratio 17.0 10.0-20.0 Serum Glucose 81 74-106 mg/dL Calcium Level 10.1 8.7-10.4 mg/dL Total Bilirubin 9.9 H 0.2-1.0 mg/dL Aspartate Amino Transferase (AST) 50 H 13-40 U/L Alanine Aminotransferase (ALT) 35 7-40 U/L Alkaline Phosphatase 115 46-116 U/L Ammonia 22 11-32 umol/L Total Protein 7.9 5.7-8.2 g/dL Albumin 3.5 3.2-4.8 g/dL Current Medications Medications (Trade) Dose Ordered Sig/Adela Route Start Time Stop Time Status Last Admin Sodium Chloride 500 ml @ 500 mls/hr Q1H ONCE IV 09/17/24 19:15 09/17/24 20:14 DC 09/17/24 19:37 PROCEDURE(s): ABPL - CT AB PEL WO CON-NO ORAL OR IV IMPRESSION: 1. Supraumbilical hernia containing a loop of nonobstructed small bowel. 2. Hepatosplenomegaly. 3. Diffuse haziness of the mesentery, possibly mesenteric edema in the setting portal hypertension. Alternative considerations include mesenteric panniculitis, or infiltrative tumor. 4. Cholelithiasis. 5. The patient's CBC shows leukocyte lipemia The patient's hemoglobin is 6.6 and hematocrit of 19 Patient was being typed and screened and be transfused at this time The patient's INR is also elevated at 1.63 The chemistry panel shows no sign significantly acute disease The ammonia level is within normal range At this time patient was being admitted. Patient was being typed and screened and we are transfusing the patient was this time Images Reviewed?: Images reviewed and evaluated by me Time of 1ST Reevaluation: 18:15 Reevaluation 1ST: Unchanged Patient Education/Counseling: Diagnosis, Treatment, Prognosis Family Education/Counseling: No Family Present Additional Information - I reviewed the following notes from patient's past medical encounters: - The following tests were ordered, and results were reviewed by me: CBC,CMP, UA, CT abdomen and pelvis, UA, ammonia level, PT/PTT - Additional information was gathered from interviewing the following independent Historian: EMS - I reviewed and agreed with the following test results read by other provider: radiologist - I discussed treatments and results with medical personnel and: patient Departure 1 Departure Time of Disposition: 20:22 Impression: Primary Impression: Intractable abdominal pain Additional Impressions: Cholelithiasis Qualified Codes: K80.20 - Calculus of gallbladder without cholecystitis without obstruction Severe anemia Disposition: ADMITTED INPATIENT Admit to: Tele Condition: Fair Critical Care Note Critical Care Time?: No Stability Stability form required: Yes Unstable for transfer: Telemetry monitoring (Telemetry monitoring required), ED Physician Assesment (Clinical assesment) Heart Score Heart Score: Heart Score Response (Comments) Value History N/A 0 EKG N/A 0 Age N/A 0 Risk Factors N/A 0 Troponin N/A 0 Total 0 I personally scribed for SANDRA ORTEGA MD ([email or web address]) on 09/17/24 at 17:50. Electronically submitted by Jacqueline Marrero ([email or web address]). I personally scribed for SANDRA ORTEGA MD ([email or web address]) on 09/17/24 at 18:57. Electronically submitted by Jacqueline Marrero ([email or web address]). SANDRA ORTEGA MD Sep 17, 2024 17:50
[2024-09-17 18:33] LABS: Alanine Aminotransferase 35 U/L (7-40); Alkaline Phosphatase 115 U/L (46-116); Calcium 10.1 mg/dL (8.7-10.4)
[2024-09-17 18:34] LABS: Albumin 3.5 g/dL (3.2-4.8); Anion Gap 7 (5-15); Blood Urea Nitrogen 18 mg/dL (9-23); Chloride 99 mmol/L (98-107); Glucose 81 mg/dL (74-106); Potassium 3.5 mmol/L (3.5-5.1); Sodium 138 mmol/L (136-145); Total Protein 7.9 g/dL (5.7-8.2)
[2024-09-17 18:40] VITALS: PULSE 70; RESP 12; O2SAT 100
--- NOTE | 2024-09-17 18:52 | DVH ---
Exam: CT CT AB PEL WO CON-NO ORAL OR IV History: pain Comparison Study: CT abdomen pelvis 08/11/2024 TECHNIQUE: Multidetector CT of the abdomen was performed from lung bases to pubic symphysis. Imaging was performed without IV contrast. Axial, coronal and sagittal multiplanar reformats were obtained fr om the axial data set by the technologist. Radiation Dose Information: CT Dose: CTDI volume is 6.39 mGy. Dose-length product is 356.66 mGy*cm FINDINGS: Evaluation of solid organs is limited due to lack of intravenous contrast use. Findings: Lung Bases: No acute or significant lung base finding. Normal heart size. No pleural or pericardial effusion. Liver: The liver is large, with exact dimension difficult to ascertain due to incomplete visualizatio n of the dome craniocaudal dimension. No focal lesions. Gallbladder and Biliary Tree: Cholelithiasis. Spleen: The spleen is enlarged, measuring 18.0 cm in craniocaudal dimension. Pancreas: The pancreas is grossly normal in appearance. Adrenal Glands: Unremarkable Kidneys: Kidneys are grossly normal without calculi or hydronephrosis. Bladder: Grossly unremarkable for degree of distention. Bowel: The stomach is grossly normal in appearance. Small bowel and colon are normal in caliber and d istribution. The appendix is normal. Ascites: Absent Lymphadenopathy: No mesenteric, retroperitoneal or periportal lymphadenopathy. Abdominal Wall and Mesentery: There is ventral supraumbilical midline hernia with approximate 1.6 cm fascial defect, which contains a loop of nonobstructed small bowel. Diffuse haziness of the mesentery . Vasculature: The visualized abdominal aorta is normal in size and caliber. Evaluation of abdominal a nd pelvic vessels is limited due to lack of intravenous contrast. Pelvic Organs: Pelvic phleboliths and other vascular calcifications. Musculoskeletal: No aggressive focal bony lesions, acute fractures or dislocation. Soft tissues: Unremarkable IMPRESSION: 1. Supraumbilical hernia containing a loop of nonobstructed small bowel. 2. Hepatosplenomegaly. 3. Diffuse haziness of the mesentery, possibly mesenteric edema in the setting portal hypertension. A lternative considerations include mesenteric panniculitis, or infiltrative tumor. 4. Cholelithiasis. 5. Radiation optimization: All CT scans at this facility use at least one of these dose optimization te chniques: automated exposure control mA and/or kV adjustment per patient size (includes targeted exa ms where dose is matched to clinical indication) or iterative reconstruction. HS:Y
[2024-09-17 18:58] LABS: INR 1.63 (0.9-1.15); Partial Thromboplastin Time 35.3 SEC (24.5-34.5); Prothrombin Time 16.7 sec (9.3-11.8)
[2024-09-17 19:03] LABS: Aspartate Aminotransferase 50 U/L (13-40); Bilirubin, Total 9.9 mg/dL (0.2-1.0); Carbon Dioxide 32 mmol/L (20-31)
[2024-09-17 19:05] LABS: Mean Corpuscular Volume 117.8 fL (80.0-100.0); Red Cell Distribution Width 13.3 % (11.8-14.3); White Blood Cell 2.9 10^3/uL (4.4-10.8)
[2024-09-17 19:06] LABS: Mean Corpuscular Hemoglobin 40.9 pg (28.0-32.0); Mean Corpuscular Hgb Conc. 34.7 g/dL (32.0-36.0); Platelet Count (auto) 57 10^3/uL (140-450); Red Blood Cells 1.61 10^6/uL (4.0-5.20)
[2024-09-17] MEDS: ONDANSETRON HCL 4 MG/2 ML VIAL IV ONE (19:15)
[2024-09-17] MEDS: MORPHINE SULFATE INJ 2 MG/ml SYRG IV ONE (19:15)
[2024-09-17 19:27] LABS: Hemoglobin 6.6 g/dL (12.2-16.2)
[2024-09-17 19:28] LABS: Basophils % (manual) 0 (0.0-2.0); Blast Cells 0; Metamyelocytes % 0; Myelocytes % 0; Promyelocytes % 0; Reactive Lymphocytes 0
[2024-09-17] MEDS: SODIUM CHLORIDE 0.9% 500 ML IV ONE (19:37)
[2024-09-17] MEDS: PANTOPRAZOLE 40 MG/10 ML VIAL INJ IV ONE (21:15)
[2024-09-17] MEDS: MIDODRINE HCL 10 MG TAB PO ONE (21:15)
[2024-09-17] MEDS ORDERED: ACETAMINOPHEN 325 MG TAB PO PRN (21:15)
[2024-09-17] MEDS: SODIUM CHLORIDE 0.9% 1,000 ML IV SCH (21:15)
[2024-09-17 21:46] LABS: Band Neutrophils % (manual) 1; Eosinophils % (manual) 1 (0-7); Lymphocytes % (manual) 37 (10.0-50.0); Macrocytosis Marked; Monocytes % (manual) 5 (0-12); Platelet Estimate Decreased
--- NOTE | 2024-09-17 22:28 | DVHHP2 ---
History of Present Illness Reason for Visit: Severe anemia History of Present Illness The patient is a 33-year-old female with multiple past medical history including CHF, anemia, hyperlipidemia, hypertension, and liver disease who presented to [facility] ED with complaint of abdominal pain. Patient reports she has been having abdominal pain for the past 3 weeks, constant abdominal pain today, rating 10/10 numeric scale, associated weakness, dizziness, blurred vision, getting worse that prompted this visit. Patient was seen and evaluated in the ED, laboratory data shows WBC 2.9, hemoglobin 6.6, hematocrit 19.0, platelets 40987, sodium 138, potassium 3.5, BUN 18, creatinine 1.06, glucose 81, total bilirubin 9.9, AST 90, ALT 35, ammonia 22. Abdomen/pelvis CT revealing supraumbilical hernia containing a loops of nonobstructive small bowel, hepatomegaly, possibly mesenteric edema in the setting portal hypertension. Patient we will receive two units of PRBC, please see medication orders section in the computer. On my assessment patient denied chest pain, no headache, no di zziness, no diaphoresis, no shortness of breaths, no nausea, no vomiting, no fever, no chills. Patient was admitted for further evaluation and medical management. Past Medical History Anemia, CHF, CKF, High Lipids, HTN, Kidney Stones, Liver disease, Seizures Past Surgical History Lung surgery at , Family History Reviewed, noncontributory to the management of this case. Past Social History The patient lives at home, sober alcohol, denies smoking or illicit drugs abuse. Review of Systems Constitutional: Yes: Weakness; No: Fever, Chills, Sweats, Malaise, Other Eyes: No: Pain, Vision change, Conjunctivae inflammation, Eyelid inflammation, Other, Redness ENT: No: Ear pain, Ear discharge, Nose pain, Nose discharge, Nose congestion, Mouth pain, Mouth swelling, Throat pain, Throat swelling, Other Respiratory: No: Cough, Dry, Shortness of breath, SOB with excertion, Wheezing, Hemoptysis, Pleuritic Pain, Sputum, Wheezing, Other Cardiovascular: No: Chest Pain, Palpitations, Orthopnea, Paroxysmal Noc. Dyspnea, Edema, Lt Headedness, Other Gastrointestinal: Abdominal Pain; No: Nausea, Vomiting, Diarrhea, Constipation, Melena, Hematochezia, Other Genitourinary: No Dysuria, No Frequency, No Incontinence, No Hematuria, No Retention, No Other Musculoskeletal: No: other, neck pain, shoulder pain, arm pain, back pain, hand pain, leg pain, foot pain Skin: No: Rash, Lesions, Jaundice, Bruising, Other Neurological: No: Weakness, Numbness, Incoordination, Change in speech, Confusion, Seizures, Other Allergies: Coded Allergies: NO KNOWN ALLERGIES (Unverified , 12/10/23) Medications Current Medications Medications Dose Ordered Sig/Adela Route Start Time Stop Time Status Last Admin Dose Admin Spironolactone 25 mg DAILY PO 09/18/24 10:00 Pantoprazole Sodium 40 mg DAILY IV 09/18/24 10:00 Lactulose 15 ml DAILY PO 09/18/24 10:00 Midodrine 10 mg TID@0600,1200,1800 PO 09/18/24 06:00 Sodium Chloride 1,000 ml @ 60 mls/hr [id number] IV 09/17/24 21:15 09/17/24 21:15 60 MLS/HR Acetaminophen/ Hydrocodone Bitart 1 tab Q4HP PRN PO 09/17/24 21:15 Ondansetron HCl 4 mg Q4HP PRN IV 09/17/24 21:15 Docusate Sodium 100 mg BIDPRN PRN PO 09/17/24 21:15 Acetaminophen 650 mg Q6HP PRN PO 09/17/24 21:15 Morphine Sulfate 2 mg Q4HPRN PRN IV 09/17/24 21:15 Exam Vital Signs Vital Signs Date Time Temp Pulse Resp B/P (MAP) Pulse Ox O2 Delivery O2 Flow Rate FiO2 09/17/24 20:00 98.5 66 12 95/36 (55) 99 98.5 09/17/24 18:40 Room Air* 0 21 General Appearance: Alert, Oriented X3, Cooperative, No acute distress HEENT: Atraumatic, PERRLA, Mucous membr. moist/pink Respiratory: Clear to auscultation, Normal air movement Cardiovascular: Regular rate, Normal S1, Normal S2, No murmurs, Gallops Abdominal: Normal bowel sounds, Soft, No tenderness, No hepatospenomegaly, No masses Extremities: No clubbing, No cyanosis, No edema, Normal pulses, No tenderness/swelling Skin: No rashes, No breakdown, No significant lesion Neuro: Normal speech, Normal tone, Sensation intact, Cranial nerves 3-12 NL, Reflexes 2+, Other (Generalized weakness) Psych/Mental Status: Mental status NL, Mood NL Labs/Xrays Labs Test 09/17/24 17:52 Range/Units White Blood Count 2.9 L 4.4-10.8 10^3/uL Red Blood Count 1.61 L 4.0-5.20 10^6/uL Hemoglobin 6.6 *L 12.2-16.2 g/dL Hematocrit 19.0 L 36.0-46.0 % Mean Corpuscular Volume 117.8 H 80.0-100.0 fL Mean Corpuscular Hemoglobin 40.9 H 28.0-32.0 pg Mean Corpuscular Hemoglobin Concent 34.7 32.0-36.0 g/dL Red Cell Distribution Width 13.3 11.8-14.3 % Platelet Count 57 L 140-450 10^3/uL Mean Platelet Volume 7.1 6.9-10.8 fL Neutrophils (%) (Auto) 37.0-80.0 % Lymphocytes (%) (Auto) 10.0-50.0 % Monocytes (%) (Auto) 0.0-12.0 % Basophils (%) (Auto) 0.0-2.0 % Neutrophils # (Auto) 1.6-8.6 10 ^3/uL Lymphocytes # (Auto) 0.4-5.4 10 ^3/uL Monocytes # (Auto) 0-1.3 10 ^3/uL Differential Total Cells Counted 100.0 100 Neutrophils % (Manual) 56 37.0-80.0 Band Neutrophils % (Manual) 1 Lymphocytes % (Manual) 37 10.0-50.0 Monocytes % (Manual) 5 0-12 Eosinophils % (Manual) 1 0-7 Basophils % (Manual) 0 0.0-2.0 Metamyelocytes % (manual) 0 Myelocytes % (Manual) 0 Promyelocytes % (Manual) 0 Blast Cells % (Manual) 0 Reactive Lymphocytes 0 Platelet Estimate Decreased Macrocytosis Marked Kvng Cells Moderate Prothrombin Time 16.7 H 9.3-11.8 sec Prothrombin Time INR 1.63 H 0.9-1.15 Activated Partial Thromboplast Time 35.3 H 24.5-34.5 SEC Sodium Level 138 136-145 mmol/L Potassium Level 3.5 3.5-5.1 mmol/L Chloride Level 99 98-107 mmol/L Carbon Dioxide Level 32 H 20-31 mmol/L Anion Gap 7 5-15 Blood Urea Nitrogen 18 9-23 mg/dL Creatinine 1.06 H 0.550-1.02 mg/dL Glomerular Filtration Rate Calc 70 >90 mL/min BUN/Creatinine Ratio 17.0 10.0-20.0 Serum Glucose 81 74-106 mg/dL Calcium Level 10.1 8.7-10.4 mg/dL Total Bilirubin 9.9 H 0.2-1.0 mg/dL Aspartate Amino Transferase (AST) 50 H 13-40 U/L Alanine Aminotransferase (ALT) 35 7-40 U/L Alkaline Phosphatase 115 46-116 U/L Ammonia 22 11-32 umol/L Total Protein 7.9 5.7-8.2 g/dL Albumin 3.5 3.2-4.8 g/dL PATIENT: LUCY JEONG V ACCT: [id number] UNIT: [id number] : 1990 LOC: ER ROOM / BED: / AGE / SEX: 33 / F ADM STATUS: REG ER SERVICE [id number] ORDERING PHYSICIAN: SANDRA ORTEGA MD PROCEDURE(s): ABPL - CT AB PEL WO CON-NO ORAL OR IV REASON: pain ORDER NUMBER(s): [id number], ACCESSION NUMBER(s): [id number] Exam: CT CT AB PEL WO CON-NO ORAL OR IV History: pain Comparison Study: CT abdomen pelvis 08/11/2024 TECHNIQUE: Multidetector CT of the abdomen was performed from lung bases to pubic symphysis. Imaging was performed without IV contrast. Axial, coronal and sagittal multiplanar reformats were obtained from the axial data set by the technologist. Radiation Dose Information: CT Dose: CTDI volume is 6.39 mGy. Dose-length product is 356.66 mGy*cm FINDINGS: Evaluation of solid organs is limited due to lack of intravenous contrast use. Findings: Lung Bases: No acute or significant lung base finding. Normal heart size. No pleural or pericardial effusion. Liver: The liver is large, with exact dimension difficult to ascertain due to incomplete visualization of the dome craniocaudal dimension. No focal lesions. Gallbladder and Biliary Tree: Cholelithiasis. Spleen: The spleen is enlarged, measuring 18.0 cm in craniocaudal dimension. Pancreas: The pancreas is grossly normal in appearance. Adrenal Glands: Unremarkable Kidneys: Kidneys are grossly normal without calculi or hydronephrosis. Bladder: Grossly unremarkable for degree of distention. Bowel: The stomach is grossly normal in appearance. Small bowel and colon are normal in caliber and distribution. The appendix is normal. Ascites: Absent Lymphadenopathy: No mesenteric, retroperitoneal or periportal lymphadenopathy. Abdominal Wall and Mesentery: There is ventral supraumbilical midline hernia with approximate 1.6 cm fascial defect, which contains a loop of nonobstructed small bowel. Diffuse haziness of the mesentery. Vasculature: The visualized abdominal aorta is normal in size and caliber. Evaluation of abdominal and pelvic vessels is limited due to lack of intravenous contrast. Pelvic Organs: Pelvic phleboliths and other vascular calcifications. Musculoskeletal: No aggressive focal bony lesions, acute fractures or di slocation. Soft tissues: Unremarkable IMPRESSION: 1. Supraumbilical hernia containing a loop of nonobstructed small bowel. 2. Hepatosplenomegaly. 3. Diffuse haziness of the mesentery, possibly mesenteric edema in the setting portal hypertension. Alternative considerations include mesenteric panniculitis, or infiltrative tumor. 4. Cholelithiasis. Assessment/Plan Assessment/Plan Intractable abdominal pain Severe anemia Pancytopenia Generalized weakness Cholelithiasis Calculus of gallbladder without cholecystitis without obstruction Plan 1. Admit to telemetry unit 2. Breathing treatment 3. Pain control management 4. Management of fluids and electrolytes 5. Consultation for hospitalist 6. Diagnostic tests abdomen/pelvis CT 7. DVT prophylaxis-on SCDs 8. Repeat labs CBC, CMP in a.m. 9. Continue with current medical management 10. Treatment plan discussed with patient and RN. Patient verbalized understanding. 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 CONS 09/17/24 Transmitted 21:13 Spironolactone PHA 09/18/24 In Process (Aldactone) 10:00 Pantoprazole PHA 09/18/24 In Process (Protonix) 10:00 Lactulose Oral PHA 09/18/24 In Process 10:00 Midodrine Tablet PHA 09/18/24 In Process (Proamatine Tablet) 06:00 Allergies TIFFANIE 09/17/24 In Process 21:13 Code Status CODE 09/17/24 Transmitted 21:13 Sodium Chloride 0.9% PHA 09/17/24 In Process 21:15 Oxygen Per Hour RT 09/17/24 Transmitted 21:13 Hydrocodone-Acet PHA 09/17/24 In Process 5/325mg Tab ([place] 21:15 Ondansetron Hcl PHA 09/17/24 In Process (Zofran) 21:15 Docusate Sodium PHA 09/17/24 In Process Capsule (Colace 21:15 Complete Blood Count LAB 09/18/24 Verified 04:00 Comprehensive LAB 09/18/24 Verified Metabolic Panel 04:00 Condition: Serious TIFFANIE 09/17/24 In Process 21:13 Acetaminophen Tablet PHA 09/17/24 In Process (Tylenol Tablet) 21:15 Clear Liq Diet DIET 09/18/24 Transmitted Breakfast Bedrest With Bathroom TIFFANIE 09/17/24 In Process Privileg 21:13 Morphine Sulfate PHA 09/17/24 In Process Injection 21:15 Sequential TIFFANIE 09/17/24 In Process Compression Device Admit ADMIT 09/17/24 Verified 22:25 Nitroglycerin [facility] 09/17/24 Verified Sublingual (Ntrostat 22:30 Morphine Sulfate PHA 09/17/24 Verified Injection 22:30 Notify Of Changes [facility] 09/17/24 Verified From Base 22:25 Joy Loader For [facility] 09/17/24 Verified 24 Hours 22:25 Emergency Dysrhythmia [facility] 09/17/24 Verified Protocol 22:25 Rhythm Strips Once [facility] 09/17/24 Verified Every Shift 22:25 Oxygen By Nasal RT 09/17/24 Verified Cannula 22:25 Problem List: (1) Severe anemia (2) Cholelithiasis (3) Intractable abdominal pain (4) Pancytopenia (5) Generalized weakness (6) Calculus of gallbladder without cholecystitis without obstruction Date of Service: Sep 17, 2024 Billing Provider: YASHIRA BAILON DNP Common Visit Codes: [id number] INP/OBS CARE (HIGH) YASHIRA BAILON DNP Sep 17, 2024 22:28
[2024-09-17] MEDS ORDERED: MORPHINE SULFATE INJ 2 MG/ml SYRG IV PRN (22:30)
[2024-09-17] MEDS ORDERED: NITROGLYCERIN 0.4 MG SL TAB SL PRN (22:30)
[2024-09-18] VITALS (16 sets, daily range): BP systolic 93–121; BP diastolic 41–61; PULSE 64–76; RESP 10–17; TEMP 98.2–98.9; O2SAT 93–100
[2024-09-18 04:13] LABS: Mean Corpuscular Hemoglobin 40.2 pg (28.0-32.0); Platelet Count (auto) 51 10^3/uL (140-450); Red Blood Cells 1.68 10^6/uL (4.0-5.20); White Blood Cell 2.6 10^3/uL (4.4-10.8)
[2024-09-18 04:17] LABS: Mean Corpuscular Hgb Conc. 35.7 g/dL (32.0-36.0); Mean Corpuscular Volume 112.8 fL (80.0-100.0); Red Cell Distribution Width 18.9 % (11.8-14.3)
[2024-09-18 04:26] LABS: Alanine Aminotransferase 30 U/L (7-40); Alkaline Phosphatase 87 U/L (46-116); Anion Gap 9 (5-15); Calcium 9.7 mg/dL (8.7-10.4); Carbon Dioxide 30 mmol/L (20-31); Chloride 102 mmol/L (98-107); Potassium 3.7 mmol/L (3.5-5.1); Sodium 141 mmol/L (136-145)
[2024-09-18 04:27] LABS: BUN/Creatinine Ratio 16.8 (10.0-20.0); Blood Urea Nitrogen 16 mg/dL (9-23); Glucose 90 mg/dL (74-106)
[2024-09-18 04:29] LABS: Aspartate Aminotransferase 44 U/L (13-40); Bilirubin, Total 7.5 mg/dL (0.2-1.0); Total Protein 6.6 g/dL (5.7-8.2)
[2024-09-18 04:49] LABS: Hemoglobin 6.8 g/dL (12.2-16.2)
[2024-09-18 04:51] LABS: Basophils % (manual) 0 (0.0-2.0); Blast Cells 0; Metamyelocytes % 0; Myelocytes % 0; Promyelocytes % 0; Reactive Lymphocytes 0
[2024-09-18] MEDS: MIDODRINE HCL 10 MG TAB PO SCH (06:00)
[2024-09-18 06:42] LABS: Band Neutrophils % (manual) 1; Eosinophils % (manual) 3 (0-7); Lymphocytes % (manual) 34 (10.0-50.0); Monocytes % (manual) 6 (0-12)
[2024-09-18 06:43] LABS: Anisocytosis Slight; Macrocytosis Marked; Platelet Estimate Decreased
[2024-09-18] MEDS: ONDANSETRON HCL 4 MG/2 ML VIAL IV PRN (09:30)
[2024-09-18] MEDS: MORPHINE SULFATE INJ 2 MG/ml SYRG IV PRN (09:32)
[2024-09-18] MEDS: SPIRONOLACTONE 25 MG TAB PO SCH (09:48)
[2024-09-18] MEDS: LACTULOSE 20Gm/30ML SOLN PO SCH (09:48)
[2024-09-18] MEDS: PANTOPRAZOLE 40 MG/10 ML VIAL INJ IV SCH (09:48)
--- NOTE | 2024-09-18 11:29 | DVHPN2 ---
Subjective The patient is seen and examined at bedside. Complain of being weak and tired. Reviewed: Care Plan, H&P, Labs, Medications, Previous Orders, Radiology Changes from previous H/P or p: No Changes Eyes: No Pain, No Vision change, No Conjunctivae inflammation, No Eyelid inflammation, No Other, No Redness ENT: No Ear pain, No Ear discharge, No Nose pain, No Nose discharge, No Nose congestion, No Mouth pain, No Mouth swelling, No Throat pain, No Throat swelling, No Other Cardiovascular: No Chest Pain, No Palpitations, No Orthopnea, No Paroxysmal Noc. Dyspnea, No Edema, No Lt Headedness, No Other Respiratory: No Cough, No Dry, No Shortness of breath, No SOB with excertion, No Wheezing, No Hemoptysis, No Pleuritic Pain, No Sputum, No Other Gastrointestinal: No Nausea, No Vomiting; Abdominal Pain; No Diarrhea, No Constipation, No Melena, No Hematochezia, No Other Genitourinary: No Dysuria, No Frequency, No Incontinence, No Hematuria, No Retention, No Other Musculoskeletal: No other, No neck pain, No shoulder pain, No arm pain, No back pain, No hand pain, No leg pain, No foot pain Skin: No Rash, No Lesions, No Jaundice, No Bruising, No Other Objective Vitals Vital Signs Date Time Temp Pulse Resp B/P (MAP) Pulse Ox O2 Delivery O2 Flow Rate FiO2 09/18/24 10:02 70 12 102/41 09/18/24 10:00 94 09/18/24 08:33 98.5 98.5 09/18/24 07:45 Room Air* 1 N/A Nasal Cannula* Intake/Output Intake and Output 09/18/24 07:00 Intake Total 600 ml Output Total 0 ml Balance 600 ml Intake Oral 0 ml Blood Product 600 ml Output Urine Total 0 ml Stool Total 0 ml Emesis 0 ml General Appearance: Alert, Cooperative, mild distress HEENT: Atraumatic, PERRLA, EOMI, Mucous membr. moist/pink Neck: Supple Lungs: Clear to auscultation, Normal air movement Cardiovascular: Regular rate, Normal S1, Normal S2, No murmurs, Gallops, Rubs Abdomen: Normal bowel sounds, Soft, No tenderness Neuro: Cranial nerves 3-12 NL Psych/Mental Status: Mental status NL Medications Current Medications Medications Dose Ordered Sig/Adela Route Start Time Stop Time Status Last Admin Dose Admin Spironolactone 25 mg DAILY PO 09/18/24 10:00 09/18/24 09:48 25 MG Pantoprazole Sodium 40 mg DAILY IV 09/18/24 10:00 09/18/24 09:48 40 MG Lactulose 15 ml DAILY PO 09/18/24 10:00 09/18/24 09:48 15 ML Midodrine 10 mg TID@0600,1200,1800 PO 09/18/24 06:00 09/18/24 06:00 10 MG Sodium Chloride 1,000 ml @ 60 mls/hr [id number] IV 09/17/24 21:15 09/17/24 21:15 60 MLS/HR Acetaminophen/ Hydrocodone Bitart 1 tab Q4HP PRN PO 09/17/24 21:15 Ondansetron HCl 4 mg Q4HP PRN IV 09/17/24 21:15 09/18/24 09:30 4 MG Docusate Sodium 100 mg BIDPRN PRN PO 09/17/24 21:15 Acetaminophen 650 mg Q6HP PRN PO 09/17/24 21:15 Morphine Sulfate 2 mg Q4HPRN PRN IV 09/17/24 21:15 09/18/24 09:32 2 MG Nitroglycerin 0.4 mg Q5MINP PRN SL 09/17/24 22:30 Morphine Sulfate 2 mg Q30M PRN IV 09/17/24 22:30 Laboratory Results Laboratory Tests 09/18/24 03:40 Chemistry Test 09/17/24 17:52 09/18/24 03:40 Albumin 3.5 g/dL (3.2-4.8) 3.0 g/dL (3.2-4.8) L Calcium Level 10.1 mg/dL (8.7-10.4) 9.7 mg/dL (8.7-10.4) Total Protein 7.9 g/dL (5.7-8.2) 6.6 g/dL (5.7-8.2) Coagulation Test 09/17/24 17:52 Prothrombin Time 16.7 sec (9.3-11.8) H Prothrombin Time INR 1.63 (0.9-1.15) H Activated Partial Thromboplast Time 35.3 SEC (24.5-34.5) H LFT Test 09/17/24 17:52 09/18/24 03:40 Alanine Aminotransferase (ALT) 35 U/L (7-40) 30 U/L (7-40) Alkaline Phosphatase 115 U/L (46-116) 87 U/L (46-116) Aspartate Amino Transferase (AST) 50 U/L (13-40) H 44 U/L (13-40) H Total Bilirubin 9.9 mg/dL (0.2-1.0) H 7.5 mg/dL (0.2-1.0) H Labs and/or images reviewed: Labs reviewed by me Assessment/Plan Assessment/Plan Intractable abdominal pain Severe anemia Pancytopenia Generalized weakness Cholelithiasis Calculus of gallbladder without cholecystitis and obstruction Plan Continuing current management. Continuing with IV pain medication. Continuing to monitor hemoglobin. Transfused as needed when hemoglobin less than seven and monitor hemoglobin. CT scan abdomen pelvis reviewed. It shows: 1. Supraumbilical hernia containing a loop of nonobstructed small bowel. 2. Hepatosplenomegaly. 3. Diffuse haziness of the mesentery, possibly mesenteric edema in the setting portal hypertension. Alternative considerations include mesenteric panniculitis, or infiltrative tumor. 4. Cholelithiasis. Plan discussed with: Patient Date of Service: Sep 18, 2024 Billing Provider: SHRUTHI HUDSON MD Common Visit Codes: [id number] INP/OBS CARE(HIGH) SHRUTHI HUDSON MD Sep 18, 2024 11:29
--- NOTE | 2024-09-18 15:07 | DVHINCON2 ---
GI Consult Consult Note GI consult note Date of Consultation: 09/18/2024 Chief Complaint: Severe anemia Referring Physician: Glory EMERSON H&P: 33-year-old female admitted with abdominal pain Been complaining of abdominal pain last three weeks Patient has nausea, no vomiting or hematemesis Patient has history of anemia, and feeling very weak Patient has history of constipation, treated with stool softener, last bowel movement with rectal pain with moderate amount of red blood, one episode only. No red blood rectally now. Patient has history of hemorrhoids SP colonoscopy 08/14/2024 WNL SP EGD2 and May2024 Past Medical History: Anemia, CHF, CKF, High Lipids, HTN, Kidney Stones, Liver disease, Seizures Past Surgical History: Lung surgery at , Social History: The patient lives at home, sober alcohol, denies smoking or illicit drugs abuse. Family History: Noncontributory Review of Systems: Constitutional: no fever, chill, weight loss HEENT: no eye pain, no hearing loss, no oral lesion, no scleral icterus Heart: no chest pain, no chest pressure Lung: no cough, no dyspnea with exertion Abdomen: see HPI Physical exam: General: NAD, AAOX3 Chest: lung scott clear to auscultation Heart: RRR, no murmur Abdomen: Mild tenderness to palpation, +BS Labs: Labs Test 09/18/24 03:40 09/17/24 17:52 Range/Units White Blood Count 2.6 L 4.4-10.8 10^3/uL Red Blood Count 1.68 L 4.0-5.20 10^6/uL Hemoglobin 6.8 *L 12.2-16.2 g/dL Hematocrit 19.0 L 36.0-46.0 % Mean Corpuscular Volume 112.8 #H 80.0-100.0 fL Mean Corpuscular Hemoglobin 40.2 H 28.0-32.0 pg Mean Corpuscular Hemoglobin Concent 35.7 32.0-36.0 g/dL Red Cell Distribution Width 18.9 H 11.8-14.3 % Platelet Count 51 L 140-450 10^3/uL Mean Platelet Volume 7.2 6.9-10.8 fL Neutrophils (%) (Auto) 37.0-80.0 % Lymphocytes (%) (Auto) 10.0-50.0 % Monocytes (%) (Auto) 0.0-12.0 % Basophils (%) (Auto) 0.0-2.0 % Neutrophils # (Auto) 1.6-8.6 10 ^3/uL Lymphocytes # (Auto) 0.4-5.4 10 ^3/uL Monocytes # (Auto) 0-1.3 10 ^3/uL Differential Total Cells Counted 100.0 100 Neutrophils % (Manual) 56 37.0-80.0 Band Neutrophils % (Manual) 1 Lymphocytes % (Manual) 34 10.0-50.0 Monocytes % (Manual) 6 0-12 Eosinophils % (Manual) 3 0-7 Basophils % (Manual) 0 0.0-2.0 Metamyelocytes % (manual) 0 Myelocytes % (Manual) 0 Promyelocytes % (Manual) 0 Blast Cells % (Manual) 0 Reactive Lymphocytes 0 Platelet Estimate Decreased Anisocytosis (manual) Slight Macrocytosis Marked Kvng Cells Moderate Sodium Level 141 136-145 mmol/L Potassium Level 3.7 3.5-5.1 mmol/L Chloride Level 102 98-107 mmol/L Carbon Dioxide Level 30 20-31 mmol/L Anion Gap 9 5-15 Blood Urea Nitrogen 16 9-23 mg/dL Creatinine 0.95 0.550-1.02 mg/dL Glomerular Filtration Rate Calc 80 >90 mL/min BUN/Creatinine Ratio 16.8 10.0-20.0 Serum Glucose 90 74-106 mg/dL Calcium Level 9.7 8.7-10.4 mg/dL Total Bilirubin 7.5 H 0.2-1.0 mg/dL Aspartate Amino Transferase (AST) 44 H 13-40 U/L Alanine Aminotransferase (ALT) 30 7-40 U/L Alkaline Phosphatase 87 46-116 U/L Total Protein 6.6 5.7-8.2 g/dL Albumin 3.0 L 3.2-4.8 g/dL Prothrombin Time 16.7 H 9.3-11.8 sec Prothrombin Time INR 1.63 H 0.9-1.15 Activated Partial Thromboplast Time 35.3 H 24.5-34.5 SEC Ammonia 22 11-32 umol/L Imaging: CT abdomen pelvis IMPRESSION: 1. Supraumbilical hernia containing a loop of nonobstructed small bowel. 2. Hepatosplenomegaly. 3. Diffuse haziness of the mesentery, possibly mesenteric edema in the setting portal hypertension. Alternative considerations include mesenteric panniculitis, or infiltrative tumor. 4. Cholelithiasis. Assessment: Abdominal pain Severe anemia Cholelithiasis Liver cirrhosis History Alcoholic liver disease History of marijuana use Plan: Discussed with Dr. Marroquin Monitor lab Transfuse if hemoglobin less than seven Protonix and Carafate We will continue to monitor this patient Discussed plan with patient and RN Thank you for this consult Date of Service: Sep 18, 2024 Billing Provider: ELIZABETH FOFANA Common Visit Codes: CONSULT ONLY Consultation Codes: [id number] CONSULT <60MIN ELIZABETH FOFANA Sep 18, 2024 15:07
[2024-09-19] VITALS (9 sets, daily range): BP systolic 93–114; BP diastolic 45–57; PULSE 65–79; RESP 16–20; TEMP 97.9–98.4; O2SAT 65–97
[2024-09-19 01:07] LABS: Urine Bacteria FEW /hpf (None Seen); Urine Blood Negative /uL (Negative); Urine Clarity Turbid (Clear); Urine Color Light-Orange (Yellow); Urine Protein, UAD Negative (Negative); Urine Specific Gravity 1.011 (1.001-1.035); Urine Urobilinogen Normal (Negative); Urine WBC 13 /hpf (0 - 5); Urine pH 6.5 (5.0-9.0)
--- NOTE | 2024-09-19 10:27 | DVHPN2 ---
Subjective The patient is seen and examined at bedside. Complain of being weak and tired. Reviewed: Care Plan, H&P, Labs, Medications, Previous Orders, Radiology Changes from previous H/P or p: No Changes Eyes: No Pain, No Vision change, No Conjunctivae inflammation, No Eyelid inflammation, No Other, No Redness ENT: No Ear pain, No Ear discharge, No Nose pain, No Nose discharge, No Nose congestion, No Mouth pain, No Mouth swelling, No Throat pain, No Throat swelling, No Other Cardiovascular: No Chest Pain, No Palpitations, No Orthopnea, No Paroxysmal Noc. Dyspnea, No Edema, No Lt Headedness, No Other Respiratory: No Cough, No Dry, No Shortness of breath, No SOB with excertion, No Wheezing, No Hemoptysis, No Pleuritic Pain, No Sputum, No Other Gastrointestinal: No Nausea, No Vomiting; Abdominal Pain; No Diarrhea, No Constipation, No Melena, No Hematochezia, No Other Genitourinary: No Dysuria, No Frequency, No Incontinence, No Hematuria, No Retention, No Other Musculoskeletal: No other, No neck pain, No shoulder pain, No arm pain, No back pain, No hand pain, No leg pain, No foot pain Skin: No Rash, No Lesions, No Jaundice, No Bruising, No Other Objective Vitals Vital Signs Date Time Temp Pulse Resp B/P (MAP) Pulse Ox O2 Delivery O2 Flow Rate FiO2 09/19/24 10:11 66 18 125/66 09/19/24 05:00 98.3 93 98.3 09/18/24 20:00 Room Air* 0 21 Intake/Output Intake and Output 09/19/24 07:00 Intake Total 2580 ml Output Total 300 ml Balance 2280 ml Intake Oral 900 ml IV Total 1180 ml Tube Feeding 0 ml Blood Product 500 ml Other 0 ml Output Urine Total 300 ml Stool Total 0 ml Urine/Stool Mix 0 ml Gastric Drainage Total 0 ml Emesis 0 ml Chest Tube Drainage Total 0 ml Drainage Total 0 ml Other 0 ml # Voids 2 General Appearance: Alert, Cooperative, mild distress HEENT: Atraumatic, PERRLA, EOMI, Mucous membr. moist/pink Neck: Supple Lungs: Clear to auscultation, Normal air movement Cardiovascular: Regular rate, Normal S1, Normal S2, No murmurs, Gallops, Rubs Abdomen: Normal bowel sounds, Soft, No tenderness Neuro: Cranial nerves 3-12 NL Psych/Mental Status: Mental status NL Medications Current Medications Medications Dose Ordered Sig/Adela Route Start Time Stop Time Status Last Admin Dose Admin Spironolactone 25 mg DAILY PO 09/18/24 10:00 09/19/24 10:08 25 MG Pantoprazole Sodium 40 mg DAILY IV 09/18/24 10:00 09/19/24 10:08 40 MG Lactulose 15 ml DAILY PO 09/18/24 10:00 09/19/24 10:08 15 ML Midodrine 10 mg TID@0600,1200,1800 PO 09/18/24 06:00 09/19/24 05:28 10 MG Sodium Chloride 1,000 ml @ 60 mls/hr [id number] IV 09/17/24 21:15 09/19/24 06:43 60 MLS/HR Acetaminophen/ Hydrocodone Bitart 1 tab Q4HP PRN PO 09/17/24 21:15 Ondansetron HCl 4 mg Q4HP PRN IV 09/17/24 21:15 09/18/24 09:30 4 MG Docusate Sodium 100 mg BIDPRN PRN PO 09/17/24 21:15 Acetaminophen 650 mg Q6HP PRN PO 09/17/24 21:15 Morphine Sulfate 2 mg Q4HPRN PRN IV 09/17/24 21:15 09/19/24 10:11 2 MG Nitroglycerin 0.4 mg Q5MINP PRN SL 09/17/24 22:30 Morphine Sulfate 2 mg Q30M PRN IV 09/17/24 22:30 Laboratory Results Laboratory Tests 09/18/24 03:40 Urinalysis Test 09/18/24 23:50 Urine Color Light-orange (Yellow) Urine Clarity Turbid (Clear) H Urine pH 6.5 (5.0-9.0) Urine Specific [place] 1.011 (1.001-1.035) Urine Protein Negative (Negative) Urine Ketones Negative (Negative) Urine Blood Negative /uL (Negative) Urine Nitrite Negative (Negative) Urine Bilirubin Negative (Negative) Urine Urobilinogen Normal mg/dL (Negative) Urine Leukocyte Esterase Trace /uL (Negative) Urine RBC None seen /hpf (0 - 4) Urine WBC 13 /hpf (0 - 5) Urine Squamous Epithelial Cells Few /hpf (<5) Urine Bacteria Few /hpf (None Seen) H Urine Glucose Normal mg/dL (Normal) Labs and/or images reviewed: Labs reviewed by me, Image(s) reviewed by me Assessment/Plan Assessment/Plan Intractable abdominal pain Severe anemia Pancytopenia Generalized weakness Cholelithiasis Calculus of gallbladder without cholecystitis and obstruction Plan Continuing current management. Continuing with IV pain medication. Continuing to monitor hemoglobin. Transfused as needed when hemoglobin less than seven and monitor hemoglobin. CT scan abdomen pelvis reviewed. It shows: 1. Supraumbilical hernia containing a loop of nonobstructed small bowel. 2. Hepatosplenomegaly. 3. Diffuse haziness of the mesentery, possibly mesenteric edema in the setting portal hypertension. Alternative considerations include mesenteric panniculitis, or infiltrative tumor. 4. Cholelithiasis. will continue to monitor Ammonia level, and also Hb. US abdomen rule out ascites. Appreciate GI input. Plan discussed with: Patient My Orders Orders - SHRUTHI HUDSON MD Procedure Category Date Status Time Mrsa Screen DONNELL 09/18/24 In Process 18:33 * Electric Mule [employer] CONS 09/18/24 Transmitted Consult Date of Service: Sep 19, 2024 Billing Provider: SHRUTHI HUDSON MD Common Visit Codes: [id number] INP/OBS CARE(HIGH) SHRUTHI HUDSON MD Sep 19, 2024 10:27
[2024-09-19 10:53] LABS: Basophils # (auto) 0.1 10 ^3/uL (0-0.2); Eosinophils # (auto) 0.1 10 ^3/uL (0-0.8); White Blood Cell 2.9 10^3/uL (4.4-10.8)
[2024-09-19 10:55] LABS: Basophils % (auto) 2.4 % (0.0-2.0); Eosinophils % (auto) 2.7 % (0.0-7.0); Hematocrit 22.7 % (36.0-46.0); Hemoglobin 7.9 g/dL (12.2-16.2); Lymphocytes # (auto) 0.8 10 ^3/uL (0.4-5.4); Lymphocytes % (auto) 27.6 % (10.0-50.0); Mean Corpuscular Hemoglobin 39.6 pg (28.0-32.0); Mean Corpuscular Hgb Conc. 34.9 g/dL (32.0-36.0); Mean Corpuscular Volume 113.5 fL (80.0-100.0); Monocytes # (auto) 0.4 10 ^3/uL (0-1.3); Monocytes % (auto) 13.3 % (0.0-12.0); Neutrophils # (auto) 1.6 10 ^3/uL (1.6-8.6); Nucleated Red Blood Cells % 0.2 %; Platelet Count (auto) 56 10^3/uL (140-450); Red Cell Distribution Width 20.2 % (11.8-14.3)
[2024-09-19 11:37] LABS: Anisocytosis Slight; Macrocytosis Moderate
[2024-09-19 11:38] LABS: Platelet Estimate Decreased
--- NOTE | 2024-09-19 22:31 | DVHPN2 ---
Progress Note - Dictate Date Seen: Sep 19, 2024 (Late entryPatient seen at 10:00 a.m.) Medical Necessity Reason Pt with a Central, PICC or Fol: No Subjective Patient seen at bedside There was no active bleeding Patient appears to be mildly lethargic vital signs Vital Sign Date Time Temp Pulse Resp B/P (MAP) Pulse Ox O2 Delivery O2 Flow Rate FiO2 09/19/24 21:00 97.9 65 18 114/57 (76) 65 97.9 09/19/24 08:05 Room Air* 0 21 Total Intake and Output 09/18/24 09/18/24 09/19/24 15:00 23:00 07:00 Intake Total 560 ml 120 ml 1900 ml Output Total 300 ml Balance 260 ml 120 ml 1900 ml medications Current Medications Medications Dose Ordered Sig/Adela Route Start Time Stop Time Status Last Admin Dose Admin Spironolactone 25 mg DAILY PO 09/18/24 10:00 09/19/24 10:08 25 MG Pantoprazole Sodium 40 mg DAILY IV 09/18/24 10:00 09/19/24 10:08 40 MG Lactulose 15 ml DAILY PO 09/18/24 10:00 09/19/24 10:08 15 ML Midodrine 10 mg TID@0600,1200,1800 PO 09/18/24 06:00 09/19/24 17:59 10 MG Sodium Chloride 1,000 ml @ 60 mls/hr [id number] IV 09/17/24 21:15 09/19/24 06:43 60 MLS/HR Acetaminophen/ Hydrocodone Bitart 1 tab Q4HP PRN PO 09/17/24 21:15 Ondansetron HCl 4 mg Q4HP PRN IV 09/17/24 21:15 09/18/24 09:30 4 MG Docusate Sodium 100 mg BIDPRN PRN PO 09/17/24 21:15 Acetaminophen 650 mg Q6HP PRN PO 09/17/24 21:15 Morphine Sulfate 2 mg Q4HPRN PRN IV 09/17/24 21:15 09/19/24 18:05 2 MG Nitroglycerin 0.4 mg Q5MINP PRN SL 09/17/24 22:30 Morphine Sulfate 2 mg Q30M PRN IV 09/17/24 22:30 objective General Appearance: Alert, Cooperative, mild distress HEENT: Atraumatic, PERRLA, EOMI, Mucous membr. moist/pink Neck: Supple Lungs: Clear to auscultation, Normal air movement Cardiovascular: Regular rate, Normal S1, Normal S2, No murmurs, Gallops, Rubs Abdomen: Normal bowel sounds, Soft, No tenderness Neuro: Cranial nerves 3-12 NL Psych/Mental Status: Mental status NL laboratory and microbiology Laboratory Tests 09/19/24 10:30 09/18/24 03:40 Test 09/18/24 03:40 Range/Units Serum Glucose 90 74-106 mg/dL Problems(with codes): (1) Blood loss anemia (2) GI bleeding (3) Liver cirrhosis (4) Cholelithiasis (5) Severe anemia (6) Generalized weakness (7) Pancytopenia (8) Calculus of gallbladder without cholecystitis without obstruction Prognosis Plan Monitor lab Patient has underlying history of elevated serum ferritin suspicious for possible underlying hemochromatosis or hemosiderosis Transfuse if hemoglobin less than seven Continue conservative management at this time Consider outpatient elective capsule endoscopy Protonix and Carafate Check ammonia level, serum alpha fetoprotein; hepatitis profile is negative; FERMIN is negative We will continue to monitor this patient If patient shows any signs of recurrent bleeding I will be standing by for a repeat EGD Patient does not need another colonoscopy as her recent colon test was negative completely Plan discussed with: Patient CC Plasma Assessment Blood Product Administration S: [id number] ZAIRE SPENCER MD Sep 19, 2024 22:31
[2024-09-20] VITALS (9 sets, daily range): BP systolic 93–128; BP diastolic 43–69; PULSE 66–78; RESP 14–18; TEMP 97.5–99.7; O2SAT 93–99
--- NOTE | 2024-09-20 11:37 | DVH ---
Limited Abdominal Ultrasound - Ascites Evaluation Clinical History: ascites Comparison: US ABDOMEN LIMITED on DOS: 08/12/24, US LIVER on DOS: 05/10/24, US ABDOMEN LIMITED on DOS: Technique/Findings/Impression: Limited sonographic evaluation of the abdomen was performed to assess for ascites. Trace ascites in the left lower quadrant.
--- NOTE | 2024-09-20 13:01 | DVHPN2 ---
Subjective The patient is seen and examined at bedside. Complain of being weak and tired. The patient stated that she had some bleeding per rectum when she wipes herself. Reviewed: Care Plan, H&P, Labs, Medications, Previous Orders, Radiology Changes from previous H/P or p: No Changes Eyes: No Pain, No Vision change, No Conjunctivae inflammation, No Eyelid inflammation, No Other, No Redness ENT: No Ear pain, No Ear discharge, No Nose pain, No Nose discharge, No Nose congestion, No Mouth pain, No Mouth swelling, No Throat pain, No Throat swelling, No Other Cardiovascular: No Chest Pain, No Palpitations, No Orthopnea, No Paroxysmal Noc. Dyspnea, No Edema, No Lt Headedness, No Other Respiratory: No Cough, No Dry, No Shortness of breath, No SOB with excertion, No Wheezing, No Hemoptysis, No Pleuritic Pain, No Sputum, No Other Gastrointestinal: No Nausea, No Vomiting; Abdominal Pain; No Diarrhea, No Constipation, No Melena, No Hematochezia, No Other Genitourinary: No Dysuria, No Frequency, No Incontinence, No Hematuria, No Retention, No Other Musculoskeletal: No other, No neck pain, No shoulder pain, No arm pain, No back pain, No hand pain, No leg pain, No foot pain Skin: No Rash, No Lesions, No Jaundice, No Bruising, No Other Objective Vitals Vital Signs Date Time Temp Pulse Resp B/P (MAP) Pulse Ox O2 Delivery O2 Flow Rate FiO2 09/20/24 12:00 68 19 101/50 09/20/24 09:00 97.5 97 97.5 09/20/24 08:25 Room Air* 0 21 Intake/Output Intake and Output 09/20/24 07:00 Intake Total 2320 ml Output Total 800 ml Balance 1520 ml Intake Oral 1320 ml IV Total 1000 ml Output Urine Total 800 ml # Voids 5 General Appearance: Alert, Cooperative, mild distress HEENT: Atraumatic, PERRLA, EOMI, Mucous membr. moist/pink Neck: Supple Lungs: Clear to auscultation, Normal air movement Cardiovascular: Regular rate, Normal S1, Normal S2, No murmurs, Gallops, Rubs Abdomen: Normal bowel sounds, Soft, No tenderness Neuro: Cranial nerves 3-12 NL Psych/Mental Status: Mental status NL Medications Current Medications Medications Dose Ordered Sig/Adela Route Start Time Stop Time Status Last Admin Dose Admin Spironolactone 25 mg DAILY PO 09/18/24 10:00 09/20/24 09:24 25 MG Pantoprazole Sodium 40 mg DAILY IV 09/18/24 10:00 09/20/24 09:24 40 MG Lactulose 15 ml DAILY PO 09/18/24 10:00 09/20/24 09:24 15 ML Midodrine 10 mg TID@0600,1200,1800 PO 09/18/24 06:00 09/20/24 11:59 10 MG Sodium Chloride 1,000 ml @ 60 mls/hr [id number] IV 09/17/24 21:15 09/20/24 05:15 60 MLS/HR Acetaminophen/ Hydrocodone Bitart 1 tab Q4HP PRN PO 09/17/24 21:15 Ondansetron HCl 4 mg Q4HP PRN IV 09/17/24 21:15 09/18/24 09:30 4 MG Docusate Sodium 100 mg BIDPRN PRN PO 09/17/24 21:15 Acetaminophen 650 mg Q6HP PRN PO 09/17/24 21:15 Morphine Sulfate 2 mg Q4HPRN PRN IV 09/17/24 21:15 09/20/24 12:00 2 MG Nitroglycerin 0.4 mg Q5MINP PRN SL 09/17/24 22:30 Morphine Sulfate 2 mg Q30M PRN IV 09/17/24 22:30 Laboratory Results Laboratory Tests 09/18/24 03:40 09/19/24 10:30 Urinalysis Test 09/18/24 23:50 Urine Color Light-orange (Yellow) Urine Clarity Turbid (Clear) H Urine pH 6.5 (5.0-9.0) Urine Specific [place] 1.011 (1.001-1.035) Urine Protein Negative (Negative) Urine Ketones Negative (Negative) Urine Blood Negative /uL (Negative) Urine Nitrite Negative (Negative) Urine Bilirubin Negative (Negative) Urine Urobilinogen Normal mg/dL (Negative) Urine Leukocyte Esterase Trace /uL (Negative) Urine RBC None seen /hpf (0 - 4) Urine WBC 13 /hpf (0 - 5) Urine Squamous Epithelial Cells Few /hpf (<5) Urine Bacteria Few /hpf (None Seen) H Urine Glucose Normal mg/dL (Normal) Microbiology Microbiology Date/Time Source Procedure Growth Status 09/18/24 20:05 Nose MRSA Screen - Final Complete Labs and/or images reviewed: Labs reviewed by me Assessment/Plan Assessment/Plan Intractable abdominal pain Severe anemia Pancytopenia Generalized weakness Cholelithiasis Calculus of gallbladder without cholecystitis and obstruction Plan Continuing current management. Continuing with IV pain medication. Continuing to monitor hemoglobin. Transfused as needed when hemoglobin less than seven and monitor hemoglobin. CT scan abdomen pelvis reviewed. It shows: 1. Supraumbilical hernia containing a loop of nonobstructed small bowel. 2. Hepatosplenomegaly. 3. Diffuse haziness of the mesentery, possibly mesenteric edema in the setting portal hypertension. Alternative considerations include mesenteric panniculitis, or infiltrative tumor. 4. Cholelithiasis. will continue to monitor Ammonia level, and also Hb. US abdomen rule out ascites. Appreciate GI input. Per GI specialist recommendation follow up as outpatient and we will refer the patient to higher level of care for cap so study to rule out micro GI bleed. Per GI specialist the patient is stable to discharge. Patient is still complain of intractable abdominal pain. So I am going to continuing her pain regimen to try to control her pain prior to discharge. We will monitor blood count. This medical document was created using an electronic medical record system with [employer] direct computerized dictation system. Although this document has been carefully reviewed, there may still be some phonetic and typographical errors. These areas are purely typographical due to imperfections of the software programs, and do not reflect any compromise in the patient's medical care. Plan discussed with: Patient My Orders Orders - SHRUTHI HUDSON MD Procedure Category Date Status Time Complete Blood Count LAB 09/21/24 Verified 05:00 Basic Metabolic Panel LAB 09/21/24 Verified 05:00 Abdomen Limited US 09/20/24 Resulted 09:52 Date of Service: Sep 20, 2024 Billing Provider: SHRUTHI HUDSON MD Common Visit Codes: [id number] INP/OBS CARE(HIGH) SHRUTHI HUDSON MD Sep 20, 2024 13:01
[2024-09-20] MEDS: DOCUSATE SOD 100 MG CAP PO PRN (17:01)
--- NOTE | 2024-09-20 22:24 | DVHPN2 ---
Progress Note - Dictate Date Seen: Sep 20, 2024 Medical Necessity Reason Pt with a Central, PICC or Fol: No Subjective No new complaints, generalized weakness There was no active bleeding Patient appears to be mildly lethargic Hemoglobin up to 7.9 S/P 2 units PRBC vital signs Vital Sign Date Time Temp Pulse Resp B/P (MAP) Pulse Ox O2 Delivery O2 Flow Rate FiO2 09/20/24 17:26 68 19 111/65 09/20/24 17:00 98.9 97 98.9 09/20/24 08:25 Room Air* 0 21 Total Intake and Output 09/19/24 09/19/24 09/20/24 15:00 23:00 07:00 Intake Total 600 ml 1720 ml Output Total 800 ml Balance -200 ml 1720 ml medications Current Medications Medications Dose Ordered Sig/Adela Route Start Time Stop Time Status Last Admin Dose Admin Spironolactone 25 mg DAILY PO 09/18/24 10:00 09/20/24 09:24 25 MG Pantoprazole Sodium 40 mg DAILY IV 09/18/24 10:00 09/20/24 09:24 40 MG Lactulose 15 ml DAILY PO 09/18/24 10:00 09/20/24 09:24 15 ML Midodrine 10 mg TID@0600,1200,1800 PO 09/18/24 06:00 09/20/24 17:35 10 MG Sodium Chloride 1,000 ml @ 60 mls/hr [id number] IV 09/17/24 21:15 09/20/24 05:15 60 MLS/HR Acetaminophen/ Hydrocodone Bitart 1 tab Q4HP PRN PO 09/17/24 21:15 Ondansetron HCl 4 mg Q4HP PRN IV 09/17/24 21:15 09/18/24 09:30 4 MG Docusate Sodium 100 mg BIDPRN PRN PO 09/17/24 21:15 09/20/24 17:01 100 MG Acetaminophen 650 mg Q6HP PRN PO 09/17/24 21:15 Morphine Sulfate 2 mg Q4HPRN PRN IV 09/17/24 21:15 09/20/24 16:56 2 MG Nitroglycerin 0.4 mg Q5MINP PRN SL 09/17/24 22:30 Morphine Sulfate 2 mg Q30M PRN IV 09/17/24 22:30 objective General Appearance: Alert, Cooperative, mild distress HEENT: Atraumatic, PERRLA, EOMI, Mucous membr. moist/pink Neck: Supple Lungs: Clear to auscultation, Normal air movement Cardiovascular: Regular rate, Normal S1, Normal S2, No murmurs, Gallops, Rubs Abdomen: Normal bowel sounds, Soft, No tenderness Neuro: Cranial nerves 3-12 NL Psych/Mental Status: Mental status NL laboratory and microbiology Laboratory Tests 09/19/24 10:30 09/18/24 03:40 Test 09/18/24 03:40 Range/Units Serum Glucose 90 74-106 mg/dL Problems(with codes): (1) Liver cirrhosis (2) GI bleeding (3) Blood loss anemia (4) Calculus of gallbladder without cholecystitis without obstruction (5) Pancytopenia (6) Generalized weakness (7) Severe anemia (8) Cholelithiasis Prognosis Plan Continue supportive care There does not appear to be need for any repeat GI workup at this time Outpatient follow up with GI Services and I will consider referral to higher level of care as an outpatient for capsule endoscopy Protonix 40 mg p.o. daily Carafate 1 g p.o. q.h.s. DC aspirin NSAIDs smoking alcohol Iron supplements Plan discussed with: Patient CC Plasma Assessment Blood Product Administration S: [id number] ZAIRE SPENCER MD Sep 20, 2024 22:24
[2024-09-21] VITALS (8 sets, daily range): BP systolic 96–107; BP diastolic 41–62; PULSE 61–80; RESP 16–19; TEMP 98.2–99.3; O2SAT 90–99
[2024-09-21] MEDS: HYDROcodone-ACET 5/325MG TAB PO PRN (03:25)
[2024-09-21] MEDS: SUCRALFATE 1 GM/10 ML ORAL SUSP PO SCH (05:20)
[2024-09-21 06:52] LABS: Anion Gap 5 (5-15); Calcium 9.7 mg/dL (8.7-10.4); Carbon Dioxide 29 mmol/L (20-31)
[2024-09-21 06:54] LABS: Chloride 105 mmol/L (98-107); Potassium 4.6 mmol/L (3.5-5.1); Sodium 139 mmol/L (136-145)
[2024-09-21 06:57] LABS: Blood Urea Nitrogen 15 mg/dL (9-23); Glucose 104 mg/dL (74-106)
[2024-09-21 07:21] LABS: BUN/Creatinine Ratio 18.1 (10.0-20.0)
[2024-09-21 07:32] LABS: Basophils # (auto) 0 10 ^3/uL (0-0.2); Basophils % (auto) 0.7 % (0.0-2.0); Eosinophils # (auto) 0.1 10 ^3/uL (0-0.8); Eosinophils % (auto) 1.9 % (0.0-7.0); Hematocrit 20.6 % (36.0-46.0); Hemoglobin 7.5 g/dL (12.2-16.2); Lymphocytes # (auto) 0.9 10 ^3/uL (0.4-5.4); Lymphocytes % (auto) 24.6 % (10.0-50.0); Mean Corpuscular Hemoglobin 40.2 pg (28.0-32.0); Mean Corpuscular Volume 110.2 fL (80.0-100.0); Monocytes # (auto) 0.2 10 ^3/uL (0-1.3); Monocytes % (auto) 4.9 % (0.0-12.0); Neutrophils # (auto) 2.6 10 ^3/uL (1.6-8.6); Neutrophils % (auto) 67.9 % (37.0-80.0); Nucleated Red Blood Cells % 0.5 %; Red Blood Cells 1.87 10^6/uL (4.0-5.20); Red Cell Distribution Width 19.1 % (11.8-14.3); White Blood Cell 3.8 10^3/uL (4.4-10.8)
[2024-09-21 07:35] LABS: Mean Corpuscular Hgb Conc. 36.5 g/dL (32.0-36.0)
[2024-09-21 08:09] LABS: Anisocytosis Slight
[2024-09-21 08:10] LABS: Macrocytosis Moderate; Platelet Estimate Decreased
[2024-09-21 08:38] LABS: Platelet Count (auto) 45 10^3/uL (140-450)
--- NOTE | 2024-09-21 10:45 | DVHPN2 ---
Subjective The patient is seen and examined at bedside. Complain of being weak and tired. The patient stated that she had some bleeding per rectum when she wipes herself. Reviewed: Care Plan, H&P, Labs, Medications, Previous Orders, Radiology Changes from previous H/P or p: No Changes Eyes: No Pain, No Vision change, No Conjunctivae inflammation, No Eyelid inflammation, No Other, No Redness ENT: No Ear pain, No Ear discharge, No Nose pain, No Nose discharge, No Nose congestion, No Mouth pain, No Mouth swelling, No Throat pain, No Throat swelling, No Other Cardiovascular: No Chest Pain, No Palpitations, No Orthopnea, No Paroxysmal Noc. Dyspnea, No Edema, No Lt Headedness, No Other Respiratory: No Cough, No Dry, No Shortness of breath, No SOB with excertion, No Wheezing, No Hemoptysis, No Pleuritic Pain, No Sputum, No Other Gastrointestinal: No Nausea, No Vomiting; Abdominal Pain; No Diarrhea, No Constipation, No Melena, No Hematochezia, No Other Genitourinary: No Dysuria, No Frequency, No Incontinence, No Hematuria, No Retention, No Other Musculoskeletal: No other, No neck pain, No shoulder pain, No arm pain, No back pain, No hand pain, No leg pain, No foot pain Skin: No Rash, No Lesions, No Jaundice, No Bruising, No Other Objective Vitals Vital Signs Date Time Temp Pulse Resp B/P (MAP) Pulse Ox O2 Delivery O2 Flow Rate FiO2 09/21/24 09:00 98.2 67 17 96/41 (59) 96 98.2 09/20/24 20:00 Room Air* 0 21 Intake/Output Intake and Output 09/21/24 07:00 Intake Total 480 ml Balance 480 ml Intake Oral 480 ml # Voids 5 # Bowel Movements 1 General Appearance: Alert, Cooperative, mild distress HEENT: Atraumatic, PERRLA, EOMI, Mucous membr. moist/pink Neck: Supple Lungs: Clear to auscultation, Normal air movement Cardiovascular: Regular rate, Normal S1, Normal S2, No murmurs, Gallops, Rubs Abdomen: Normal bowel sounds, Soft, No tenderness Neuro: Cranial nerves 3-12 NL Psych/Mental Status: Mental status NL Medications Current Medications Medications Dose Ordered Sig/Adela Route Start Time Stop Time Status Last Admin Dose Admin Spironolactone 25 mg DAILY PO 09/18/24 10:00 09/20/24 09:24 25 MG Pantoprazole Sodium 40 mg DAILY IV 09/18/24 10:00 09/20/24 09:24 40 MG Lactulose 15 ml DAILY PO 09/18/24 10:00 09/20/24 09:24 15 ML Midodrine 10 mg TID@0600,1200,1800 PO 09/18/24 06:00 09/21/24 05:20 10 MG Sodium Chloride 1,000 ml @ 60 mls/hr [id number] IV 09/17/24 21:15 09/20/24 05:15 60 MLS/HR Acetaminophen/ Hydrocodone Bitart 1 tab Q4HP PRN PO 09/17/24 21:15 09/21/24 03:25 1 TAB Ondansetron HCl 4 mg Q4HP PRN IV 09/17/24 21:15 09/18/24 09:30 4 MG Docusate Sodium 100 mg BIDPRN PRN PO 09/17/24 21:15 09/20/24 17:01 100 MG Acetaminophen 650 mg Q6HP PRN PO 09/17/24 21:15 Morphine Sulfate 2 mg Q4HPRN PRN IV 09/17/24 21:15 09/20/24 16:56 2 MG Nitroglycerin 0.4 mg Q5MINP PRN SL 09/17/24 22:30 Morphine Sulfate 2 mg Q30M PRN IV 09/17/24 22:30 Sucralfate 1 gm BID@0600,2200 PO 09/21/24 06:00 09/21/24 05:20 1 GM Ferrous Sulfate 300 mg BID PO 09/21/24 10:00 Laboratory Results Laboratory Tests 09/21/24 06:06 Chemistry Test 09/21/24 06:06 Calcium Level 9.7 mg/dL (8.7-10.4) Urinalysis Test 09/18/24 23:50 Urine Color Light-orange (Yellow) Urine Clarity Turbid (Clear) H Urine pH 6.5 (5.0-9.0) Urine Specific [place] 1.011 (1.001-1.035) Urine Protein Negative (Negative) Urine Ketones Negative (Negative) Urine Blood Negative /uL (Negative) Urine Nitrite Negative (Negative) Urine Bilirubin Negative (Negative) Urine Urobilinogen Normal mg/dL (Negative) Urine Leukocyte Esterase Trace /uL (Negative) Urine RBC None seen /hpf (0 - 4) Urine WBC 13 /hpf (0 - 5) Urine Squamous Epithelial Cells Few /hpf (<5) Urine Bacteria Few /hpf (None Seen) H Urine Glucose Normal mg/dL (Normal) Microbiology Microbiology Date/Time Source Procedure Growth Status 09/18/24 20:05 Nose MRSA Screen - Final Complete Labs and/or images reviewed: Labs reviewed by me Assessment/Plan Assessment/Plan Intractable abdominal pain Severe anemia Pancytopenia Generalized weakness Cholelithiasis Calculus of gallbladder without cholecystitis and obstruction Plan Continuing current management. Continuing with IV pain medication. Continuing to monitor hemoglobin. Transfused as needed when hemoglobin less than seven and monitor hemoglobin. CT scan abdomen pelvis reviewed. It shows: 1. Supraumbilical hernia containing a loop of nonobstructed small bowel. 2. Hepatosplenomegaly. 3. Diffuse haziness of the mesentery, possibly mesenteric edema in the setting portal hypertension. Alternative considerations include mesenteric panniculitis, or infiltrative tumor. 4. Cholelithiasis. will continue to monitor Ammonia level, and also Hb. US abdomen show minimal ascites. Appreciate GI input. Need outpatient GI follow up and refer to higher level of care for capsule video to rule out source of blood lost. Per GI specialist the patient is stable to discharge. Patient is still complain of intractable abdominal pain. So I am going to continuing her pain regimen to try to control her pain prior to discharge. We will monitor blood count. I will consult PT to get the patient out of bed and ambulate. This medical document was created using an electronic medical record system with [employer] direct computerized dictation system. Although this document has been carefully reviewed, there may still be some phonetic and typographical errors. These areas are purely typographical due to imperfections of the software programs, and do not reflect any compromise in the patient's medical care. Plan discussed with: Patient Date of Service: Sep 21, 2024 Billing Provider: SHRUTHI HUDSON MD Common Visit Codes: [id number] INP/OBS CARE(HIGH) SHRUTHI HUDSON MD Sep 21, 2024 10:45
[2024-09-21] MEDS: FERROUS SULFATE 300 MG/5 ML ORAL LIQ PO SCH (10:47)
[2024-09-21] MEDS: cefTRIAXone 1GM/50ML D5W 50 ML IV ONE (12:55)
[2024-09-22] VITALS (9 sets, daily range): BP systolic 92–107; BP diastolic 46–58; PULSE 64–80; RESP 16–18; TEMP 97.7–98.4; O2SAT 93–100
[2024-09-22] MEDS: cefTRIAXone 1GM/50ML D5W 50 ML IV SCH (09:35)
--- NOTE | 2024-09-22 10:51 | DVHDS2 ---
Discharge Summary Date of Admission Sep 17, 2024 at 22:25 Date of Discharge: Sep 22, 2024 Admitting Diagnosis Intractable abdominal pain Severe anemia Pancytopenia Generalized weakness Cholelithiasis Calculus of gallbladder without cholecystitis and obstruction Labs/Diagnostic Data: Laboratory Results Test 09/21/24 06:06 09/18/24 23:50 09/18/24 03:40 09/17/24 17:52 White Blood Count 3.8 10^3/uL (4.4-10.8) Red Blood Count 1.87 10^6/uL (4.0-5.20) Hemoglobin 7.5 g/dL (12.2-16.2) Hematocrit 20.6 % (36.0-46.0) Mean Corpuscular Volume 110.2 fL (80.0-100.0) Mean Corpuscular Hemoglobin 40.2 pg (28.0-32.0) Mean Corpuscular Hemoglobin Concent 36.5 g/dL (32.0-36.0) Red Cell Distribution Width 19.1 % (11.8-14.3) Platelet Count 45 10^3/uL (140-450) Mean Platelet Volume 7.3 fL (6.9-10.8) Neutrophils (%) (Auto) 67.9 % (37.0-80.0) Lymphocytes (%) (Auto) 24.6 % (10.0-50.0) Monocytes (%) (Auto) 4.9 % (0.0-12.0) Eosinophils (%) (Auto) 1.9 % (0.0-7.0) Basophils (%) (Auto) 0.7 % (0.0-2.0) Neutrophils # (Auto) 2.6 10 ^3/uL (1.6-8.6) Lymphocytes # (Auto) 0.9 10 ^3/uL (0.4-5.4) Monocytes # (Auto) 0.2 10 ^3/uL (0-1.3) Eosinophils # (Auto) 0.1 10 ^3/uL (0-0.8) Basophils # (Auto) 0 10 ^3/uL (0-0.2) Nucleated Red Blood Cells 0.5 % Platelet Estimate Decreased Anisocytosis (manual) Slight Macrocytosis Moderate [place] Cells Moderate Schistocytes Few Sodium Level 139 mmol/L (136-145) Potassium Level 4.6 mmol/L (3.5-5.1) Chloride Level 105 mmol/L (98-107) Carbon Dioxide Level 29 mmol/L (20-31) Anion Gap 5 (5-15) Blood Urea Nitrogen 15 mg/dL (9-23) Creatinine 0.83 mg/dL (0.550-1.02) Glomerular Filtration Rate Calc 94 mL/min (>90) BUN/Creatinine Ratio 18.1 (10.0-20.0) Serum Glucose 104 mg/dL (74-106) Calcium Level 9.7 mg/dL (8.7-10.4) Urine Color Light-orange (Yellow) Urine Clarity Turbid (Clear) Urine pH 6.5 (5.0-9.0) Urine Specific [place] 1.011 (1.001-1.035) Urine Protein Negative (Negative) Urine Ketones Negative (Negative) Urine Blood Negative /uL (Negative) Urine Nitrite Negative (Negative) Urine Bilirubin Negative (Negative) Urine Urobilinogen Normal mg/dL (Negative) Urine Leukocyte Esterase Trace /uL (Negative) Urine RBC None seen /hpf (0 - 4) Urine WBC 13 /hpf (0 - 5) Urine Squamous Epithelial Cells Few /hpf (<5) Urine Bacteria Few /hpf (None Seen) Urine Glucose Normal mg/dL (Normal) Differential Total Cells Counted 100.0 (100) Neutrophils % (Manual) 56 (37.0-80.0) Band Neutrophils % (Manual) 1 Lymphocytes % (Manual) 34 (10.0-50.0) Monocytes % (Manual) 6 (0-12) Eosinophils % (Manual) 3 (0-7) Basophils % (Manual) 0 (0.0-2.0) Metamyelocytes % (manual) 0 Myelocytes % (Manual) 0 Promyelocytes % (Manual) 0 Blast Cells % (Manual) 0 Reactive Lymphocytes 0 Total Bilirubin 7.5 mg/dL (0.2-1.0) Aspartate Amino Transferase (AST) 44 U/L (13-40) Alanine Aminotransferase (ALT) 30 U/L (7-40) Alkaline Phosphatase 87 U/L (46-116) Total Protein 6.6 g/dL (5.7-8.2) Albumin 3.0 g/dL (3.2-4.8) Beta HCG, Quantitative 1.5 mIU/mL (1.5-4.2) Prothrombin Time 16.7 sec (9.3-11.8) Prothrombin Time INR 1.63 (0.9-1.15) Activated Partial Thromboplast Time 35.3 SEC (24.5-34.5) Ammonia 22 umol/L (11-32) Other Laboratory Tests 09/21/24 06:06 Brief Hx & Hospital Course: This is a 33 years old female with multiple past medical history including congestive heart failure, anemia, hyperlipidemia, hypertension, liver disease came to [facility] with chief complaint of abdominal pain. Patient said she had abdominal pain for three weeks constant pain 10/10 associated with weakness, dizziness, blurred vision. Patient had hemoglobin of 6.6 liver function tests with AST 90, ALT 35, ammonia level 22. Abdominal and pelvis CT scan showed supra umbilical hernia containing loop of nonobstructed small bowel, hepatomegaly, mesenteric edema in the setting of portal hypertension. The patient received two packed red blood cell and her hemoglobin had been stable. The patient stated that she had rectal bleed. GI specialist see the patient. Dr. Marroquin recommend outpatient follow up in referral to higher level care for capsule study to look from my croup bleeding. At this point new GI intervention. Patient had an ultrasound done showed minimal ascites. Today the patient stable so I am going to discharge her home. She complain of dysuria so I will empirically give her Levaquin 500 mg p.o. daily for seven days. Activity as tolerated. Diet per home diet. Physical exam: HEENT: Normocephalic atraumatic pupils equal react to light and accommodation. Extraocular muscles intact, conjunctiva pink, oropharynx moist, no thrush, no exudate. Lymphatic: No lymphadenopathy Cardiovascular exam: S1, S2 was heard. No murmurs, rubs, gallops Lung: Clear on auscultation bilaterally, no wheeze, rale, rhonchi. GI: Abdominal soft, nondistended, nontenderness, positive bowel sounds. Extremity: No crepitus, cyanosis, edema. Pedal pulses present bilateral. Full range of motion. Skin: Normal turgor, no rash. Psych: Alert, oriented x3. Neurology: No focal deficits, cranial nerve II to XII grossly intact. This medical document was created using an electronic medical record system with [employer] direct computerized dictation system. Although this document has been carefully reviewed, there may still be some phonetic and typographical errors. These areas are purely typographical due to imperfections of the software programs, and do not reflect any compromise in the patient's medical care. Condition at Discharge: Stable Final Diagnosis/Problems List Intractable abdominal pain Severe anemia Pancytopenia Generalized weakness Cholelithiasis Calculus of gallbladder without cholecystitis and obstruction Discharge Disposition: Home Discharge Instruct/Medications Diet: Cardiac 2g Na,low cholest Activity: No Restrictions, As Tolerated Follow Up/Referral: pcp 1-2 weeks Medications: Resume home meds Levaquin 500 mg one tablet p.o. daily Tramadol 50 mg every 6 hours as needed for pain Discharge Statement: "Patient was advised to return to the ER or call 911 if any headaches, dizziness, shortness of breath, chest pain, abdominal pain, bleeding, fevers, or worsening of medical condition. Patient was counseled about treatment plan, medications, possible side effects, patientverbalized understanding. All questions were answered to the best of my ability. This discharge took greater then 30 minutes in planning, reviewing documentation, counseling the patient, and discussing with other team members." ASSESSMENT ASSESSMENT Assessment anemia, abdominal pain Date of Service: Sep 22, 2024 Billing Provider: SHRUTHI HUDSON MD Common Visit Codes: 62612-IJK/OBS DISCH DAY >30min SHRUTHI HUDSON MD Sep 22, 2024 10:51
[2024-09-22] MEDS ORDERED: TRAM-626 PO (11:35)
--- NOTE | 2024-09-22 18:33 | DVHPN2 ---
Progress Note - Dictate Date Seen: Sep 22, 2024 Medical Necessity Reason Pt with a Central, PICC or Fol: No Subjective No new complaints, feeling better There was no active bleeding Hemoglobin up to 7.5 S/P 2 units PRBC Patient denies any active alcohol intake Last alcohol intake was in December 25, 2023 Liver enzymes were trending down vital signs Vital Sign Date Time Temp Pulse Resp B/P (MAP) Pulse Ox O2 Delivery O2 Flow Rate FiO2 09/22/24 16:51 98.0 70 18 107/58 (74) 95 98.0 09/22/24 08:00 Room Air* 0 21 Total Intake and Output 09/21/24 09/21/24 09/22/24 15:00 23:00 07:00 Intake Total 50 ml 1020 ml 525 ml Output Total 1 ml Balance 50 ml 1019 ml 525 ml medications Current Medications Medications Dose Ordered Sig/Adela Route Start Time Stop Time Status Last Admin Dose Admin Spironolactone 25 mg DAILY PO 09/18/24 10:00 09/22/24 09:53 25 MG Pantoprazole Sodium 40 mg DAILY IV 09/18/24 10:00 09/22/24 09:38 40 MG Lactulose 15 ml DAILY PO 09/18/24 10:00 09/22/24 09:51 15 ML Midodrine 10 mg TID@0600,1200,1800 PO 09/18/24 06:00 09/22/24 18:01 10 MG Sodium Chloride 1,000 ml @ 60 mls/hr [id number] IV 09/17/24 21:15 09/22/24 18:02 60 MLS/HR Acetaminophen/ Hydrocodone Bitart 1 tab Q4HP PRN PO 09/17/24 21:15 09/22/24 00:40 1 TAB Ondansetron HCl 4 mg Q4HP PRN IV 09/17/24 21:15 09/18/24 09:30 4 MG Docusate Sodium 100 mg BIDPRN PRN PO 09/17/24 21:15 09/21/24 21:16 100 MG Acetaminophen 650 mg Q6HP PRN PO 09/17/24 21:15 Morphine Sulfate 2 mg Q4HPRN PRN IV 09/17/24 21:15 09/20/24 16:56 2 MG Nitroglycerin 0.4 mg Q5MINP PRN SL 09/17/24 22:30 Morphine Sulfate 2 mg Q30M PRN IV 09/17/24 22:30 Sucralfate 1 gm BID@0600,2200 PO 09/21/24 06:00 09/22/24 06:07 1 GM Ferrous Sulfate 300 mg BID PO 09/21/24 10:00 09/22/24 09:51 300 MG Ceftriaxone Sodium 50 ml @ 100 mls/hr DAILY@09 IV 09/22/24 09:00 09/22/24 09:35 100 MLS/HR objective General Appearance: Alert, Cooperative, mild distress HEENT: Atraumatic, PERRLA, EOMI, Mucous membr. moist/pink Neck: Supple Lungs: Clear to auscultation, Normal air movement Cardiovascular: Regular rate, Normal S1, Normal S2, No murmurs, Gallops, Rubs Abdomen: Normal bowel sounds, Soft, No tenderness Neuro: Cranial nerves 3-12 NL Psych/Mental Status: Mental status NL laboratory and microbiology Laboratory Tests 09/21/24 06:06 Test 09/21/24 06:06 Range/Units Serum Glucose 104 74-106 mg/dL Problems(with codes): (1) Liver cirrhosis (2) GI bleeding (3) Blood loss anemia (4) Pancytopenia (5) Generalized weakness (6) Cholelithiasis (7) Hepatic encephalopathy (8) Hepatic steatosis Prognosis Plan Discharge planning is in progress Patient was advised follow up in my office as an outpatient for ongoing management of chronic liver disease Her prognosis is guarded Hepatic diet Maintained on PPI DC aspirin NSAIDs smoking alcohol Plan discussed with: Patient CC Plasma Assessment Blood Product Administration S: [id number] ZAIRE SPENCER MD Sep 22, 2024 18:33
[2024-09-23 01:34] VITALS: BP 102/43; PULSE 78; RESP 17; TEMP 98; O2SAT 90
[2024-09-23 05:00] VITALS: BP 94/49; PULSE 68; RESP 17; TEMP 98; O2SAT 91
[2024-09-23] MEDS ORDERED: LEVO500T91 PO (06:11)
[2024-09-23 09:05] VITALS: BP 109/59; PULSE 73; RESP 16; TEMP 97.6; O2SAT 97
== END 2024-09-23 08:56 | disposition home or self-care (01) ==
LOC: EDUNIT# 17:20 → ER 17:20 → EDBD 17:20 → TELE 22:25 → TELE-E-ADS 09-18 17:54
PROVIDERS: ADMIT Nurse Practitioner Family; ATTEND Internal Medicine
PROC: 30233N1 Transfusion of Nonautologous Red Blood Cells into Peripheral Vein, Percutaneous Approach (ICD-10-PCS; principal; 2024-09-18)
DX: K80.20 Calculus of gallbladder without cholecystitis without obstruction (principal); D61.818 Other pancytopenia; K76.6 Portal hypertension; K92.2 Gastrointestinal hemorrhage, unspecified; I50.9 Heart failure, unspecified; I11.0 Hypertensive heart disease with heart failure; K70.9 Alcoholic liver disease, unspecified; K74.60 Unspecified cirrhosis of liver; E78.5 Hyperlipidemia, unspecified; K42.9 Umbilical hernia without obstruction or gangrene; D50.0 Iron deficiency anemia secondary to blood loss (chronic); Z83.3 Family history of diabetes mellitus; Z87.442 Personal history of urinary calculi; Z79.899 Other long term (current) drug therapy
CPT/HCPCS: 36415; 74176; 76705; 80048; 80053; 81001; 82140; 84702; 85007; 85025; 85027; 85610; 85730; 86850; 86900; 86901; 86920; 87081; G0378; J2405; J2470

== ENCOUNTER 2024-10-07 17:44 | Inpatient (IN) | payer MEDICAID ==
[~2024-10-07] VITALS: Ht 160 cm; Wt 64.8 kg
[~2024-10-07 17:44] MED LIST changes: +LEVO500T91 PO; +TRAM-626 PO
--- NOTE | 2024-10-07 18:01 | ECG ---
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
--- NOTE | 2024-10-07 19:10 | ED.PDOC ---
GI ASSESSMENT HPI Comments 33 year old female brought in by EMS presents to the ED with a chief complaint of abdominal pain onset 1 week. Patient has PMHx of Liver Cirrhosis, HLD, anemia, CKF, CHF, seizures. Patient has been experiencing diffused abdominal pain and distention for the past week. She states she recently had a CT scan done, sent by her GI. Denies chest pain, shortness of breath, nausea, vomiting, diarrhea, constipation. No other symptoms or modifying factors present at this time. Chief Complaint: Abdominal Pain Time Seen by MD: 18:52 Primary Care Provider: SHAYNA Reviewed Notes: Medications, Allergies Allergies: Coded Allergies: NO KNOWN ALLERGIES (Unverified , 12/10/23) Home Meds Active Scripts Levofloxacin Hemihydrate (LEVAQUIN 500 MG) 500 Mg Tab, 1 TAB PO DAILY, #7 TAB Prov:SHRUTHI HUDSON MD 09/23/24 Tramadol HCl (Tramadol HCl) 50 Mg Tab, 50 MG PO Q6HPRN PRN, #20 TAB Prov:SHRUTHI HUDSON MD 09/22/24 Spironolactone (Aldactone) 25 Mg Tab, 1 TAB PO DAILY, #30 TAB 5 Refills Prov:MASON GRAY MD 06/01/24 Reported Medications Docusate Sodium (Colace) 100 Mg Cap, 1 CAP PO BID for 30 Days, #60 09/21/24 Potassium Chloride (Potassium Chloride ER) 20 Meq Tab, 1 TAB PO DAILY for 30 Days, #30 09/21/24 Ergocalciferol (VITAMIN D 86841 UNIT) 50,000 Unit Cp, 1 CAP PO QWEEKLY for 4 Days, #28 09/21/24 Pantoprazole Sodium Sesquihydr (Protonix) 40 Mg Tab, 1 MG PO DAILY for 90 Days, #90 09/21/24 Rifaximin (Xifaxan) 550 Mg Tab, 1 TAB PO BID 08/12/24 Lactulose (Lactulose) 10 Gm/15 Ml Yesenia, 15 ML PO BID, ML 08/12/24 Ferrous Sulfate (Ferrous Sulfate) 325 Mg Tab, 1 TAB PO DAILY 08/12/24 Escitalopram Oxalate (ESCITALOPRAM OXALATE) 10 Mg Tab, 10 MG PO DAILY, TAB 08/12/24 Furosemide (Furosemide) 40 Mg Tab, 1 TAB PO DAILY 08/12/24 Tramadol Hcl (Tramadol Hcl) 50 Mg Tab, 50 MG PO DAILY PRN for PAIN SCALE 7 THRU 10, MG 06/21/24 Magnesium Oxide (MAGNESIUM OXIDE) 400 Mg Tab, 1 TAB PO DAILY, TAB 05/29/24 Acamprosate Calcium (ACAMPROSATE CALCIUM DR) 333 Mg Tab, 2 TAB PO BID, TAB 05/28/24 Midodrine HCl (Midodrine HCl) 10 Mg Tab, 1 TAB PO BID 05/11/24 Acyclovir (ZOVIRAX TABLET) 400 Mg Tb, 400 MG PO BID for HERPES IF GOING TO BE SEXUALLY, TAB 04/04/24 Folic Acid (Folic Acid) 1 Mg Tab, 1 MG PO DAILY, TAB 12/11/23 Gabapentin (Gabapentin) 300 Mg Cap, 1 CAP PO DAILY 12/11/23 Information Source: Patient Mode of Arrival: EMS Timing: Days Duration: Since onset Prehospital treatment: None Severity: Moderate Recent: None Recent Hx of: Liver Disease Pain Location: Diffuse Associated sign and symptoms: Abdominal Pain Past Medical History PAST MEDICAL HISTORY: Anemia, CHF, CKF, High Lipids, HTN, Kidney Stones, Liver, Seizures EXAMINATION 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 Hx Family History Family History: Family hx of DM, Family hx of heart adrián Social History Smoker: Non-Smoker Alcohol: Sober Drugs: Denies Drug Use Lives In: Home Constitutional: denies: chills, diaphoresis, fatigue, fever, malaise, sweats, weakness, others EENTM: denies: blurred vision, double vision, ear bleeding, ear discharge, ear drainage, ear pain, ear ringing, eye pain, eye redness, hearing loss, mouth pain, mouth swelling, nasal discharge, nose bleeding, nose congestion, nose pain, photophobia, tearing, throat pain, throat swelling, voice changes, others Respiratory: denies: cough, hemoptysis, orthopnea, SOB at rest, shortness of breath, SOB with excertion, stridor, wheezing, others Cardiovascular: denies: chest pain, dizzy spells, diaphoresis, Dyspnea on exertion, edema, irregular heart beat, left arm pain, lightheadedness, palpitations, PND, syncope, others Gastrointestinal: reports: abdomen distended, abdominal pain; denies: blood streaked bowels, constipated, diarrhea, dysphagia, difficulty swallowing, hematemesis, melena, nausea, poor appetite, poor fluid intake, rectal bleeding, rectal pain, vomiting, others Genitourinary: reports: dysuria; denies: abnormal vagina bleeding, burning, dyspareunia, flank pain, frequency, hematuria, incontinence, pain, , vagina discharge, urgency, others Neurological: denies: dizziness, fainting, headache, left sided numbness, left sided weakness, numbness, paresthesia, pre-existing deficit, right sided numbness, right sided weakness, seizure, speech problems, tingling, tremors, weakness, others Musculoskeletal: denies: back pain, gout, joint pain, joint swelling, muscle pain, muscle stiffness, neck pain, others Integumetry: denies: bruises, change in color, change in hair/nails, dryness, laceration, lesions, lumps, rash, wounds, others Allergic/Immunocompromised: denies: Difficulty Healing, Frequent Infections, Hives, Itching, others Hematologic/Lymphatic: denies: anemia, blood clots, easy bleeding, easy bruising, swollen glands, others Endocrine: denies: excessive hunger, excessive sweating, excessive thirst, excessive urination, flushing, intolerance to cold, intolerance to heat, unexplained weight gain, unexplained weight loss, others Psychiatric: denies: anxiety, bipolar disorder, depression, hopeless, panic disorder, schizophrenia, sleepless, suicidal, others All Other Systems: Reviewed and Negative Physical Exam General Appearance: No Apparent Distress, Normal HEENT: Normal ENT Inspection, Pharynx Normal, TMs Normal Neck: Full Range of Motion, Non-Tender, Normal, Normal Inspection Respiratory: Chest Non-Tender, Lungs Clear, No Accessory Muscle Use, No Respiratory Distress, Normal Breath Sounds Cardiovascular: No Edema, No JVD, No Murmur, No Gallop, Normal Peripheral Pulses, Regular Rate/Rhythm Breast Exam: Deferred Gastrointestinal: No Organomegaly, Non Tender, No Pulsatile Mass, Normal Bowel Sounds, Soft Genitalia: Deferred Pelvic: Deferred Rectal: Deferred Extremities: No calf tenderness, Normal capillary refill, Normal inspection, Normal range of motion, Non-tender, No pedal edema Musculoskeletal : Apperance: Normal Neurologic: Alert, shelter case manager II-XII nml as Tested, No Motor Deficits, Normal Affect, Normal Mood, No Sensory Deficits Cerebellar Function: Normal Reflexes: Normal Skin: Dry, Normal Color, Warm Lymphatic: No Adenopathy Was a procedure done? Was a procedure done?: No GI differential Dx Differential Diagnosis: Appendicitis, Cholecystitis, Constipation, Diverticular disease, Gastritis/PUD, Gastroenteritis, Pancreatitis, Kidney Stone, Other X-Ray, Labs, Meds, VS Vital Signs Date Time Temp Pulse Resp B/P (MAP) Pulse Ox O2 Delivery O2 Flow Rate FiO2 10/07/24 23:00 99.2 83 13 109/55 (73) 97 99.2 10/07/24 23:00 83 13 96 Room Air* 0 21 10/07/24 21:29 98.6 83 14 100/57 (71) 99 98.6 10/07/24 17:59 86 10/07/24 17:52 98.4 90 18 101/57 (72) 97 Lab Test 10/07/24 19:31 10/07/24 18:41 Range/Units Ammonia < 10 L 11-32 umol/L White Blood Count 2.5 L 4.4-10.8 10^3/uL Red Blood Count 1.60 L 4.0-5.20 10^6/uL Hemoglobin 6.2 *L 12.2-16.2 g/dL Hematocrit 18.7 L 36.0-46.0 % Mean Corpuscular Volume 117.1 H 80.0-100.0 fL Mean Corpuscular Hemoglobin 39.0 H 28.0-32.0 pg Mean Corpuscular Hemoglobin Concent 33.3 32.0-36.0 g/dL Red Cell Distribution Width 17.6 H 11.8-14.3 % Platelet Count 72 L 140-450 10^3/uL Mean Platelet Volume 7.2 6.9-10.8 fL Neutrophils (%) (Auto) 61.4 37.0-80.0 % Lymphocytes (%) (Auto) 29.0 10.0-50.0 % Monocytes (%) (Auto) 7.3 0.0-12.0 % Eosinophils (%) (Auto) 1.5 0.0-7.0 % Basophils (%) (Auto) 0.8 0.0-2.0 % Neutrophils # (Auto) 1.5 L 1.6-8.6 10 ^3/uL Lymphocytes # (Auto) 0.7 0.4-5.4 10 ^3/uL Monocytes # (Auto) 0.2 0-1.3 10 ^3/uL Eosinophils # (Auto) 0 0-0.8 10 ^3/uL Basophils # (Auto) 0 0-0.2 10 ^3/uL Nucleated Red Blood Cells 0.0 % Prothrombin Time 17.2 H 9.3-11.8 sec Prothrombin Time INR 1.69 H 0.9-1.15 Sodium Level 138 136-145 mmol/L Potassium Level 3.4 L 3.5-5.1 mmol/L Chloride Level 100 98-107 mmol/L Carbon Dioxide Level 31 20-31 mmol/L Anion Gap 7 5-15 Blood Urea Nitrogen 15 9-23 mg/dL Creatinine 1.12 H 0.550-1.02 mg/dL Glomerular Filtration Rate Calc 66 >90 mL/min BUN/Creatinine Ratio 13.4 10.0-20.0 Serum Glucose 121 H 74-106 mg/dL Calcium Level 10.1 8.7-10.4 mg/dL Total Bilirubin 8.6 H 0.2-1.0 mg/dL Aspartate Amino Transferase (AST) 133 H 13-40 U/L Alanine Aminotransferase (ALT) 64 H 7-40 U/L Alkaline Phosphatase 105 46-116 U/L Total Protein 7.6 5.7-8.2 g/dL Albumin 3.3 3.2-4.8 g/dL Lipase 62 H 12-53 U/L Beta HCG, Quantitative 1.1 L 1.5-4.2 mIU/mL Current Medications Medications (Trade) Dose Ordered Sig/Adela Route Start Time Stop Time Status Last Admin Acetaminophen/ Hydrocodone Bitart ([place] 10/325MG Tab) 1 tab ONCE ONCE PO 10/08/24 00:00 10/08/24 00:01 DC 10/08/24 00:58 Sodium Chloride 500 ml @ 500 mls/hr Q1H ONCE IV 10/08/24 00:15 10/08/24 01:14 DC 10/08/24 00:58 Time of 1ST Reevaluation: 19:22 Reevaluation 1ST: Unchanged Time of 2ND Reevaluation: 21:00 Reevaluation 2ND: Unchanged Patient Education/Counseling: Diagnosis, Treatment, Prognosis Family Education/Counseling: No Family Present Additional Information I reviewed the following notes from patient's past medical encounters: The following tests were ordered, and results were reviewed by me: EKG, CBC, CMP, BETA HCG, LIPASE, UA, TYPE AND SCREEN, PROTHROMBIN TIME W/ INR, AMMONIA, CT AB PELVIS W WO CON Additional Information was gathered from interviewing the following independent historians: EMS I reviewed and agreed with the following test results read by other providers: CT AB PELVIS W WO CON I discussed treatment and results with medical personnel and: PATIENT Departure 1 Departure Time of Disposition: 19:22 Impression: Primary Impression: Liver cirrhosis Additional Impressions: Hepatic encephalopathy Severe anemia Ascites Jaundice Disposition: ADMITTED INPATIENT Condition: Guarded Critical Care Note Critical Care Time?: Yes (45 min-critical care time only) Critical care comment: Total critical care time: Approximately 36 minutes Due to a high probability of clinically significant, life threatening det erioration, the patient required my highest level of preparedness to intervene emergently and I personally spent this critical care time directly and personally managing the patient. This critical care time included obtaining a history; examining the patient; pulse oximetry; ordering and review of studies; arranging urgent treatment with development of a management plan; evaluation of patient's response to treatment; frequent reassessment; and, discussions with other providers. This critical care time was performed to assess and manage the high probability of imminent, life-threatening deterioration that could result in multi-organ failure. It was exclusive of separately billable procedures and treating other patients. Stability Stability form required: No I personally scribed for ALONA SUAREZ MD ([email or web address]) on 10/07/24 at 19:10. Electronically submitted by Radha Rogers ([email or web address]). I personally scribed for ALONA SUAREZ MD ([email or web address]) on 10/07/24 at 23:35. Electronically submitted by Radha Rogers ([email or web address]). ALONA SUAREZ MD Oct 07, 2024 19:10
[2024-10-07 19:11] LABS: Basophils # (auto) 0 10 ^3/uL (0-0.2); Basophils % (auto) 0.8 % (0.0-2.0); Eosinophils # (auto) 0 10 ^3/uL (0-0.8); Eosinophils % (auto) 1.5 % (0.0-7.0); Hematocrit 18.7 % (36.0-46.0); Lymphocytes # (auto) 0.7 10 ^3/uL (0.4-5.4); Mean Corpuscular Hgb Conc. 33.3 g/dL (32.0-36.0); Mean Corpuscular Volume 117.1 fL (80.0-100.0); Monocytes # (auto) 0.2 10 ^3/uL (0-1.3); Monocytes % (auto) 7.3 % (0.0-12.0); Neutrophils # (auto) 1.5 10 ^3/uL (1.6-8.6); Neutrophils % (auto) 61.4 % (37.0-80.0); Platelet Count (auto) 72 10^3/uL (140-450); Red Cell Distribution Width 17.6 % (11.8-14.3); White Blood Cell 2.5 10^3/uL (4.4-10.8)
[2024-10-07 19:14] LABS: Hemoglobin 6.2 g/dL (12.2-16.2)
[2024-10-07 19:27] LABS: Albumin 3.3 g/dL (3.2-4.8); Alkaline Phosphatase 105 U/L (46-116); Anion Gap 7 (5-15); BUN/Creatinine Ratio 13.4 (10.0-20.0); Blood Urea Nitrogen 15 mg/dL (9-23); Calcium 10.1 mg/dL (8.7-10.4); Carbon Dioxide 31 mmol/L (20-31); Chloride 100 mmol/L (98-107); Sodium 138 mmol/L (136-145); Total Protein 7.6 g/dL (5.7-8.2)
[2024-10-07 19:44] LABS: Alanine Aminotransferase 64 U/L (7-40); Aspartate Aminotransferase 133 U/L (13-40); Bilirubin, Total 8.6 mg/dL (0.2-1.0); Glucose 121 mg/dL (74-106); Lipase 62 U/L (12-53); Potassium 3.4 mmol/L (3.5-5.1)
[2024-10-07 20:35] LABS: INR 1.69 (0.9-1.15); Prothrombin Time 17.2 sec (9.3-11.8)
[2024-10-07 23:00] VITALS: PULSE 83; RESP 13; O2SAT 96
[2024-10-08] VITALS (16 sets, daily range): BP systolic 95–120; BP diastolic 48–70; PULSE 60–89; RESP 12–18; TEMP 97.6–99.4; O2SAT 92–100
--- NOTE | 2024-10-08 00:25 | DVH ---
Exam: CT CT AB PEL WO CON-NO ORAL OR IV History: abd pain Comparison Study: None available at time of dictation. Technique: Multidetector spiral CT of the abdomen was performed from lung bases to pubic symphysis. Imaging was performed without IV contrast. Axial, coronal and sagittal multiplanar reformats were ob tained from the axial data set by the technologist. Radiation Dose : 1. Abdomen/Pelvis: CTDIvol 6 mGy, DLP 352 mGy*cm. Findings: Evaluation of solid organs is limited due to lack of intravenous contrast use. Lung Bases: Small right-sided pleural effusion. Liver: The liver is normal in size. No focal lesions. Gallbladder and Biliary Tree: Cholelithiasis. Spleen: Spleen measures 17 cm craniocaudal. Pancreas: The pancreas is grossly normal in appearance. Adrenal Glands: Unremarkable Kidneys: Kidneys are grossly normal without calculi or hydronephrosis. Bladder: Mildly distended urinary bladder demonstrating hyperdense material. Bowel: The stomach is grossly normal in appearance. Moderate fecal retention throughout the colon. N ormal appendix is visualized in the right lower quadrant without findings of appendicitis. Ascites: Trace diffuse ascites. Lymphadenopathy: No mesenteric, retroperitoneal or periportal lymphadenopathy. Abdominal Wall and Mesentery: Unremarkable. Vasculature: The visualized abdominal aorta is normal in size and caliber. Evaluation of abdominal a nd pelvic vessels is limited due to lack of intravenous contrast. Pelvic Organs: Unremarkable Musculoskeletal: No aggressive focal bony lesions, acute fractures or dislocation. Mild diffuse anasa rca. IMPRESSION: Small right-sided pleural effusion, trace diffuse ascites ascites, and diffuse anasarca. Findings are concerning for fluid overload state. Mildly distended urinary bladder demonstrating hyperdense material. May reflect recent passage of con trast with other etiologies not excluded. Splenomegaly. Moderate fecal retention throughout the colon. Cholelithiasis. END IMPRESSION:
[2024-10-08] MEDS ORDERED: DOCUSATE SOD 100 MG CAP PO PRN (00:45)
[2024-10-08] MEDS: HYDROcodone-ACET 10/325MG TAB PO ONE (00:58)
[2024-10-08] MEDS: SODIUM CHLORIDE 0.9% 500 ML IV ONE (00:58)
--- NOTE | 2024-10-08 01:58 | DVH ---
INDICATION: LIVER CIRRHOISIS, QUANTIFY ASCITIS TECHNIQUE: Multiple real-time sonographic images were obtained of the right upper quadrant. COMPARISON: US ABDOMEN LIMITED on DOS: 09/20/24, US ABDOMEN LIMITED on DOS: 08/12/24, US LIVER on DOS: 05/10/24 FINDINGS: The liver demonstrates irregular contour with increased echogenicity. The liver measures 1 6 cm. There is no intrahepatic or extrahepatic ductal dilatation. The common duct is not visualized. Multiple mobile stones. Negative sonographic borden's sign. The gallbladder wall measures 0.2 cm and is within normal limits. The right kidney measures 11 cm. The right kidney is normal in contour, size, and shape. The echoge nicity is normal. There is no hydronephrosis. The pancreas is not well visualized due to overlying bowel gas. Incidental finding of right-sided pleural effusion. IMPRESSION: Cholelithiasis without sonographic evidence of cholecystitis. Ancillary findings as described above. Hepatic steatosis versus medical liver disease with irregular contours which can be seen with cirrhos is.
[2024-10-08 02:03] LABS: Triglycerides 83 mg/dL (< 150)
[2024-10-08 02:04] LABS: LDL Cholesterol 67 mg/dL (< 100)
[2024-10-08 02:29] LABS: Cholesterol 255 mg/dL (< 200); HDL Cholesterol 32 mg/dL (40-59)
--- NOTE | 2024-10-08 03:19 | DVHHPRES ---
History of Present Illness Resident Creating Document: SALLY ALONZO History of Present Illness This is a 33-year-old female past medical history of alcoholic liver cirrhosis (who stopped 10 months ago), heart failure with preserved ejection fraction, severe chronic anemia, CKD, history of recurrent blood transfusions, transaminitis, hemorrhoids who presented to the ED with chief complaint of abdominal pain that started one week ago. The patient states that initially she started feeling weakness and fatigue that progressed to abdominal pain located in the periumbilical region and hypogastrium that radiates to the lower back. The patient described the pain as a sharp/stabbing pain rated as a 7/10 on the pain scale associated with jaundice and abdominal distention. Initial labs showed leukopenia, severe anemia with a hemoglobin of 6.2, the cytopenia, acute transaminitis with an AST of 133 and ALT of 64. Total bilirubin is elevated at 8.6. Blood pressure is in the lower side. We will place the patient NPO, ordered abdominal ultrasound, start spironolactone, midodrine, Protonix IV b.i.d., octreotide drip. Started 2units of packed red blood cells. Patient will be admitted for further assessment and management. Cardiovascular: CHF, hyperipidemia [employer]: Migraine GI: Constipation Heme/Onc: Anemia NOS Hepatobiliary: Cirrhosis Renal/: Chronic renal insuff Past Surgical History: None Family History: None Smoke: No ALCOHOL: none (Used to be alcohol abuser but quit 10 months ago) Drugs: Marijuana Lives: with Family Domestic Violence: Neg Review of Systems Constitutional: Yes: Weakness, Malaise; No: Fever, Chills, Sweats, Other Eyes: No: Pain, Vision change, Conjunctivae inflammation, Eyelid inflammation, Other, Redness ENT: No: Ear pain, Ear discharge, Nose pain, Nose discharge, Nose congestion, Mouth pain, Mouth swelling, Throat pain, Throat swelling, Other Respiratory: No: Cough, Dry, Shortness of breath, SOB with excertion, Wheezing, Hemoptysis, Pleuritic Pain, Sputum, Wheezing, Other Cardiovascular: Palpitations; No: Chest Pain, Orthopnea, Paroxysmal Noc. Dyspnea, Edema, Lt Headedness, Other Gastrointestinal: Abdominal Pain, Constipation; No: Nausea, Vomiting, Diarrhea, Melena, Hematochezia, Other Genitourinary: No Dysuria, No Frequency, No Incontinence, No Hematuria, No Retention, No Other Musculoskeletal: No: other, neck pain, shoulder pain, arm pain, back pain, hand pain, leg pain, foot pain Skin: No: Rash, Lesions, Jaundice, Bruising, Other Neurological: Weakness; No: Numbness, Incoordination, Change in speech, Confusion, Seizures, Other Allergies: Coded Allergies: NO KNOWN ALLERGIES (Unverified , 12/10/23) Medications Current Medications Medications Dose Ordered Sig/Adela Route Start Time Stop Time Status Last Admin Dose Admin Docusate Sodium 100 mg BIDPRN PRN PO 10/08/24 00:45 Acetaminophen/ Hydrocodone Bitart 1 tab Q4HP PRN PO 10/08/24 00:45 Spironolactone 25 mg DAILY PO 10/08/24 08:00 Midodrine 10 mg DAILY PO 10/08/24 10:00 Exam Vital Signs Vital Signs Date Time Temp Pulse Resp B/P (MAP) Pulse Ox O2 Delivery O2 Flow Rate FiO2 10/07/24 21:29 98.6 83 14 100/57 (71) 99 98.6 General Appearance: Alert, Oriented X3, Cooperative, mild distress HEENT: Atraumatic, PERRLA, EOMI, Mucous membr. moist/pink Respiratory: Clear to auscultation, Normal air movement Cardiovascular: Regular rate, Normal S1, Normal S2, No murmurs Abdominal: Normal bowel sounds, Soft, No tenderness, No hepatospenomegaly Extremities: No clubbing, No cyanosis, No edema, Normal pulses, No tenderness/swelling Skin: No rashes, No breakdown, No significant lesion Neuro: Normal gait, Normal speech, Strength at 5/5 X4 ext, Normal tone, Sensation intact, Cranial nerves 3-12 NL, Reflexes 2+ Psych/Mental Status: Mental status NL, Mood NL Labs/Xrays Labs Test 10/07/24 19:31 10/07/24 18:41 Range/Units Ammonia < 10 L 11-32 umol/L White Blood Count 2.5 L 4.4-10.8 10^3/uL Red Blood Count 1.60 L 4.0-5.20 10^6/uL Hemoglobin 6.2 *L 12.2-16.2 g/dL Hematocrit 18.7 L 36.0-46.0 % Mean Corpuscular Volume 117.1 H 80.0-100.0 fL Mean Corpuscular Hemoglobin 39.0 H 28.0-32.0 pg Mean Corpuscular Hemoglobin Concent 33.3 32.0-36.0 g/dL Red Cell Distribution Width 17.6 H 11.8-14.3 % Platelet Count 72 L 140-450 10^3/uL Mean Platelet Volume 7.2 6.9-10.8 fL Neutrophils (%) (Auto) 61.4 37.0-80.0 % Lymphocytes (%) (Auto) 29.0 10.0-50.0 % Monocytes (%) (Auto) 7.3 0.0-12.0 % Eosinophils (%) (Auto) 1.5 0.0-7.0 % Basophils (%) (Auto) 0.8 0.0-2.0 % Neutrophils # (Auto) 1.5 L 1.6-8.6 10 ^3/uL Lymphocytes # (Auto) 0.7 0.4-5.4 10 ^3/uL Monocytes # (Auto) 0.2 0-1.3 10 ^3/uL Eosinophils # (Auto) 0 0-0.8 10 ^3/uL Basophils # (Auto) 0 0-0.2 10 ^3/uL Nucleated Red Blood Cells 0.0 % Prothrombin Time 17.2 H 9.3-11.8 sec Prothrombin Time INR 1.69 H 0.9-1.15 Sodium Level 138 136-145 mmol/L Potassium Level 3.4 L 3.5-5.1 mmol/L Chloride Level 100 98-107 mmol/L Carbon Dioxide Level 31 20-31 mmol/L Anion Gap 7 5-15 Blood Urea Nitrogen 15 9-23 mg/dL Creatinine 1.12 H 0.550-1.02 mg/dL Glomerular Filtration Rate Calc 66 >90 mL/min BUN/Creatinine Ratio 13.4 10.0-20.0 Serum Glucose 121 H 74-106 mg/dL Calcium Level 10.1 8.7-10.4 mg/dL Total Bilirubin 8.6 H 0.2-1.0 mg/dL Aspartate Amino Transferase (AST) 133 H 13-40 U/L Alanine Aminotransferase (ALT) 64 H 7-40 U/L Alkaline Phosphatase 105 46-116 U/L Total Protein 7.6 5.7-8.2 g/dL Albumin 3.3 3.2-4.8 g/dL Lipase 62 H 12-53 U/L Beta HCG, Quantitative 1.1 L 1.5-4.2 mIU/mL Assessment/Plan Assessment/Plan Assessment/Plan Severe anemia likely in the setting of liver cirrhosis, R/O GI bleed -Hb is 6.2, Transfuse 2 units of PRBCs -Start octreotide drip -Start pantoprazole 40mg IV BID -Patient had previous colonoscopy on 2023 showing normal colonoscopy with mild colonic mucosal edema and trace internal hemorrhoids but no active bleeding. -patient underwent EGD on May of 2024 which show erosive esophagitis, erosive gastritis and some arteriovenous malformations with no active bleeding. -consult GI -monitor hemoglobin and hematocrit Alcoholic liver cirrhosis with the acute transaminitis -ordered CT scan of the abdomen -ordered abdominal ultrasound to quantify ascitic volume -start spironolactone 50 mg daily -Start Furosemide 20mg daily -Monitor liver enzymes AXEL likely due to hepatorenal syndrome -initial creatinine was 1.12 and BUN 15 -start spironolactone 25 mg daily -monitor kidney function Acute on chronic (HFpEF 70%) -echocardiogram performed on 07/13/2024 showed an LVEF of 70% -Ordered BNP -Start furosemide 20 mg daily, BP in the lower side -Start midodrine 10mg daily for low BP Pancytopenia in the setting of liver cirrhosis -leukopenia, thrombocytopenia, anemia -Transfused 2 units of RBCs -Monitor platelets Primary hypothyroidism -TSH elevated at 7.79, FT4 0.89 borderline low -Patient has weakness, fatigue, low BP, cold intolerance -Start levothyroxine at 50mcg qam (low dose), monitor FT4 abd titrate up if needed to 1.6mcg/kg Hyperlipidemia -Continue atorvastatin 40mg qd Goals of care discussed with the patient at bedside, FULL CODE Plan discussed with Dr. Rodriguez Plan discussed with: Patient My Orders Orders - SALLY ALONZO Procedure Category Date Status Time Admit ADMIT 10/08/24 Transmitted 00:43 Code Status CODE 10/08/24 Transmitted 00:43 Vital Signs TIFFANIE 10/08/24 In Process 00:43 Review Orders With TIFFANIE 10/08/24 In Process Adm. 00:43 Encourage Activity As TIFFANIE 10/08/24 In Process Tolerate 00:43 Docusate Sodium PHA 10/08/24 In Process Capsule (Colace 00:45 Notify Of Changes TIFFANIE 10/08/24 In Process From Base 00:43 Advance Directive TIFFANIE 10/08/24 In Process 00:43 Patient Condition ORDERS 10/08/24 Transmitted 00:43 Allergies TIFFANIE 10/08/24 In Process 00:43 Hydrocodone-Acet PHA 10/08/24 In Process 5/325mg Tab ([place] 00:45 Thyroid Stimulating LAB 10/08/24 Logged Hormone 00:46 Free T4 (Free LAB 10/08/24 Logged Thyroxine) 00:46 Hemoglobin A1c LAB 10/08/24 Logged 00:46 Lipid Panel LAB 10/08/24 Logged 00:46 Lactic Acid W/ Reflex LAB 10/08/24 Logged Order 00:46 Abdomen Limited US 10/08/24 Logged 00:46 Spironolactone PHA 10/08/24 In Process (Aldactone) 08:00 Midodrine Tablet PHA 10/08/24 In Process (Proamatine Tablet) 10:00 Date of Service: Oct 08, 2024 Billing Provider: PEYMAN RODRIGUEZ MD Common Visit Codes: [id number] INP/OBS CARE (HIGH) SALLY ALONZO RESIDENT Oct 08, 2024 03:19 PEYMAN RODRIGUEZ MD Oct 08, 2024 16:53
[2024-10-08] MEDS: PANTOPRAZOLE 40 MG/10 ML VIAL INJ IV SCH (03:38)
[2024-10-08] MEDS: LEVOTHYROXINE SODIUM 50 MCG TAB PO SCH (03:41)
[2024-10-08] MEDS: SPIRONOLACTONE 25 MG TAB PO SCH (03:42)
[2024-10-08] MEDS ORDERED: LEVOTHYROXINE SODIUM 88 MCG TAB PO SCH (06:00)
[2024-10-08] MEDS: POTASSIUM CHL 20 Meq TABLET PO ONE (06:01)
[2024-10-08 07:02] LABS: Alkaline Phosphatase 83 U/L (46-116); Anion Gap 7 (5-15); BUN/Creatinine Ratio 12.1 (10.0-20.0); Blood Urea Nitrogen 12 mg/dL (9-23); Calcium 9.7 mg/dL (8.7-10.4); Carbon Dioxide 30 mmol/L (20-31); Chloride 102 mmol/L (98-107); Glucose 80 mg/dL (74-106); Sodium 139 mmol/L (136-145); Total Protein 6.5 g/dL (5.7-8.2)
[2024-10-08 07:03] LABS: Basophils # (auto) 0 10 ^3/uL (0-0.2); Eosinophils # (auto) 0.1 10 ^3/uL (0-0.8); Monocytes # (auto) 0.2 10 ^3/uL (0-1.3); White Blood Cell 2.6 10^3/uL (4.4-10.8)
[2024-10-08 07:07] LABS: Basophils % (auto) 0.6 % (0.0-2.0); Eosinophils % (auto) 2.6 % (0.0-7.0); Hematocrit 17.7 % (36.0-46.0); Lymphocytes # (auto) 0.8 10 ^3/uL (0.4-5.4); Lymphocytes % (auto) 31.3 % (10.0-50.0); Mean Corpuscular Hemoglobin 36.9 pg (28.0-32.0); Mean Corpuscular Hgb Conc. 33.7 g/dL (32.0-36.0); Mean Corpuscular Volume 109.4 fL (80.0-100.0); Monocytes % (auto) 7.6 % (0.0-12.0); Neutrophils # (auto) 1.5 10 ^3/uL (1.6-8.6); Neutrophils % (auto) 57.9 % (37.0-80.0); Nucleated Red Blood Cells % 0.3 %; Platelet Count (auto) 60 10^3/uL (140-450); Red Blood Cells 1.62 10^6/uL (4.0-5.20)
[2024-10-08 07:13] LABS: Alanine Aminotransferase 53 U/L (7-40); Albumin 2.8 g/dL (3.2-4.8); Aspartate Aminotransferase 116 U/L (13-40); Bilirubin, Total 7.8 mg/dL (0.2-1.0); Potassium 3.3 mmol/L (3.5-5.1)
[2024-10-08 07:21] LABS: Red Cell Distribution Width 23.3 % (11.8-14.3)
[2024-10-08] MEDS: FUROSEMIDE 20 MG TAB PO SCH (08:00)
[2024-10-08] MEDS ORDERED: SPIRONOLACTONE 25 MG TAB PO SCH (08:00)
[2024-10-08] MEDS: MIDODRINE HCL 10 MG TAB PO SCH ×2 (08:54→11:58)
[2024-10-08] MEDS: GABAPENTIN 300 MG CAP PO SCH (08:55)
[2024-10-08 11:13] LABS: Platelet Estimate Decreased
[2024-10-08 11:14] LABS: Anisocytosis Slight; Macrocytosis Moderate
[2024-10-08] MEDS: OCTREOTIDE ACETATE 500 MCG in SODIUM CHL 0.9% 99 ML IV SCH (11:23)
--- NOTE | 2024-10-08 11:24 | DVH ---
EXAM: XY CHEST PORTABLE Indication: fluid overload Technique: Single frontal view of the chest was obtained Comparison: XY CHEST PORTABLE on DOS: 08/11/24, XY CHEST PORTABLE on DOS: 05/27/24, XY CHEST PORTABLE o n DOS: 05/09/24 FINDINGS: Lines and Tubes: None Lungs: No focal consolidation. Low lung volumes. Pleura: No effusion. No pneumothorax. Cardiomediastinal contours: Unremarkable Bones: No acute osseous abnormality. IMPRESSION: No acute cardiopulmonary disease.
[2024-10-08] MEDS: FUROSEMIDE 20 MG/2 ML VIAL IV ONE (11:30)
[2024-10-08 12:29] LABS: Hepatitis B Surface Antigen Negative (Negative)
[2024-10-08 12:35] LABS: Folate (Folic Acid) 36.58 ng/mL (>5.38)
[2024-10-08 12:46] LABS: Hepatitis C Antibody Negative (Negative)
[2024-10-08 15:57] LABS: Urine Bacteria None Seen /hpf (None Seen)
[2024-10-08 16:36] LABS: Cannabinoid Screen, Urine Pos (NEGATIVE); Opiate Scree,Urine Neg (NEGATIVE)
[2024-10-08 16:44] LABS: Urine Blood 3+ /uL (Negative); Urine Clarity Turbid (Clear); Urine Color Colorless (Yellow); Urine Protein, UAD Negative (Negative); Urine Specific Gravity 1.005 (1.001-1.035); Urine Squamous Epithelial Cell FEW /hpf (<5); Urine Urobilinogen Normal (Negative); Urine WBC 16 /hpf (0 - 5)
[2024-10-08 16:52] LABS: Amphetamine Screen, Urine Neg (NEGATIVE); Barbiturate Scree,Urine Neg (NEGATIVE); Benzodiazephine Screen, Urine Neg (NEGATIVE); Cocaine Screen, Urine Neg (NEGATIVE); Phencyclidine Screen, Urine Neg (NEGATIVE)
[2024-10-08] MEDS: HYDROcodone-ACET 5/325MG TAB PO PRN (18:10)
--- NOTE | 2024-10-08 18:59 | DVHPNRES ---
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 Patient notes that since being diagnosed with liver cirrhosis 1 year ago she has been experiencing fatigue, generalized body aches however, yesterday she started experiencing abdominal pain, distention and jaundice which prompted this visit to the hospital. She notes pain is localized to the periumbilical region with radiation to the flanks bilaterally. She notes that the pain is stabbing, 7/10. Patient received 2 PRBC transfusion in the ER. PCP is Dr. Pate. Past surgical history: Denies Home medications: Acamprosate, escitalopram, furosemide, gabapentin, lactulose, magnesium oxide, midodrine, rifaximin, spironolactone, tramadol Past Hospitalization: 09/22/2024 for similar complaints and intractable abdominal pain Social & Personal history: Patient lives with her friend. Currently unemployed. Denies using tobacco. Quit drinking alcohol in December, prior to that was drinking daily, 2-340% alcoholic drinks per day. Uses marijuana daily. Denies using any other drugs. Allergies: Denies Patient seen and examined at bedside. Patient is alert and oriented to time, place person and responding to all questions. General: Fatigue, chills Eyes: No Pain, No Vision change, No Conjunctivae inflammation, No Eyelid inflammation, No Other, No Redness ENT: No Ear pain, No Ear discharge, No Nose pain, No Nose discharge, No Nose congestion, No Mouth pain, No Mouth swelling, No Throat pain, No Throat swelling, No Other Cardiovascular: No Chest Pain, No Palpitations, No Orthopnea, Dyspnea, No Edema, No Lt Headedness, No Other Respiratory: Dry cough, Shortness of breath, SOB with exertion, No Wheezing, No Hemoptysis, No Pleuritic Pain, No Sputum, No Other Gastrointestinal: No Nausea, No Vomiting, No Abdominal Pain, No Diarrhea, No Constipation, No Melena, No Hematochezia, No Other Genitourinary: No Dysuria, No Frequency, No Incontinence, No Hematuria, No Retention, No Other Musculoskeletal: No other, No neck pain, No shoulder pain, No arm pain, No back pain, No hand pain, No leg pain, No foot pain Skin: No Rash, No Lesions, No Jaundice, No Bruising, No Other Neurologic: Dizziness Objective vital signs Vital Sign Date Time Temp Pulse Resp B/P (MAP) Pulse Ox O2 Delivery O2 Flow Rate FiO2 10/08/24 17:00 98.4 64 17 120/65 (83) 99 98.4 10/08/24 08:00 Nasal Cannula* 2 28 Total Intake and Output 10/07/24 10/07/24 10/08/24 15:00 23:00 07:00 Intake Total 800 ml Balance 800 ml medications Current Medications Medications Dose Ordered Sig/Adela Route Start Time Stop Time Status Last Admin Dose Admin Docusate Sodium 100 mg BIDPRN PRN PO 10/08/24 00:45 Acetaminophen/ Hydrocodone Bitart 1 tab Q4HP PRN PO 10/08/24 00:45 10/08/24 18:10 1 TAB Octreotide Acetate 500 mcg/ Sodium Chloride 100 ml @ 10 mls/hr Q10H IV 10/08/24 01:15 10/08/24 11:23 10 MLS/HR Pantoprazole Sodium 40 mg BID IV 10/08/24 01:15 10/08/24 08:55 40 MG Atorvastatin Calcium 40 mg HS PO 10/08/24 22:00 Levothyroxine Sodium 50 mcg QAM@0600 PO 10/08/24 03:30 10/08/24 03:41 50 MCG Ceftriaxone Sodium 50 ml @ 100 mls/hr DAILY@09 IV 10/09/24 09:00 Midodrine 10 mg TID@0600,1200,1800 PO 10/08/24 12:00 10/08/24 18:10 10 MG Furosemide 20 mg DAILY IV 10/09/24 10:00 Examination General Appearance: Cooperative. Well developed. Well nourished. NAD Head Exam: Normal inspection Neck Exam: Normal inspection. Non-tender. Normal alignment Pulmonary/Respiratory: Chest non-tender. Clear bilateral breath sounds, no crackles, no wheezing. Cardiovascular/Chest: Regular rate and rhythm. Systolic murmur. No JVD. Peripheral Pulses: 2+ Radial (R). 2+ Radial (L). 2+ Pedal (R). 2+ Pedal (L) Abdominal Exam: Normal bowel sounds. Soft. normal abdomen, no visible veins, g eneralized abdominal tenderness to palpation No hepatospenomegaly. No masses Ankle Exam: Negative ankle edema Lower extremities: 1+ lower extremity edema Neuro/Mental Status: A&O x4. Coherent. Thoughts/Psych: Normal thought pattern. Appropriate mood and affect. Good judgement and insight Skin Exam: Normal inspection. Normal color. Warm. Dry. Jaundiced laboratory and microbiology Laboratory Tests 10/08/24 06:26 Test 10/08/24 06:26 Range/Units Serum Glucose 80 74-106 mg/dL Labs and/or images reviewed: Labs reviewed by me, Image(s) reviewed by me Problem List/Assessment/Plan Problem List/Assessment/Plan Alcoholic liver cirrhosis, decompensated Possible upper GI bleed Severe anemia, s/p 2 PRBCs Acute on chronic heart failure with preserved ejection fraction Pancytopenia likely due to above AXEL possibly due to hepatorenal syndrome - CT abdomen pelvis: Small right-sided pleural effusion, trace diffuse ascites, and diffuse anasarca. Findings are concerning for fluid overload state. Mildly distended urinary bladder demonstrates draining hyperdense material. May reflect recent passage of contrast with other etiologies not excluded. Splenomegaly. Moderate fecal retention throughout the colon. Cholelithiasis. - liver ultrasound: Cholelithiasis without sonographic evidence of cholecystitis. Hepatic steatosis versus medical liver disease with irregular contours which can be seen with cirrhosis. - CXR: No acute cardiopulmonary disease. - IV ceftriaxone - octreotide drip, IV Protonix 40 mg b.i.d. - midodrine 10 mg t.i.d. - IV furosemide 20 mg - held spironolactone owing to soft blood pressure - NPO starting midnight for endoscopy in the a.m. - GI consulted Hypothyroidism, TSH 7.79 - levothyroxine 50 mcg Dyslipidemia - atorvastatin 40 mg DVT prophylaxis: Held due to possible upper GI bleed Goals of care: Full code, discussed for >16 minutes on 10/08/24 Plan discussed with patient Plan discussed with Dr. Rodriguez Plan discussed with: Patient, Other (RN) My Orders My Orders Orders - JERAMY RICE RESIDENT Procedure Category Date Status Time Chest Portable XY 10/08/24 Resulted 10:24 Ceftriaxone 1gm/50ml PHA 10/09/24 In Process D5w (Rocephin) 09:00 Stool Occult Blood LAB 10/08/24 Logged 10:26 CC Plasma Assessment Blood Product Administration S: 0140 Date of Service: Oct 08, 2024 Billing Provider: PEYMAN RODRIGUEZ MD Common Visit Codes: [id number] INP/OBS CARE(HIGH) JERAMY RICE RESIDENT Oct 08, 2024 18:59 PEYMAN RODRIGUEZ MD Oct 12, 2024 11:30
--- NOTE | 2024-10-08 20:23 | DVHINCON2 ---
Date of service: Oct 08, [address] Rodriguez Reason for Consultation Anemia pancytopenia and liver cirrhosis History of Present Illness 33-year-old female admitted with recurrent chronic abdominal pain Patient has had multiple prior admissions due to similar problems, patient states she knows when she gets anemic and comes to the hospital There was no active GI bleeding reported recently. SP colonoscopy 08/14/2024 WNL; small hemorrhoids SP EGD2 and [id number] ; gastroduodenitis; no active bleeding Past Medical History CHF, anemia, stage II hemorrhoid, liver cirrhosis Chronic marijuana use Patient is an ex alcoholic, she claims she quit drinking almost a year ago Past Surgical History Neck surgery in childhood Family History: Alcoholism G8 BROTHER Cardiovascular disease G8 MOTHER, G8 FATHER, Diabetes mellitus G8 MOTHER, G8 FATHER, G8 BROTHER Hypertension G8 MOTHER, G8 FATHER, Allergies: Coded Allergies: NO KNOWN ALLERGIES (Unverified , 12/10/23) Home Meds Active Scripts Levofloxacin Hemihydrate (LEVAQUIN 500 MG) 500 Mg Tab, 1 TAB PO DAILY, #7 TAB Prov:SHRUTHI HUDSON MD 09/23/24 Tramadol HCl (Tramadol HCl) 50 Mg Tab, 50 MG PO Q6HPRN PRN, #20 TAB Prov:SHRUTHI HUDSON MD 09/22/24 Spironolactone (Aldactone) 25 Mg Tab, 1 TAB PO DAILY, #30 TAB 5 Refills Prov:MASON GRAY MD 06/01/24 Reported Medications Docusate Sodium (Colace) 100 Mg Cap, 1 CAP PO BID for 30 Days, #60 09/21/24 Potassium Chloride (Potassium Chloride ER) 20 Meq Tab, 1 TAB PO DAILY for 30 Days, #30 09/21/24 Ergocalciferol (VITAMIN D 36698 UNIT) 50,000 Unit Cp, 1 CAP PO QWEEKLY for 4 Days, #28 09/21/24 Rifaximin (Xifaxan) 550 Mg Tab, 1 TAB PO BID 08/12/24 Lactulose (Lactulose) 10 Gm/15 Ml Yesenia, 15 ML PO BID, ML 08/12/24 Ferrous Sulfate (Ferrous Sulfate) 325 Mg Tab, 1 TAB PO DAILY 08/12/24 Escitalopram Oxalate (ESCITALOPRAM OXALATE) 10 Mg Tab, 10 MG PO DAILY, TAB 08/12/24 Furosemide (Furosemide) 40 Mg Tab, 1 TAB PO DAILY 08/12/24 Tramadol Hcl (Tramadol Hcl) 50 Mg Tab, 50 MG PO DAILY PRN for PAIN SCALE 7 THRU 10, MG 06/21/24 Magnesium Oxide (MAGNESIUM OXIDE) 400 Mg Tab, 1 TAB PO DAILY, TAB 05/29/24 Acamprosate Calcium (ACAMPROSATE CALCIUM DR) 333 Mg Tab, 2 TAB PO BID, TAB 05/28/24 Midodrine HCl (Midodrine HCl) 10 Mg Tab, 1 TAB PO BID 05/11/24 Acyclovir (ZOVIRAX TABLET) 400 Mg Tb, 400 MG PO BID for HERPES IF GOING TO BE SEXUALLY, TAB 04/04/24 Folic Acid (Folic Acid) 1 Mg Tab, 1 MG PO DAILY, TAB 12/11/23 Gabapentin (Gabapentin) 300 Mg Cap, 1 CAP PO DAILY 12/11/23 Current Medications Current Medications Medications (Trade) Dose Ordered Sig/Adela Route PRN Reason Start Time Stop Time Status Last Admin Docusate Sodium (Colace Capsule) 100 mg BIDPRN PRN PO FOR CONSTIPATION 10/08/24 00:45 Acetaminophen/ Hydrocodone Bitart (Ellerbe 5/325MG Tab) 1 tab Q4HP PRN PO MODERATE PAIN (4-6 PAIN SCALE) 10/08/24 00:45 10/08/24 18:10 Spironolactone (Aldactone) 25 mg DAILY PO 10/08/24 08:00 10/08/24 02:35 DC Midodrine (Proamatine Tablet) 10 mg DAILY PO 10/08/24 10:00 10/08/24 10:29 DC 10/08/24 08:54 Octreotide Acetate 500 mcg/ Sodium Chloride 100 ml @ 10 mls/hr Q10H IV 10/08/24 01:15 10/08/24 11:23 Pantoprazole Sodium (Protonix) 40 mg BID IV 10/08/24 01:15 10/08/24 08:55 Atorvastatin Calcium (Lipitor) 40 mg HS PO 10/08/24 22:00 Gabapentin (Neurontin Capsule) 300 mg BID PO 10/08/24 10:00 10/08/24 10:29 DC 10/08/24 08:55 Spironolactone (Aldactone) 50 mg DAILY PO 10/08/24 02:45 10/08/24 17:26 DC 10/08/24 03:42 Furosemide (Lasix Tablet) 20 mg DAILY PO 10/08/24 08:00 10/08/24 10:29 DC Levothyroxine Sodium (Synthroid Tablet) 88 mcg QAM@0600 PO 10/08/24 06:00 10/08/24 03:18 DC Levothyroxine Sodium (Synthroid Tablet) 50 mcg QAM@0600 PO 10/08/24 03:30 10/08/24 03:41 Ceftriaxone Sodium 50 ml @ 100 mls/hr DAILY@09 IV 10/09/24 09:00 Midodrine (Proamatine Tablet) 10 mg TID@0600,1200,1800 PO 10/08/24 12:00 10/08/24 18:10 Furosemide (Lasix Injection) 20 mg DAILY IV 10/09/24 10:00 Vital Signs Vital Signs Date Time Temp Pulse Resp B/P (MAP) Pulse Ox O2 Delivery O2 Flow Rate FiO2 10/08/24 17:00 98.4 64 17 120/65 (83) 99 98.4 10/08/24 08:00 Nasal Cannula* 2 28 Physical Exam Hemodynamically stable, no localizing signs Full examination deferred Labs/Diagnostic Data Labs Test 10/08/24 15:55 10/08/24 06:26 10/08/24 01:10 10/07/24 19:31 Range/Units Urine Color Colorless Yellow Urine Clarity Turbid H Clear Urine pH 6.0 5.0-9.0 Urine Specific Mena 1.005 1.001-1.035 Urine Protein Negative Negative Urine Ketones Negative Negative Urine Blood 3+ H Negative /uL Urine Nitrite Negative Negative Urine Bilirubin Negative Negative Urine Urobilinogen Normal Negative mg/dL Urine Leukocyte Esterase 1+ Negative /uL Urine RBC 223 0 - 4 /hpf Urine WBC 16 0 - 5 /hpf Urine Squamous Epithelial Cells Few <5 /hpf Urine Bacteria None seen None Seen /hpf Urine Glucose Normal Normal mg/dL Urine Opiates Screen Neg NEGATIVE Urine Fentanyl Screen Neg NEGATIVE Urine Barbiturates Screen Neg NEGATIVE Urine Phencyclidine Screen Neg NEGATIVE Urine Amphetamines Screen Neg NEGATIVE Urine Benzodiazepines Screen Neg NEGATIVE Urine Cocaine Screen Neg NEGATIVE Urine Cannabinoids Screen Pos NEGATIVE White Blood Count 2.6 L 4.4-10.8 10^3/uL Red Blood Count 1.62 L 4.0-5.20 10^6/uL Hemoglobin 6.0 *L 12.2-16.2 g/dL Hematocrit 17.7 L 36.0-46.0 % Mean Corpuscular Volume 109.4 #H 80.0-100.0 fL Mean Corpuscular Hemoglobin 36.9 H 28.0-32.0 pg Mean Corpuscular Hemoglobin Concent 33.7 32.0-36.0 g/dL Red Cell Distribution Width 23.3 H 11.8-14.3 % Platelet Count 60 L 140-450 10^3/uL Mean Platelet Volume 8.0 6.9-10.8 fL Neutrophils (%) (Auto) 57.9 37.0-80.0 % Lymphocytes (%) (Auto) 31.3 10.0-50.0 % Monocytes (%) (Auto) 7.6 0.0-12.0 % Eosinophils (%) (Auto) 2.6 0.0-7.0 % Basophils (%) (Auto) 0.6 0.0-2.0 % Neutrophils # (Auto) 1.5 L 1.6-8.6 10 ^3/uL Lymphocytes # (Auto) 0.8 0.4-5.4 10 ^3/uL Monocytes # (Auto) 0.2 0-1.3 10 ^3/uL Eosinophils # (Auto) 0.1 0-0.8 10 ^3/uL Basophils # (Auto) 0 0-0.2 10 ^3/uL Nucleated Red Blood Cells 0.3 % Platelet Estimate Decreased Anisocytosis (manual) Slight Macrocytosis Moderate [place] Cells Moderate Sodium Level 139 136-145 mmol/L Potassium Level 3.3 L 3.5-5.1 mmol/L Chloride Level 102 98-107 mmol/L Carbon Dioxide Level 30 20-31 mmol/L Anion Gap 7 5-15 Blood Urea Nitrogen 12 9-23 mg/dL Creatinine 0.99 0.550-1.02 mg/dL Glomerular Filtration Rate Calc 76 >90 mL/min BUN/Creatinine Ratio 12.1 10.0-20.0 Serum Glucose 80 74-106 mg/dL Calcium Level 9.7 8.7-10.4 mg/dL Total Bilirubin 7.8 H 0.2-1.0 mg/dL Aspartate Amino Transferase (AST) 116 H 13-40 U/L Alanine Aminotransferase (ALT) 53 H 7-40 U/L Alkaline Phosphatase 83 46-116 U/L Total Protein 6.5 5.7-8.2 g/dL Albumin 2.8 L 3.2-4.8 g/dL Hemoglobin A1c < 3.8 <5.7 % A1C Lactic Acid Level 1.5 0.4-2.0 mmol/L B-Type Natriuretic Peptide 732.97 0-100 pg/mL Triglycerides Level 83 < 150 mg/dL Cholesterol Level 255 H < 200 mg/dL LDL Cholesterol 67 < 100 mg/dL HDL Cholesterol 32 L 40-59 mg/dL Vitamin B12 Level 693 211-911 pg/mL Folic Acid 36.58 >5.38 ng/mL Thyroid Stimulating Hormone (TSH) 7.79 H 0.55-4.78 uIU/mL Free Thyroxine (T4) Calculated 0.89 0.89-1.76 ng/dL Hepatitis B Surface Antigen Negative Negative Hepatitis C Antibody Negative Negative HIV (1&2) Antibody Negative Negative Ammonia < 10 L 11-32 umol/L Test 10/07/24 18:41 Range/Units Prothrombin Time 17.2 H 9.3-11.8 sec Prothrombin Time INR 1.69 H 0.9-1.15 Lipase 62 H 12-53 U/L Beta HCG, Quantitative 1.1 L 1.5-4.2 mIU/mL ABD PELVIC CT IMPRESSION: Small right-sided pleural effusion, trace diffuse ascites ascites, and diffuse anasarca. Findings are concerning for fluid overload state. Mildly distended urinary bladder demonstrating hyperdense material. May reflect recent passage of contrast with other etiologies not excluded. Splenomegaly. Moderate fecal retention throughout the colon. Cholelithiasis. Problems(with codes): (1) Hematuria (2) Severe anemia (3) Liver cirrhosis (4) Jaundice (5) Ascites (6) Hepatic steatosis (7) Calculus of gallbladder without cholecystitis without obstruction (8) Generalized weakness (9) Abdominal pain (10) Vaginal bleeding Plan/Recommendation Assessment plan Patient has [id number] pancytopenia likely related to advanced liver disease and splenomegaly Meld score is 20 points predictive of 19.6% three-month mortality Patient may also have underlying hemosiderosis as her ferritin level was also high Patient has had two endoscopies within the last six months without any signs of active bleeding; mild gastritis superficial AVMs If her hemoglobin drops further I will consider repeat endoscopy, otherwise continue supportive care Vitamin B12 serum folate iron profile, stool for occult blood Recent colonoscopy was negative except for small hemorrhoids, she does not need repeat colonoscopy Serum alpha fetoprotein, ammonia level ; monitor PT INR and labs Hematology evaluation for her pancytopenia, she was seen by Dr. Sukhjinder Sanches August of 2024 Patient will need outpatient referral to higher level of care for capsule endoscopy Consider outpatient referral for liver transplant evaluation also as the patient claims she has not been drinking for more than six months Over her prognosis is overall guarded Plan discussed with: Other (Dr rodriguez) ZAIRE SPENCER MD Oct 08, 2024 20:23
[2024-10-08] MEDS: PHYTONADIONE (VIT K)10 MG/ML 1ML VIAL SUBCUT ONE (20:40)
[2024-10-08 21:18] LABS: Hemoglobin 8.6 g/dL (12.2-16.2)
[2024-10-08 21:21] LABS: Hematocrit 24.1 % (36.0-46.0)
[2024-10-08] MEDS: ATORVASTATIN 20 MG TAB PO SCH (21:33)
[2024-10-09] VITALS (9 sets, daily range): BP systolic 92–103; BP diastolic 42–61; PULSE 59–75; RESP 14–20; TEMP 97.6–98.9; O2SAT 81–100
[2024-10-09 06:28] LABS: Basophils # (auto) 0.1 10 ^3/uL (0-0.2); Eosinophils # (auto) 0.1 10 ^3/uL (0-0.8); Lymphocytes # (auto) 0.5 10 ^3/uL (0.4-5.4); Platelet Count (auto) 53 10^3/uL (140-450); White Blood Cell 2.7 10^3/uL (4.4-10.8)
[2024-10-09 06:33] LABS: Basophils % (auto) 4.2 % (0.0-2.0); Eosinophils % (auto) 3.1 % (0.0-7.0); Hematocrit 23.1 % (36.0-46.0); Hemoglobin 8.3 g/dL (12.2-16.2); Lymphocytes % (auto) 17.7 % (10.0-50.0); Mean Corpuscular Hemoglobin 37.5 pg (28.0-32.0); Mean Corpuscular Hgb Conc. 35.8 g/dL (32.0-36.0); Mean Corpuscular Volume 104.8 fL (80.0-100.0); Monocytes # (auto) 0.2 10 ^3/uL (0-1.3); Monocytes % (auto) 8.3 % (0.0-12.0); Neutrophils # (auto) 1.8 10 ^3/uL (1.6-8.6); Neutrophils % (auto) 66.7 % (37.0-80.0); Nucleated Red Blood Cells % 0.4 %; Red Cell Distribution Width 25.1 % (11.8-14.3)
[2024-10-09 06:49] LABS: Anisocytosis Slight; Macrocytosis Slight; Platelet Estimate Decreased; Target Cell FEW
[2024-10-09 06:57] LABS: Anion Gap 7 (5-15); Chloride 101 mmol/L (98-107); Sodium 139 mmol/L (136-145)
[2024-10-09 06:59] LABS: Calcium 9.7 mg/dL (8.7-10.4); Carbon Dioxide 31 mmol/L (20-31)
[2024-10-09 07:04] LABS: Blood Urea Nitrogen 10 mg/dL (9-23); Glucose 94 mg/dL (74-106)
[2024-10-09 07:56] LABS: BUN/Creatinine Ratio 9.2 (10.0-20.0)
[2024-10-09] MEDS: FUROSEMIDE 20 MG/2 ML VIAL IV SCH (09:03)
[2024-10-09] MEDS: cefTRIAXone 1GM/50ML D5W 50 ML IV SCH (09:18)
[2024-10-09 10:49] LABS: Total Protein 6.6 g/dL (5.7-8.2)
[2024-10-09 11:00] LABS: Albumin 2.7 g/dL (3.2-4.8); Bilirubin, Direct 1.9 mg/dL (<0.3)
[2024-10-09] MEDS ORDERED: SODIUM CHLORIDE LOCK 30 ML ONE (14:03)
[2024-10-09] MEDS ORDERED: PHENYLEPHRINE HCL 10 MG/ML VL ONE (14:03)
[2024-10-09] MEDS ORDERED: PROPOFOL 10 MG/ML 20 ML IV ONE (14:03)
[2024-10-09] MEDS ORDERED: EPINEPHrine HCL 1 MG/1 ML AMP ONE (14:03)
[2024-10-09] MEDS ORDERED: KETAMINE 50mg/ML 1ml syringe ONE (14:07)
--- NOTE | 2024-10-09 14:22 | DVHOP2 ---
Operative Report DATE OF OPERATION: 10/09/24 PROCEDURE: Upper Endoscopy with biopsy. PREOPERATIVE INDICATION: The patient is a 34 -year-old female undergoing endoscopy for anemia and drop in hemoglobin hematocrit POSTOPERATIVE DIAGNOSES: 1. Minimal gastritis and gastropathy, no fresh or old blood in the stomach 2. Slightly irregular squamocolumnar junction but no significant varices, no hiatal hernia no esophagitis PROCEDURE PERFORMED BY: Zaire Marroquin GI NURSE: Anand SCOPE: Olympus videoendoscope. ASA CLASS: 3. PREOPERATIVE MEDICATIONS: Mac wilner, Dr. Michaels PROCEDURE IN DETAIL: After obtaining an informed consent, the patient was placed on left lateral decubitus position. The patient was then sedated with the above medications. A bite block was placed between her teeth. The endoscope was then passed through the oropharynx, into the esophagus, and through the stomach and pylorus up to the second and third part of the duodenum. The endoscope was then withdrawn. The 2nd and 3rd part of the duodenum and the duodenal bulb were normal. The pre-pyloric area and antrum showed minimal gastritis On retroflexion and straight on view the patient had minimal gastropathy in the proximal stomach. There was some retained gastric food contents which were aspirated There was no fresh or old blood in the stomach. No AVMs or bleeding sources were noted.The endoscope was then withdrawn into the distal esophagus The patient had slightly irregular squamocolumnar junction no esophagitis no varices and no hiatal hernia. The remaining distal and proximal esophagus and oropharynx were unremarkable The patient tolerated the procedure well without difficulty. COMPLICATIONS : None SPECIMENS: Gastric biopsies DISPOSITION: Transfer back to the floor Stable PLAN: 1. Await for biopsy result 2. Will place pt on Protonix 40 mg p.o. daily 3. Resume GI soft diet advance as tolerated 4. Outpatient referral to higher level of care for liver transplant evaluation as the patient has been abstinent for almost a year ZAIRE MARROQUIN MD Oct 09, 2024 14:22
--- NOTE | 2024-10-09 16:48 | DVHPNRES ---
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 Patient notes that since being diagnosed with liver cirrhosis 1 year ago she has been experiencing fatigue, generalized body aches however, yesterday she started experiencing abdominal pain, distention and jaundice which prompted this visit to the hospital. She notes pain is localized to the periumbilical region with radiation to the flanks bilaterally. She notes that the pain is stabbing, 7/10. Patient received 2 PRBC transfusion in the ER. PCP is Dr. Pate. Past surgical history: Denies Home medications: Acamprosate, escitalopram, furosemide, gabapentin, lactulose, magnesium oxide, midodrine, rifaximin, spironolactone, tramadol Past Hospitalization: 09/22/2024 for similar complaints and intractable abdominal pain Social & Personal history: Patient lives with her friend. Currently unemployed. Denies using tobacco. Quit drinking alcohol in December, prior to that was drinking daily, 2-340% alcoholic drinks per day. Uses marijuana daily. Denies using any other drugs. Allergies: Denies Patient seen and examined at bedside. Patient is alert and oriented to time, place person and responding to all questions. Patient notices having 2 episodes of hematuria in the last 24 hours. Continues to experience generalized abdominal tenderness along with generalized body aches. Objective vital signs Vital Sign Date Time Temp Pulse Resp B/P (MAP) Pulse Ox O2 Delivery O2 Flow Rate FiO2 10/09/24 14:50 66 15 109/49 (69) 100 10/09/24 14:17 97.1 97.1 10/09/24 14:17 Mask 7.0 100 Total Intake and Output 10/08/24 10/08/24 10/09/24 15:00 23:00 07:00 Intake Total 675 ml 400 ml Output Total 500 ml Balance 675 ml -100 ml medications Current Medications Medications Dose Ordered Sig/Adela Route Start Time Stop Time Status Last Admin Dose Admin Docusate Sodium 100 mg BIDPRN PRN PO 10/08/24 00:45 Acetaminophen/ Hydrocodone Bitart 1 tab Q4HP PRN PO 10/08/24 00:45 10/09/24 08:48 1 TAB Octreotide Acetate 500 mcg/ Sodium Chloride 100 ml @ 10 mls/hr Q10H IV 10/08/24 01:15 10/09/24 08:26 10 MLS/HR Pantoprazole Sodium 40 mg BID IV 10/08/24 01:15 10/09/24 09:03 40 MG Atorvastatin Calcium 40 mg HS PO 10/08/24 22:00 10/08/24 21:33 40 MG Levothyroxine Sodium 50 mcg QAM@0600 PO 10/08/24 03:30 10/09/24 05:36 50 MCG Ceftriaxone Sodium 50 ml @ 100 mls/hr DAILY@09 IV 10/09/24 09:00 10/09/24 09:18 100 MLS/HR Midodrine 10 mg TID@0600,1200,1800 PO 10/08/24 12:00 10/09/24 05:36 10 MG Furosemide 20 mg DAILY IV 10/09/24 10:00 10/09/24 09:03 20 MG Examination General Appearance: Cooperative. Well developed. Well nourished. NAD Head Exam: Normal inspection Neck Exam: Normal inspection. Non-tender. Normal alignment Pulmonary/Respiratory: Chest non-tender. Clear bilateral breath sounds, no crackles, no wheezing. Cardiovascular/Chest: Regular rate and rhythm. Systolic murmur. No JVD. Peripheral Pulses: 2+ Radial (R). 2+ Radial (L). 2+ Pedal (R). 2+ Pedal (L) Abdominal Exam: Normal bowel sounds. Soft. normal abdomen, no visible veins, g eneralized abdominal tenderness to palpation No hepatospenomegaly. No masses Ankle Exam: Negative ankle edema Lower extremities: 1+ lower extremity edema Neuro/Mental Status: A&O x4. Coherent. Thoughts/Psych: Normal thought pattern. Appropriate mood and affect. Good judgement and insight Skin Exam: Normal inspection. Normal color. Warm. Dry. 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 Findings are concerning for fluid overload state. Mildly distended urinary bladder demonstrates draining hyperdense material. May reflect recent passage of contrast with other etiologies not excluded. Splenomegaly. Moderate fecal retention throughout the colon. Cholelithiasis. - liver ultrasound: Cholelithiasis without sonographic evidence of cholecystitis. Hepatic steatosis versus medical liver disease with irregular contours which can be seen with cirrhosis. - CXR: No acute cardiopulmonary disease. - IV ceftriaxone - IV Protonix 40 mg b.i.d. - midodrine 10 mg t.i.d. - IV furosemide 20 mg - held spironolactone owing to soft blood pressure - NPO starting midnight for endoscopy in the a.m. - GI consulted, EGD today which showed minimal gastritis and gastropathy, no fresh or old blood in the stomach. Slightly irregular squamocolumnar junction but no significant basis, no hiatal hernia no esophagitis. Hematuria - Rios's placed - ordered creatinine kinase Hypothyroidism, TSH 7.79 - levothyroxine 50 mcg Dyslipidemia - atorvastatin 40 mg Marijuana use disorder -counseled on marijuana use cessation for 18 minutes DVT prophylaxis: Held due to possible upper GI bleed Goals of care: Full code, discussed for 20 minutes Plan discussed with patient Plan discussed with Dr. Cantor Plan discussed with: Patient, Other (RN) My Orders My Orders Orders - JERAMY RICE RESIDENT Procedure Category Date Status Time Insert/Manage Urinary TIFFANIE 10/09/24 In Process Catheter 14:54 Pt Request For Service PT 10/09/24 Logged 14:55 CC Plasma Assessment Blood Product Administration S: 0140 Addendum Addendum Addendum I was physically present for the rodriguez portions of the service provided to patient by THE RESIDENT. I have reviewed the documentation, discussed the case with resident and agree with the resident's documentation except as noted. Also the patient's clinical case was discussed with the patient's nurse. This medical document was created using an electronic medical record system with computerized dictation system. Although this document has been carefully reviewed, there might still be some phonetic and typographical errors. These areas are purely typographical due to imperfections of the software programs, and do not reflect any compromise in the patient's medical care. Late signature. Date of Service: Oct 09, 2024 Billing Provider: OTTO CANTOR MD Common Visit Codes: 88946-[id number] INP/OBS CARE(HIGH) Secondary Visit Codes: 01606-[id number] CHNG SMOKING >10MIN (Counseled on marijuana use cessation for 18 minutes), [id number] CARE PLAN 30 MINUTES (20 minutes) JERAMY RICE RESIDENT Oct 09, 2024 16:48 OTTO CANTOR MD Oct 10, 2024 07:14
[2024-10-09] MEDS ORDERED: ACETAMINOPHEN 325 MG TAB PO PRN (17:30)
[2024-10-10] VITALS (7 sets, daily range): BP systolic 89–145; BP diastolic 41–67; PULSE 59–68; RESP 18–20; TEMP 98.1–98.6; O2SAT 93–100
[2024-10-10 06:36] LABS: Alanine Aminotransferase 45 U/L (7-40); Albumin 2.6 g/dL (3.2-4.8); Alkaline Phosphatase 67 U/L (46-116); Anion Gap 5 (5-15); Aspartate Aminotransferase 96 U/L (13-40); BUN/Creatinine Ratio 10.3 (10.0-20.0); Blood Urea Nitrogen 12 mg/dL (9-23); Calcium 9.5 mg/dL (8.7-10.4); Carbon Dioxide 33 mmol/L (20-31); Chloride 99 mmol/L (98-107); Glucose 179 mg/dL (74-106); Potassium 3.5 mmol/L (3.5-5.1); Sodium 137 mmol/L (136-145); Total Protein 6.3 g/dL (5.7-8.2)
[2024-10-10 06:37] LABS: Bilirubin, Total 10.1 mg/dL (0.2-1.0)
[2024-10-10 06:39] LABS: Hematocrit 23.9 % (36.0-46.0); Hemoglobin 8.5 g/dL (12.2-16.2); Mean Corpuscular Hemoglobin 36.9 pg (28.0-32.0); Mean Corpuscular Hgb Conc. 35.5 g/dL (32.0-36.0); Mean Corpuscular Volume 103.7 fL (80.0-100.0); Platelet Count (auto) 54 10^3/uL (140-450); Red Cell Distribution Width 24.2 % (11.8-14.3); White Blood Cell 3.3 10^3/uL (4.4-10.8)
[2024-10-10 06:58] LABS: Band Neutrophils % (manual) 0; Basophils % (manual) 0 (0.0-2.0); Blast Cells 0; Eosinophils % (manual) 0 (0-7); Metamyelocytes % 0; Myelocytes % 0; Promyelocytes % 0; Reactive Lymphocytes 0
[2024-10-10 09:02] LABS: Anisocytosis Slight; Lymphocytes % (manual) 27 (10.0-50.0); Macrocytosis Slight; Monocytes % (manual) 5 (0-12); Platelet Estimate Decreased; Target Cell FEW
[2024-10-10] MEDS: LACTULOSE 20Gm/30ML SOLN PO ONE (15:44)
--- NOTE | 2024-10-10 19:50 | DVHPNRES ---
Progress Note Date Seen: Oct 10, 2024 Resident Creating Document: VIRI DON RESIDENT Medical Necessity Reason Pt with a Central, PICC or Fol: No Subjective Review of Systems pt seen and examined at bedside, patient is drowsy complaining of generalized body pain including back, abd and bilateral lower limbs mentions of vaginal bleeding. Objective vital signs Vital Sign Date Time Temp Pulse Resp B/P (MAP) Pulse Ox O2 Delivery O2 Flow Rate FiO2 10/10/24 17:00 98.3 62 19 121/49 (73) 97 98.3 10/10/24 08:00 Nasal Cannula* 2 28 Total Intake and Output 10/09/24 10/09/24 10/10/24 15:00 23:00 07:00 Intake Total 150 ml 603 ml 200 ml Output Total 450 ml Balance 150 ml 603 ml -250 ml medications Current Medications Medications Dose Ordered Sig/Adela Route Start Time Stop Time Status Last Admin Dose Admin Docusate Sodium 100 mg BIDPRN PRN PO 10/08/24 00:45 Acetaminophen/ Hydrocodone Bitart 1 tab Q4HP PRN PO 10/08/24 00:45 10/10/24 01:21 1 TAB Pantoprazole Sodium 40 mg BID IV 10/08/24 01:15 10/10/24 09:38 40 MG Atorvastatin Calcium 40 mg HS PO 10/08/24 22:00 10/09/24 22:18 40 MG Levothyroxine Sodium 50 mcg QAM@0600 PO 10/08/24 03:30 10/10/24 04:42 50 MCG Ceftriaxone Sodium 50 ml @ 100 mls/hr DAILY@09 IV 10/09/24 09:00 10/10/24 09:00 100 MLS/HR Midodrine 10 mg TID@0600,1200,1800 PO 10/08/24 12:00 10/10/24 17:54 10 MG Furosemide 20 mg DAILY IV 10/09/24 10:00 10/09/24 09:03 20 MG Acetaminophen 650 mg Q8HP PRN PO 10/09/24 17:30 Lactulose 30 ml BID PO 10/10/24 22:00 Examination General Appearance: drowsy Pulmonary/Respiratory: Chest non-tender. Clear bilateral breath sounds, no crackles, no wheezing. Cardiovascular/Chest: Regular rate and rhythm. No JVD. Peripheral Pulses: 2+ Radial (R). 2+ Radial (L). 2+ Pedal (R). 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 Findings are concerning for fluid overload state. Mildly distended urinary bladder demonstrates draining hyperdense material. May reflect recent passage of contrast with other etiologies not excluded. Splenomegaly. Moderate fecal retention throughout the colon. Cholelithiasis. - liver ultrasound: Cholelithiasis without sonographic evidence of cholecystitis. Hepatic steatosis versus medical liver disease with irregular contours which can be seen with cirrhosis. - CXR: No acute cardiopulmonary disease. - IV ceftriaxone - IV Protonix 40 mg b.i.d. - midodrine 10 mg t.i.d. - IV furosemide 20 mg - held spironolactone owing to soft blood pressure - NPO starting midnight for endoscopy in the a.m. - GI consulted, EGD today which showed minimal gastritis and gastropathy, no fresh or old blood in the stomach. Slightly irregular squamocolumnar junction but no significant basis, no hiatal hernia no esophagitis. repeat KUB #Chronic pain -continue pain meds #Elevated bilirubin -likely due to liver cirrhosis -monitor CMP #?Vaginal bleeding -OBGYN consulted #?Hepatic encephalopathy ammonia levels lactulose to target 2-3 bowel movements #?UTI -iV ceftriaxone -urine culture #?Hematuria - Rios's placed - ordered creatinine kinase Hypothyroidism, TSH 7.79 - levothyroxine 50 mcg Dyslipidemia - atorvastatin 40 mg Marijuana use disorder -counseled on marijuana use cessation DVT prophylaxis: Held due to possible upper GI bleed Plan discussed with patient Plan discussed with Dr. Cantor Plan discussed with: Patient, Other My Orders My Orders Orders - VIRI DON RESIDENT Procedure Category Date Status Time Stool Occult Blood LAB 10/10/24 Logged 09:48 * Manager Switch Consultation CONS 10/10/24 Transmitted 14:57 Lactulose Oral PHA 10/10/24 In Process 22:00 Communication Order ORDERS 10/10/24 Transmitted 14:57 CC Plasma Assessment Blood Product Administration S: 0140 Addendum Addendum Addendum I was physically present for the rodriguez portions of the service provided to patient by THE RESIDENT. I have reviewed the documentation, discussed the case with resident and agree with the resident's documentation except as noted. Also the patient's clinical case was discussed with the patient's nurse. This medical document was created using an electronic medical record system with computerized dictation system. Although this document has been carefully reviewed, there might still be some phonetic and typographical errors. These areas are purely typographical due to imperfections of the software programs, and do not reflect any compromise in the patient's medical care. Late signature. Date of Service: Oct 10, 2024 Billing Provider: OTTO CANTOR MD Common Visit Codes: [id number] INP/OBS CARE(HIGH) VIRI DON RESIDENT Oct 10, 2024 19:50 OTTO CANTOR MD Oct 11, 2024 16:17
[2024-10-10] MEDS: LACTULOSE 20Gm/30ML SOLN PO SCH (21:20)
--- NOTE | 2024-10-10 21:22 | DVHPN2 ---
Progress Note - Dictate Date Seen: Oct 10, 2024 Medical Necessity Reason Pt with a Central, PICC or Fol: No Subjective Patient seen at bedside She has been complaining of some vaginal bleeding Rios catheter was inserted and there was no obvious hematuria vital signs Vital Sign Date Time Temp Pulse Resp B/P (MAP) Pulse Ox O2 Delivery O2 Flow Rate FiO2 10/10/24 17:00 98.3 62 19 121/49 (73) 97 98.3 10/10/24 08:00 Nasal Cannula* 2 28 Total Intake and Output 10/09/24 10/09/24 10/10/24 15:00 23:00 07:00 Intake Total 150 ml 603 ml 200 ml Output Total 450 ml Balance 150 ml 603 ml -250 ml medications Current Medications Medications Dose Ordered Sig/Adela Route Start Time Stop Time Status Last Admin Dose Admin Docusate Sodium 100 mg BIDPRN PRN PO 10/08/24 00:45 Acetaminophen/ Hydrocodone Bitart 1 tab Q4HP PRN PO 10/08/24 00:45 10/10/24 01:21 1 TAB Pantoprazole Sodium 40 mg BID IV 10/08/24 01:15 10/10/24 09:38 40 MG Atorvastatin Calcium 40 mg HS PO 10/08/24 22:00 10/09/24 22:18 40 MG Levothyroxine Sodium 50 mcg QAM@0600 PO 10/08/24 03:30 10/10/24 04:42 50 MCG Ceftriaxone Sodium 50 ml @ 100 mls/hr DAILY@09 IV 10/09/24 09:00 10/10/24 09:00 100 MLS/HR Midodrine 10 mg TID@0600,1200,1800 PO 10/08/24 12:00 10/10/24 17:54 10 MG Furosemide 20 mg DAILY IV 10/09/24 10:00 10/09/24 09:03 20 MG Acetaminophen 650 mg Q8HP PRN PO 10/09/24 17:30 Lactulose 30 ml BID PO 10/10/24 22:00 objective Awake and alert in no acute distress Pupils equal and react to light, mild pallor Lungs clear, CVS S1-S2 regular rate rhythm Abdomen is soft slightly distended mild tenderness there is no rebound or guarding Extremities trace pedal edema Rios catheter shows urine which is bile stained Mild vaginal bleeding noted around the catheter laboratory and microbiology Laboratory Tests 10/10/24 05:33 Test 10/10/24 05:33 Range/Units Serum Glucose 179 H 74-106 mg/dL Ultrasound of the liver IMPRESSION: Cholelithiasis without sonographic evidence of cholecystitis. Ancillary findings as described above. Hepatic steatosis versus medical liver disease with irregular contours which can be seen with cirrhosis. Problems(with codes): (1) Generalized weakness (2) Vaginal bleeding (3) Abdominal pain (4) Hepatic steatosis (5) Calculus of gallbladder without cholecystitis without obstruction (6) Severe anemia (7) Liver cirrhosis (8) Jaundice Prognosis Plan Hemoglobin is stable at 8.3 Pancytopenia due to splenomegaly and underlying cirrhosis We will get a pelvic ultrasound to further evaluate vaginal bleeding Correct coagulopathy with vitamin K Outpatient referral for liver transplant evaluation as the patient has been abstinent for almost a year Patient was counseled about discontinuing marijuana No further endoscopy or colonoscopy at this time I will also consider referral outpatient for a possible capsule endoscopy Plan discussed with: Patient, Other (Nurse) CC Plasma Assessment Blood Product Administration S: [id number] ZAIRE SPENCER MD Oct 10, 2024 21:22
[2024-10-11] VITALS (11 sets, daily range): BP systolic 94–130; BP diastolic 53–63; PULSE 63–89; RESP 17–18; TEMP 98.3–98.8; O2SAT 89–95
[2024-10-11] MEDS: phytonadione 1 ML ONE (00:14)
[2024-10-11] MEDS: phytonadione 10 MG in SODIUM CHL 0.9% 50 ML IV ONE (00:24)
[2024-10-11 07:18] LABS: Basophils # (auto) 0.1 10 ^3/uL (0-0.2); Basophils % (auto) 1.8 % (0.0-2.0); Eosinophils # (auto) 0.1 10 ^3/uL (0-0.8); Eosinophils % (auto) 3.5 % (0.0-7.0); Hematocrit 24.4 % (36.0-46.0); Hemoglobin 8.7 g/dL (12.2-16.2); Lymphocytes # (auto) 0.6 10 ^3/uL (0.4-5.4); Lymphocytes % (auto) 15.7 % (10.0-50.0); Mean Corpuscular Hemoglobin 36.8 pg (28.0-32.0); Mean Corpuscular Hgb Conc. 35.6 g/dL (32.0-36.0); Mean Corpuscular Volume 103.4 fL (80.0-100.0); Monocytes # (auto) 0.4 10 ^3/uL (0-1.3); Monocytes % (auto) 11.8 % (0.0-12.0); Neutrophils # (auto) 2.4 10 ^3/uL (1.6-8.6); Neutrophils % (auto) 67.2 % (37.0-80.0); Nucleated Red Blood Cells % 0.2 %; Platelet Count (auto) 47 10^3/uL (140-450); Red Blood Cells 2.36 10^6/uL (4.0-5.20); Red Cell Distribution Width 23.1 % (11.8-14.3); White Blood Cell 3.6 10^3/uL (4.4-10.8)
[2024-10-11 07:38] LABS: Alkaline Phosphatase 84 U/L (46-116); Anion Gap 7 (5-15); Calcium 9.3 mg/dL (8.7-10.4); Chloride 100 mmol/L (98-107); Potassium 3.9 mmol/L (3.5-5.1); Sodium 139 mmol/L (136-145)
[2024-10-11 07:39] LABS: BUN/Creatinine Ratio 11.4 (10.0-20.0); Blood Urea Nitrogen 12 mg/dL (9-23); Glucose 101 mg/dL (74-106); Magnesium 1.9 mg/dL (1.6-2.6)
[2024-10-11 07:41] LABS: Total Protein 6.4 g/dL (5.7-8.2)
[2024-10-11 07:43] LABS: Alanine Aminotransferase 42 U/L (7-40); Aspartate Aminotransferase 97 U/L (13-40); Bilirubin, Total 9.2 mg/dL (0.2-1.0); Carbon Dioxide 32 mmol/L (20-31)
[2024-10-11 07:44] LABS: Albumin 2.5 g/dL (3.2-4.8)
[2024-10-11 08:20] LABS: Anisocytosis Marked; Platelet Estimate Decreased
[2024-10-11 08:22] LABS: Macrocytosis Slight
--- NOTE | 2024-10-11 10:45 | DVH ---
INDICATION: Vaginal bleeding TECHNIQUE: Multiple real-time grayscale transabdominal sonographic images along with color and duplex Doppler of the uterus and ovaries were obtained. COMPARISON: US PELVIC on DOS: 04/22/24 FINDINGS: The uterus measures 4.5 cm. The endometrial stripe measures 0.2 cm. The right ovary measures 3.4 x 2.1 x 2.2 cm. The left ovary is not visualized. Subsequent color and duplex Doppler interrogation of the ovaries demonstrated normal vascular flow to the left ovary, though this does not exclude the possibility of torsion due to the dual blood supply . Small volume ascites is noted. Right pleural effusion is seen. The spleen is enlarged measuring 17.1 cm. IMPRESSION: 1. Grossly unremarkable pelvic ultrasound. The left ovary is not visualized on this study. 2. Small volume ascites. 3. Right pleural effusion. 4. Splenomegaly.
[2024-10-11 11:29] LABS: Urine Bacteria None Seen /hpf (None Seen)
--- NOTE | 2024-10-11 11:51 | DVHPN2 ---
Progress Note - Dictate Date Seen: Oct 11, 2024 Medical Necessity Reason Pt with a Central, PICC or Fol: No Subjective No new complaints, patient is sleeping She has been complaining of some vaginal bleeding Hemoglobin stable at 8.7, ongoing pancytopenia due to cirrhosis and splenomegaly Liver enzymes are stable and trending down Rios catheter was inserted and there was no obvious hematuria UA was sent for analysis vital signs Vital Sign Date Time Temp Pulse Resp B/P (MAP) Pulse Ox O2 Delivery O2 Flow Rate FiO2 10/11/24 09:36 118/56 10/11/24 09:00 98.5 69 17 89 98.5 10/11/24 08:00 Room Air* 0 21 Total Intake and Output 10/10/24 10/10/24 10/11/24 15:00 23:00 07:00 Intake Total 50 ml 300 ml 600 ml Output Total 600 ml 550 ml Balance 50 ml -300 ml 50 ml medications Current Medications Medications Dose Ordered Sig/Adela Route Start Time Stop Time Status Last Admin Dose Admin Docusate Sodium 100 mg BIDPRN PRN PO 10/08/24 00:45 Acetaminophen/ Hydrocodone Bitart 1 tab Q4HP PRN PO 10/08/24 00:45 10/10/24 21:24 1 TAB Pantoprazole Sodium 40 mg BID IV 10/08/24 01:15 10/10/24 21:20 40 MG Atorvastatin Calcium 40 mg HS PO 10/08/24 22:00 10/10/24 21:20 40 MG Levothyroxine Sodium 50 mcg QAM@0600 PO 10/08/24 03:30 10/11/24 05:25 50 MCG Ceftriaxone Sodium 50 ml @ 100 mls/hr DAILY@09 IV 10/09/24 09:00 10/11/24 09:35 100 MLS/HR Midodrine 10 mg TID@0600,1200,1800 PO 10/08/24 12:00 10/11/24 05:25 10 MG Furosemide 20 mg DAILY IV 10/09/24 10:00 10/11/24 09:36 20 MG Acetaminophen 650 mg Q8HP PRN PO 10/09/24 17:30 Lactulose 30 ml BID PO 10/10/24 22:00 10/11/24 09:35 30 ML objective Awake and alert in no acute distress Pupils equal and react to light, mild pallor Lungs clear, CVS S1-S2 regular rate rhythm Abdomen is soft slightly distended mild tenderness there is no rebound or guarding Extremities trace pedal edema Rios catheter shows urine which is bile stained Mild vaginal bleeding noted around the catheter laboratory and microbiology Laboratory Tests 10/11/24 06:12 Test 10/11/24 06:12 Range/Units Serum Glucose 101 74-106 mg/dL Problems(with codes): (1) Calculus of gallbladder without cholecystitis without obstruction (2) Hepatic steatosis (3) Abdominal pain (4) Vaginal bleeding (5) Generalized weakness (6) Severe anemia (7) Liver cirrhosis (8) Jaundice (9) Ascites (10) Hepatic encephalopathy (11) Blood loss anemia Prognosis Plan Patient is scheduled for a pelvic ultrasound She is also waiting for repeat UA urine culture Continue supportive care ; add ursodiol 300 mg p.o. twice a day Meld score is 20 points predictive of 19.6% three-month mortality Alpha fetoprotein level slightly elevated to 10.1 due to underlying chronic liver disease, no mass seen Patient may also have underlying hemosiderosis as her ferritin level was also high ; we will check iron panel in the morning Outpatient referral for liver transplant evaluation as the patient has been abstinent for almost a year Patient was counseled about discontinuing marijuana No further endoscopy or colonoscopy at this time I will also consider referral outpatient for a possible capsule endoscopy Plan discussed with: Patient CC Plasma Assessment Blood Product Administration S: [id number] ZAIRE SPENCER MD Oct 11, 2024 11:51
[2024-10-11 12:23] LABS: Urine Blood TRACE /uL (Negative); Urine Clarity Clear (Clear); Urine Color Yellow (Yellow); Urine Protein, UAD Negative (Negative); Urine Specific Gravity 1.012 (1.001-1.035); Urine Squamous Epithelial Cell FEW /hpf (<5); Urine Urobilinogen Normal (Negative); Urine WBC 3 /hpf (0 - 5); Urine pH 6.5 (5.0-9.0)
[2024-10-11 12:39] LABS: INR 1.76 (0.9-1.15); Prothrombin Time 17.9 sec (9.3-11.8)
--- NOTE | 2024-10-11 13:07 | DVH ---
EXAM: XY KUB ABDOMEN SINGLE VIEW HISTORY: abd pain COMPARISON: None TECHNIQUE: Single AP of the abdomen and pelvis was obtained. Findings: Frontal view of the abdomen demonstrates a nonobstructive bowel gas pattern. No visualized renal calc manohar. There is no evidence of an acute fracture, dislocation, blastic, or lytic lesions. The visualized portions of the lung bases are unremarkable. No radiopaque foreign bodies. No superficial soft tissue abnormalities. Impression: 1. Nonobstructive bowel gas pattern. 2. No visualized renal calculi.
--- NOTE | 2024-10-11 14:19 | DVHPNRES ---
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 Patient notes that since being diagnosed with liver cirrhosis 1 year ago she has been experiencing fatigue, generalized body aches however, yesterday she started experiencing abdominal pain, distention and jaundice which prompted this visit to the hospital. She notes pain is localized to the periumbilical region with radiation to the flanks bilaterally. She notes that the pain is stabbing, 7/10. Patient received 2 PRBC transfusion in the ER. PCP is Dr. Pate. Past surgical history: Denies Home medications: Acamprosate, escitalopram, furosemide, gabapentin, lactulose, magnesium oxide, midodrine, rifaximin, spironolactone, tramadol Past Hospitalization: 09/22/2024 for similar complaints and intractable abdominal pain Social & Personal history: Patient lives with her friend. Currently unemployed. Denies using tobacco. Quit drinking alcohol in December, prior to that was drinking daily, 2-340% alcoholic drinks per day. Uses marijuana daily. Denies using any other drugs. Allergies: Denies Patient seen and examined at bedside. Patient is alert and oriented to time, place person and responding to all questions. Notes chills. Objective vital signs Vital Sign Date Time Temp Pulse Resp B/P (MAP) Pulse Ox O2 Delivery O2 Flow Rate FiO2 10/11/24 13:00 98.5 82 18 127/61 (83) 94 98.5 10/11/24 08:00 Room Air* 0 21 Total Intake and Output 10/10/24 10/10/24 10/11/24 15:00 23:00 07:00 Intake Total 50 ml 300 ml 600 ml Output Total 600 ml 550 ml Balance 50 ml -300 ml 50 ml medications Current Medications Medications Dose Ordered Sig/Adela Route Start Time Stop Time Status Last Admin Dose Admin Docusate Sodium 100 mg BIDPRN PRN PO 10/08/24 00:45 Acetaminophen/ Hydrocodone Bitart 1 tab Q4HP PRN PO 10/08/24 00:45 10/11/24 13:49 1 TAB Pantoprazole Sodium 40 mg BID IV 10/08/24 01:15 10/11/24 10:00 40 MG Atorvastatin Calcium 40 mg HS PO 10/08/24 22:00 10/10/24 21:20 40 MG Levothyroxine Sodium 50 mcg QAM@0600 PO 10/08/24 03:30 10/11/24 05:25 50 MCG Ceftriaxone Sodium 50 ml @ 100 mls/hr DAILY@09 IV 10/09/24 09:00 10/11/24 09:35 100 MLS/HR Midodrine 10 mg TID@0600,1200,1800 PO 10/08/24 12:00 10/11/24 12:00 10 MG Furosemide 20 mg DAILY IV 10/09/24 10:00 10/11/24 09:36 20 MG Acetaminophen 650 mg Q8HP PRN PO 10/09/24 17:30 Lactulose 30 ml BID PO 10/10/24 22:00 10/11/24 09:35 30 ML Examination General Appearance: Cooperative. Well developed. Well nourished. NAD Head Exam: Normal inspection Neck Exam: Normal inspection. Non-tender. Normal alignment Pulmonary/Respiratory: Chest non-tender. Clear bilateral breath sounds, no crackles, no wheezing. Cardiovascular/Chest: Regular rate and rhythm. Systolic murmur. No JVD. Peripheral Pulses: 2+ Radial (R). 2+ Radial (L). 2+ Pedal (R). 2+ Pedal (L) Abdominal Exam: Normal bowel sounds. Soft. normal abdomen, no visible veins, g eneralized abdominal tenderness to palpation No hepatospenomegaly. No masses Ankle Exam: Negative ankle edema Lower extremities: 1+ lower extremity edema Neuro/Mental Status: A&O x4. Coherent. Thoughts/Psych: Normal thought pattern. Appropriate mood and affect. Good judgement and insight Skin Exam: Normal inspection. Normal color. Warm. Dry. 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 Findings are concerning for fluid overload state. Mildly distended urinary bladder demonstrates draining hyperdense material. May reflect recent passage of contrast with other etiologies not excluded. Splenomegaly. Moderate fecal retention throughout the colon. Cholelithiasis. - liver ultrasound: Cholelithiasis without sonographic evidence of cholecystitis. Hepatic steatosis versus medical liver disease with irregular contours which can be seen with cirrhosis. - CXR: No acute cardiopulmonary disease. - IV ceftriaxone - IV Protonix 40 mg b.i.d. - midodrine 10 mg t.i.d. - IV furosemide 20 mg - held spironolactone owing to soft blood pressure - NPO starting midnight for endoscopy in the a.m. - GI consulted, EGD today which showed minimal gastritis and gastropathy, no fresh or old blood in the stomach. Slightly irregular squamocolumnar junction but no significant basis, no hiatal hernia no esophagitis. - KUB x-ray: Nonobstructive bowel gas pattern. No visualized renal calculi. Vaginal bleeding - daytime caregiver on board - pelvic USG: Grossly unremarkable pelvic ultrasound. Left ovary is not visualized. Small volume ascites. Right pleural effusion. Splenomegaly. Acute complicated UTI - IV ceftriaxone - awaiting urine cultures Hematuria, ruled out - Rios - ordered creatinine kinase Hypothyroidism, TSH 7.79 - levothyroxine 50 mcg Dyslipidemia - atorvastatin 40 mg Marijuana use disorder - counseled on cessation DVT prophylaxis: Held due to possible upper GI bleed Plan discussed with patient Plan discussed with Dr. Cantor Plan discussed with: Patient, Other (RN) My Orders My Orders Orders - JERAMY RICE RESIDENT Procedure Category Date Status Time Blood Culture DONNELL 10/11/24 In Process 11:23 Frozen Plasma BBK 10/11/24 Logged 11:24 CC Plasma Assessment Blood Product Administration S: [id number] Addendum Addendum Addendum I was physically present for the rodriguez portions of the service provided to patient by THE RESIDENT. I have reviewed the documentation, discussed the case with resident and agree with the resident's documentation except as noted. Also the patient's clinical case was discussed with the patient's nurse. This medical document was created using an electronic medical record system with computerized dictation system. Although this document has been carefully reviewed, there might still be some phonetic and typographical errors. These areas are purely typographical due to imperfections of the software programs, and do not reflect any compromise in the patient's medical care. Late signature. Date of Service: Oct 11, 2024 Billing Provider: OTTO CANTOR MD Common Visit Codes: [id number] INP/OBS CARE(HIGH) JERAMY RICE RESIDENT Oct 11, 2024 14:19 OTTO CANTOR MD Oct 11, 2024 16:18
[2024-10-12] VITALS (8 sets, daily range): BP systolic 80–99; BP diastolic 38–56; PULSE 65–100; RESP 16–18; TEMP 98.6–99.2; O2SAT 88–100
[2024-10-12 07:29] LABS: Alanine Aminotransferase 36 U/L (7-40); Alkaline Phosphatase 67 U/L (46-116); Anion Gap 5 (5-15); BUN/Creatinine Ratio 11.4 (10.0-20.0); Blood Urea Nitrogen 12 mg/dL (9-23); Calcium 9.2 mg/dL (8.7-10.4); Chloride 99 mmol/L (98-107); Glucose 91 mg/dL (74-106); Potassium 3.7 mmol/L (3.5-5.1)
[2024-10-12 07:30] LABS: Total Protein 5.9 g/dL (5.7-8.2)
[2024-10-12 07:34] LABS: Hemoglobin 8.2 g/dL (12.2-16.2); Monocytes # (auto) 0.4 10 ^3/uL (0-1.3); Monocytes % (auto) 12.2 % (0.0-12.0); Nucleated Red Blood Cells % 0.1 %; White Blood Cell 3.4 10^3/uL (4.4-10.8)
[2024-10-12 07:38] LABS: Basophils # (auto) 0 10 ^3/uL (0-0.2); Basophils % (auto) 1.4 % (0.0-2.0); Eosinophils # (auto) 0.1 10 ^3/uL (0-0.8); Eosinophils % (auto) 2.7 % (0.0-7.0); Hematocrit 22.7 % (36.0-46.0); Lymphocytes # (auto) 0.8 10 ^3/uL (0.4-5.4); Lymphocytes % (auto) 22.4 % (10.0-50.0); Mean Corpuscular Hemoglobin 37.7 pg (28.0-32.0); Mean Corpuscular Volume 104.6 fL (80.0-100.0); Neutrophils # (auto) 2.1 10 ^3/uL (1.6-8.6); Neutrophils % (auto) 61.3 % (37.0-80.0); Platelet Count (auto) 37 10^3/uL (140-450); Red Blood Cells 2.17 10^6/uL (4.0-5.20)
[2024-10-12 07:42] LABS: Albumin 2.3 g/dL (3.2-4.8); Aspartate Aminotransferase 88 U/L (13-40); Bilirubin, Total 9.2 mg/dL (0.2-1.0); Carbon Dioxide 32 mmol/L (20-31); Sodium 136 mmol/L (136-145)
[2024-10-12 09:24] LABS: Anisocytosis Slight; Macrocytosis Slight; Platelet Estimate Decreased; Red Cell Distribution Width 22.3 % (11.8-14.3)
--- NOTE | 2024-10-12 09:40 | DVHINCON2 ---
Date of service: Oct 12, 2024 Reason for Consultation Acute on chronic anemia Vaginal bleeding History of Present Illness HPI (Please refer to previous consultation reports from prior admissions) Known patient with Cirrhosis of liver, coagulopathy and anemia Admitted with abdominal pain and symptomatic anemia s/p 2 units PRBC. Patient has PANCYTOPENIA s/p EGD by GI with no acute gastritis or bleeding esophageal varices Endorsed vaginal bleeding, but not heavy, now resolved. LMP 10/09/24 x 3 days or light bleeding only. Pelvic US is unremarkable. I previously did a PAP smear, EMBx in office which were both benign. PMHx : Liver Cirrhosis, Pancytopenia, others per medical record Home Meds Active Scripts Levofloxacin Hemihydrate (LEVAQUIN 500 MG) 500 Mg Tab, 1 TAB PO DAILY, #7 TAB Prov:SHRUTHI HUDSON MD 09/23/24 Tramadol HCl (Tramadol HCl) 50 Mg Tab, 50 MG PO Q6HPRN PRN, #20 TAB Prov:SHRUTHI HUDSON MD 09/22/24 Spironolactone (Aldactone) 25 Mg Tab, 1 TAB PO DAILY, #30 TAB 5 Refills Prov:MASON GRAY MD 06/01/24 Reported Medications Docusate Sodium (Colace) 100 Mg Cap, 1 CAP PO BID for 30 Days, #60 09/21/24 Potassium Chloride (Potassium Chloride ER) 20 Meq Tab, 1 TAB PO DAILY for 30 Days, #30 09/21/24 Ergocalciferol (VITAMIN D 63735 UNIT) 50,000 Unit Cp, 1 CAP PO QWEEKLY for 4 Days, #28 09/21/24 Rifaximin (Xifaxan) 550 Mg Tab, 1 TAB PO BID 08/12/24 Lactulose (Lactulose) 10 Gm/15 Ml Yesenia, 15 ML PO BID, ML 08/12/24 Ferrous Sulfate (Ferrous Sulfate) 325 Mg Tab, 1 TAB PO DAILY 08/12/24 Escitalopram Oxalate (ESCITALOPRAM OXALATE) 10 Mg Tab, 10 MG PO DAILY, TAB 08/12/24 Furosemide (Furosemide) 40 Mg Tab, 1 TAB PO DAILY 08/12/24 Tramadol Hcl (Tramadol Hcl) 50 Mg Tab, 50 MG PO DAILY PRN for PAIN SCALE 7 THRU 10, MG 06/21/24 Magnesium Oxide (MAGNESIUM OXIDE) 400 Mg Tab, 1 TAB PO DAILY, TAB 05/29/24 Acamprosate Calcium (ACAMPROSATE CALCIUM DR) 333 Mg Tab, 2 TAB PO BID, TAB 05/28/24 Midodrine HCl (Midodrine HCl) 10 Mg Tab, 1 TAB PO BID 05/11/24 Acyclovir (ZOVIRAX TABLET) 400 Mg Tb, 400 MG PO BID for HERPES IF GOING TO BE SEXUALLY, TAB 04/04/24 Folic Acid (Folic Acid) 1 Mg Tab, 1 MG PO DAILY, TAB 12/11/23 Gabapentin (Gabapentin) 300 Mg Cap, 1 CAP PO DAILY 12/11/23 Past Medical History Patient Family History: Alcoholism G8 BROTHER Cardiovascular disease G8 MOTHER, G8 FATHER, Diabetes mellitus G8 MOTHER, G8 FATHER, G8 BROTHER Hypertension G8 MOTHER, G8 FATHER, H&P Exam Vital Signs Vital Signs Date Time Temp Pulse Resp B/P (MAP) Pulse Ox O2 Delivery O2 Flow Rate FiO2 10/12/24 08:59 98.6 78 16 96/55 (69) 92 98.6 10/11/24 20:00 Room Air* 0 21 General Appeara: Mild distress, Thin Rectal Exam: Deferred Pelvic Exam: Not done Labs/Xrays Labs Test 10/12/24 06:23 10/11/24 14:49 10/11/24 12:12 10/11/24 06:12 Range/Units White Blood Count 3.4 L 4.4-10.8 10^3/uL Red Blood Count 2.17 L 4.0-5.20 10^6/uL Hemoglobin 8.2 L 12.2-16.2 g/dL Hematocrit 22.7 L 36.0-46.0 % Mean Corpuscular Volume 104.6 H 80.0-100.0 fL Mean Corpuscular Hemoglobin 37.7 H 28.0-32.0 pg Mean Corpuscular Hemoglobin Concent 36.0 32.0-36.0 g/dL Red Cell Distribution Width 22.3 H 11.8-14.3 % Platelet Count 37 L 140-450 10^3/uL Mean Platelet Volume 8.6 6.9-10.8 fL Neutrophils (%) (Auto) 61.3 37.0-80.0 % Lymphocytes (%) (Auto) 22.4 10.0-50.0 % Monocytes (%) (Auto) 12.2 H 0.0-12.0 % Eosinophils (%) (Auto) 2.7 0.0-7.0 % Basophils (%) (Auto) 1.4 0.0-2.0 % Neutrophils # (Auto) 2.1 1.6-8.6 10 ^3/uL Lymphocytes # (Auto) 0.8 0.4-5.4 10 ^3/uL Monocytes # (Auto) 0.4 0-1.3 10 ^3/uL Eosinophils # (Auto) 0.1 0-0.8 10 ^3/uL Basophils # (Auto) 0 0-0.2 10 ^3/uL Nucleated Red Blood Cells 0.1 % Platelet Estimate Decreased Anisocytosis (manual) Slight Macrocytosis Slight [place] Cells Moderate Schistocytes Few Sodium Level 136 136-145 mmol/L Potassium Level 3.7 3.5-5.1 mmol/L Chloride Level 99 98-107 mmol/L Carbon Dioxide Level 32 H 20-31 mmol/L Anion Gap 5 5-15 Blood Urea Nitrogen 12 9-23 mg/dL Creatinine 1.05 H 0.550-1.02 mg/dL Glomerular Filtration Rate Calc 71 >90 mL/min BUN/Creatinine Ratio 11.4 10.0-20.0 Serum Glucose 91 74-106 mg/dL Calcium Level 9.2 8.7-10.4 mg/dL Total Bilirubin 9.2 H 0.2-1.0 mg/dL Aspartate Amino Transferase (AST) 88 H 13-40 U/L Alanine Aminotransferase (ALT) 36 7-40 U/L Alkaline Phosphatase 67 46-116 U/L Total Protein 5.9 5.7-8.2 g/dL Albumin 2.3 L 3.2-4.8 g/dL Stool Occult Blood Positive Negative Stool Occult Blood Sample #2 Negative Stool Occult Blood Sample #3 Negative Prothrombin Time 17.9 H 9.3-11.8 sec Prothrombin Time INR 1.76 H 0.9-1.15 Magnesium Level 1.9 1.6-2.6 mg/dL Test 10/11/24 05:25 10/10/24 15:45 10/10/24 05:33 10/09/24 06:07 Range/Units Urine Color Yellow Yellow Urine Clarity Clear Clear Urine pH 6.5 5.0-9.0 Urine Specific [place] 1.012 1.001-1.035 Urine Protein Negative Negative Urine Ketones Negative Negative Urine Blood Trace H Negative /uL Urine Nitrite Negative Negative Urine Bilirubin Negative Negative Urine Urobilinogen Normal Negative mg/dL Urine Leukocyte Esterase Negative Negative /uL Urine RBC 1 0 - 4 /hpf Urine WBC 3 0 - 5 /hpf Urine Squamous Epithelial Cells Few <5 /hpf Urine Bacteria None seen None Seen /hpf Urine Glucose Normal Normal mg/dL Ammonia 24 11-32 umol/L Differential Total Cells Counted 100.0 100 Neutrophils % (Manual) 68 37.0-80.0 Band Neutrophils % (Manual) 0 Lymphocytes % (Manual) 27 10.0-50.0 Monocytes % (Manual) 5 0-12 Eosinophils % (Manual) 0 0-7 Basophils % (Manual) 0 0.0-2.0 Metamyelocytes % (manual) 0 Myelocytes % (Manual) 0 Promyelocytes % (Manual) 0 Blast Cells % (Manual) 0 Reactive Lymphocytes 0 Target Cells Few Direct Bilirubin 1.9 H <0.3 mg/dL Creatine Kinase 22 L 34-145 U/L Tumor Marker Alpha Fetoprotein 10.1 H 0.0-6.4 ng/mL Test 10/08/24 15:55 10/08/24 01:10 10/07/24 18:41 Range/Units Urine Opiates Screen Neg NEGATIVE Urine Fentanyl Screen Neg NEGATIVE Urine Barbiturates Screen Neg NEGATIVE Urine Phencyclidine Screen Neg NEGATIVE Urine Amphetamines Screen Neg NEGATIVE Urine Benzodiazepines Screen Neg NEGATIVE Urine Cocaine Screen Neg NEGATIVE Urine Cannabinoids Screen Pos NEGATIVE Hemoglobin A1c < 3.8 <5.7 % A1C Lactic Acid Level 1.5 0.4-2.0 mmol/L B-Type Natriuretic Peptide 732.97 0-100 pg/mL Triglycerides Level 83 < 150 mg/dL Cholesterol Level 255 H < 200 mg/dL LDL Cholesterol 67 < 100 mg/dL HDL Cholesterol 32 L 40-59 mg/dL Vitamin B12 Level 693 211-911 pg/mL Folic Acid 36.58 >5.38 ng/mL Thyroid Stimulating Hormone (TSH) 7.79 H 0.55-4.78 uIU/mL Free Thyroxine (T4) Calculated 0.89 0.89-1.76 ng/dL Hepatitis B Surface Antigen Negative Negative Hepatitis C Antibody Negative Negative HIV (1&2) Antibody Negative Negative Lipase 62 H 12-53 U/L Beta HCG, Quantitative 1.1 L 1.5-4.2 mIU/mL Microbiology Date/Time Source Procedure Growth Status 10/10/24 15:40 Nose MRSA Screen - Final Complete Assessment/Plan Admitting Diagnosis: Vaginal bleeding, mild, now resolved (menses) Liver cirrhosis, chronic with coagulopathy Pancytopenia Splenomegaly Plan 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 Prior work up with EMBx, PAP and pelvic exam all WNL. Treatment would be to correct underlying coagulopathy and recommend hematology work up for pancytopenia, may need bone marrow biopsy splenomegaly , consider autoimmune thrombocytopenia. Not [employer]CHIT[employer] causes for anemia. [employer] ARCHITECT WILL SIGN OFF Plan discussed with: Patient Date of Service: Oct 12, 2024 Billing Provider: SIENNA RICHARDS DO Common Visit Codes: [id number] SAME DATE (HIGH) SIENNA RICHARDS DO Oct 12, 2024 09:40
[2024-10-12 13:27] LABS: % Iron Saturation 68.6 % (15-50)
--- NOTE | 2024-10-12 14:41 | DVHPNRES ---
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 Patient notes that since being diagnosed with liver cirrhosis 1 year ago she has been experiencing fatigue, generalized body aches however, yesterday she started experiencing abdominal pain, distention and jaundice which prompted this visit to the hospital. She notes pain is localized to the periumbilical region with radiation to the flanks bilaterally. She notes that the pain is stabbing, 10. Patient received 2 PRBC transfusion in the ER. PCP is Dr. Pate. Past surgical history: Denies Home medications: Acamprosate, escitalopram, furosemide, gabapentin, lactulose, magnesium oxide, midodrine, rifaximin, spironolactone, tramadol Past Hospitalization: 09/22/2024 for similar complaints and intractable abdominal pain Social & Personal history: Patient lives with her friend. Currently unemployed. Denies using tobacco. Quit drinking alcohol in December, prior to that was drinking daily, 2-340% alcoholic drinks per day. Uses marijuana daily. Denies using any other drugs. Allergies: Denies Patient seen and examined at bedside. Patient is alert and oriented to time, place person and responding to all questions. Notes chills. Patient notes pain on defecation likely due to hemorrhoids. Objective vital signs Vital Sign Date Time Temp Pulse Resp B/P (MAP) Pulse Ox O2 Delivery O2 Flow Rate FiO2 10/12/24 13:06 98.6 81 16 99/51 (67) 92 98.6 10/12/24 08:00 Room Air* 0 21 Total Intake and Output 10/11/24 10/11/24 10/12/24 15:00 23:00 07:00 Intake Total 50 ml 627 ml 100 ml Output Total 800 ml Balance 50 ml -173 ml 100 ml medications Current Medications Medications Dose Ordered Sig/Adela Route Start Time Stop Time Status Last Admin Dose Admin Docusate Sodium 100 mg BIDPRN PRN PO 10/08/24 00:45 Acetaminophen/ Hydrocodone Bitart 1 tab Q4HP PRN PO 10/08/24 00:45 10/12/24 09:25 1 TAB Pantoprazole Sodium 40 mg BID IV 10/08/24 01:15 10/12/24 09:26 40 MG Atorvastatin Calcium 40 mg HS PO 10/08/24 22:00 10/11/24 21:58 40 MG Levothyroxine Sodium 50 mcg QAM@0600 PO 10/08/24 03:30 10/12/24 05:15 50 MCG Ceftriaxone Sodium 50 ml @ 100 mls/hr DAILY@09 IV 10/09/24 09:00 10/12/24 09:25 100 MLS/HR Midodrine 10 mg TID@0600,1200,1800 PO 10/08/24 12:00 10/12/24 06:00 10 MG Furosemide 20 mg DAILY IV 10/09/24 10:00 10/12/24 09:41 20 MG Acetaminophen 650 mg Q8HP PRN PO 10/09/24 17:30 Lactulose 30 ml BID PO 10/10/24 22:00 10/12/24 09:25 30 ML Examination General Appearance: Cooperative. Well developed. Well nourished. NAD Head Exam: Normal inspection Neck Exam: Normal inspection. Non-tender. Normal alignment Pulmonary/Respiratory: Chest non-tender. Clear bilateral breath sounds, no crackles, no wheezing. Cardiovascular/Chest: Regular rate and rhythm. Systolic murmur. No JVD. Peripheral Pulses: 2+ Radial (R). 2+ Radial (L). 2+ Pedal (R). 2+ Pedal (L) Abdominal Exam: Normal bowel sounds. Soft. normal abdomen, no visible veins, g eneralized abdominal tenderness to palpation No hepatospenomegaly. No masses Ankle Exam: Negative ankle edema Lower extremities: 1+ lower extremity edema Neuro/Mental Status: A&O x4. Coherent. Thoughts/Psych: Normal thought pattern. Appropriate mood and affect. Good judgement and insight Skin Exam: Normal inspection. Normal color. Warm. Dry. Jaundiced laboratory and microbiology Laboratory Tests 10/12/24 06:23 Test 10/12/24 06:23 Range/Units Serum Glucose 91 74-106 mg/dL Microbiology Date/Time Source Procedure Growth Status 10/11/24 12:12 Blood Blood Culture - Preliminary NO GROWTH AFTER 24 HOURS OF INCUBATION. Resulted 10/11/24 05:25 Voided Urine Urine Culture - Preliminary Resulted 10/10/24 15:40 Nose MRSA Screen - Final Complete Labs and/or images reviewed: Labs reviewed by me, Image(s) reviewed by me Problem List/Assessment/Plan Problem List/Assessment/Plan Alcoholic liver cirrhosis, decompensated, meld 20 Hyperbilirubinemia likely due to above Possible upper GI bleed, ruled out Severe anemia, s/p 2 PRBCs, 1 FFP, vitamin K 5 mg subQ Acute on chronic heart failure with preserved ejection fraction Pancytopenia likely due to alcoholic liver cirrhosis AXEL possibly due to hepatorenal syndrome - CT abdomen pelvis: Small right-sided pleural effusion, trace diffuse ascites, and diffuse anasarca. Findings are concerning for fluid overload state. Mildly distended urinary bladder demonstrates draining hyperdense material. May reflect recent passage of contrast with other etiologies not excluded. Splenomegaly. Moderate fecal retention throughout the colon. Cholelithiasis. - liver ultrasound: Cholelithiasis without sonographic evidence of cholecystitis. Hepatic steatosis versus medical liver disease with irregular contours which can be seen with cirrhosis. - CXR: No acute cardiopulmonary disease. - IV ceftriaxone - IV Protonix 40 mg b.i.d. - midodrine 10 mg t.i.d. - IV furosemide 20 mg - held spironolactone owing to soft blood pressure - NPO starting midnight for endoscopy in the a.m. - GI consulted, EGD today which showed minimal gastritis and gastropathy, no fresh or old blood in the stomach. Slightly irregular squamocolumnar junction but no significant basis, no hiatal hernia no esophagitis. - KUB x-ray: Nonobstructive bowel gas pattern. No visualized renal calculi. - lactulose 30 mL target 2-3 bowel movements daily Vaginal bleeding - slunk skinner on board - pelvic USG: Grossly unremarkable pelvic ultrasound. Left ovary is not visualized. Small volume ascites. Right pleural effusion. Splenomegaly. Acute complicated UTI - IV ceftriaxone - awaiting urine cultures Hematuria, ruled out - Rios - ordered creatinine kinase Hypothyroidism, TSH 7.79 - levothyroxine 50 mcg Dyslipidemia - atorvastatin 40 mg Marijuana use disorder - counseled on cessation for more than 20 minutes DVT prophylaxis: Held due to possible upper GI bleed Goals of care: Full code, discussed for >16 minutes on 10/08/24 Plan discussed with patient Plan discussed with Dr. Jarvis Plan discussed with: Patient, Other (RN) My Orders My Orders Orders - JERAMY RICE RESIDENT Procedure Category Date Status Time Full Liq Diet DIET 10/11/24 Transmitted Dinner CC Plasma Assessment Blood Product Administration S: 0140 Date of Service: Oct 12, 2024 Billing Provider: FLORENCE JARVIS MD Common Visit Codes: [id number] INP/OBS CARE(HIGH) JERAMY RICE Oct 12, 2024 14:41 FLORENCE JARVIS MD Oct 13, 2024 20:02
[2024-10-12] MEDS: LACTULOSE 20Gm/30ML SOLN PO SCH (17:55)
--- NOTE | 2024-10-12 18:06 | DVHPN2 ---
Progress Note Date Seen: Oct 12, 2024 Resident Creating Document: MURALI RICHARDS RESIDENT Medical Necessity Reason Pt with a Central, PICC or Fol: No Subjective Review of Systems Patient is complaining of lower abdominal pains and vagina. No blood noted on sanitary pad today. Her last normal menstrual cycle was in 08/2022 Hemoglobin stable at 8.7--> 8.2, ongoing pancytopenia due to cirrhosis and splenomegaly Liver enzymes are stable and trending down AST:96--> 97--> 88 ALT: 45--> 42--> 36 ALP: 67--> 84-->67 UA preliminary: <10,000 CFU/mL Patient seen by SIDE FRAMER, for Vaginal bleeding, mild, now resolved (menses). The plan is no acute band straightener intervention indicated at this time. Prior work up with EMBx, PAP and pelvic exam all WNL. Treatment would be to correct underlying coagulopathy and recommend hematology work up for pancytopenia, may need bone marrow biopsy splenomegaly, consider autoimmune thrombocytopenia. Not SIDE FRAMER causes for anemia Objective vital signs Vital Sign Date Time Temp Pulse Resp B/P (MAP) Pulse Ox O2 Delivery O2 Flow Rate FiO2 10/12/24 16:41 98.6 100 18 96/53 (67) 100 98.6 10/12/24 08:00 Room Air* 0 21 Total Intake and Output 10/11/24 10/11/24 10/12/24 15:00 23:00 07:00 Intake Total 50 ml 627 ml 100 ml Output Total 800 ml Balance 50 ml -173 ml 100 ml medications Current Medications Medications Dose Ordered Sig/Adela Route Start Time Stop Time Status Last Admin Dose Admin Docusate Sodium 100 mg BIDPRN PRN PO 10/08/24 00:45 Acetaminophen/ Hydrocodone Bitart 1 tab Q4HP PRN PO 10/08/24 00:45 10/12/24 16:49 1 TAB Pantoprazole Sodium 40 mg BID IV 10/08/24 01:15 10/12/24 09:26 40 MG Atorvastatin Calcium 40 mg HS PO 10/08/24 22:00 10/11/24 21:58 40 MG Levothyroxine Sodium 50 mcg QAM@0600 PO 10/08/24 03:30 10/12/24 05:15 50 MCG Ceftriaxone Sodium 50 ml @ 100 mls/hr DAILY@09 IV 10/09/24 09:00 10/12/24 09:25 100 MLS/HR Midodrine 10 mg TID@0600,1200,1800 PO 10/08/24 12:00 10/12/24 16:27 10 MG Furosemide 20 mg DAILY IV 10/09/24 10:00 10/12/24 09:41 20 MG Acetaminophen 650 mg Q8HP PRN PO 10/09/24 17:30 Lactulose 30 ml Q6HR PO 10/12/24 18:00 Examination General examination- Not in acute distress HEENT: PEERLA, no acute nasal discharge Chest: S1-S2 audible, rate and rhythm regular, no murmur Lung: CTAB, no wheeze or rhonchi Abdomen: very soft, mild tenderness, BS+ Musculoskeletal: Very soft muscles, no acute joint swelling or tenderness Lower extremity: Trace pedal edema Neurological: cranial nerves intact, no acute dysarthria or dysphagia Psychiatry-- Normal mood and affect Skin- no acute rash or purpura, mild jaundice laboratory and microbiology Laboratory Tests 10/12/24 06:23 Test 10/12/24 06:23 Range/Units Serum Glucose 91 74-106 mg/dL Microbiology Date/Time Source Procedure Growth Status 10/11/24 12:12 Blood Blood Culture - Preliminary NO GROWTH AFTER 24 HOURS OF INCUBATION. Resulted 10/11/24 05:25 Voided Urine Urine Culture - Preliminary Resulted 10/10/24 15:40 Nose MRSA Screen - Final Complete Problem List/Assessment/Plan Problem List/Assessment/Plan Problems(with codes): (1) Calculus of gallbladder without cholecystitis without obstruction (2) Hepatic steatosis (3) Abdominal pain (4) Vaginal bleeding: ultrasound: Grossly unremarkable pelvic ultrasound. The left ovary is not visualized on this study. SIDE FRAMER following. No band straightener intervention needed (5) Generalized weakness (6) Severe anemia (7) Liver cirrhosis (8) Jaundice (9) Ascites (10) Hepatic encephalopathy (11) Blood loss anemia ( 12) splenomegaly (13) Right pleural effusion Iron panel Iron: 127, TIBC: 185; SAT: 68.8 Prognosis Plan UA urine culture: preliminary result noted Continue supportive care ; add ursodiol 300 mg p.o. twice a day Meld score is 20 points predictive of 19.6% three-month mortality Alpha fetoprotein level slightly elevated to 10.1 due to underlying chronic liver disease, no mass seen Outpatient referral for liver transplant evaluation as the patient has been abstinent for almost a year Patient was counseled about discontinuing marijuana No further endoscopy or colonoscopy at this time I will also consider referral outpatient for a possible capsule endoscopy Goal of care discussed for more than 25 minutes Case and plan discussed with Dr. Marroquin Thank you for allowing us to participate in the care of this patient. Please call if you have any questions or concerns. Plan discussed with: Patient CC Plasma Assessment Blood Product Administration S: [id number] MURALI RICHARDS RESIDENT Oct 12, 2024 18:06
[2024-10-13] VITALS (8 sets, daily range): BP systolic 90–102; BP diastolic 43–52; PULSE 80–99; RESP 16–18; TEMP 98.3–98.6; O2SAT 92–97
[2024-10-13 07:31] LABS: Hematocrit 23.4 % (36.0-46.0); Hemoglobin 8.2 g/dL (12.2-16.2); Mean Corpuscular Hemoglobin 36.5 pg (28.0-32.0); Mean Corpuscular Hgb Conc. 35.1 g/dL (32.0-36.0); Mean Corpuscular Volume 104.1 fL (80.0-100.0); Platelet Count (auto) 36 10^3/uL (140-450); Red Blood Cells 2.25 10^6/uL (4.0-5.20); Red Cell Distribution Width 22.1 % (11.8-14.3); White Blood Cell 3.8 10^3/uL (4.4-10.8)
[2024-10-13 07:34] LABS: Band Neutrophils % (manual) 0; Basophils % (manual) 0 (0.0-2.0); Blast Cells 0; Metamyelocytes % 0; Monocytes % (manual) 0 (0-12); Myelocytes % 0; Promyelocytes % 0; Reactive Lymphocytes 0
[2024-10-13 07:55] LABS: Anion Gap 10 (5-15); Carbon Dioxide 29 mmol/L (20-31)
[2024-10-13 07:56] LABS: Calcium 9.5 mg/dL (8.7-10.4)
[2024-10-13 07:57] LABS: Chloride 96 mmol/L (98-107); Potassium 3.5 mmol/L (3.5-5.1); Sodium 135 mmol/L (136-145)
[2024-10-13 08:00] LABS: Alkaline Phosphatase 100 U/L (46-116)
[2024-10-13 08:01] LABS: BUN/Creatinine Ratio 12.9 (10.0-20.0); Blood Urea Nitrogen 17 mg/dL (9-23); Glucose 104 mg/dL (74-106)
[2024-10-13 08:03] LABS: Alanine Aminotransferase 39 U/L (7-40); Total Protein 6.3 g/dL (5.7-8.2)
[2024-10-13 08:08] LABS: Albumin 2.5 g/dL (3.2-4.8); Aspartate Aminotransferase 99 U/L (13-40); Bilirubin, Total 9.3 mg/dL (0.2-1.0)
[2024-10-13] MEDS: ALBUMIN 25% 100 ML IV ONE (09:34)
[2024-10-13 10:31] LABS: Eosinophils % (manual) 1 (0-7); Lymphocytes % (manual) 40 (10.0-50.0)
[2024-10-13 10:32] LABS: Platelet Estimate Decreased
[2024-10-13 10:33] LABS: Anisocytosis Slight; Macrocytosis Slight
--- NOTE | 2024-10-13 16:29 | DVHPNRES ---
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 Patient notes that since being diagnosed with liver cirrhosis 1 year ago she has been experiencing fatigue, generalized body aches however, yesterday she started experiencing abdominal pain, distention and jaundice which prompted this visit to the hospital. She notes pain is localized to the periumbilical region with radiation to the flanks bilaterally. She notes that the pain is stabbing, 04/15. Patient received 2 PRBC transfusion in the ER. PCP is Dr. Pate. Past surgical history: Denies Home medications: Acamprosate, escitalopram, furosemide, gabapentin, lactulose, magnesium oxide, midodrine, rifaximin, spironolactone, tramadol Past Hospitalization: 09/22/2024 for similar complaints and intractable abdominal pain Social & Personal history: Patient lives with her friend. Currently unemployed. Denies using tobacco. Quit drinking alcohol in December, prior to that was drinking daily, 2-340% alcoholic drinks per day. Uses marijuana daily. Denies using any other drugs. Allergies: Denies Patient seen and examined at bedside. Patient is alert and oriented to time, place person and responding to all questions. Notes chills. Patient notes pain on defecation likely due to hemorrhoids. Platelets downtrending Objective vital signs Vital Sign Date Time Temp Pulse Resp B/P (MAP) Pulse Ox O2 Delivery O2 Flow Rate FiO2 10/13/24 13:19 98.6 80 16 91/43 (59) 96 98.6 10/13/24 08:00 Nasal Cannula* 2 28 Total Intake and Output 10/12/24 10/12/24 10/13/24 15:00 23:00 07:00 Intake Total 160 ml 870 ml 600 ml Balance 160 ml 870 ml 600 ml medications Current Medications Medications Dose Ordered Sig/Adela Route Start Time Stop Time Status Last Admin Dose Admin Docusate Sodium 100 mg BIDPRN PRN PO 10/08/24 00:45 Acetaminophen/ Hydrocodone Bitart 1 tab Q4HP PRN PO 10/08/24 00:45 10/13/24 12:11 1 TAB Pantoprazole Sodium 40 mg BID IV 10/08/24 01:15 10/13/24 09:23 40 MG Atorvastatin Calcium 40 mg HS PO 10/08/24 22:00 10/12/24 21:14 40 MG Levothyroxine Sodium 50 mcg QAM@0600 PO 10/08/24 03:30 10/13/24 06:02 50 MCG Ceftriaxone Sodium 50 ml @ 100 mls/hr DAILY@09 IV 10/09/24 09:00 10/13/24 07:57 100 MLS/HR Midodrine 10 mg TID@0600,1200,1800 PO 10/08/24 12:00 10/13/24 12:11 10 MG Furosemide 20 mg DAILY IV 10/09/24 10:00 10/13/24 09:36 20 MG Acetaminophen 650 mg Q8HP PRN PO 10/09/24 17:30 Lactulose 30 ml Q6HR PO 10/12/24 18:00 10/13/24 12:11 30 ML Examination General Appearance: Cooperative. Well developed. Well nourished. NAD Head Exam: Normal inspection Neck Exam: Normal inspection. Non-tender. Normal alignment Pulmonary/Respiratory: Chest non-tender. Clear bilateral breath sounds, no crackles, no wheezing. Cardiovascular/Chest: Regular rate and rhythm. Systolic murmur. No JVD. Peripheral Pulses: 2+ Radial (R). 2+ Radial (L). 2+ Pedal (R). 2+ Pedal (L) Abdominal Exam: Normal bowel sounds. Soft. normal abdomen, no visible veins, g eneralized abdominal tenderness to palpation No hepatospenomegaly. No masses Ankle Exam: Negative ankle edema Lower extremities: 1+ lower extremity edema Neuro/Mental Status: A&O x4. Coherent. Thoughts/Psych: Normal thought pattern. Appropriate mood and affect. Good judgement and insight Skin Exam: Normal inspection. Normal color. Warm. Dry. Jaundiced laboratory and microbiology Laboratory Tests 10/13/24 05:51 Test 10/13/24 05:51 Range/Units Serum Glucose 104 74-106 mg/dL Microbiology Date/Time Source Procedure Growth Status 10/11/24 12:12 Blood Blood Culture - Preliminary NO GROWTH AFTER 48 HOURS OF INCUBATION. 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 Findings are concerning for fluid overload state. Mildly distended urinary bladder demonstrates draining hyperdense material. May reflect recent passage of contrast with other etiologies not excluded. Splenomegaly. Moderate fecal retention throughout the colon. Cholelithiasis. - liver ultrasound: Cholelithiasis without sonographic evidence of cholecystitis. Hepatic steatosis versus medical liver disease with irregular contours which can be seen with cirrhosis. - CXR: No acute cardiopulmonary disease. - IV ceftriaxone - IV Protonix 40 mg b.i.d. - midodrine 10 mg t.i.d. - IV furosemide 20 mg - held spironolactone owing to soft blood pressure - NPO starting midnight for endoscopy in the a.m. - GI consulted, EGD today which showed minimal gastritis and gastropathy, no fresh or old blood in the stomach. Slightly irregular squamocolumnar junction but no significant basis, no hiatal hernia no esophagitis. - KUB x-ray: Nonobstructive bowel gas pattern. No visualized renal calculi. - lactulose 30 mL target 2-3 bowel movements daily - IV albumin given Vaginal bleeding - wallpaper embosser helper on board - pelvic USG: Grossly unremarkable pelvic ultrasound. Left ovary is not visualized. Small volume ascites. Right pleural effusion. Splenomegaly. Acute complicated UTI - IV ceftriaxone - awaiting urine cultures Hematuria, ruled out - Rios - ordered creatinine kinase Hypothyroidism, TSH 7.79 - levothyroxine 50 mcg Dyslipidemia - atorvastatin 40 mg Marijuana use disorder - counseled on cessation for more than 20 minutes DVT prophylaxis: Held due to possible upper GI bleed Goals of care: Full code, discussed for >16 minutes on 10/08/24 Plan discussed with patient Plan discussed with Dr. Jarvis Plan discussed with: Patient, Other (RN) My Orders My Orders Orders - JERAMY RICE Procedure Category Date Status Time Transfer Orders XFER 10/13/24 Transmitted 08:26 CC Plasma Assessment Blood Product Administration S: 0140 Date of Service: Oct 13, 2024 Billing Provider: FLORENCE JARVIS MD Common Visit Codes: [id number] INP/OBS CARE(HIGH) JERAMY RICE Oct 13, 2024 16:29 FLORENCE JARVIS MD Oct 13, 2024 20:03
--- NOTE | 2024-10-13 19:09 | DVHPN2 ---
Progress Note Date Seen: Oct 13, 2024 Resident Creating Document: MURALI RICHARDS RESIDENT Medical Necessity Reason Pt with a Central, PICC or Fol: No Medical Necessity Reason coagulopathic Subjective Review of Systems Seen and examined today. She was lying in bed at time of my visit. Patient expressed that she feels really weak, generalized body pain and still having vaginal bleed. She has on a sanitary pads which had on blood with blood clots on it. I saw this personally. Patient was seen by the OBGYN and physician yesterday who documented that patient had mild vaginal bleed which had resolved and her bleeding most likely due to the underlying coagulopathy given the presence of liver cirrhosis. He therefore recommended that treatment would be to correct the underlining coagulopathy and have hematological workup for the pancytopenia as well. Objective vital signs Vital Sign Date Time Temp Pulse Resp B/P (MAP) Pulse Ox O2 Delivery O2 Flow Rate FiO2 10/13/24 16:50 98.6 88 18 102/52 (69) 95 98.6 10/13/24 08:00 Nasal Cannula* 2 28 Total Intake and Output 10/12/24 10/12/24 10/13/24 14:59 22:59 06:59 Intake Total 160 ml 870 ml 600 ml Balance 160 ml 870 ml 600 ml medications Current Medications Medications Dose Ordered Sig/Adela Route Start Time Stop Time Status Last Admin Dose Admin Docusate Sodium 100 mg BIDPRN PRN PO 10/08/24 00:45 Acetaminophen/ Hydrocodone Bitart 1 tab Q4HP PRN PO 10/08/24 00:45 10/13/24 17:08 1 TAB Pantoprazole Sodium 40 mg BID IV 10/08/24 01:15 10/13/24 09:23 40 MG Atorvastatin Calcium 40 mg HS PO 10/08/24 22:00 10/12/24 21:14 40 MG Levothyroxine Sodium 50 mcg QAM@0600 PO 10/08/24 03:30 10/13/24 06:02 50 MCG Ceftriaxone Sodium 50 ml @ 100 mls/hr DAILY@09 IV 10/09/24 09:00 10/13/24 07:57 100 MLS/HR Midodrine 10 mg TID@0600,1200,1800 PO 10/08/24 12:00 10/13/24 17:08 10 MG Furosemide 20 mg DAILY IV 10/09/24 10:00 10/13/24 09:36 20 MG Acetaminophen 650 mg Q8HP PRN PO 10/09/24 17:30 Lactulose 30 ml Q6HR PO 10/12/24 18:00 10/13/24 17:07 30 ML Examination General examination- Not in acute distress, Jaundiced HEENT: PEERLA, no acute nasal discharge Chest: S1-S2 audible, rate and rhythm regular, no murmur Lung: CTAB, no wheeze or rhonchi Abdomen: very soft, mild tenderness, BS+, mild vaginal bleeds with clots Musculoskeletal: Very soft muscles, no acute joint swelling or tenderness Lower extremity: Trace pedal edema Neurological: cranial nerves intact, no acute dysarthria or dysphagia Psychiatry-- Normal mood and affect Skin- no acute rash or purpura, mild jaundice laboratory and microbiology Laboratory Tests 10/13/24 05:51 Test 10/13/24 05:51 Range/Units Serum Glucose 104 74-106 mg/dL Microbiology Date/Time Source Procedure Growth Status 10/11/24 12:12 Blood Blood Culture - Preliminary NO GROWTH AFTER 48 HOURS OF INCUBATION. Resulted 10/11/24 05:25 Voided Urine Urine Culture - Final Complete 10/10/24 15:40 Nose MRSA Screen - Final Complete Problem List/Assessment/Plan Problem List/Assessment/Plan Problem list (1) Calculus of gallbladder without cholecystitis without obstruction (2) Hepatic steatosis (3) Abdominal pain (4) Vaginal bleeding: ultrasound: Grossly unremarkable pelvic ultrasound. The left ovary is not visualized on this study. DRY JANITOR following. No thermite bomb loader intervention needed (5) Generalized weakness (6) Severe anemia (7) Liver cirrhosis (8) Jaundice (9) Ascites (10) Hepatic encephalopathy (11) Blood loss anemia ( 12) splenomegaly (13) Right pleural effusion (14) Pancytopenia--> recommend hematology consult Iron panel Iron: 127, TIBC: 185; SAT: 68.8 Prognosis Plan UA urine culture: preliminary result noted Continue supportive care Continue ursodiol 300 mg p.o. twice a day Vitamin K 10 mg IV for 3 days ( 10/13-10/15) Recommend Hematology consult Meld score is 20 points predictive of 19.6% three-month mortality Alpha fetoprotein level slightly elevated to 10.1 due to underlying chronic liver disease, no mass seen Outpatient referral for liver transplant evaluation as the patient has been abstinent for almost a year Patient was counseled about discontinuing marijuana No further endoscopy or colonoscopy at this time I will also consider referral outpatient for a possible capsule endoscopy Goal of care discussed for more than 25 minutes Case and plan discussed with Dr. Marroquin Thank you for allowing us to participate in the care of this patient. Please call if you have any questions or concerns. Plan discussed with: Patient My Orders My Orders Orders - MURALI RICHARDS Procedure Category Date Status Time Phytonadione (Vitamin PHA 10/14/24 Transmitted K) 10:00 Phytonadione (Vitamin PHA 10/15/24 Transmitted K) 10:00 Comprehensive LAB 10/14/24 Verified Metabolic Panel 04:00 Complete Blood Count LAB 10/14/24 Verified 04:00 CC Plasma Assessment Blood Product Administration S: 0140 MURALI RICHARDS RESIDENT Oct 13, 2024 19:09
[2024-10-14] VITALS (7 sets, daily range): BP systolic 73–125; BP diastolic 46–66; PULSE 82–96; RESP 14–19; TEMP 98.2–99.2; O2SAT 82–99
[2024-10-14] MEDS: phytonadione 10 MG in SODIUM CHL 0.9% 50 ML IV ONE ×2 (00:48→18:20)
[2024-10-14 06:40] LABS: Hematocrit 23.6 % (36.0-46.0); Hemoglobin 8.3 g/dL (12.2-16.2)
[2024-10-14 06:43] LABS: Mean Corpuscular Hgb Conc. 35.1 g/dL (32.0-36.0); Mean Corpuscular Volume 105.2 fL (80.0-100.0); Platelet Count (auto) 38 10^3/uL (140-450); Red Blood Cells 2.25 10^6/uL (4.0-5.20); White Blood Cell 4.7 10^3/uL (4.4-10.8)
[2024-10-14 06:51] LABS: Alanine Aminotransferase 40 U/L (7-40); Alkaline Phosphatase 107 U/L (46-116); Anion Gap 8 (5-15); Carbon Dioxide 30 mmol/L (20-31); Potassium 3.6 mmol/L (3.5-5.1)
[2024-10-14 06:52] LABS: Total Protein 5.9 g/dL (5.7-8.2)
[2024-10-14 06:53] LABS: Albumin 2.6 g/dL (3.2-4.8); Aspartate Aminotransferase 95 U/L (13-40); Blood Urea Nitrogen 25 mg/dL (9-23); Calcium 8.5 mg/dL (8.7-10.4); Chloride 96 mmol/L (98-107); Glucose 106 mg/dL (74-106); Sodium 134 mmol/L (136-145)
[2024-10-14 06:57] LABS: Bilirubin, Total 8.5 mg/dL (0.2-1.0)
[2024-10-14 07:12] LABS: Red Cell Distribution Width 22.1 % (11.8-14.3)
[2024-10-14 07:13] LABS: Basophils % (manual) 0 (0.0-2.0); Blast Cells 0; Metamyelocytes % 0; Myelocytes % 0; Promyelocytes % 0; Reactive Lymphocytes 0
[2024-10-14 08:21] LABS: Anisocytosis Slight; Band Neutrophils % (manual) 3; Eosinophils % (manual) 2 (0-7); Lymphocytes % (manual) 41 (10.0-50.0); Macrocytosis Moderate; Monocytes % (manual) 9 (0-12); Platelet Estimate Decreased
[2024-10-14] MEDS: PHYTONADIONE (VIT K)10 MG/ML 1ML VIAL SUBCUT ONE (09:09)
--- NOTE | 2024-10-14 14:50 | DVH ---
INDICATION: AXEL worsening TECHNIQUE: Multiple real-time sonographic images of the kidneys and bladder were obtained. COMPARISON: US KIDNEY on DOS: 02/12/24 FINDINGS: The right kidney measures 10.5 cm in length, which is normal in size. There is normal echogenicity of the right kidney. No hydronephrosis. The left kidney measures 10.2 cm in length, which is normal in size. There is normal echogenicity of the left kidney. No hydronephrosis. No large intraluminal masses are seen in the bladder. Prior to voiding the bladder volume measures volume 9 cc. Splenomegaly. Small volume abdominal ascites. Bilateral pleural effusions, right greater than left. IMPRESSION: 1. Normal sonographic appearance of the kidneys. No hydronephrosis. 2. Small volume abdominal ascites. 3. Bilateral pleural effusions, right more than left. 4. Splenomegaly. HS:Y
[2024-10-14] MEDS: ALBUMIN 25% 100 ML IV ONE ×2 (15:00→22:24)
[2024-10-14] MEDS: SPIRONOLACTONE 25 MG TAB PO ONE (15:00)
--- NOTE | 2024-10-14 16:29 | DVHPNRES ---
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 Patient notes that since being diagnosed with liver cirrhosis 1 year ago she has been experiencing fatigue, generalized body aches however, yesterday she started experiencing abdominal pain, distention and jaundice which prompted this visit to the hospital. She notes pain is localized to the periumbilical region with radiation to the flanks bilaterally. She notes that the pain is stabbing, 10. Patient received 2 PRBC transfusion in the ER. PCP is Dr. Pate. Past surgical history: Denies Home medications: Acamprosate, escitalopram, furosemide, gabapentin, lactulose, magnesium oxide, midodrine, rifaximin, spironolactone, tramadol Past Hospitalization: 09/22/2024 for similar complaints and intractable abdominal pain Social & Personal history: Patient lives with her friend. Currently unemployed. Denies using tobacco. Quit drinking alcohol in December, prior to that was drinking daily, 2-340% alcoholic drinks per day. Uses marijuana daily. Denies using any other drugs. Allergies: Denies Patient seen and examined at bedside. Patient is alert and oriented to time, place person and responding to all questions. Notes chills. Patient notes pain on defecation likely due to hemorrhoids. Platelets stable at 36, notes increasing chest discomfort, was noted to have a right-sided pleural effusion on bedside pocus. Objective vital signs Vital Sign Date Time Temp Pulse Resp B/P (MAP) Pulse Ox O2 Delivery O2 Flow Rate FiO2 10/14/24 12:45 98.6 96 14 113/53 (73) 99 98.6 10/14/24 08:05 Room Air* 0 21 Total Intake and Output 10/13/24 10/13/24 10/14/24 15:00 23:00 07:00 Intake Total 50 ml 700 ml 520 ml Output Total 200 ml Balance 50 ml 500 ml 520 ml medications Current Medications Medications Dose Ordered Sig/Adela Route Start Time Stop Time Status Last Admin Dose Admin Docusate Sodium 100 mg BIDPRN PRN PO 10/08/24 00:45 Acetaminophen/ Hydrocodone Bitart 1 tab Q4HP PRN PO 10/08/24 00:45 10/14/24 12:47 1 TAB Pantoprazole Sodium 40 mg BID IV 10/08/24 01:15 10/14/24 09:09 40 MG Atorvastatin Calcium 40 mg HS PO 10/08/24 22:00 10/13/24 21:59 40 MG Levothyroxine Sodium 50 mcg QAM@0600 PO 10/08/24 03:30 10/14/24 05:14 50 MCG Ceftriaxone Sodium 50 ml @ 100 mls/hr DAILY@09 IV 10/09/24 09:00 10/14/24 09:08 100 MLS/HR Midodrine 10 mg TID@0600,1200,1800 PO 10/08/24 12:00 10/14/24 12:47 10 MG Acetaminophen 650 mg Q8HP PRN PO 10/09/24 17:30 Lactulose 30 ml Q6HR PO 10/12/24 18:00 10/14/24 12:47 30 ML Spironolactone 25 mg DAILY PO 10/15/24 10:00 Furosemide 20 mg DAILY PO 10/15/24 10:00 Examination General Appearance: Cooperative. Well developed. Well nourished. NAD Head Exam: Normal inspection Neck Exam: Normal inspection. Non-tender. Normal alignment Pulmonary/Respiratory: Chest non-tender. Clear bilateral breath sounds, no crackles, no wheezing. Cardiovascular/Chest: Regular rate and rhythm. Systolic murmur. No JVD. Peripheral Pulses: 2+ Radial (R). 2+ Radial (L). 2+ Pedal (R). 2+ Pedal (L) Abdominal Exam: Normal bowel sounds. Soft. normal abdomen, no visible veins, g eneralized abdominal tenderness to palpation No hepatospenomegaly. No masses Ankle Exam: Negative ankle edema Lower extremities: 1+ lower extremity edema Neuro/Mental Status: A&O x4. Coherent. Thoughts/Psych: Normal thought pattern. Appropriate mood and affect. Good judgement and insight Skin Exam: Normal inspection. Normal color. Warm. Dry. Jaundiced laboratory and microbiology Laboratory Tests 10/14/24 05:46 Test 10/14/24 05:46 Range/Units Serum Glucose 106 74-106 mg/dL Microbiology Date/Time Source Procedure Growth Status 10/11/24 12:12 Blood Blood Culture - Preliminary NO GROWTH AFTER 72 HOURS OF INCUBATION. 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 Findings are concerning for fluid overload state. Mildly distended urinary bladder demonstrates draining hyperdense material. May reflect recent passage of contrast with other etiologies not excluded. Splenomegaly. Moderate fecal retention throughout the colon. Cholelithiasis. - liver ultrasound: Cholelithiasis without sonographic evidence of cholecystitis. Hepatic steatosis versus medical liver disease with irregular contours which can be seen with cirrhosis. - CXR: No acute cardiopulmonary disease. - IV ceftriaxone - IV Protonix 40 mg b.i.d. - midodrine 10 mg t.i.d. - IV furosemide 20 mg - held spironolactone owing to soft blood pressure - NPO starting midnight for endoscopy in the a.m. - GI consulted, EGD today which showed minimal gastritis and gastropathy, no fresh or old blood in the stomach. Slightly irregular squamocolumnar junction but no significant basis, no hiatal hernia no esophagitis. - KUB x-ray: Nonobstructive bowel gas pattern. No visualized renal calculi. - lactulose 30 mL target 2-3 bowel movements daily - IV albumin given x3 today on 10/14/2024 Vaginal bleeding - draw in hand on board - pelvic USG: Grossly unremarkable pelvic ultrasound. Left ovary is not visualized. Small volume ascites. Right pleural effusion. Splenomegaly. Acute complicated UTI - IV ceftriaxone - awaiting urine cultures Hematuria, ruled out - Rios - ordered creatinine kinase Hypothyroidism, TSH 7.79 - levothyroxine 50 mcg Dyslipidemia - atorvastatin 40 mg Marijuana use disorder - counseled on cessation for more than 20 minutes DVT prophylaxis: Held due to consistently low platelet count Goals of care: Full code, discussed for >16 minutes on 10/08/24 Plan discussed with patient Plan discussed with Dr. Jarvis Plan discussed with: Patient, Other (RN) My Orders My Orders Orders - JERAMY RICE RESIDENT Procedure Category Date Status Time Pt Request For Service PT 10/13/24 Logged 19:31 Kidney US 10/14/24 Resulted 13:57 Urinalysis LAB 10/14/24 Logged 13:57 Spironolactone PHA 10/15/24 In Process (Aldactone) 10:00 Furosemide Tablet PHA 10/15/24 In Process (Lasix Tablet) 10:00 Urine Sodium LAB 10/14/24 Logged 13:59 Dietary Evaluation Review Comments: Advance to 2gNa Lo fat Lo Chol renal specific-60g protein restriction diet when medically feasible. Expected Outcomes/Goals: improved nutrition related lab values CC Plasma Assessment Blood Product Administration S: 0140 Date of Service: Oct 14, 2024 Billing Provider: FLORENCE JARVIS MD Common Visit Codes: [id number] INP/OBS CARE(HIGH) JERAMY RICE Oct 14, 2024 16:29 FLORENCE JARVIS MD Oct 19, 2024 21:39
--- NOTE | 2024-10-14 17:06 | DVHPN2 ---
Progress Note - Dictate Date Seen: Oct 14, 2024 Medical Necessity Reason Pt with a Central, PICC or Fol: No Subjective No new complaints, patient is sleeping She has been complaining of some vaginal bleeding Hemoglobin stable at 8.3, ongoing pancytopenia due to cirrhosis and splenomegaly Liver enzymes are stable and trending down Rios catheter was inserted and there was no obvious hematuria vital signs Vital Sign Date Time Temp Pulse Resp B/P (MAP) Pulse Ox O2 Delivery O2 Flow Rate FiO2 10/14/24 12:45 98.6 96 14 113/53 (73) 99 98.6 10/14/24 08:05 Room Air* 0 21 Total Intake and Output 10/13/24 10/13/24 10/14/24 15:00 23:00 07:00 Intake Total 50 ml 700 ml 520 ml Output Total 200 ml Balance 50 ml 500 ml 520 ml medications Current Medications Medications Dose Ordered Sig/Adela Route Start Time Stop Time Status Last Admin Dose Admin Docusate Sodium 100 mg BIDPRN PRN PO 10/08/24 00:45 Acetaminophen/ Hydrocodone Bitart 1 tab Q4HP PRN PO 10/08/24 00:45 10/14/24 12:47 1 TAB Pantoprazole Sodium 40 mg BID IV 10/08/24 01:15 10/14/24 09:09 40 MG Atorvastatin Calcium 40 mg HS PO 10/08/24 22:00 10/13/24 21:59 40 MG Levothyroxine Sodium 50 mcg QAM@0600 PO 10/08/24 03:30 10/14/24 05:14 50 MCG Ceftriaxone Sodium 50 ml @ 100 mls/hr DAILY@09 IV 10/09/24 09:00 10/14/24 09:08 100 MLS/HR Midodrine 10 mg TID@0600,1200,1800 PO 10/08/24 12:00 10/14/24 12:47 10 MG Acetaminophen 650 mg Q8HP PRN PO 10/09/24 17:30 Lactulose 30 ml Q6HR PO 10/12/24 18:00 10/14/24 12:47 30 ML Spironolactone 25 mg DAILY PO 10/15/24 10:00 Furosemide 20 mg DAILY PO 10/15/24 10:00 objective Awake and alert in no acute distress Pupils equal and react to light, mild pallor Lungs clear, CVS S1-S2 regular rate rhythm Abdomen is soft slightly distended mild tenderness there is no rebound or guarding Extremities trace pedal edema Rios catheter shows urine which is bile stained Mild vaginal bleeding noted around the catheter laboratory and microbiology Laboratory Tests 10/14/24 05:46 Test 10/14/24 05:46 Range/Units Serum Glucose 106 74-106 mg/dL Problems(with codes): (1) Blood loss anemia (2) Calculus of gallbladder without cholecystitis without obstruction (3) Hepatic steatosis (4) Abdominal pain (5) Vaginal bleeding (6) Generalized weakness Prognosis Plan Patient is clinically improving Discharge planning as per hospitalist I gave her another dose of vitamin K Outpatient referral to higher level of care for liver transplant evaluation and possible capsule endoscopy Dietary Evaluation Review Comments: Advance to 2gNa Lo fat Lo Chol renal specific-60g protein restriction diet when medically feasible. Expected Outcomes/Goals: improved nutrition related lab values Plan discussed with: Other (Jeanie Crowell) CC Plasma Assessment Blood Product Administration S: [id number] ZAIRE SPENCER MD Oct 14, 2024 17:06
[2024-10-15] VITALS (8 sets, daily range): BP systolic 85–123; BP diastolic 46–73; PULSE 76–125; RESP 14–18; TEMP 97.7–99.3; O2SAT 95–99
[2024-10-15] MEDS: ALBUMIN 25% 100 ML IV ONE (04:29)
[2024-10-15 06:17] LABS: Hematocrit 20.7 % (36.0-46.0); Hemoglobin 7.3 g/dL (12.2-16.2); Red Blood Cells 1.98 10^6/uL (4.0-5.20)
[2024-10-15 06:22] LABS: Alanine Aminotransferase 33 U/L (7-40); Anion Gap 10 (5-15); BUN/Creatinine Ratio 9.2 (10.0-20.0); Calcium 9.4 mg/dL (8.7-10.4); Carbon Dioxide 27 mmol/L (20-31); Mean Corpuscular Hemoglobin 36.8 pg (28.0-32.0); Mean Corpuscular Hgb Conc. 35.3 g/dL (32.0-36.0); Mean Corpuscular Volume 104.2 fL (80.0-100.0); Platelet Count (auto) 31 10^3/uL (140-450); White Blood Cell 5.2 10^3/uL (4.4-10.8)
[2024-10-15 06:23] LABS: Total Protein 6.3 g/dL (5.7-8.2)
[2024-10-15 06:34] LABS: Albumin 3.1 g/dL (3.2-4.8); Alkaline Phosphatase 120 U/L (46-116); Aspartate Aminotransferase 79 U/L (13-40); Bilirubin, Total 8.2 mg/dL (0.2-1.0); Blood Urea Nitrogen 26 mg/dL (9-23); Chloride 94 mmol/L (98-107); Glucose 107 mg/dL (74-106); Potassium 3.4 mmol/L (3.5-5.1); Red Cell Distribution Width 21.9 % (11.8-14.3); Sodium 131 mmol/L (136-145)
[2024-10-15 06:35] LABS: Basophils % (manual) 0 (0.0-2.0); Blast Cells 0; Metamyelocytes % 0; Myelocytes % 0; Promyelocytes % 0; Reactive Lymphocytes 0
[2024-10-15] MEDS: POTASSIUM EFFERVESENT TAB 25 MEQ PO ONE (08:39)
[2024-10-15 09:13] LABS: Band Neutrophils % (manual) 1; Monocytes % (manual) 9 (0-12)
[2024-10-15 09:14] LABS: Anisocytosis Moderate; Eosinophils % (manual) 1 (0-7); Lymphocytes % (manual) 38 (10.0-50.0); Macrocytosis Slight; Platelet Estimate Decreased
[2024-10-15] MEDS ORDERED: FUROSEMIDE 20 MG TAB PO SCH (10:00)
[2024-10-15] MEDS ORDERED: SPIRONOLACTONE 25 MG TAB PO SCH (10:00)
[2024-10-15] MEDS: SODIUM CHLORIDE 0.9% 1,000 ML IV ONE (11:12)
[2024-10-15] MEDS: PHYTONADIONE (VIT K)10 MG/ML 1ML VIAL SUBCUT ONE (11:13)
--- NOTE | 2024-10-15 11:54 | DVHPNRES ---
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 Patient notes that since being diagnosed with liver cirrhosis 1 year ago she has been experiencing fatigue, generalized body aches however, yesterday she started experiencing abdominal pain, distention and jaundice which prompted this visit to the hospital. She notes pain is localized to the periumbilical region with radiation to the flanks bilaterally. She notes that the pain is stabbing, 10. Patient received 2 PRBC transfusion in the ER. PCP is Dr. Pate. Past surgical history: Denies Home medications: Acamprosate, escitalopram, furosemide, gabapentin, lactulose, magnesium oxide, midodrine, rifaximin, spironolactone, tramadol Past Hospitalization: 09/22/2024 for similar complaints and intractable abdominal pain Social & Personal history: Patient lives with her friend. Currently unemployed. Denies using tobacco. Quit drinking alcohol in December, prior to that was drinking daily, 2-340% alcoholic drinks per day. Uses marijuana daily. Denies using any other drugs. Allergies: Denies Patient seen and examined at bedside. Patient is alert and oriented to time, place person and responding to all questions. Notes chills. Patient notes pain on defecation likely due to hemorrhoids. Platelets stable at 36, notes increasing chest discomfort, was noted to have a right-sided pleural effusion on bedside pocus. Objective vital signs Vital Sign Date Time Temp Pulse Resp B/P (MAP) Pulse Ox O2 Delivery O2 Flow Rate FiO2 10/15/24 08:54 98.0 91 16 100/50 (67) 95 98.0 10/15/24 08:10 Nasal Cannula* 2 28 Total Intake and Output 10/14/24 10/14/24 10/15/24 15:00 23:00 07:00 Intake Total 400 ml Output Total 0 ml Balance 0 ml 400 ml medications Current Medications Medications Dose Ordered Sig/Adela Route Start Time Stop Time Status Last Admin Dose Admin Docusate Sodium 100 mg BIDPRN PRN PO 10/08/24 00:45 Acetaminophen/ Hydrocodone Bitart 1 tab Q4HP PRN PO 10/08/24 00:45 10/15/24 06:11 1 TAB Pantoprazole Sodium 40 mg BID IV 10/08/24 01:15 10/15/24 11:13 40 MG Atorvastatin Calcium 40 mg HS PO 10/08/24 22:00 10/14/24 21:19 40 MG Levothyroxine Sodium 50 mcg QAM@0600 PO 10/08/24 03:30 10/15/24 06:07 50 MCG Ceftriaxone Sodium 50 ml @ 100 mls/hr DAILY@09 IV 10/09/24 09:00 10/15/24 08:39 100 MLS/HR Midodrine 10 mg TID@0600,1200,1800 PO 10/08/24 12:00 10/15/24 11:13 10 MG Acetaminophen 650 mg Q8HP PRN PO 10/09/24 17:30 Lactulose 30 ml Q6HR PO 10/12/24 18:00 10/15/24 11:13 30 ML Examination General Appearance: Cooperative. Well developed. Well nourished. NAD Head Exam: Normal inspection Neck Exam: Normal inspection. Non-tender. Normal alignment Pulmonary/Respiratory: Chest non-tender. Clear bilateral breath sounds, no crackles, no wheezing. Cardiovascular/Chest: Regular rate and rhythm. Systolic murmur. No JVD. Peripheral Pulses: 2+ Radial (R). 2+ Radial (L). 2+ Pedal (R). 2+ Pedal (L) Abdominal Exam: Normal bowel sounds. Soft. normal abdomen, no visible veins, g eneralized abdominal tenderness to palpation No hepatospenomegaly. No masses Ankle Exam: Negative ankle edema Lower extremities: 1+ lower extremity edema Neuro/Mental Status: A&O x4. Coherent. Thoughts/Psych: Normal thought pattern. Appropriate mood and affect. Good judgement and insight Skin Exam: Normal inspection. Normal color. Warm. Dry. Jaundiced laboratory and microbiology Laboratory Tests 10/15/24 04:41 Test 10/15/24 04:41 Range/Units Serum Glucose 107 H 74-106 mg/dL Microbiology Date/Time Source Procedure Growth Status 10/11/24 12:12 Blood Blood Culture - Preliminary NO GROWTH AFTER 72 HOURS OF INCUBATION. Resulted 10/11/24 05:25 Voided Urine Urine Culture - Final Complete 10/10/24 15:40 Nose MRSA Screen - Final Complete Problem List/Assessment/Plan Problem List/Assessment/Plan Alcoholic liver cirrhosis, decompensated, meld 20 Hyperbilirubinemia likely due to above Possible upper GI bleed, ruled out Severe anemia, s/p 2 PRBCs, 1 FFP, vitamin K 5 mg subQ Acute on chronic heart failure with preserved ejection fraction Pancytopenia likely due to alcoholic liver cirrhosis AXEL possibly due to hepatorenal syndrome - CT abdomen pelvis: Small right-sided pleural effusion, trace diffuse ascites, and diffuse anasarca. Findings are concerning for fluid overload state. Mildly distended urinary bladder demonstrates draining hyperdense material. May reflect recent passage of contrast with other etiologies not excluded. Splenomegaly. Moderate fecal retention throughout the colon. Cholelithiasis. - liver ultrasound: Cholelithiasis without sonographic evidence of cholecystitis. Hepatic steatosis versus medical liver disease with irregular contours which can be seen with cirrhosis. - CXR: No acute cardiopulmonary disease. - IV ceftriaxone - IV Protonix 40 mg b.i.d. - midodrine 10 mg t.i.d. - IV furosemide 20 mg - held spironolactone owing to soft blood pressure - NPO starting midnight for endoscopy in the a.m. - GI consulted, EGD today which showed minimal gastritis and gastropathy, no fresh or old blood in the stomach. Slightly irregular squamocolumnar junction but no significant basis, no hiatal hernia no esophagitis. - KUB x-ray: Nonobstructive bowel gas pattern. No visualized renal calculi. - lactulose 30 mL target 2-3 bowel movements daily - IV albumin given x3 today on 10/14/2024 - nephrology onboard - IV NS 1L - started octreotide Vaginal bleeding - threader operator on board - pelvic USG: Grossly unremarkable pelvic ultrasound. Left ovary is not visualized. Small volume ascites. Right pleural effusion. Splenomegaly. Acute complicated UTI - IV ceftriaxone - awaiting urine cultures Hematuria, ruled out - Rios - ordered creatinine kinase Hypothyroidism, TSH 7.79 - levothyroxine 50 mcg Dyslipidemia - atorvastatin 40 mg Marijuana use disorder - counseled on cessation for more than 20 minutes DVT prophylaxis: Held due to consistently low platelet count Goals of care: Full code, discussed for >16 minutes on 1/2/25 Plan discussed with patient Plan discussed with Dr. Jarvis Plan discussed with: Patient, Other (RN) My Orders My Orders Orders - JERAMY RICE RESIDENT Procedure Category Date Status Time Kidney US 10/14/24 Resulted 13:57 Urinalysis LAB 10/14/24 Logged 13:57 Urine Sodium LAB 10/14/24 Logged 13:59 Sodium Chloride 0.9% PHA 10/15/24 Logged 12:00 Sodium Chloride 0.9% PHA 10/15/24 Logged 15:00 Insert/Manage Urinary TIFFANIE 10/15/24 In Process Catheter 11:50 Strict I & O TIFFANIE 10/15/24 In Process 11:50 Bladder US 10/15/24 Transmitted 11:51 Chest Portable XY 10/15/24 Verified 11:52 Urinalysis LAB 10/15/24 Verified 11:52 Urine Bacterial DONNELL 10/15/24 Verified Culture 11:52 Dietary Evaluation Review Comments: Advance to 2gNa Lo fat Lo Chol renal specific-60g protein restriction diet when medically feasible. Expected Outcomes/Goals: improved nutrition related lab values CC Plasma Assessment Blood Product Administration S: 0140 Date of Service: Oct 15, 2024 Billing Provider: FLORENCE JARVIS MD Common Visit Codes: [id number] INP/OBS CARE(HIGH) JERAMY RICE Oct 15, 2024 11:54 FLORENCE JARVIS MD Oct 19, 2024 21:41
[2024-10-15] MEDS ORDERED: SODIUM CHLORIDE 0.9% 500 ML IV ONE ×2 (12:00→15:00)
--- NOTE | 2024-10-15 12:49 | DVH ---
CHEST RADIOGRAPH Indication: effusion Technique: Single frontal view of the chest was obtained COMPARISON: XY CHEST PORTABLE on DOS: 10/08/24, XY CHEST PORTABLE on DOS: 08/11/24, XY CHEST PORTABLE on DOS: 05/27/24, XY CHEST PORTABLE on DOS: 05/09/24 FINDINGS: Lines and Tubes: None Lungs: Congestion Pleura: No effusion. Small to moderate right pleural effusion Cardiomediastinal contours: Unremarkable Bones: Unremarkable IMPRESSION: Findings are suggestive of pulmonary edema.
--- NOTE | 2024-10-15 15:08 | DVHINCON2 ---
Date of service: Oct 15, 2024 Reason for Consultation AXEL History of Present Illness 34 years old female past medical history of extensive alcoholism liver cirrhosis, anemia, heart failure, Chronic kidney disease, presented with chief complaints of weakness and fatigue,, today she complains of abdominal pain pleuritic chest pain whenever she breathes denies urinary complaints Past Medical History per hpi Allergies: Coded Allergies: NO KNOWN ALLERGIES (Unverified , 12/10/23) Home Meds Active Scripts Levofloxacin Hemihydrate (LEVAQUIN 500 MG) 500 Mg Tab, 1 TAB PO DAILY, #7 TAB Prov:SHRUTHI HUDSON MD 09/23/24 Tramadol HCl (Tramadol HCl) 50 Mg Tab, 50 MG PO Q6HPRN PRN, #20 TAB Prov:SHRUTHI HUDSON MD 09/22/24 Spironolactone (Aldactone) 25 Mg Tab, 1 TAB PO DAILY, #30 TAB 5 Refills Prov:MASON GRAY MD 06/01/24 Reported Medications Docusate Sodium (Colace) 100 Mg Cap, 1 CAP PO BID for 30 Days, #60 09/21/24 Potassium Chloride (Potassium Chloride ER) 20 Meq Tab, 1 TAB PO DAILY for 30 Days, #30 09/21/24 Ergocalciferol (VITAMIN D 81472 UNIT) 50,000 Unit Cp, 1 CAP PO QWEEKLY for 4 Days, #28 09/21/24 Rifaximin (Xifaxan) 550 Mg Tab, 1 TAB PO BID 08/12/24 Lactulose (Lactulose) 10 Gm/15 Ml Yesenia, 15 ML PO BID, ML 08/12/24 Ferrous Sulfate (Ferrous Sulfate) 325 Mg Tab, 1 TAB PO DAILY 08/12/24 Escitalopram Oxalate (ESCITALOPRAM OXALATE) 10 Mg Tab, 10 MG PO DAILY, TAB 08/12/24 Furosemide (Furosemide) 40 Mg Tab, 1 TAB PO DAILY 08/12/24 Tramadol Hcl (Tramadol Hcl) 50 Mg Tab, 50 MG PO DAILY PRN for PAIN SCALE 7 THRU 10, MG 06/21/24 Magnesium Oxide (MAGNESIUM OXIDE) 400 Mg Tab, 1 TAB PO DAILY, TAB 05/29/24 Acamprosate Calcium (ACAMPROSATE CALCIUM DR) 333 Mg Tab, 2 TAB PO BID, TAB 05/28/24 Midodrine HCl (Midodrine HCl) 10 Mg Tab, 1 TAB PO BID 05/11/24 Acyclovir (ZOVIRAX TABLET) 400 Mg Tb, 400 MG PO BID for HERPES IF GOING TO BE SEXUALLY, TAB 04/04/24 Folic Acid (Folic Acid) 1 Mg Tab, 1 MG PO DAILY, TAB 12/11/23 Gabapentin (Gabapentin) 300 Mg Cap, 1 CAP PO DAILY 12/11/23 Current Medications Current Medications Medications (Trade) Dose Ordered Sig/Adela Route PRN Reason Start Time Stop Time Status Last Admin Spironolactone (Aldactone) 25 mg DAILY PO 10/15/24 10:00 10/15/24 08:09 DC Furosemide (Lasix Tablet) 20 mg DAILY PO 10/15/24 10:00 10/15/24 08:09 DC Octreotide Acetate (SandoSTATIN) 100 mcg TID SUBCUT 10/15/24 14:00 Family History: Alcoholism G8 BROTHER Cardiovascular disease G8 MOTHER, G8 FATHER, Diabetes mellitus G8 MOTHER, G8 FATHER, G8 BROTHER Hypertension G8 MOTHER, G8 FATHER, Review of Systems HEENT-denies headache, denies vision changes, no hearing issue, denies neck complaints, denies throat issues Respiratory system-denies cough, denies shortness of breath Cardiovascular system-++ chest pain, denies palpitations Abdomen-++abdominal pain, denies nausea, denies vomiting, denies constipation or diarrhea Musculoskeletal-denies swelling in the legs, denies pain in the extremities Genitourinary-denies urinary symptoms like dysuria, stream issues Neuro-denies dizziness, denies seizures Psychiatric-denies psychiatric history H&P Exam Vital Signs/I&O Vital Sign Date Time Temp Pulse Resp B/P (MAP) Pulse Ox O2 Delivery O2 Flow Rate FiO2 10/15/24 12:43 97.7 125 18 100/47 (64) 98 97.7 10/15/24 08:10 Nasal Cannula* 2 28 Intake and Output 10/14/24 10/15/24 18:59 06:59 Intake Total 400 ml Output Total 0 ml Balance 0 ml 400 ml Intake Oral 400 ml Output Urine Total 0 ml # Voids 1 # Bowel Movements 1 Physical Exam General-not in any distress HEENT-normocephalic, no icterus, no pallor, neck supple Respiratory-reduced air entry at bases [id number] heard, no murmurs appreciated Abdominal-soft, nontender, nondistended Musculoskeletal-no pedal edema, no calf tenderness Genitourinary-deferred Neuro-awake alert oriented x3, Psychiatric-not agitated, cooperative, Labs/Diagnostic Data Labs/Diagnostic Data Laboratory Tests Test 10/15/24 04:41 10/14/24 05:46 10/13/24 05:51 10/12/24 06:23 Range/Units White Blood Count 5.2 4.7 3.8 L 3.4 L 4.4-10.8 10^3/uL Red Blood Count 1.98 L 2.25 L 2.25 L 2.17 L 4.0-5.20 10^6/uL Hemoglobin 7.3 L 8.3 L 8.2 L 8.2 L 12.2-16.2 g/dL Hematocrit 20.7 #L 23.6 L 23.4 L 22.7 L 36.0-46.0 % Mean Corpuscular Volume 104.2 H 105.2 H 104.1 H 104.6 H 80.0-100.0 fL Mean Corpuscular Hemoglobin 36.8 H 37.0 H 36.5 H 37.7 H 28.0-32.0 pg Mean Corpuscular Hemoglobin Concent 35.3 35.1 35.1 36.0 32.0-36.0 g/dL Red Cell Distribution Width 21.9 H 22.1 H 22.1 H 22.3 H 11.8-14.3 % Platelet Count 31 L 38 L 36 L 37 L 140-450 10^3/uL Mean Platelet Volume 10.1 9.3 8.4 8.6 6.9-10.8 fL Neutrophils (%) (Auto) 61.3 37.0-80.0 % Lymphocytes (%) (Auto) 22.4 10.0-50.0 % Monocytes (%) (Auto) 12.2 H 0.0-12.0 % Basophils (%) (Auto) 1.4 0.0-2.0 % Neutrophils # (Auto) 2.1 1.6-8.6 10 ^3/uL Lymphocytes # (Auto) 0.8 0.4-5.4 10 ^3/uL Monocytes # (Auto) 0.4 0-1.3 10 ^3/uL Differential Total Cells Counted 100.0 100.0 100.0 100 Neutrophils % (Manual) 51 45 59 37.0-80.0 Band Neutrophils % (Manual) 1 3 0 Lymphocytes % (Manual) 38 41 40 10.0-50.0 Monocytes % (Manual) 9 9 0 0-12 Eosinophils % (Manual) 1 2 1 0-7 Basophils % (Manual) 0 0 0 0.0-2.0 Metamyelocytes % (manual) 0 0 0 Myelocytes % (Manual) 0 0 0 Promyelocytes % (Manual) 0 0 0 Blast Cells % (Manual) 0 0 0 Reactive Lymphocytes 0 0 0 Platelet Estimate Decreased Decreased Decreased Decreased Poikilocytosis (manual) Marked Anisocytosis (manual) Moderate Slight Slight Slight Macrocytosis Slight Moderate Slight Slight [place] Cells Many Few Moderate Moderate Sodium Level 131 L 134 L 135 L 136 136-145 mmol/L Potassium Level 3.4 L 3.6 3.5 3.7 3.5-5.1 mmol/L Chloride Level 94 L 96 L 96 L 99 98-107 mmol/L Carbon Dioxide Level 27 30 29 32 H 20-31 mmol/L Anion Gap 10 8 10 5 5-15 Blood Urea Nitrogen 26 H 25 H 17 12 9-23 mg/dL Creatinine 2.83 #H 1.92 #H 1.32 H 1.05 H 0.550-1.02 mg/dL Glomerular Filtration Rate Calc 21 34 54 71 >90 mL/min BUN/Creatinine Ratio 9.2 L 13.0 12.9 11.4 10.0-20.0 Serum Glucose 107 H 106 104 91 74-106 mg/dL Calcium Level 9.4 8.5 L 9.5 9.2 8.7-10.4 mg/dL Total Bilirubin 8.2 H 8.5 H 9.3 H 9.2 H 0.2-1.0 mg/dL Aspartate Amino Transferase (AST) 79 H 95 H 99 H 88 H 13-40 U/L Alanine Aminotransferase (ALT) 33 40 39 36 7-40 U/L Alkaline Phosphatase 120 H 107 100 67 46-116 U/L Total Protein 6.3 5.9 6.3 5.9 5.7-8.2 g/dL Albumin 3.1 L 2.6 L 2.5 L 2.3 L 3.2-4.8 g/dL Schistocytes Few Few Few Eosinophils (%) (Auto) 2.7 0.0-7.0 % Eosinophils # (Auto) 0.1 0-0.8 10 ^3/uL Basophils # (Auto) 0 0-0.2 10 ^3/uL Nucleated Red Blood Cells 0.1 % Iron Level 127 50-170 ug/dL Total Iron Binding Capacity 185 L 250-425 ug/dL Percent Iron Saturation 68.6 H 15-50 % Test 10/11/24 14:49 10/11/24 12:12 10/11/24 06:12 10/11/24 05:25 Range/Units Stool Occult Blood Positive Negative Stool Occult Blood Sample #2 Negative Stool Occult Blood Sample #3 Negative Prothrombin Time 17.9 H 9.3-11.8 sec Prothrombin Time INR 1.76 H 0.9-1.15 White Blood Count 3.6 L 4.4-10.8 10^3/uL Red Blood Count 2.36 L 4.0-5.20 10^6/uL Hemoglobin 8.7 L 12.2-16.2 g/dL Hematocrit 24.4 L 36.0-46.0 % Mean Corpuscular Volume 103.4 H 80.0-100.0 fL Mean Corpuscular Hemoglobin 36.8 H 28.0-32.0 pg Mean Corpuscular Hemoglobin Concent 35.6 32.0-36.0 g/dL Red Cell Distribution Width 23.1 H 11.8-14.3 % Platelet Count 47 L 140-450 10^3/uL Mean Platelet Volume 7.6 6.9-10.8 fL Neutrophils (%) (Auto) 67.2 37.0-80.0 % Lymphocytes (%) (Auto) 15.7 10.0-50.0 % Monocytes (%) (Auto) 11.8 0.0-12.0 % Eosinophils (%) (Auto) 3.5 0.0-7.0 % Basophils (%) (Auto) 1.8 0.0-2.0 % Neutrophils # (Auto) 2.4 1.6-8.6 10 ^3/uL Lymphocytes # (Auto) 0.6 0.4-5.4 10 ^3/uL Monocytes # (Auto) 0.4 0-1.3 10 ^3/uL Eosinophils # (Auto) 0.1 0-0.8 10 ^3/uL Basophils # (Auto) 0.1 0-0.2 10 ^3/uL Nucleated Red Blood Cells 0.2 % Platelet Estimate Decreased Anisocytosis (manual) Marked Macrocytosis Slight Kvng Cells Moderate Schistocytes Few Sodium Level 139 136-145 mmol/L Potassium Level 3.9 3.5-5.1 mmol/L Chloride Level 100 98-107 mmol/L Carbon Dioxide Level 32 H 20-31 mmol/L Anion Gap 7 5-15 Blood Urea Nitrogen 12 9-23 mg/dL Creatinine 1.05 H 0.550-1.02 mg/dL Glomerular Filtration Rate Calc 71 >90 mL/min BUN/Creatinine Ratio 11.4 10.0-20.0 Serum Glucose 101 74-106 mg/dL Calcium Level 9.3 8.7-10.4 mg/dL Magnesium Level 1.9 1.6-2.6 mg/dL Total Bilirubin 9.2 H 0.2-1.0 mg/dL Aspartate Amino Transferase (AST) 97 H 13-40 U/L Alanine Aminotransferase (ALT) 42 H 7-40 U/L Alkaline Phosphatase 84 46-116 U/L Total Protein 6.4 5.7-8.2 g/dL Albumin 2.5 L 3.2-4.8 g/dL Urine Color Yellow Yellow Urine Clarity Clear Clear Urine pH 6.5 5.0-9.0 Urine Specific [place] 1.012 1.001-1.035 Urine Protein Negative Negative Urine Ketones Negative Negative Urine Blood Trace H Negative /uL Urine Nitrite Negative Negative Urine Bilirubin Negative Negative Urine Urobilinogen Normal Negative mg/dL Urine Leukocyte Esterase Negative Negative /uL Urine RBC 1 0 - 4 /hpf Urine WBC 3 0 - 5 /hpf Urine Squamous Epithelial Cells Few <5 /hpf Urine Bacteria None seen None Seen /hpf Urine Glucose Normal Normal mg/dL Test 10/10/24 15:45 10/10/24 05:33 10/09/24 06:07 10/08/24 20:53 Range/Units Ammonia 24 11-32 umol/L White Blood Count 3.3 L 2.7 L 4.4-10.8 10^3/uL Red Blood Count 2.30 L 2.20 L 4.0-5.20 10^6/uL Hemoglobin 8.5 L 8.3 L 8.6 #L 12.2-16.2 g/dL Hematocrit 23.9 L 23.1 L 24.1 #L 36.0-46.0 % Mean Corpuscular Volume 103.7 H 104.8 #H 80.0-100.0 fL Mean Corpuscular Hemoglobin 36.9 H 37.5 H 28.0-32.0 pg Mean Corpuscular Hemoglobin Concent 35.5 35.8 32.0-36.0 g/dL Red Cell Distribution Width 24.2 H 25.1 H 11.8-14.3 % Platelet Count 54 L 53 L 140-450 10^3/uL Mean Platelet Volume 8.1 7.9 6.9-10.8 fL Neutrophils (%) (Auto) 66.7 37.0-80.0 % Lymphocytes (%) (Auto) 17.7 10.0-50.0 % Monocytes (%) (Auto) 8.3 0.0-12.0 % Basophils (%) (Auto) 4.2 H 0.0-2.0 % Neutrophils # (Auto) 1.8 1.6-8.6 10 ^3/uL Lymphocytes # (Auto) 0.5 0.4-5.4 10 ^3/uL Monocytes # (Auto) 0.2 0-1.3 10 ^3/uL Differential Total Cells Counted 100.0 100 Neutrophils % (Manual) 68 37.0-80.0 Band Neutrophils % (Manual) 0 Lymphocytes % (Manual) 27 10.0-50.0 Monocytes % (Manual) 5 0-12 Eosinophils % (Manual) 0 0-7 Basophils % (Manual) 0 0.0-2.0 Metamyelocytes % (manual) 0 Myelocytes % (Manual) 0 Promyelocytes % (Manual) 0 Blast Cells % (Manual) 0 Reactive Lymphocytes 0 Platelet Estimate Decreased Decreased Anisocytosis (manual) Slight Slight Macrocytosis Slight Slight Target Cells Few Few Santo Cells Moderate Few Schistocytes Few Few Sodium Level 137 139 136-145 mmol/L Potassium Level 3.5 4.0 3.5-5.1 mmol/L Chloride Level 99 101 98-107 mmol/L Carbon Dioxide Level 33 H 31 20-31 mmol/L Anion Gap 5 7 5-15 Blood Urea Nitrogen 12 10 9-23 mg/dL Creatinine 1.16 H 1.09 H 0.550-1.02 mg/dL Glomerular Filtration Rate Calc 63 68 >90 mL/min BUN/Creatinine Ratio 10.3 9.2 L 10.0-20.0 Serum Glucose 179 H 94 74-106 mg/dL Calcium Level 9.5 9.7 8.7-10.4 mg/dL Total Bilirubin 10.1 H 10.0 H 0.2-1.0 mg/dL Aspartate Amino Transferase (AST) 96 H 118 H 13-40 U/L Alanine Aminotransferase (ALT) 45 H 55 H 7-40 U/L Alkaline Phosphatase 67 72 46-116 U/L Total Protein 6.3 6.6 5.7-8.2 g/dL Albumin 2.6 L 2.7 L 3.2-4.8 g/dL Eosinophils (%) (Auto) 3.1 0.0-7.0 % Eosinophils # (Auto) 0.1 0-0.8 10 ^3/uL Basophils # (Auto) 0.1 0-0.2 10 ^3/uL Nucleated Red Blood Cells 0.4 % Direct Bilirubin 1.9 H <0.3 mg/dL Creatine Kinase 22 L 34-145 U/L Tumor Marker Alpha Fetoprotein 10.1 H 0.0-6.4 ng/mL Test 10/08/24 15:55 10/08/24 06:26 10/08/24 01:10 10/07/24 19:31 Range/Units Urine Color Colorless Yellow Urine Clarity Turbid H Clear Urine pH 6.0 5.0-9.0 Urine Specific [place] 1.005 1.001-1.035 Urine Protein Negative Negative Urine Ketones Negative Negative Urine Blood 3+ H Negative /uL Urine Nitrite Negative Negative Urine Bilirubin Negative Negative Urine Urobilinogen Normal Negative mg/dL Urine Leukocyte Esterase 1+ Negative /uL Urine RBC 223 0 - 4 /hpf Urine WBC 16 0 - 5 /hpf Urine Squamous Epithelial Cells Few <5 /hpf Urine Bacteria None seen None Seen /hpf Urine Glucose Normal Normal mg/dL Urine Opiates Screen Neg NEGATIVE Urine Fentanyl Screen Neg NEGATIVE Urine Barbiturates Screen Neg NEGATIVE Urine Phencyclidine Screen Neg NEGATIVE Urine Amphetamines Screen Neg NEGATIVE Urine Benzodiazepines Screen Neg NEGATIVE Urine Cocaine Screen Neg NEGATIVE Urine Cannabinoids Screen Pos NEGATIVE White Blood Count 2.6 L 4.4-10.8 10^3/uL Red Blood Count 1.62 L 4.0-5.20 10^6/uL Hemoglobin 6.0 *L 12.2-16.2 g/dL Hematocrit 17.7 L 36.0-46.0 % Mean Corpuscular Volume 109.4 #H 80.0-100.0 fL Mean Corpuscular Hemoglobin 36.9 H 28.0-32.0 pg Mean Corpuscular Hemoglobin Concent 33.7 32.0-36.0 g/dL Red Cell Distribution Width 23.3 H 11.8-14.3 % Platelet Count 60 L 140-450 10^3/uL Mean Platelet Volume 8.0 6.9-10.8 fL Neutrophils (%) (Auto) 57.9 37.0-80.0 % Lymphocytes (%) (Auto) 31.3 10.0-50.0 % Monocytes (%) (Auto) 7.6 0.0-12.0 % Eosinophils (%) (Auto) 2.6 0.0-7.0 % Basophils (%) (Auto) 0.6 0.0-2.0 % Neutrophils # (Auto) 1.5 L 1.6-8.6 10 ^3/uL Lymphocytes # (Auto) 0.8 0.4-5.4 10 ^3/uL Monocytes # (Auto) 0.2 0-1.3 10 ^3/uL Eosinophils # (Auto) 0.1 0-0.8 10 ^3/uL Basophils # (Auto) 0 0-0.2 10 ^3/uL Nucleated Red Blood Cells 0.3 % Platelet Estimate Decreased Anisocytosis (manual) Slight Macrocytosis Moderate Kvng Cells Moderate Sodium Level 139 136-145 mmol/L Potassium Level 3.3 L 3.5-5.1 mmol/L Chloride Level 102 98-107 mmol/L Carbon Dioxide Level 30 20-31 mmol/L Anion Gap 7 5-15 Blood Urea Nitrogen 12 9-23 mg/dL Creatinine 0.99 0.550-1.02 mg/dL Glomerular Filtration Rate Calc 76 >90 mL/min BUN/Creatinine Ratio 12.1 10.0-20.0 Serum Glucose 80 74-106 mg/dL Calcium Level 9.7 8.7-10.4 mg/dL Total Bilirubin 7.8 H 0.2-1.0 mg/dL Aspartate Amino Transferase (AST) 116 H 13-40 U/L Alanine Aminotransferase (ALT) 53 H 7-40 U/L Alkaline Phosphatase 83 46-116 U/L Total Protein 6.5 5.7-8.2 g/dL Albumin 2.8 L 3.2-4.8 g/dL Hemoglobin A1c < 3.8 <5.7 % A1C Lactic Acid Level 1.5 0.4-2.0 mmol/L B-Type Natriuretic Peptide 732.97 0-100 pg/mL Triglycerides Level 83 < 150 mg/dL Cholesterol Level 255 H < 200 mg/dL LDL Cholesterol 67 < 100 mg/dL HDL Cholesterol 32 L 40-59 mg/dL Vitamin B12 Level 693 211-911 pg/mL Folic Acid 36.58 >5.38 ng/mL Thyroid Stimulating Hormone (TSH) 7.79 H 0.55-4.78 uIU/mL Free Thyroxine (T4) Calculated 0.89 0.89-1.76 ng/dL Hepatitis B Surface Antigen Negative Negative Hepatitis C Antibody Negative Negative HIV (1&2) Antibody Negative Negative Ammonia < 10 L 11-32 umol/L Test 10/07/24 18:41 Range/Units White Blood Count 2.5 L 4.4-10.8 10^3/uL Red Blood Count 1.60 L 4.0-5.20 10^6/uL Hemoglobin 6.2 *L 12.2-16.2 g/dL Hematocrit 18.7 L 36.0-46.0 % Mean Corpuscular Volume 117.1 H 80.0-100.0 fL Mean Corpuscular Hemoglobin 39.0 H 28.0-32.0 pg Mean Corpuscular Hemoglobin Concent 33.3 32.0-36.0 g/dL Red Cell Distribution Width 17.6 H 11.8-14.3 % Platelet Count 72 L 140-450 10^3/uL Mean Platelet Volume 7.2 6.9-10.8 fL Neutrophils (%) (Auto) 61.4 37.0-80.0 % Lymphocytes (%) (Auto) 29.0 10.0-50.0 % Monocytes (%) (Auto) 7.3 0.0-12.0 % Eosinophils (%) (Auto) 1.5 0.0-7.0 % Basophils (%) (Auto) 0.8 0.0-2.0 % Neutrophils # (Auto) 1.5 L 1.6-8.6 10 ^3/uL Lymphocytes # (Auto) 0.7 0.4-5.4 10 ^3/uL Monocytes # (Auto) 0.2 0-1.3 10 ^3/uL Eosinophils # (Auto) 0 0-0.8 10 ^3/uL Basophils # (Auto) 0 0-0.2 10 ^3/uL Nucleated Red Blood Cells 0.0 % Prothrombin Time 17.2 H 9.3-11.8 sec Prothrombin Time INR 1.69 H 0.9-1.15 Sodium Level 138 136-145 mmol/L Potassium Level 3.4 L 3.5-5.1 mmol/L Chloride Level 100 98-107 mmol/L Carbon Dioxide Level 31 20-31 mmol/L Anion Gap 7 5-15 Blood Urea Nitrogen 15 9-23 mg/dL Creatinine 1.12 H 0.550-1.02 mg/dL Glomerular Filtration Rate Calc 66 >90 mL/min BUN/Creatinine Ratio 13.4 10.0-20.0 Serum Glucose 121 H 74-106 mg/dL Calcium Level 10.1 8.7-10.4 mg/dL Total Bilirubin 8.6 H 0.2-1.0 mg/dL Aspartate Amino Transferase (AST) 133 H 13-40 U/L Alanine Aminotransferase (ALT) 64 H 7-40 U/L Alkaline Phosphatase 105 46-116 U/L Total Protein 7.6 5.7-8.2 g/dL Albumin 3.3 3.2-4.8 g/dL Lipase 62 H 12-53 U/L Beta HCG, Quantitative 1.1 L 1.5-4.2 mIU/mL Microbiology Date/Time Source Procedure Growth Status 10/11/24 05:25 Voided Urine Urine Culture - Final Complete 10/10/24 15:40 Nose MRSA Screen - Final Complete Assessment Acute kidney injury in the setting hypotension/ ATN versus hepatorenal Alcoholic Liver cirrhosis Anemia Thrombocytopenia recs 1L NS iv for now ,hold spironolactone and lasix for today Resume Lasix 40mg iv from tomorrow given pleural effusions consider thoracocentesis fluid and salt restriction check abhi kidney us Plan discussed with: Patient JOSHUA ROBERTO MD Oct 15, 2024 15:08
[2024-10-15] MEDS: OCTREOTIDE ACETATE 100 MCG/ML VL SUBCUT SCH (15:13)
--- NOTE | 2024-10-15 16:41 | DVHPN2 ---
Progress Note Date Seen: Oct 15, 2024 Resident Creating Document: MURALI RICHARDS RESIDENT Medical Necessity Reason Pt with a Central, PICC or Fol: No Medical Necessity Reason worsening kidney function Subjective Review of Systems Patient seen and examined today She is complaining of generalized body pain with pruritis. She is on full liquid diet Bleeding is insignificant today. CMP today shows worsening renal function. Nephrology following Objective vital signs Vital Sign Date Time Temp Pulse Resp B/P (MAP) Pulse Ox O2 Delivery O2 Flow Rate FiO2 10/15/24 12:43 97.7 125 18 100/47 (64) 98 97.7 10/15/24 08:10 Nasal Cannula* 2 28 Total Intake and Output 10/14/24 10/14/24 10/15/24 15:00 23:00 07:00 Intake Total 400 ml Output Total 0 ml Balance 0 ml 400 ml medications Current Medications Medications Dose Ordered Sig/Adela Route Start Time Stop Time Status Last Admin Dose Admin Docusate Sodium 100 mg BIDPRN PRN PO 10/08/24 00:45 Acetaminophen/ Hydrocodone Bitart 1 tab Q4HP PRN PO 10/08/24 00:45 10/15/24 06:11 1 TAB Pantoprazole Sodium 40 mg BID IV 10/08/24 01:15 10/15/24 11:13 40 MG Atorvastatin Calcium 40 mg HS PO 10/08/24 22:00 10/14/24 21:19 40 MG Levothyroxine Sodium 50 mcg QAM@0600 PO 10/08/24 03:30 10/15/24 06:07 50 MCG Ceftriaxone Sodium 50 ml @ 100 mls/hr DAILY@09 IV 10/09/24 09:00 10/15/24 08:39 100 MLS/HR Midodrine 10 mg TID@0600,1200,1800 PO 10/08/24 12:00 10/15/24 11:13 10 MG Acetaminophen 650 mg Q8HP PRN PO 10/09/24 17:30 Lactulose 30 ml Q6HR PO 10/12/24 18:00 10/15/24 11:13 30 ML Octreotide Acetate 100 mcg TID SUBCUT 10/15/24 14:00 10/15/24 15:13 100 MCG Furosemide 40 mg DAILY IV 10/16/24 10:00 Examination General examination- Not in acute distress, Jaundiced HEENT: PEERLA, no acute nasal discharge Chest: S1-S2 audible, rate and rhythm regular, no murmur Lung: CTAB, no wheeze or rhonchi Abdomen: very soft, mild tenderness, BS+, no vaginal bleeding noted Musculoskeletal: Very soft muscles, no acute joint swelling or tenderness Lower extremity: Trace pedal edema Neurological: cranial nerves intact, no acute dysarthria or dysphagia Psychiatry-- Normal mood and affect Skin- no acute rash or purpura, mild jaundice laboratory and microbiology Laboratory Tests 10/15/24 04:41 Test 10/15/24 04:41 Range/Units Serum Glucose 107 H 74-106 mg/dL Microbiology Date/Time Source Procedure Growth Status 10/11/24 12:12 Blood Blood Culture - Preliminary NO GROWTH AFTER 72 HOURS OF INCUBATION. Resulted 10/11/24 05:25 Voided Urine Urine Culture - Final Complete 10/10/24 15:40 Nose MRSA Screen - Final Complete Problem List/Assessment/Plan Problem List/Assessment/Plan Problem list (1) Calculus of gallbladder without cholecystitis without obstruction (2) Hepatic steatosis (3) Abdominal pain (4) Vaginal bleeding: ultrasound: Grossly unremarkable pelvic ultrasound. The left ovary is not visualized on this study. [employer] following. No consulting sales executive intervention needed (5) Generalized weakness (6) Severe anemia; Hgb: 7.3 (7) Liver cirrhosis (8) Jaundice (9) Ascites (10) Hepatic encephalopathy (11) Blood loss anemia ( 12) splenomegaly (13) Right pleural effusion (14) Pancytopenia--> recommend hematology consult Iron panel Iron: 127, TIBC: 185; SAT: 68.8 (15) AXEL likely hepatorenal syndrome ( New) Urine culture: No growth (16)Small to moderate right pleural effusion Prognosis Plan Continue supportive care Continue ursodiol 300 mg p.o. twice a day Vitamin K 10 mg IV for 3 days ( 10/13-10/15) Recommend Hematology consult Meld score is 20 points predictive of 19.6% three-month mortality Alpha fetoprotein level slightly elevated to 10.1 due to underlying chronic liver disease, no mass seen Outpatient referral for liver transplant evaluation as the patient has been abstinent for almost a year Patient was counseled about discontinuing marijuana No further endoscopy or colonoscopy at this time I will also consider referral outpatient for a possible capsule endoscopy Nutrition: Regular diet Transfuse if hgb <7.0 Goal of care discussed for more than 25 minutes Case and plan discussed with Dr. Marroquin Thank you for allowing us to participate in the care of this patient. Please call if you have any questions or concerns. Plan discussed with: Patient Dietary Evaluation Review Comments: Advance to 2gNa Lo fat Lo Chol renal specific-60g protein restriction diet when medically feasible. Expected Outcomes/Goals: improved nutrition related lab values CC Plasma Assessment Blood Product Administration S: [id number] MURALI RICHARDS RESIDENT Oct 15, 2024 16:41
--- NOTE | 2024-10-15 21:28 | PRN ---
Misceleneous Note Note Note Peer to peer with Brianna HAMMOND transplant team from [facility], patient is candidate but [facility] wants to determine social support of patient, will contact their social service team to evaluate further tomorrow. FLORENCE HERNANDEZ MD Oct 15, 2024 21:28
--- NOTE | 2024-10-15 22:06 | DVHINCON2 ---
Date of service: Oct 15, 2024 Referring Physician Chari Thorne MD Reason for Consultation Pleural effusion and ascites History of Present Illness A 34-year-old woman with PMHx of alcoholic liver cirrhosis (quit 10 months ago), heart failure with preserved ejection fraction, hyperlipidemia, severe chronic anemia, CKD, history of recurrent blood transfusions, transaminitis, and hemorrhoids who presented to the ED on 10/08/24 with c/o abdominal pain x1 week. The patient states that initially she started feeling weakness and fatigue that progressed to abdominal pain located in the periumbilical region and hypogastrium and radiating to the lower back. The patient described the pain as a sharp/stabbing pain rated as a 7/10 on the pain scale associated with jaundice and abdominal distention. Initial labs showed leukopenia, severe anemia with a hemoglobin of 6.2, thrombocytopenia, acute transaminitis with an AST of 133 and ALT of 64. Total bilirubin elevated at 8.6. Blood pressure was on the lower side. Patient was admitted for further care, and pulmonary consultation is requested for evaluation and management due to pleural effusion and ascites. Review of Systems: 14-point review of systems negative unless otherwise noted above. Past Medical History: Alcoholic liver cirrhosis (quit 10 months ago), heart failure with preserved ejection fraction, hyperlipidemia, severe chronic anemia, CKD, history of recurrent blood transfusions, transaminitis, and hemorrhoids. Past Surgical History: None Medications: Reviewed. Allergies: No known drug allergies. Family History: DM, hypertension, heart disease, alcoholism. Social History: Nonsmoker. Used to be alcohol abuser, but quit 10 months ago. Drugs: Marijuana Family History: Alcoholism G8 BROTHER Cardiovascular disease G8 MOTHER, G8 FATHER, Diabetes mellitus G8 MOTHER, G8 FATHER, G8 BROTHER Hypertension G8 MOTHER, G8 FATHER, Allergies: Coded Allergies: NO KNOWN ALLERGIES (Unverified , 12/10/23) Home Meds Active Scripts Spironolactone (Aldactone) 25 Mg Tab, 1 TAB PO DAILY, #30 TAB 5 Refills Prov:MASON GRAY MD 06/01/24 Reported Medications Atorvastatin Calcium (ATORVASTATIN CALCIUM) 40 Mg Tab, 1 TAB PO DAILY 10/16/24 Gabapentin (Gabapentin) 800 Mg Tab, 1 PO DAILY 10/16/24 Nitrofurantoin Monohyd Macro (Nitrofurantoin Monohydrat) 100 Mg Cap, 1 CAP PO BID 10/16/24 Docusate Sodium (Colace) 100 Mg Cap, 1 CAP PO BID for 30 Days, #60 09/21/24 Rifaximin (Xifaxan) 550 Mg Tab, 1 TAB PO BID 08/12/24 Ferrous Sulfate (Ferrous Sulfate) 325 Mg Tab, 1 TAB PO DAILY 08/12/24 Furosemide (Furosemide) 40 Mg Tab, 1 TAB PO DAILY 08/12/24 Tramadol Hcl (Tramadol Hcl) 50 Mg Tab, 50 MG PO DAILY PRN for PAIN SCALE 7 THRU 10, MG 06/21/24 Magnesium Oxide (MAGNESIUM OXIDE) 400 Mg Tab, 1 TAB PO DAILY, TAB 05/29/24 Acamprosate Calcium (ACAMPROSATE CALCIUM DR) 333 Mg Tab, 2 TAB PO BID, TAB 05/28/24 Midodrine HCl (Midodrine HCl) 10 Mg Tab, 1 TAB PO BID 05/11/24 Acyclovir (ZOVIRAX TABLET) 400 Mg Tb, 400 MG PO BID for HERPES IF GOING TO BE SEXUALLY, TAB 04/04/24 Folic Acid (Folic Acid) 1 Mg Tab, 1 MG PO DAILY, TAB 12/11/23 Gabapentin (Gabapentin) 300 Mg Cap, 1 CAP PO DAILY 12/11/23 Current Medications Current Medications Medications (Trade) Dose Ordered Sig/Adela Route PRN Reason Start Time Stop Time Status Last Admin Spironolactone (Aldactone) 25 mg DAILY PO 10/15/24 10:00 10/15/24 08:09 DC Furosemide (Lasix Tablet) 20 mg DAILY PO 10/15/24 10:00 10/15/24 08:09 DC Octreotide Acetate (SandoSTATIN) 100 mcg TID SUBCUT 10/15/24 14:00 10/15/24 15:13 Furosemide (Lasix Injection) 40 mg DAILY IV 10/16/24 10:00 Vital Signs Vital Signs Date Time Temp Pulse Resp B/P (MAP) Pulse Ox O2 Delivery O2 Flow Rate FiO2 10/15/24 20:51 97.7 110 14 85/47 (60) 99 97.7 10/15/24 08:10 Nasal Cannula* 2 28 Physical Exam Gen.: Patient lying in bed in no apparent distress. Breathing on room air. Head: Normocephalic, atraumatic. Eyes: EOMI/PERRLA. Ears: Normal hearing. Normal anatomy. Neck/trachea: Trachea midline, supple. Nose: Normal external anatomy. Mouth: Moist mucous membranes. Chest: Decreased air entry bilaterally. No wheezing or rhonchi. Cardiovascular: Positive S1, positive S2. Regular rate and rhythm. Abdomen: Positive bowel sounds in all 4 quadrants. Soft, non-tender, non- distended. : Deferred. Rectal: Deferred. Skin: Warm, dry. Intact. Extremities: 2+ radial pulses bilaterally. No lower extremity edema. Neuro: Awake, alert, oriented x3. No gross motor or sensory deficits. Cranial nerves II through XII intact. Gait not assessed. Labs/Diagnostic Data Labs Test 10/15/24 04:41 10/14/24 05:46 10/12/24 06:23 10/11/24 14:49 Range/Units White Blood Count 5.2 4.4-10.8 10^3/uL Red Blood Count 1.98 L 4.0-5.20 10^6/uL Hemoglobin 7.3 L 12.2-16.2 g/dL Hematocrit 20.7 #L 36.0-46.0 % Mean Corpuscular Volume 104.2 H 80.0-100.0 fL Mean Corpuscular Hemoglobin 36.8 H 28.0-32.0 pg Mean Corpuscular Hemoglobin Concent 35.3 32.0-36.0 g/dL Red Cell Distribution Width 21.9 H 11.8-14.3 % Platelet Count 31 L 140-450 10^3/uL Mean Platelet Volume 10.1 6.9-10.8 fL Neutrophils (%) (Auto) 37.0-80.0 % Lymphocytes (%) (Auto) 10.0-50.0 % Monocytes (%) (Auto) 0.0-12.0 % Basophils (%) (Auto) 0.0-2.0 % Neutrophils # (Auto) 1.6-8.6 10 ^3/uL Lymphocytes # (Auto) 0.4-5.4 10 ^3/uL Monocytes # (Auto) 0-1.3 10 ^3/uL Differential Total Cells Counted 100.0 100 Neutrophils % (Manual) 51 37.0-80.0 Band Neutrophils % (Manual) 1 Lymphocytes % (Manual) 38 10.0-50.0 Monocytes % (Manual) 9 0-12 Eosinophils % (Manual) 1 0-7 Basophils % (Manual) 0 0.0-2.0 Metamyelocytes % (manual) 0 Myelocytes % (Manual) 0 Promyelocytes % (Manual) 0 Blast Cells % (Manual) 0 Reactive Lymphocytes 0 Platelet Estimate Decreased Poikilocytosis (manual) Marked Anisocytosis (manual) Moderate Macrocytosis Slight Kvng Cells Many Sodium Level 131 L 136-145 mmol/L Potassium Level 3.4 L 3.5-5.1 mmol/L Chloride Level 94 L 98-107 mmol/L Carbon Dioxide Level 27 20-31 mmol/L Anion Gap 10 5-15 Blood Urea Nitrogen 26 H 9-23 mg/dL Creatinine 2.83 #H 0.550-1.02 mg/dL Glomerular Filtration Rate Calc 21 >90 mL/min BUN/Creatinine Ratio 9.2 L 10.0-20.0 Serum Glucose 107 H 74-106 mg/dL Calcium Level 9.4 8.7-10.4 mg/dL Total Bilirubin 8.2 H 0.2-1.0 mg/dL Aspartate Amino Transferase (AST) 79 H 13-40 U/L Alanine Aminotransferase (ALT) 33 7-40 U/L Alkaline Phosphatase 120 H 46-116 U/L Total Protein 6.3 5.7-8.2 g/dL Albumin 3.1 L 3.2-4.8 g/dL Schistocytes Few Eosinophils (%) (Auto) 2.7 0.0-7.0 % Eosinophils # (Auto) 0.1 0-0.8 10 ^3/uL Basophils # (Auto) 0 0-0.2 10 ^3/uL Nucleated Red Blood Cells 0.1 % Iron Level 127 50-170 ug/dL Total Iron Binding Capacity 185 L 250-425 ug/dL Percent Iron Saturation 68.6 H 15-50 % Stool Occult Blood Positive Negative Stool Occult Blood Sample #2 Negative Stool Occult Blood Sample #3 Negative Test 10/11/24 12:12 10/11/24 06:12 10/11/24 05:25 10/10/24 15:45 Range/Units Prothrombin Time 17.9 H 9.3-11.8 sec Prothrombin Time INR 1.76 H 0.9-1.15 Magnesium Level 1.9 1.6-2.6 mg/dL Urine Color Yellow Yellow Urine Clarity Clear Clear Urine pH 6.5 5.0-9.0 Urine Specific [place] 1.012 1.001-1.035 Urine Protein Negative Negative Urine Ketones Negative Negative Urine Blood Trace H Negative /uL Urine Nitrite Negative Negative Urine Bilirubin Negative Negative Urine Urobilinogen Normal Negative mg/dL Urine Leukocyte Esterase Negative Negative /uL Urine RBC 1 0 - 4 /hpf Urine WBC 3 0 - 5 /hpf Urine Squamous Epithelial Cells Few <5 /hpf Urine Bacteria None seen None Seen /hpf Urine Glucose Normal Normal mg/dL Ammonia 24 11-32 umol/L Test 10/10/24 05:33 10/09/24 06:07 10/08/24 15:55 10/08/24 01:10 Range/Units Target Cells Few Direct Bilirubin 1.9 H <0.3 mg/dL Creatine Kinase 22 L 34-145 U/L Tumor Marker Alpha Fetoprotein 10.1 H 0.0-6.4 ng/mL Urine Opiates Screen Neg NEGATIVE Urine Fentanyl Screen Neg NEGATIVE Urine Barbiturates Screen Neg NEGATIVE Urine Phencyclidine Screen Neg NEGATIVE Urine Amphetamines Screen Neg NEGATIVE Urine Benzodiazepines Screen Neg NEGATIVE Urine Cocaine Screen Neg NEGATIVE Urine Cannabinoids Screen Pos NEGATIVE Hemoglobin A1c < 3.8 <5.7 % A1C Lactic Acid Level 1.5 0.4-2.0 mmol/L B-Type Natriuretic Peptide 732.97 0-100 pg/mL Triglycerides Level 83 < 150 mg/dL Cholesterol Level 255 H < 200 mg/dL LDL Cholesterol 67 < 100 mg/dL HDL Cholesterol 32 L 40-59 mg/dL Vitamin B12 Level 693 211-911 pg/mL Folic Acid 36.58 >5.38 ng/mL Thyroid Stimulating Hormone (TSH) 7.79 H 0.55-4.78 uIU/mL Free Thyroxine (T4) Calculated 0.89 0.89-1.76 ng/dL Hepatitis B Surface Antigen Negative Negative Hepatitis C Antibody Negative Negative HIV (1&2) Antibody Negative Negative Test 10/07/24 18:41 Range/Units Lipase 62 H 12-53 U/L Beta HCG, Quantitative 1.1 L 1.5-4.2 mIU/mL Microbiology Date/Time Source Procedure Growth Status 10/11/24 12:12 Blood Blood Culture - Preliminary NO GROWTH AFTER 72 HOURS OF INCUBATION. Resulted 10/11/24 05:25 Voided Urine Urine Culture - Final Complete 10/10/24 15:40 Nose MRSA Screen - Final Complete Assessment Impression: Pleural effusion Atelectasis Ascites Alcoholic liver cirrhosis Severe anemia Acute on chronic CHF with preserved EF Pancytopenia likely 2/2 alcoholic liver cirrhosis Acute kidney injury Urinary tract infection Marijuana use Plan: Supplemental oxygen PRN Titrate to keep O2 sats above 92%. Taper O2 as tolerated. Ascites - consult IR for paracentesis CXR reviewed demonstrates small to moderate right pleural effusion, pulmonary congestion. Octreotide drip Continue antibiotics Incentive spirometry Monitor renal function. Monitor electrolytes. Supplement as necessary. Monitor ins and outs. Potassium supplementation DVT prophylaxis. Prognosis: Poor given patient's multiple co-morbidities. Rest of plan per hospitalist and other consultants. Thank you, Dr. Thorne, for allowing me to participate in this patient's care. Further recommendations will depend on the patient's clinical course. Please do not hesitate to contact me if you have any questions or concerns. This medical document was created using an electronic medical record system with [employer] computerized dictation system. Although these documentations are being carefully reviewed, there may still be some phonetic and typographical changes. The errors are purely typographical, due to imperfection on the software program, and do not reflect any compromise in the patient's medical care. Plan discussed with: Patient, Other (JOSIE Rodríguez/MD Thorne) SANTINO HAYES MD Oct 15, 2024 22:06
[2024-10-16] VITALS (8 sets, daily range): BP systolic 78–96; BP diastolic 50–60; PULSE 64–130; RESP 12–20; TEMP 97.6–98.5; O2SAT 91–100
[2024-10-16] MEDS ORDERED: HYDROcodone-ACET 7.5/325MG TAB PO ONE (05:00)
[2024-10-16 07:12] LABS: Hemoglobin 8.8 g/dL (12.2-16.2); White Blood Cell 5.4 10^3/uL (4.4-10.8)
[2024-10-16 07:28] LABS: Hematocrit 25.3 % (36.0-46.0); Mean Corpuscular Hemoglobin 37.4 pg (28.0-32.0); Mean Corpuscular Hgb Conc. 34.6 g/dL (32.0-36.0); Mean Corpuscular Volume 108.2 fL (80.0-100.0); Platelet Count (auto) 35 10^3/uL (140-450); Red Blood Cells 2.34 10^6/uL (4.0-5.20)
[2024-10-16 07:30] LABS: Alanine Aminotransferase 32 U/L (7-40); Anion Gap 9 (5-15); BUN/Creatinine Ratio 10.1 (10.0-20.0); Carbon Dioxide 28 mmol/L (20-31); Potassium 3.9 mmol/L (3.5-5.1)
[2024-10-16 07:31] LABS: Total Protein 6.3 g/dL (5.7-8.2)
[2024-10-16 07:33] LABS: Band Neutrophils % (manual) 0; Basophils % (manual) 0 (0.0-2.0); Blast Cells 0; Metamyelocytes % 0; Myelocytes % 0; Promyelocytes % 0; Reactive Lymphocytes 0
[2024-10-16 07:38] LABS: Albumin 2.8 g/dL (3.2-4.8); Alkaline Phosphatase 156 U/L (46-116); Aspartate Aminotransferase 100 U/L (13-40); Bilirubin, Total 7.3 mg/dL (0.2-1.0); Blood Urea Nitrogen 32 mg/dL (9-23); Chloride 92 mmol/L (98-107); Glucose 110 mg/dL (74-106); Sodium 129 mmol/L (136-145)
[2024-10-16 09:33] LABS: Eosinophils % (manual) 3 (0-7); Lymphocytes % (manual) 32 (10.0-50.0); Monocytes % (manual) 9 (0-12)
[2024-10-16 09:35] LABS: Anisocytosis Moderate; Macrocytosis Moderate; Platelet Estimate Decreased
[2024-10-16] MEDS: FUROSEMIDE 40 MG/4 ML VIAL IV SCH (09:47)
--- NOTE | 2024-10-16 13:16 | ECG ---
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
--- NOTE | 2024-10-16 13:17 | ECG ---
[facility] Test Date: 2024-10-16 Test Time: 08:16:00 Pat Name: LUCY JEONG Department: Respiratoy Room: 0223T Gender: F Engineering Officer: : 1990 Requested By: JERAMY RICE Order Number: [id number] Reading MD: Fernando Reddy Measurements Intervals [place] Rate: 135 P: 0 SD: 0 QRS: 86 QRSD: 75 T: -41 QT: 328 QTc: 492 Interpretive Statements Sinus or ectopic atrial bradycardia Low voltage, extremity leads Minimal ST depression, diffuse leads Borderline prolonged QT interval Electronically Signed On 10-19-2024 8:36:05 PST by Fernando Reddy Please click the below link to view image of tracing.
[2024-10-16] MEDS ORDERED: ATOR40TA52 PO (13:28)
[2024-10-16] MEDS ORDERED: GABA800T97 PO (13:28)
[2024-10-16] MEDS ORDERED: NITR100C6 PO (13:28)
--- NOTE | 2024-10-16 15:37 | DVHPN2 ---
Progress Note Date Seen: Oct 16, 2024 Resident Creating Document: MURALI RICHARDS RESIDENT Medical Necessity Reason Pt with a Central, PICC or Fol: No Medical Necessity Reason Pleural effusion and ascites Subjective Review of Systems Patient seen and examined today. She has some sob of breath and has been on oxygen. Chest x-ray shows evidences of pulmonary edema. Hand Touch Up Painter consult. Pelvic US shows small ascites. She is complaining of generalized body pain with pruritis. She is on full liquid diet blood work today shows stable hgb. T. bili down 7.3; AST and ALP increase slightly. Creatinine: 3.18 Patient is currently on subcutaneous octreotide and midodrine for hepatorenal syndrome, antibiotics and incentive spirometry Objective vital signs Vital Sign Date Time Temp Pulse Resp B/P (MAP) Pulse Ox O2 Delivery O2 Flow Rate FiO2 10/16/24 13:33 97.6 121 20 94/60 (71) 96 97.6 10/16/24 08:00 Room Air* 0 21 Total Intake and Output 10/15/24 10/15/24 10/16/24 15:00 23:00 07:00 Intake Total 250 ml 1340 ml 550 ml Output Total 0 ml 200 ml Balance 250 ml 1340 ml 350 ml medications Current Medications Medications Dose Ordered Sig/Adela Route Start Time Stop Time Status Last Admin Dose Admin Docusate Sodium 100 mg BIDPRN PRN PO 10/08/24 00:45 Acetaminophen/ Hydrocodone Bitart 1 tab Q4HP PRN PO 10/08/24 00:45 10/16/24 05:25 1 TAB Pantoprazole Sodium 40 mg BID IV 10/08/24 01:15 10/16/24 09:43 40 MG Atorvastatin Calcium 40 mg HS PO 10/08/24 22:00 10/15/24 22:01 40 MG Levothyroxine Sodium 50 mcg QAM@0600 PO 10/08/24 03:30 10/16/24 05:24 50 MCG Ceftriaxone Sodium 50 ml @ 100 mls/hr DAILY@09 IV 10/09/24 09:00 10/16/24 09:42 100 MLS/HR Midodrine 10 mg TID@0600,1200,1800 PO 10/08/24 12:00 10/16/24 12:23 10 MG Acetaminophen 650 mg Q8HP PRN PO 10/09/24 17:30 Lactulose 30 ml Q6HR PO 10/12/24 18:00 10/16/24 12:23 30 ML Octreotide Acetate 100 mcg TID SUBCUT 10/15/24 14:00 10/16/24 14:21 100 MCG Furosemide 40 mg DAILY IV 10/16/24 10:00 Examination General examination- Not in acute distress, mild Jaundiced HEENT: PEERLA, no acute nasal discharge Chest: S1-S2 audible, rate and rhythm regular, no murmur Lung: CTAB, no wheeze or rhonchi Abdomen: very soft, mild tenderness, BS+, no vaginal bleeding noted Musculoskeletal: Very soft muscles, no acute joint swelling or tenderness Lower extremity: Trace pedal edema Neurological: cranial nerves intact, no acute dysarthria or dysphagia Psychiatry-- Normal mood and affect Skin- no acute rash or purpura, mild jaundice laboratory and microbiology Laboratory Tests 10/16/24 06:09 Test 10/16/24 06:09 Range/Units Serum Glucose 110 H 74-106 mg/dL Microbiology Date/Time Source Procedure Growth Status 10/11/24 12:12 Blood Blood Culture - Final NO GROWTH AFTER 5 DAYS OF INCUBATION. Complete 10/11/24 05:25 Voided Urine Urine Culture - Final Complete 10/10/24 15:40 Nose MRSA Screen - Final Complete Problem List/Assessment/Plan Problem List/Assessment/Plan Problem list (1) Calculus of gallbladder without cholecystitis without obstruction (2) Hepatic steatosis (3) Abdominal pain (4) Vaginal bleeding: ultrasound: Grossly unremarkable pelvic ultrasound. The left ovary is not visualized on this study. LYE TREATER following. No sweatband cutting machine operator intervention needed (5) Generalized weakness (6) Severe anemia; Hgb: 7.3 (7) Liver cirrhosis (8) Jaundice (9) Ascites (10) Hepatic encephalopathy (11) Blood loss anemia ( 12) splenomegaly (13) Right pleural effusion (14) Pancytopenia--> recommend hematology consult Iron panel Iron: 127, TIBC: 185; SAT: 68.8 (15) AXEL likely hepatorenal syndrome ( New)--> subcutaneous octreotide (16) pulmonary edema Prognosis Plan Continue supportive care Continue ursodiol 300 mg p.o. twice a day Vitamin K 10 mg IV for 3 days ( 10/13-10/15) Recommend Hematology consult Meld score is 20 points predictive of 19.6% three-month mortality Alpha fetoprotein level slightly elevated to 10.1 due to underlying chronic liver disease, no mass seen Outpatient referral for liver transplant evaluation as the patient has been abstinent for almost a year Patient was counseled about discontinuing marijuana. No further endoscopy or colonoscopy at this time I will also consider referral outpatient for a possible capsule endoscopy Nutrition: Regular diet Transfuse if hgb <7.0 Ascites: IR consult pending IV Lasix 40mg daily Goal of care discussed for more than 25 minutes Case and plan discussed with Dr. Marroquin Thank you for allowing us to participate in the care of this patient. Please call if you have any questions or concerns. Plan discussed with: Patient Dietary Evaluation Review Comments: Advance to 2gNa Lo fat Lo Chol renal specific-60g protein restriction diet when medically feasible. Expected Outcomes/Goals: improved nutrition related lab values CC Plasma Assessment Blood Product Administration S: [id number] MURALI RICHARDS RESIDENT Oct 16, 2024 15:37
--- NOTE | 2024-10-16 15:41 | DVHPN2 ---
Progress Note Date Seen: Oct 16, 2024 Medical Necessity Reason Pt with a Central, PICC or Fol: Yes The following are medically ne: Rios Catheter Subjective Patient reports: No new complaints Objective vital signs Vital Sign Date Time Temp Pulse Resp B/P (MAP) Pulse Ox O2 Delivery O2 Flow Rate FiO2 10/16/24 13:33 97.6 121 20 94/60 (71) 96 97.6 10/16/24 08:00 Room Air* 0 21 Total Intake and Output 10/15/24 10/15/24 10/16/24 14:59 22:59 06:59 Intake Total 250 ml 1340 ml 550 ml Output Total 0 ml 200 ml Balance 250 ml 1340 ml 350 ml medications Current Medications Medications Dose Ordered Sig/Adela Route Start Time Stop Time Status Last Admin Dose Admin Docusate Sodium 100 mg BIDPRN PRN PO 10/08/24 00:45 Acetaminophen/ Hydrocodone Bitart 1 tab Q4HP PRN PO 10/08/24 00:45 10/16/24 05:25 1 TAB Pantoprazole Sodium 40 mg BID IV 10/08/24 01:15 10/16/24 09:43 40 MG Atorvastatin Calcium 40 mg HS PO 10/08/24 22:00 10/15/24 22:01 40 MG Levothyroxine Sodium 50 mcg QAM@0600 PO 10/08/24 03:30 10/16/24 05:24 50 MCG Ceftriaxone Sodium 50 ml @ 100 mls/hr DAILY@09 IV 10/09/24 09:00 10/16/24 09:42 100 MLS/HR Midodrine 10 mg TID@0600,1200,1800 PO 10/08/24 12:00 10/16/24 12:23 10 MG Acetaminophen 650 mg Q8HP PRN PO 10/09/24 17:30 Lactulose 30 ml Q6HR PO 10/12/24 18:00 10/16/24 12:23 30 ML Octreotide Acetate 100 mcg TID SUBCUT 10/15/24 14:00 10/16/24 14:21 100 MCG Furosemide 40 mg DAILY IV 10/16/24 10:00 Examination Gen: In no acute distress. Jaundice noted Pulm: Bilateral air entry, no rales CVS:RRR, normal S1 and S2 Abd: Distended Ext: No edema Neuro: A&Ox4 laboratory and microbiology Laboratory Tests 10/16/24 06:09 Test 10/16/24 06:09 Range/Units Serum Glucose 110 H 74-106 mg/dL Microbiology Date/Time Source Procedure Growth Status 10/11/24 12:12 Blood Blood Culture - Final NO GROWTH AFTER 5 DAYS OF INCUBATION. Complete 10/11/24 05:25 Voided Urine Urine Culture - Final Complete 10/10/24 15:40 Nose MRSA Screen - Final Complete Labs and/or images reviewed: Labs reviewed by me Problem List/Assessment/Plan Problem List/Assessment/Plan IMP Acute kidney injury in the setting hypotension/ ATN versus hepatorenal-ongoing creat 3.18, GFR 19 Alcoholic Liver cirrhosis Anemia Thrombocytopenia REC Chemistry panel, Urine Na, Urine creat Consider IR for paracentesis- ascites Fluid & Na restriction Strict I&Os Will continue to follow Plan discussed with: Patient Dietary Evaluation Review Comments: Advance to 2gNa Lo fat Lo Chol renal specific-60g protein restriction diet when medically feasible. Expected Outcomes/Goals: improved nutrition related lab values CC Plasma Assessment Blood Product Administration S: [id number] KOBE ESPARZA [facility] Oct 16, 2024 15:41
--- NOTE | 2024-10-16 16:48 | DVHPNRES ---
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 Patient notes that since being diagnosed with liver cirrhosis 1 year ago she has been experiencing fatigue, generalized body aches however, yesterday she started experiencing abdominal pain, distention and jaundice which prompted this visit to the hospital. She notes pain is localized to the periumbilical region with radiation to the flanks bilaterally. She notes that the pain is stabbing, 04/15. Patient received 2 PRBC transfusion in the ER. PCP is Dr. Pate. Past surgical history: Denies Home medications: Acamprosate, escitalopram, furosemide, gabapentin, lactulose, magnesium oxide, midodrine, rifaximin, spironolactone, tramadol Past Hospitalization: 09/22/2024 for similar complaints and intractable abdominal pain Social & Personal history: Patient lives with her friend. Currently unemployed. Denies using tobacco. Quit drinking alcohol in December, prior to that was drinking daily, 2-340% alcoholic drinks per day. Uses marijuana daily. Denies using any other drugs. Allergies: Denies Patient seen and examined at bedside. Patient is alert and oriented to time, place person and responding to all questions. Notes chills. Patient notes pain on defecation likely due to hemorrhoids. Platelets stable at 36, notes increasing chest discomfort, was noted to have a right-sided pleural effusion on bedside pocus. Patient complaining of increasing chest pain, EKG was unremarkable. Objective vital signs Vital Sign Date Time Temp Pulse Resp B/P (MAP) Pulse Ox O2 Delivery O2 Flow Rate FiO2 10/16/24 13:33 97.6 121 20 94/60 (71) 96 97.6 10/16/24 08:00 Room Air* 0 21 Total Intake and Output 10/15/24 10/15/24 10/16/24 15:00 23:00 07:00 Intake Total 250 ml 1340 ml 550 ml Output Total 0 ml 200 ml Balance 250 ml 1340 ml 350 ml medications Current Medications Medications Dose Ordered Sig/Adela Route Start Time Stop Time Status Last Admin Dose Admin Docusate Sodium 100 mg BIDPRN PRN PO 10/08/24 00:45 Acetaminophen/ Hydrocodone Bitart 1 tab Q4HP PRN PO 10/08/24 00:45 10/16/24 15:35 1 TAB Pantoprazole Sodium 40 mg BID IV 10/08/24 01:15 10/16/24 09:43 40 MG Atorvastatin Calcium 40 mg HS PO 10/08/24 22:00 10/15/24 22:01 40 MG Levothyroxine Sodium 50 mcg QAM@0600 PO 10/08/24 03:30 10/16/24 05:24 50 MCG Ceftriaxone Sodium 50 ml @ 100 mls/hr DAILY@09 IV 10/09/24 09:00 10/16/24 09:42 100 MLS/HR Midodrine 10 mg TID@0600,1200,1800 PO 10/08/24 12:00 10/16/24 12:23 10 MG Acetaminophen 650 mg Q8HP PRN PO 10/09/24 17:30 Lactulose 30 ml Q6HR PO 10/12/24 18:00 10/16/24 12:23 30 ML Octreotide Acetate 100 mcg TID SUBCUT 10/15/24 14:00 10/16/24 14:21 100 MCG Furosemide 40 mg DAILY IV 10/16/24 10:00 Examination General Appearance: Cooperative. Well developed. Well nourished. NAD Head Exam: Normal inspection Neck Exam: Normal inspection. Non-tender. Normal alignment Pulmonary/Respiratory: Chest non-tender. Clear bilateral breath sounds, no crackles, no wheezing. Cardiovascular/Chest: Regular rate and rhythm. Systolic murmur. No JVD. Peripheral Pulses: 2+ Radial (R). 2+ Radial (L). 2+ Pedal (R). 2+ Pedal (L) Abdominal Exam: Normal bowel sounds. Soft. normal abdomen, no visible veins, g eneralized abdominal tenderness to palpation No hepatospenomegaly. No masses Ankle Exam: Negative ankle edema Lower extremities: 1+ lower extremity edema Neuro/Mental Status: A&O x4. Coherent. Thoughts/Psych: Normal thought pattern. Appropriate mood and affect. Good judgement and insight Skin Exam: Normal inspection. Normal color. Warm. Dry. Jaundiced laboratory and microbiology Laboratory Tests 10/16/24 06:09 Test 10/16/24 06:09 Range/Units Serum Glucose 110 H 74-106 mg/dL Microbiology Date/Time Source Procedure Growth Status 10/11/24 12:12 Blood Blood Culture - Final NO GROWTH AFTER 5 DAYS OF INCUBATION. Complete 10/11/24 05:25 Voided Urine Urine Culture - Final Complete 10/10/24 15:40 Nose MRSA Screen - Final Complete Labs and/or images reviewed: Labs reviewed by me, Image(s) reviewed by me Problem List/Assessment/Plan Problem List/Assessment/Plan Alcoholic liver cirrhosis, decompensated, meld 20 Hyperbilirubinemia likely due to above Possible upper GI bleed, ruled out Severe anemia, s/p 2 PRBCs, 1 FFP, vitamin K 5 mg subQ Acute on chronic heart failure with preserved ejection fraction Pancytopenia likely due to alcoholic liver cirrhosis AXEL possibly due to hepatorenal syndrome Right-sided pleural effusion - CT abdomen pelvis: Small right-sided pleural effusion, trace diffuse ascites, and diffuse anasarca. Findings are concerning for fluid overload state. Mildly distended urinary bladder demonstrates draining hyperdense material. May reflect recent passage of contrast with other etiologies not excluded. Splenomegaly. Moderate fecal retention throughout the colon. Cholelithiasis. - liver ultrasound: Cholelithiasis without sonographic evidence of cholecystitis. Hepatic steatosis versus medical liver disease with irregular contours which can be seen with cirrhosis. - CXR: No acute cardiopulmonary disease. - IV ceftriaxone - IV Protonix 40 mg b.i.d. - midodrine 10 mg t.i.d. - IV furosemide 20 mg - held spironolactone owing to soft blood pressure - NPO starting midnight for endoscopy in the a.m. - GI consulted, EGD today which showed minimal gastritis and gastropathy, no fresh or old blood in the stomach. Slightly irregular squamocolumnar junction but no significant basis, no hiatal hernia no esophagitis. - KUB x-ray: Nonobstructive bowel gas pattern. No visualized renal calculi. - lactulose 30 mL target 2-3 bowel movements daily - IV albumin given x3 today on 10/14/2024 - nephrology onboard - IV NS 1L - started octreotide 100 mg subcutaneous t.i.d. - scheduled to undergo thoracentesis today Vaginal bleeding - glost kiln operator on board - pelvic USG: Grossly unremarkable pelvic ultrasound. Left ovary is not visualized. Small volume ascites. Right pleural effusion. Splenomegaly. Acute complicated UTI - IV ceftriaxone - awaiting urine cultures Hematuria, ruled out - Rios - ordered creatinine kinase Hypothyroidism, TSH 7.79 - levothyroxine 50 mcg Dyslipidemia - atorvastatin 40 mg Marijuana use disorder - counseled on cessation for more than 20 minutes DVT prophylaxis: Held due to consistently low platelet count Goals of care: Full code, discussed for >16 minutes on 10/08/24 Plan discussed with patient Plan discussed with Dr. Jarvis Plan discussed with: Patient, Other (RN) Dietary Evaluation Review Comments: Advance to 2gNa Lo fat Lo Chol renal specific-60g protein restriction diet when medically feasible. Expected Outcomes/Goals: improved nutrition related lab values CC Plasma Assessment Blood Product Administration S: 0140 Date of Service: Oct 16, 2024 Billing Provider: FLORENCE JARVIS MD Common Visit Codes: 41790-[id number] INP/OBS CARE(HIGH) JERAMY RICE Oct 16, 2024 16:48 FLORENCE JARVIS MD Oct 19, 2024 21:41
--- NOTE | 2024-10-16 21:18 | ECG ---
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
[2024-10-16] MEDS: LORazepam 0.5 MG TAB PO PRN (21:46)
--- NOTE | 2024-10-16 22:06 | DVHPN2 ---
Progress Note - Dictate Date Seen: Oct 16, 2024 Medical Necessity Reason Pt with a Central, PICC or Fol: No Subjective Patient seen and examined at bedside. Breathing comfortably on room air. Overnight events reviewed. vital signs Vital Sign Date Time Temp Pulse Resp B/P (MAP) Pulse Ox O2 Delivery O2 Flow Rate FiO2 10/16/24 17:00 97.7 110 20 91/55 (67) 99 97.7 10/16/24 08:00 Room Air* 0 21 Total Intake and Output 10/15/24 10/15/24 10/16/24 15:00 23:00 07:00 Intake Total 250 ml 1340 ml 550 ml Output Total 0 ml 200 ml Balance 250 ml 1340 ml 350 ml medications Current Medications Medications Dose Ordered Sig/Adela Route Start Time Stop Time Status Last Admin Dose Admin Docusate Sodium 100 mg BIDPRN PRN PO 10/08/24 00:45 Acetaminophen/ Hydrocodone Bitart 1 tab Q4HP PRN PO 10/08/24 00:45 10/16/24 21:47 1 TAB Pantoprazole Sodium 40 mg BID IV 10/08/24 01:15 10/16/24 21:46 40 MG Atorvastatin Calcium 40 mg HS PO 10/08/24 22:00 10/15/24 22:01 40 MG Levothyroxine Sodium 50 mcg QAM@0600 PO 10/08/24 03:30 10/16/24 05:24 50 MCG Ceftriaxone Sodium 50 ml @ 100 mls/hr DAILY@09 IV 10/09/24 09:00 10/16/24 09:42 100 MLS/HR Midodrine 10 mg TID@0600,1200,1800 PO 10/08/24 12:00 10/16/24 17:14 10 MG Acetaminophen 650 mg Q8HP PRN PO 10/09/24 17:30 Lactulose 30 ml Q6HR PO 10/12/24 18:00 10/16/24 12:23 30 ML Octreotide Acetate 100 mcg TID SUBCUT 10/15/24 14:00 10/16/24 14:21 100 MCG Furosemide 40 mg DAILY IV 10/16/24 10:00 Lorazepam 0.5 mg Q8HP PRN PO 10/16/24 21:15 10/16/24 21:46 0.5 MG objective Gen.: Patient lying in bed in no apparent distress. Breathing on room air. Head: Normocephalic, atraumatic. Eyes: EOMI/PERRLA. Ears: Normal hearing. Normal anatomy. Neck/trachea: Trachea midline, supple. Nose: Normal external anatomy. Mouth: Moist mucous membranes. Chest: Decreased air entry bilaterally. No wheezing or rhonchi. Cardiovascular: Positive S1, positive S2. Regular rate and rhythm. Abdomen: Positive bowel sounds in all 4 quadrants. Soft, non-tender, non- distended. : Deferred. Rectal: Deferred. Skin: Warm, dry. Intact. Extremities: 2+ radial pulses bilaterally. No lower extremity edema. Neuro: Awake, alert, oriented x3. No gross motor or sensory deficits. Cranial nerves II through XII intact. Gait not assessed. laboratory and microbiology Laboratory Tests 10/16/24 06:09 Test 10/16/24 06:09 Range/Units Serum Glucose 110 H 74-106 mg/dL Assessment/Plan Impression: Pleural effusion Atelectasis Ascites Alcoholic liver cirrhosis Severe anemia Acute on chronic CHF with preserved EF Pancytopenia likely 2/2 alcoholic liver cirrhosis Acute kidney injury Urinary tract infection Marijuana use Events: On room air Supplemental O2 PRN Protonix BID Octreotide Continue antibiotics IS. Diurese as tolerated w/ Lasix Monitor renal function Obtain PT/INR for AM Plan for right thoracentesis. CXR reviewed. Possible loculated right pleural effusion. Obtain consent for right thoracentesis. Will perform if INR and PT acceptable. Rest of plan as noted below. Plan: Supplemental oxygen PRN Titrate to keep O2 sats above 92%. Octreotide drip Continue antibiotics Incentive spirometry Monitor renal function. Monitor electrolytes. Supplement as necessary. Monitor ins and outs. Potassium supplementation DVT prophylaxis. Prognosis: Poor given patient's multiple co-morbidities. Rest of plan per hospitalist and other consultants. Thank you, Dr. Thorne, for allowing me to participate in this patient's care. Further recommendations will depend on the patient's clinical course. Please do not hesitate to contact me if you have any questions or concerns. This medical document was created using an electronic medical record system with [employer] system. Although these documentations are being carefully reviewed, there may still be some phonetic and typographical changes. The errors are purely typographical, due to imperfection on the software program, and do not reflect any compromise in the patient's medical care. Dietary Evaluation Review Comments: Advance to 2gNa Lo fat Lo Chol renal specific-60g protein restriction diet when medically feasible. Expected Outcomes/Goals: improved nutrition related lab values Plan discussed with: Patient, Other (JOSIE Muller) CC Plasma Assessment Blood Product Administration S: 0140 SANTINO HAYES MD Oct 16, 2024 22:06
[2024-10-17 01:00] VITALS: BP 78/47; PULSE 67; RESP 19; TEMP 97.2; O2SAT 95
--- NOTE | 2024-10-17 04:05 | RESUS ---
CODE BLUE ASSESSSMENT History of Events History of Events: Pt admitted on 10/08/24 for severe anemia in setting of liver cirrhosis. Pt was downgraded to MS on 10/13/24 and then upgraded to tele on 10/17/24 d/t decreased BP and O2 Sat. Per primary RN, pt appeared to be short of breath. Code assist initially called when pt when pulseless and CODE BLUE called. Initial Information Date: Oct 17, 2024 Time: :33 Location of Arrest: [facility] Arrest Witnessed: Yes CPR started initial time: :33 CPR started by whom: Hospital Staff Pre-Hospital Care: Pre-Code Care (inpatient) Type of arrest: Cardiac, Respiratory, Adult, Witnessed Spontaneous Respirations: No Pulse Present: No Monitoring: ECG, Pulse Oximetry, Telemetry Crash Cart Opened and Supplies: Yes Airway Ventilation Breathing at Onset: Assisted Oxygen Delivery Method: Mask (Pt on NRB at 15L) Time of first Assisted Ventila: :33 Artificial Ventilation: Bag/Mask Intubation Time: 02:40 Intubation Size: 8.0 cuffed Intubated by: RT Shan Intubation Attempts: 1 Intubated orally: Yes Intubated Nasaly: No Tube secured at: 26 (cm @ lip) Cricoid pressure done: Yes CO2 indicator used: Yes Confirmation: Auscultation, Exhaled CO2 Suctioning (Oral/Tracheal): Yes (Heavy emesis in tube) Circulation Circulation #1: Time: 02:33 Pulse Rate (adult): 0 Blood Pressure Systolic: 0 Blood Pressure Diastolic: 0 Circulation #2: Time: 02:35 Pulse Rate (adult): 0 Blood Pressure Systolic: 0 Blood Pressure Diastolic: 0 Circulation #3: Time: 02:37 Pulse Rate (adult): 0 Blood Pressure Systolic: 0 Blood Pressure Diastolic: 0 Circulation Comment: Asystole Circulation #4: Time: 02:40 Pulse Rate (adult): 0 Blood Pressure Systolic: 0 Blood Pressure Diastolic: 0 Circulation Comment: Vfib Circulation #5: Time: 02:43 Pulse Rate (adult): 0 Blood Pressure Systolic: 0 Blood Pressure Diastolic: 0 Circulation Comment: Vfib Circulation #6: Time: 02:45 Pulse Rate (adult): 0 Blood Pressure Systolic: 0 Blood Pressure Diastolic: 0 Circulation Comment: Asystole Circulation #7: Time: 02:47 Pulse Rate (adult): 0 Blood Pressure Systolic: 0 Blood Pressure Diastolic: 0 Circulation Comment: Vfib Circulation #8: Time: 02:49 Pulse Rate (adult): 0 Blood Pressure Systolic: 0 Blood Pressure Diastolic: 0 Circulation Comment: Vfib Circulation #9: Time: 02:51 Pulse Rate (adult): 0 Blood Pressure Systolic: 0 Blood Pressure Diastolic: 0 Circulation Comment: Vfib Circulation #10: Time: 02:53 Pulse Rate (adult): 0 Blood Pressure Systolic: 0 Blood Pressure Diastolic: 0 Circulation Comment: TOD Defibrillation Defbrillation #1: Time Defibrillator Applied: 02:41 EKG Rhythm: V-Fibrillation Compressions: Manual Time Defibrillator Shocked Pt.: 02:41 Defib. Joules: 20 Pulse Present: No Defbrillation #2: Time Defibrillator Applied: 02:43 EKG Rhythm: V-Fibrillation Compressions: Manual Time Defibrillator Shocked Pt.: 02:43 Defib. Joules: 150 Pulse Present: No Defbrillation #3: Time Defibrillator Applied: 02:49 EKG Rhythm: V-Fibrillation Compressions: Manual Time Defibrillator Shocked Pt.: 02:49 Defib. Joules: 200 Pulse Present: No Defbrillation #4: Time Defibrillator Applied: 02:51 EKG Rhythm: V-Fibrillation Compressions: Manual Time Defibrillator Shocked Pt.: 02:51 Defib. Joules: 200 Pulse Present: No Procedure - IV Procedure - IV : IV start time: 02:48 IV Side: Left IV Location: Hand IV Catheter Type: Saline Lock IV Placed: In Hospital IV Placed by Karen Taylor RN IV Gauge: 22 IV Line Care: Saline Flush Medications & Response Medications and Responses #1: Medication Time: 02:36 ADULT Medications Given ADULT: Epinephrine 1 mg Route of Administration: IV Medications and Responses #2: Medication Time: 02:38 ADULT Medications Given ADULT: Sodium Bacarbinate 50 meq, Calcium Chloride 10 mL Route of Administration: IV Medications and Responses #3: Medication Time: 02:39 ADULT Medications Given ADULT: Epinephrine 1 mg Route of Administration: IV Medications and Responses #4: Medication Time: 02:42 ADULT Medications Given ADULT: Epinephrine 1 mg Route of Administration: IV Medications and Responses #5: Medication Time: 02:46 ADULT Medications Given ADULT: Epinephrine 1 mg, Magnesium Sulfate 1 gm Route of Administration: IV Medications and Responses #6: Medication Time: 02:48 ADULT Medications Given ADULT: Amiodarone 300 mg Route of Administration: IV Heart Rate: 127 EKG Rhythm: V-Fibrillation Medications and Responses #7: Medication Time: 02:50 ADULT Medications Given ADULT: Epinephrine 1 mg Route of Administration: IV Procedure - Rios Catheter Urinary Catheter Type/Location: Uretheral (Rios) Urine Color: Yellow, Straw Comment: Rios placed prior to code Nurses Notes Aisha Coma Scale Eye Opening: None (1) Aisha Coma Scale Verbal: None (1) Aisha Coma Scale Motor: None (1) Glascow Total: 3 Pupil Reaction: Non Reactive Bedside Blood Glucose: 94 Time Code Ended Time Code Ended: 02:53 Post Arrest Status: Outcome of code: Unsuccessful Patient pronounced by: MD Donald - Resident Time patient pronounced: 02:53 Code Team Present: MD Donald - Resident; MD Nela - Resident; Marie Denton RN - ICU Charge; Jovanna Dawkins RN - Business Services Intern; Berkley Denton RN - MST Charge; Karen Taylor RN; Ana Crawley RN; Manas Crawley RN - ER Charge; Jean Miller, RT; Adry Crawley, RT; Abraham Taylor, RN; Erin Barnard RN; MARIBEL CastilloN; GONZALO Batres; ARNIE Vila; US Dane; ARNIE Butler Ashley Oct 17, 2024 04:05
--- NOTE | 2024-10-17 15:03 | DVHDS2 ---
Summary Date of Admission Oct 08, 2024 at 00:43 Date and Time of Expiration: Oct 17, 2024 02:53 Reason for Admission: Severe symptomatic anemia secondary to alcoholic liver cirrhosis Labs/Diagnostic Data: Laboratory Results Test 10/17/24 02:37 10/17/24 01:51 10/16/24 06:09 10/14/24 05:46 POC Glucose 94 mg/dl (70-106) Troponin I High Sensitivity 540 ng/L (</=34) White Blood Count 5.4 10^3/uL (4.4-10.8) Red Blood Count 2.34 10^6/uL (4.0-5.20) Hemoglobin 8.8 g/dL (12.2-16.2) Hematocrit 25.3 % (36.0-46.0) Mean Corpuscular Volume 108.2 fL (80.0-100.0) Mean Corpuscular Hemoglobin 37.4 pg (28.0-32.0) Mean Corpuscular Hemoglobin Concent 34.6 g/dL (32.0-36.0) Red Cell Distribution Width 23.0 % (11.8-14.3) Platelet Count 35 10^3/uL (140-450) Mean Platelet Volume 10.3 fL (6.9-10.8) Neutrophils (%) (Auto) % (37.0-80.0) Lymphocytes (%) (Auto) % (10.0-50.0) Monocytes (%) (Auto) % (0.0-12.0) Basophils (%) (Auto) % (0.0-2.0) Neutrophils # (Auto) 10 ^3/uL (1.6-8.6) Lymphocytes # (Auto) 10 ^3/uL (0.4-5.4) Monocytes # (Auto) 10 ^3/uL (0-1.3) Differential Total Cells Counted 100.0 (100) Neutrophils % (Manual) 56 (37.0-80.0) Band Neutrophils % (Manual) 0 Lymphocytes % (Manual) 32 (10.0-50.0) Monocytes % (Manual) 9 (0-12) Eosinophils % (Manual) 3 (0-7) Basophils % (Manual) 0 (0.0-2.0) Metamyelocytes % (manual) 0 Myelocytes % (Manual) 0 Promyelocytes % (Manual) 0 Blast Cells % (Manual) 0 Reactive Lymphocytes 0 Platelet Estimate Decreased Poikilocytosis (manual) Marked Anisocytosis (manual) Moderate Macrocytosis Moderate Kvng Cells Many Sodium Level 129 mmol/L (136-145) Potassium Level 3.9 mmol/L (3.5-5.1) Chloride Level 92 mmol/L (98-107) Carbon Dioxide Level 28 mmol/L (20-31) Anion Gap 9 (5-15) Blood Urea Nitrogen 32 mg/dL (9-23) Creatinine 3.18 mg/dL (0.550-1.02) Glomerular Filtration Rate Calc 19 mL/min (>90) BUN/Creatinine Ratio 10.1 (10.0-20.0) Serum Glucose 110 mg/dL (74-106) Calcium Level 9.0 mg/dL (8.7-10.4) Total Bilirubin 7.3 mg/dL (0.2-1.0) Aspartate Amino Transferase (AST) 100 U/L (13-40) Alanine Aminotransferase (ALT) 32 U/L (7-40) Alkaline Phosphatase 156 U/L (46-116) Total Protein 6.3 g/dL (5.7-8.2) Albumin 2.8 g/dL (3.2-4.8) Schistocytes Few Test 10/12/24 06:23 10/11/24 14:49 10/11/24 12:12 10/11/24 06:12 Eosinophils (%) (Auto) 2.7 % (0.0-7.0) Eosinophils # (Auto) 0.1 10 ^3/uL (0-0.8) Basophils # (Auto) 0 10 ^3/uL (0-0.2) Nucleated Red Blood Cells 0.1 % Iron Level 127 ug/dL (50-170) Total Iron Binding Capacity 185 ug/dL (250-425) Percent Iron Saturation 68.6 % (15-50) Stool Occult Blood Positive (Negative) Stool Occult Blood Sample #2 (Negative) Stool Occult Blood Sample #3 (Negative) Prothrombin Time 17.9 sec (9.3-11.8) Prothrombin Time INR 1.76 (0.9-1.15) Magnesium Level 1.9 mg/dL (1.6-2.6) Test 10/11/24 05:25 10/10/24 15:45 1/4/25 05:33 10/09/24 06:07 Urine Color Yellow (Yellow) Urine Clarity Clear (Clear) Urine pH 6.5 (5.0-9.0) Urine Specific [place] 1.012 (1.001-1.035) Urine Protein Negative (Negative) Urine Ketones Negative (Negative) Urine Blood Trace /uL (Negative) Urine Nitrite Negative (Negative) Urine Bilirubin Negative (Negative) Urine Urobilinogen Normal mg/dL (Negative) Urine Leukocyte Esterase Negative /uL (Negative) Urine RBC 1 /hpf (0 - 4) Urine WBC 3 /hpf (0 - 5) Urine Squamous Epithelial Cells Few /hpf (<5) Urine Bacteria None seen /hpf (None Seen) Urine Glucose Normal mg/dL (Normal) Ammonia 24 umol/L (11-32) Target Cells Few Direct Bilirubin 1.9 mg/dL (<0.3) Creatine Kinase 22 U/L (34-145) Tumor Marker Alpha Fetoprotein 10.1 ng/mL (0.0-6.4) Test 10/08/24 15:55 10/08/24 01:10 10/07/24 18:41 Urine Opiates Screen Neg (NEGATIVE) Urine Fentanyl Screen Neg (NEGATIVE) Urine Barbiturates Screen Neg (NEGATIVE) Urine Phencyclidine Screen Neg (NEGATIVE) Urine Amphetamines Screen Neg (NEGATIVE) Urine Benzodiazepines Screen Neg (NEGATIVE) Urine Cocaine Screen Neg (NEGATIVE) Urine Cannabinoids Screen Pos (NEGATIVE) Hemoglobin A1c < 3.8 % A1C (<5.7) Lactic Acid Level 1.5 mmol/L (0.4-2.0) B-Type Natriuretic Peptide 732.97 pg/mL (0-100) Triglycerides Level 83 mg/dL (< 150) Cholesterol Level 255 mg/dL (< 200) LDL Cholesterol 67 mg/dL (< 100) HDL Cholesterol 32 mg/dL (40-59) Vitamin B12 Level 693 pg/mL (211-911) Folic Acid 36.58 ng/mL (>5.38) Thyroid Stimulating Hormone (TSH) 7.79 uIU/mL (0.55-4.78) Free Thyroxine (T4) Calculated 0.89 ng/dL (0.89-1.76) Hepatitis B Surface Antigen Negative (Negative) Hepatitis C Antibody Negative (Negative) HIV (1&2) Antibody Negative (Negative) Lipase 62 U/L (12-53) Beta HCG, Quantitative 1.1 mIU/mL (1.5-4.2) Other Laboratory Tests 10/16/24 06:09 Brief Hx & Hospital Course: Patient was a 34-year-old female with past medical history of liver cirrhosis diagnosed 1 year ago, chronic anemia, heart failure with preserved ejection fraction, hemorrhoids, erosive gastritis, duodenitis, 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 Patient noted that since being diagnosed with liver cirrhosis 1 year ago she has been experiencing fatigue, generalized body aches however, on 10/07/2024 she started experiencing abdominal pain, distention and jaundice which prompted this visit to the hospital. She notes pain is localized to the periumbilical region with radiation to the flanks bilaterally. She noted that the pain was stabbing, 10. Patient received 2 PRBC transfusion in the ER. PCP is Dr. Pate. Hospital course: CT abdomen pelvis showed Small right-sided pleural effusion, trace diffuse ascites, and diffuse anasarca. Findings are concerning for fluid overload state. Mildly distended urinary bladder demonstrates draining hyperdense material. May reflect recent passage of contrast with other etiologies not excluded. Splenomegaly. Moderate fecal retention throughout the colon. Cholelithiasis. Liver ultrasound showed Cholelithiasis without sonographic evidence of cholecystitis. Hepatic steatosis versus medical liver disease with irregular contours which can be seen with cirrhosis. Chest x-ray showed no acute cardiopulmonary disease patient was started on IV ceftriaxone for SBP prophylaxis along with IV Protonix 40 mg b.i.d., midodrine 10 mg t.i.d along with octreotide 100 mg subcutaneous t.i.d... Patient was also started on IV furosemide 20 mg which was stopped on on day 8 of hospitalization due to worsening hepatorenal syndrome. Patient was also continued on spironolactone and lactulose 30 mg. Patient received IV albumin 25 mg x 5. Patient was also given IV NS although judiciously owing to volume overload status and worsening hepatorenal syndrome. In the 2nd day of hospitalization patient underwent an EGD which showed minimal gastritis and gastropathy, no fracture old blood in the stomach. Slightly irregular squamocolumnar junction but no significant varices, no hiatal hernia no esophagitis. Patient had some vaginal bleeding, likely due to coagulopathy, for which tube and manifold builder were consulted, pelvic ultrasound showed grossly unremarkable pelvic ultrasound. Left ovary is not visualized. Small volume ascites. Right pleural effusion. Splenomegaly. On day 8 of hospitalization, patient's right-sided pleural effusion which was previously small was now noted to be a much larger pleural effusion, pulmonology was subsequently consulted and patient was scheduled for a right-sided thoracentesis. Owing to patient's unstable status, decision for inpatient transfer to higher level of care for transplant evaluation was made. Peer to peer discussion was held with Helder Negrete who agreed to accept the patient initially, however, later disagreed due to patient not having a strong support system. Preceding Event: Notified by the nurse that the patient was experiencing shortness of breaths and decreasing O2 sat. Code blue was called by the team. The communications associate hospitalist team was bedside along with the code team. 21 minutes of BLS/ACLS protocol was conducted following the best practices, iv atropine and iv epinephrine was administered. AED was attached and patient was shocked x4. Intubated with ambu bag respiration continued. The patient remained in asystole and hemodynamically did not respond. Detailed bedside examination revealed: -The patient was unresponsive to verbal or painful stimuli. -Spontaneous Heart and lung sounds are absent. -No spontaneous cardiac or respiratory activity noted over 5 minutes. -No corneal pupillary reflex present while checked twice. -Pupils are fixed and dilated over the examination period. Code timeout performed. The patient was pronounced clinically at 2:53 a.m. on 10/17/2024 by Shaista Bennett MD, resident. Discussed with Dr. Rodriguez. Patient's family and patient's nurse were updated by the healthcare team. Appropriate and empathic condolences were provided to the patient's dear ones. 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 [employer]: For transfer to higher level of care for transplant evaluation Final Diagnosis/Problems List Alcoholic liver cirrhosis, decompensated, meld 20 Hyperbilirubinemia likely due to above Possible upper GI bleed, ruled out Severe anemia, s/p 2 PRBCs, 1 FFP, vitamin K 5 mg subQ Acute on chronic heart failure with preserved ejection fraction Pancytopenia likely due to alcoholic liver cirrhosis AXEL possibly due to hepatorenal syndrome Right-sided pleural effusion Vaginal bleeding Acute complicated UTI Hypothyroidism Dyslipidemia Marijuana use disorder Discharge Disposition: at Hospital Date of Service: Oct 17, 2024 Billing Provider: FLORENCE HERNANDEZ MD Common Visit Codes: 54440-FXA/OBS DISCH DAY >30min, NOT BILLABLE JERAMY RICE RESIDENT Oct 17, 2024 15:03 FLORENCE HERNANDEZ MD Oct 19, 2024 21:42
== END 2024-10-17 13:35 | DRG 280 ==
LOC: EDBD 17:44 → ER 17:44 → TELE 10-08 00:43 → TELE-E-ADS 10-08 04:00 → EAST 10-14 04:46 → TELE-E-ADS 10-17 02:24 → TELE-CENTR 10-17 05:25
PROVIDERS: ADMIT Student in an Organized Health Care Education/Training Program; ATTEND Student in an Organized Health Care Education/Training Program
PROC: 30233K1 Transfusion of Nonautologous Frozen Plasma into Peripheral Vein, Percutaneous Approach (ICD-10-PCS; principal; 2024-10-08)
PROC: 30233N1 Transfusion of Nonautologous Red Blood Cells into Peripheral Vein, Percutaneous Approach (ICD-10-PCS; 2024-10-08)
PROC: 0DB68ZX Excision of Stomach, Via Natural or Artificial Opening Endoscopic, Diagnostic (ICD-10-PCS; 2024-10-09)
PROC: 5A12012 Performance of Cardiac Output, Single, Manual (ICD-10-PCS; 2024-10-17)
PROC: 0BH17EZ Insertion of Endotracheal Airway into Trachea, Via Natural or Artificial Opening (ICD-10-PCS; 2024-10-17)
PROC: 5A2204Z Restoration of Cardiac Rhythm, Single (ICD-10-PCS; 2024-10-17)
DX: K70.31 Alcoholic cirrhosis of liver with ascites (principal); J96.01 Acute respiratory failure with hypoxia; K76.7 Hepatorenal syndrome; N17.0 Acute kidney failure with tubular necrosis; D61.818 Other pancytopenia; I50.33 Acute on chronic diastolic (congestive) heart failure; E44.1 Mild protein-calorie malnutrition; D63.8 Anemia in other chronic diseases classified elsewhere; D50.0 Iron deficiency anemia secondary to blood loss (chronic); F12.10 Cannabis abuse, uncomplicated; K29.70 Gastritis, unspecified, without bleeding; J98.11 Atelectasis; K80.20 Calculus of gallbladder without cholecystitis without obstruction; D69.6 Thrombocytopenia, unspecified; E78.5 Hyperlipidemia, unspecified; K76.0 Fatty (change of) liver, not elsewhere classified; K76.82 Hepatic encephalopathy; N93.9 Abnormal uterine and vaginal bleeding, unspecified; N39.0 Urinary tract infection, site not specified; N18.9 Chronic kidney disease, unspecified; I13.0 Hypertensive heart and chronic kidney disease with heart failure and stage 1 through stage 4 chronic kidney disease, or unspecified chronic kidney disease; E03.9 Hypothyroidism, unspecified; D68.9 Coagulation defect, unspecified; G89.29 Other chronic pain; K31.9 Disease of stomach and duodenum, unspecified; Z82.49 Family history of ischemic heart disease and other diseases of the circulatory system; Z83.3 Family history of diabetes mellitus; Z87.442 Personal history of urinary calculi; Z56.0 Unemployment, unspecified; Z79.899 Other long term (current) drug therapy; Z68.25 Body mass index [BMI] 25.0-25.9, adult
CPT/HCPCS: 31500; 36415; 36600; 71045; 74018; 74176; 76705; 76775; 76856; 80048; 80053; 80061; 80076; 80307; 81001; 82105; 82140; 82270; 82550; 82607; 82746; 82805; 82962; 83036; 83540; 83550; 83605; 83690; 83735; 83880; 84439; 84443; 84484; 84702; 85007; 85014; 85018; 85025; 85027; 85610; 86703; 86803; 86850; 86900; 86901; 86920; 87040; 87081; 87086; 87340; 92950; 93005; 97110; 97116; 97163; 97530; 99291; G0378; J0171; J2470; J2704; J3430; P9047